=== PATIENT | male | born 1970 | race Caucasian/White ===

== ENCOUNTER 2022-01-29 15:55 | Outpatient (CLI) | payer OTHER, SELFPAY ==
[2022-01-29 16:16] LABS: Immature Reticulocyte Fraction 26.5 % (2.0-16.52); Reticulocyte Percent 1.91 % (0.50-1.50); Reticulocytes Absolute 0.08 M/mm3 (0.02-0.1)
[2022-01-29 16:45] LABS: Iron 46 ug/dL (65-175); Percent Iron Saturation 15 % (12-57)
[2022-01-30 06:22] LABS: Ferritin 39 ng/mL (26-388)
[2022-01-30 07:46] LABS: Basophils Absolute Auto 0.08 K/mm3 (0.00-0.10); Basophils Percent Auto 0.7 % (0.0-1.0); Eosinophils Absolute Auto 0.76 K/mm3 (0.02-0.50); Eosinophils Percent Auto 6.9 % (1.0-6.0); Hematocrit 42.1 % (40.0-54.0); Hemoglobin 13.4 g/dL (14.0-18.0); Immature Granulocyte Absolute 0.06 K/mm3 (0.00-0.00); Immature Granulocyte Percent A 0.5 % (0.0-0.0); Lymphocytes Absolute Auto 2.06 K/mm3 (1.10-4.50); Lymphocytes Percent Auto 18.8 % (18.0-42.0); Mean Corpuscular HGB Conc 31.8 g/dL (32.0-36.0); Mean Corpuscular Hemoglobin 32.3 pg (27.0-31.0); Mean Corpuscular Volume 101.4 fL (78.0-102.0); Mean Platelet Volume 9.9 fl (8.7-11.0); Monocytes Absolute Auto 1.15 K/mm3 (0.10-0.90); Monocytes Percent Auto 10.5 % (2.0-11.0); Neutrophils Absolute Auto 6.8 K/mm3 (1.7-7.2); Neutrophils Percent Auto 62.6 % (50.0-70.0); Platelet Count Result 437 K/mm3 (150-420); Red Blood Count 4.15 M/mm3 (4.70-6.10); Red Cell Distribution Width 14.1 % (11.6-14.4); White Blood Count 10.9 K/mm3 (4.8-10.8)
== END 2022-01-29 15:56 | disposition home or self-care (01) ==
LOC: CHSLAB 16:00
PROVIDERS: Visit Provider Internal Medicine Hematology & Oncology
DX: C18.9 Malignant neoplasm of colon, unspecified (principal); C20 Malignant neoplasm of rectum
CPT/HCPCS: 36415; 82728; 83540; 83550; 85025; 85046

== ENCOUNTER 2022-02-10 10:16 | Outpatient (CLI) | payer OTHER, SELFPAY ==
[2022-02-10 10:41] LABS: Basophils Absolute Auto 0.07 K/mm3 (0.00-0.10); Basophils Percent Auto 0.7 % (0.0-1.0); Eosinophils Absolute Auto 0.87 K/mm3 (0.02-0.50); Eosinophils Percent Auto 8.3 % (1.0-6.0); Hematocrit 39.3 % (40.0-54.0); Hemoglobin 12.8 g/dL (14.0-18.0); Immature Granulocyte Absolute 0.04 K/mm3 (0.00-0.00); Immature Granulocyte Percent A 0.4 % (0.0-0.0); Lymphocytes Absolute Auto 1.63 K/mm3 (1.10-4.50); Lymphocytes Percent Auto 15.6 % (18.0-42.0); Mean Corpuscular HGB Conc 32.6 g/dL (32.0-36.0); Mean Corpuscular Hemoglobin 31.8 pg (27.0-31.0); Mean Corpuscular Volume 97.5 fL (78.0-102.0); Mean Platelet Volume 9.2 fl (8.7-11.0); Monocytes Absolute Auto 1.06 K/mm3 (0.10-0.90); Monocytes Percent Auto 10.1 % (2.0-11.0); Neutrophils Absolute Auto 6.8 K/mm3 (1.7-7.2); Neutrophils Percent Auto 64.9 % (50.0-70.0); Platelet Count Result 337 K/mm3 (150-420); Red Blood Count 4.03 M/mm3 (4.70-6.10); White Blood Count 10.5 K/mm3 (4.8-10.8)
[2022-02-10 10:42] VITALS: BP 103/63; PULSE 64; RESP 14; TEMP 35.7; O2SAT 98
[2022-02-10 10:43] VITALS: BMI 29.0
[2022-02-10 11:00] LABS: Alanine Aminotransferase 30 U/L (16-63); Albumin Level 3.6 g/dL (3.4-5.0); Alkaline Phosphatase 115 U/L (46-116); Anion Gap 10 mmol/L (8-16); Aspartate Amino Transferase 18 U/L (15-37); Bilirubin,Total 0.3 mg/dL (0.00-1.00); Blood Urea Nitrogen 10 mg/dL (7-18); Carbon Dioxide 26 mmol/L (21-32); Chloride 118 mmol/L (98-108); Estimated CRCL calculation 104 ml/min; Estimated Glomerular Filt Rate > 60; Glucose 101 mg/dL (70-99); Osmolality Calculated 317 mOsm/kg (285-295); Potassium 4.3 mmol/L (3.5-5.1); Sodium 154 mmol/L (136-145); Total Protein 6.7 g/dL (6.4-8.2)
[2022-02-10] MEDS: diphenhydrAMINE HCl INJ 50 MG/ML VIAL 25 MG IV PUSH (11:00)
[2022-02-10] MEDS: FAMOTIDINE 20 MG/2 ML VIAL IV PUSH (11:05)
--- NOTE | 2022-02-10 13:26 | PC.NURSE ---
Patient here for Cycle 1 of Oxaliplatin. Labs drawn/reviewed/ok'd for chemo. Education given. All concerns voiced. IV Chemo regimen-Oxaliplatin administered. Tolerated well. Safe exit of hospital will return March 03, 2022 at 1030 for Cycle 2.
[2022-02-10] MEDS: HEPARIN SODIUM LOCK FLUSH 500 UNITS/5 ML SYRINGE IV PUSH (13:34)
[2022-02-10 13:35] VITALS: BP 111/65; PULSE 64; RESP 14; TEMP 36; O2SAT 97
== END 2022-02-10 10:17 | disposition home or self-care (01) ==
LOC: CHSTREATRM 10:20
PROVIDERS: Visit Provider Internal Medicine Hematology & Oncology
DX: Z51.11 Encounter for antineoplastic chemotherapy (principal); C20 Malignant neoplasm of rectum
CPT/HCPCS: 36415; 80053; 85025; 96367; 96375; 96413; 96415; J1100; J1200; J2405; J7060; J9263

== ENCOUNTER 2022-03-03 07:54 | Outpatient (CLI) | payer OTHER, SELFPAY ==
[2022-03-03 08:19] VITALS: BP 107/59; PULSE 68; RESP 14; TEMP 36.3; O2SAT 97
[2022-03-03 08:20] VITALS: BMI 28.8
[2022-03-03 08:25] LABS: Basophils Absolute Auto 0.05 K/mm3 (0.00-0.10); Basophils Percent Auto 0.8 % (0.0-1.0); Eosinophils Percent Auto 7.6 % (1.0-6.0); Hemoglobin 13.2 g/dL (14.0-18.0); Immature Granulocyte Absolute 0.03 K/mm3 (0.00-0.00); Immature Granulocyte Percent A 0.5 % (0.0-0.0); Lymphocytes Absolute Auto 1.26 K/mm3 (1.10-4.50); Lymphocytes Percent Auto 19.1 % (18.0-42.0); Mean Corpuscular HGB Conc 32.2 g/dL (32.0-36.0); Mean Corpuscular Hemoglobin 31.4 pg (27.0-31.0); Mean Corpuscular Volume 97.6 fL (78.0-102.0); Mean Platelet Volume 8.8 fl (8.7-11.0); Monocytes Absolute Auto 0.87 K/mm3 (0.10-0.90); Monocytes Percent Auto 13.2 % (2.0-11.0); Neutrophils Absolute Auto 3.9 K/mm3 (1.7-7.2); Neutrophils Percent Auto 58.8 % (50.0-70.0); Platelet Count Result 299 K/mm3 (150-420); Red Cell Distribution Width 15.8 % (11.6-14.4); White Blood Count 6.6 K/mm3 (4.8-10.8)
[2022-03-03 08:45] LABS: Alanine Aminotransferase 32 U/L (16-63); Albumin Level 3.5 g/dL (3.4-5.0); Alkaline Phosphatase 103 U/L (46-116); Anion Gap 8 mmol/L (8-16); Aspartate Amino Transferase 22 U/L (15-37); Bilirubin,Total 0.4 mg/dL (0.00-1.00); Blood Urea Nitrogen 11 mg/dL (7-18); Calcium 8.7 mg/dL (8.5-10.1); Carbon Dioxide 25 mmol/L (21-32); Chloride 105 mmol/L (98-108); Estimated CRCL calculation 86 ml/min; Estimated Glomerular Filt Rate > 60; Glucose 136 mg/dL (70-99); Osmolality Calculated 287 mOsm/kg (285-295); Potassium 3.6 mmol/L (3.5-5.1); Sodium 138 mmol/L (136-145); Total Protein 6.5 g/dL (6.4-8.2)
[2022-03-03] MEDS: diphenhydrAMINE HCl INJ 50 MG/ML VIAL 25 MG IV PUSH (08:59)
[2022-03-03] MEDS: FAMOTIDINE 20 MG/2 ML VIAL IV PUSH (09:00)
[2022-03-03 11:38] VITALS: BP 100/61; PULSE 60; RESP 14; TEMP 36.6; O2SAT 97
[2022-03-03] MEDS: HEPARIN SODIUM LOCK FLUSH 500 UNITS/5 ML SYRINGE IV PUSH (11:38)
--- NOTE | 2022-03-03 11:39 | PC.NURSE ---
Patient here for Cycle 2 of Oxaliplatin regimen. Labs drawn/reviewed/ok'd. Education on f chemo/cancer ongoing. All concerns answered. IV Chemo Oxaliplatin regimen administered via patent port a cath. SEE MAR. Tolerated well. Safe exit of hospital. Will return cycle 3 on March 24, 2022.
== END 2022-03-03 07:55 | disposition home or self-care (01) ==
PROVIDERS: Visit Provider Internal Medicine Hematology & Oncology
DX: Z51.11 Encounter for antineoplastic chemotherapy (principal); C20 Malignant neoplasm of rectum
CPT/HCPCS: 36415; 80053; 85025; 96367; 96375; 96413; 96415; J1100; J1200; J2405; J7060; J9263

== ENCOUNTER 2022-03-24 10:06 | Outpatient (CLI) | payer OTHER, SELFPAY ==
[2022-03-24 10:29] LABS: Hematocrit 38.6 % (40.0-54.0); Hemoglobin 12.7 g/dL (14.0-18.0); Mean Corpuscular HGB Conc 32.9 g/dL (32.0-36.0); Mean Corpuscular Hemoglobin 32.2 pg (27.0-31.0); Platelet Count Result 258 K/mm3 (150-420); Red Blood Count 3.94 M/mm3 (4.70-6.10); Red Cell Distribution Width 18.2 % (11.6-14.4); White Blood Count 6.2 K/mm3 (4.8-10.8)
--- NOTE | 2022-03-24 10:29 | PC.NURSE ---
Pt to Outpatient infusion center with spouse. A&Ox3. Has no questions or complaints. Oriented to room. Call goodwin in reach. Reminded to call with needs.
--- NOTE | 2022-03-24 10:30 | PC.NURSE ---
Blood drawn from Port and sent to lab.
[2022-03-24 10:37] VITALS: BMI 29.2
[2022-03-24 10:42] VITALS: BP 113/65; PULSE 64; RESP 14; TEMP 36.2; O2SAT 97
[2022-03-24 10:44] LABS: Band Neutrophils Percent 0 % (0-6); Eosinophils Absolute Manual 0.68 K/mm3 (0.02-0.5); Eosinophils Percent Manual 11 % (1-6); Lymphocytes Absolute Manual 1.79 K/mm3 (1.1-4.5); Lymphocytes Percent Manual 29 % (18-44); Monocytes Absolute Manual 0.93 K/mm3 (0.1-0.90); Monocytes Percent Manual 15 % (3-9); Neutrophils Absolute Manual 2.79 K/mm3 (1.3-6.7); Neutrophils Percent Manual 45 % (46-73); Platelet Estimate Adequate (Adequate); Total Cells Counted 100
[2022-03-24 10:50] LABS: Alanine Aminotransferase 62 U/L (16-63); Albumin Level 3.4 g/dL (3.4-5.0); Alkaline Phosphatase 107 U/L (46-116); Anion Gap 5 mmol/L (8-16); Aspartate Amino Transferase 40 U/L (15-37); Bilirubin,Total 0.6 mg/dL (0.00-1.00); Blood Urea Nitrogen 12 mg/dL (7-18); Calcium 8.9 mg/dL (8.5-10.1); Carbon Dioxide 25 mmol/L (21-32); Chloride 105 mmol/L (98-108); Estimated CRCL calculation 96 ml/min; Estimated Glomerular Filt Rate > 60; Glucose 89 mg/dL (70-99); Osmolality Calculated 278 mOsm/kg (285-295); Potassium 3.9 mmol/L (3.5-5.1); Sodium 135 mmol/L (136-145); Total Protein 6.3 g/dL (6.4-8.2)
[2022-03-24] MEDS: FAMOTIDINE 20 MG/2 ML VIAL IV PUSH (10:50)
[2022-03-24] MEDS: diphenhydrAMINE HCl INJ 50 MG/ML VIAL 25 MG IV PUSH (10:59)
[2022-03-24 14:33] VITALS: BP 104/65; PULSE 60; RESP 14; TEMP 36.6; O2SAT 97
[2022-03-24] MEDS: HEPARIN SODIUM LOCK FLUSH 500 UNITS/5 ML SYRINGE IV PUSH (14:33)
--- NOTE | 2022-03-24 14:34 | PC.NURSE ---
Patient here for Cycle 3 of 6 Oxaliplatin chemo regimen. Education given. Concerns answered. Labs drawn/reviewed/ok'd for chemo. No weight loss or nausea/vomiting reported. Reports some fatigue and of course Oxaliplatin cold neuropathy- but not horrible. Chemo regimen administered. See MAR. Tolerated well. Safe exit of hospital. Will return 04/14/22 1000.
== END 2022-03-24 10:07 | disposition home or self-care (01) ==
LOC: CHSTREATRM 10:10
PROVIDERS: Visit Provider Internal Medicine Hematology & Oncology
DX: Z51.11 Encounter for antineoplastic chemotherapy (principal); C20 Malignant neoplasm of rectum
CPT/HCPCS: 36415; 80053; 85025; 96367; 96375; 96413; 96415; J1100; J1200; J2405; J7060; J9263

== ENCOUNTER 2022-04-14 09:57 | Outpatient (CLI) | payer OTHER, SELFPAY ==
[2022-04-14 10:15] VITALS: BP 117/46; PULSE 69; RESP 16; TEMP 36.7; O2SAT 98
[2022-04-14 10:17] VITALS: BMI 29.6
[2022-04-14 10:17] LABS: Hemoglobin 11.9 g/dL (14.0-18.0); Mean Corpuscular Hemoglobin 33.1 pg (27.0-31.0); Mean Corpuscular Volume 97.2 fL (78.0-102.0); Mean Platelet Volume 9.2 fl (8.7-11.0); Platelet Count Result 208 K/mm3 (150-420); Red Cell Distribution Width 20.8 % (11.6-14.4)
[2022-04-14 10:33] LABS: Alanine Aminotransferase 45 U/L (16-63); Alkaline Phosphatase 98 U/L (46-116); Anion Gap 6 mmol/L (8-16); Aspartate Amino Transferase 37 U/L (15-37); Bilirubin,Total 0.5 mg/dL (0.00-1.00); Blood Urea Nitrogen 10 mg/dL (7-18); Calcium 8.2 mg/dL (8.5-10.1); Carbon Dioxide 24 mmol/L (21-32); Chloride 109 mmol/L (98-108); Estimated CRCL calculation 105 ml/min; Estimated Glomerular Filt Rate > 60; Glucose 121 mg/dL (70-99); Osmolality Calculated 288 mOsm/kg (285-295); Potassium 3.5 mmol/L (3.5-5.1); Sodium 139 mmol/L (136-145); Total Protein 5.8 g/dL (6.4-8.2)
[2022-04-14] MEDS: FAMOTIDINE 20 MG/2 ML VIAL IV PUSH (10:47)
[2022-04-14] MEDS: diphenhydrAMINE HCl INJ 50 MG/ML VIAL 25 MG IV PUSH (10:47)
[2022-04-14 10:50] LABS: Band Neutrophils Percent 0 % (0-6); Neutrophils Percent Manual 55 % (46-73); Total Cells Counted 100
[2022-04-14 10:51] LABS: Basophils Percent Manual 0 % (0-1); Eosinophils Absolute Manual 0.24 K/mm3 (0.02-0.5); Eosinophils Percent Manual 4 % (1-6); Lymphocytes Absolute Manual 1.56 K/mm3 (1.1-4.5); Lymphocytes Percent Manual 26 % (18-44); Monocytes Percent Manual 15 % (3-9); Platelet Estimate Adequate (Adequate)
--- NOTE | 2022-04-14 13:18 | PC.NURSE ---
Patient here for Cycle 4 of 6 Oxaliplatin Chemo regimen therapy IV. Education given. Labs drawn/reviewed/ok'd. IV Oxaliplatin chemo regimen administered. See MAR. Tolerated well. Safe exit of hospital. Will return May 05, 2022 at 1000 for cycle 5.
[2022-04-14] MEDS: HEPARIN SODIUM LOCK FLUSH 500 UNITS/5 ML SYRINGE IV PUSH (13:31)
[2022-04-14 13:40] VITALS: BP 112/53; PULSE 88; RESP 14; O2SAT 98
== END 2022-04-14 09:58 | disposition home or self-care (01) ==
LOC: CHSTREATRM 10:01
PROVIDERS: Visit Provider Internal Medicine Hematology & Oncology
DX: Z51.11 Encounter for antineoplastic chemotherapy (principal); C20 Malignant neoplasm of rectum
CPT/HCPCS: 36415; 80053; 85025; 96367; 96375; 96413; 96415; J1100; J1200; J2405; J7060; J9263

== ENCOUNTER 2022-05-05 09:46 | Outpatient (CLI) | payer OTHER, SELFPAY ==
[2022-05-05 10:04] LABS: Hematocrit 34.5 % (40.0-54.0); Hemoglobin 11.7 g/dL (14.0-18.0); Mean Corpuscular HGB Conc 33.9 g/dL (32.0-36.0); Mean Corpuscular Hemoglobin 33.8 pg (27.0-31.0); Mean Corpuscular Volume 99.7 fL (78.0-102.0); Platelet Count Result 184 K/mm3 (150-420); Red Blood Count 3.46 M/mm3 (4.70-6.10); Red Cell Distribution Width 23.6 % (11.6-14.4); White Blood Count 5.8 K/mm3 (4.8-10.8)
[2022-05-05 10:05] VITALS: BP 101/63; PULSE 69; RESP 14; TEMP 36.1; O2SAT 96
[2022-05-05 10:06] VITALS: BMI 29.2
[2022-05-05 10:11] LABS: Band Neutrophils Percent 0 % (0-6); Eosinophils Percent Manual 7 % (1-6); Lymphocytes Absolute Manual 1.45 K/mm3 (1.1-4.5); Lymphocytes Percent Manual 25 % (18-44); Monocytes Percent Manual 19 % (3-9); Neutrophils Absolute Manual 2.84 K/mm3 (1.3-6.7); Neutrophils Percent Manual 49 % (46-73); Platelet Estimate Adequate (Adequate); Total Cells Counted 100
[2022-05-05] MEDS: diphenhydrAMINE HCl INJ 50 MG/ML VIAL 25 MG IV PUSH (10:15)
[2022-05-05 10:20] LABS: Alanine Aminotransferase 33 U/L (16-63); Albumin Level 3.1 g/dL (3.4-5.0); Alkaline Phosphatase 107 U/L (46-116); Anion Gap 7 mmol/L (8-16); Aspartate Amino Transferase 32 U/L (15-37); Bilirubin,Total 0.7 mg/dL (0.00-1.00); Blood Urea Nitrogen 9 mg/dL (7-18); Calcium 8.5 mg/dL (8.5-10.1); Carbon Dioxide 24 mmol/L (21-32); Chloride 108 mmol/L (98-108); Estimated CRCL calculation 99 ml/min; Estimated Glomerular Filt Rate > 60; Glucose 139 mg/dL (70-99); Osmolality Calculated 288 mOsm/kg (285-295); Potassium 3.4 mmol/L (3.5-5.1); Sodium 139 mmol/L (136-145)
[2022-05-05] MEDS: FAMOTIDINE 20 MG/2 ML VIAL IV PUSH (10:20)
[2022-05-05 13:55] VITALS: BP 103/66; PULSE 78; RESP 14; TEMP 36.6; O2SAT 97
[2022-05-05] MEDS: HEPARIN SODIUM LOCK FLUSH 500 UNITS/5 ML SYRINGE IV PUSH (13:55)
--- NOTE | 2022-05-05 13:57 | PC.NURSE ---
Patient here for Cycle 5 of 6 Oxaliplatin chemo regimen. Labs drawn and results reviewed and ok'd for chemo. Education given. No concerns voiced. Reports had phone visit with Dr. Middleton yesterday and everything was good. IV Oxaliplatin regimen administered via patent port a cath. SEE MAR. Tolerated well. Safe exit of hospital. Will return 2021 at 1000 for #6 of 6.
== END 2022-05-05 09:47 | disposition home or self-care (01) ==
LOC: CHSTREATRM 09:49
PROVIDERS: Visit Provider Internal Medicine Hematology & Oncology
DX: Z51.11 Encounter for antineoplastic chemotherapy (principal); C20 Malignant neoplasm of rectum
CPT/HCPCS: 36415; 80053; 85025; 96367; 96375; 96413; 96415; J1100; J1200; J2405; J7060; J9263

== ENCOUNTER 2022-05-26 09:42 | Outpatient (CLI) | payer OTHER, SELFPAY ==
[2022-05-26 10:01] VITALS: BP 101/63; PULSE 64; RESP 14; TEMP 36.6; O2SAT 98
[2022-05-26 10:03] VITALS: BMI 28.5
[2022-05-26 10:04] LABS: Hematocrit 34.8 % (40.0-54.0); Hemoglobin 11.8 g/dL (14.0-18.0); Mean Corpuscular HGB Conc 33.9 g/dL (32.0-36.0); Mean Corpuscular Hemoglobin 35.1 pg (27.0-31.0); Mean Corpuscular Volume 103.6 fL (78.0-102.0); Mean Platelet Volume 9.6 fl (8.7-11.0); Platelet Count Result 185 K/mm3 (150-420); Red Blood Count 3.36 M/mm3 (4.70-6.10); White Blood Count 5.5 K/mm3 (4.8-10.8)
[2022-05-26 10:19] LABS: Alanine Aminotransferase 36 U/L (16-63); Albumin Level 3.2 g/dL (3.4-5.0); Alkaline Phosphatase 111 U/L (46-116); Anion Gap 10 mmol/L (8-16); Aspartate Amino Transferase 37 U/L (15-37); Band Neutrophils Percent 0 % (0-6); Bilirubin,Total 0.9 mg/dL (0.00-1.00); Blood Urea Nitrogen 11 mg/dL (7-18); Calcium 8.8 mg/dL (8.5-10.1); Carbon Dioxide 24 mmol/L (21-32); Chloride 107 mmol/L (98-108); Eosinophils Absolute Manual 0.33 K/mm3 (0.02-0.5); Eosinophils Percent Manual 6 % (1-6); Estimated CRCL calculation 99 ml/min; Estimated Glomerular Filt Rate > 60; Glucose 135 mg/dL (70-99); Lymphocytes Absolute Manual 1.48 K/mm3 (1.1-4.5); Lymphocytes Percent Manual 27 % (18-44); Monocytes Absolute Manual 0.82 K/mm3 (0.1-0.90); Monocytes Percent Manual 15 % (3-9); Neutrophils Absolute Manual 2.86 K/mm3 (1.3-6.7); Neutrophils Percent Manual 52 % (46-73); Osmolality Calculated 293 mOsm/kg (285-295); Platelet Estimate Adequate (Adequate); Potassium 3.6 mmol/L (3.5-5.1); Sodium 141 mmol/L (136-145); Total Cells Counted 100; Total Protein 6.1 g/dL (6.4-8.2)
[2022-05-26] MEDS: FAMOTIDINE 20 MG/2 ML VIAL IV PUSH (10:27)
[2022-05-26] MEDS: diphenhydrAMINE HCl INJ 50 MG/ML VIAL 25 MG IV PUSH (10:28)
[2022-05-26] MEDS: HEPARIN SODIUM LOCK FLUSH 500 UNITS/5 ML SYRINGE IV PUSH (13:24)
[2022-05-26 13:25] VITALS: BP 110/60; PULSE 64; RESP 18; TEMP 36.4; O2SAT 97
--- NOTE | 2022-05-26 13:26 | PC.NURSE ---
Patient here for #6 of 6 IV chemotherapy. Labs drawn-reviewed and ok'd. Education given. No concerns voiced. Reports just gets tired easily. IV chemo regimen administered see MAR. Tolerated well. Safe exit of hospital.
== END 2022-05-26 09:43 | disposition home or self-care (01) ==
LOC: CHSTREATRM 09:47
PROVIDERS: Visit Provider Internal Medicine Hematology & Oncology
DX: Z51.11 Encounter for antineoplastic chemotherapy (principal); C20 Malignant neoplasm of rectum
CPT/HCPCS: 36415; 80053; 85025; 96367; 96375; 96413; 96415; J1100; J1200; J2405; J7060; J9263

== ENCOUNTER 2022-07-20 09:23 | Outpatient (CLI) | payer OTHER, SELFPAY ==
[2022-07-20] MEDS: HEPARIN SODIUM LOCK FLUSH 500 UNITS/5 ML SYRINGE IV PUSH (09:47)
--- NOTE | 2022-07-20 09:49 | PC.NURSE ---
Patient here for port flush. Right subclavian port accessed. Flushed SEE Dec. port asystomatic of s/sx of infection. Tolerated well. Safe exit of hospital. Will return prn.
== END 2022-07-20 09:24 | disposition home or self-care (01) ==
PROVIDERS: Visit Provider Internal Medicine Hematology & Oncology
DX: Z45.2 Encounter for adjustment and management of vascular access device (principal)
CPT/HCPCS: 96523

== ENCOUNTER 2022-09-03 11:28 | Outpatient (CLI) | payer OTHER, SELFPAY ==
[2022-09-03] MEDS: HEPARIN SODIUM LOCK FLUSH 500 UNITS/5 ML SYRINGE IV PUSH (11:40)
--- NOTE | 2022-09-03 13:37 | PC.NURSE ---
Patient here for monthly port flush. Port accessed with ferraro port needle, good blood return, flushed per protocol, deaccessed. Site asystomatic of s/sx of infection. SEE MAR. Safe exit of hospital.
== END 2022-09-03 11:29 | disposition home or self-care (01) ==
LOC: CHSTREATRM 11:32
PROVIDERS: Visit Provider Internal Medicine Hematology & Oncology
DX: Z45.2 Encounter for adjustment and management of vascular access device (principal)
CPT/HCPCS: 96523

== ENCOUNTER 2022-10-04 11:33 | Outpatient (CLI) | payer OTHER, SELFPAY ==
[2022-10-04] MEDS: HEPARIN SODIUM LOCK FLUSH 500 UNITS/5 ML SYRINGE IV PUSH (11:45)
--- NOTE | 2022-10-04 12:42 | PC.NURSE ---
Patient here for q 4 week port a cath flush. No concerns voiced. Port a cath accessed/flushed/deacessed. SEE MAR. Site asystomatic of s/sx of infection. Tolerated well. Safe exit of hospital.
== END 2022-10-04 11:34 | disposition home or self-care (01) ==
LOC: CHSTREATRM 11:35
PROVIDERS: Visit Provider Internal Medicine Hematology & Oncology
DX: Z45.2 Encounter for adjustment and management of vascular access device (principal)
CPT/HCPCS: 96523

== ENCOUNTER 2022-11-05 10:06 | Outpatient (CLI) | payer OTHER, SELFPAY ==
[2022-11-05] MEDS: HEPARIN SODIUM LOCK FLUSH 500 UNITS/5 ML SYRINGE IV PUSH (10:20)
--- NOTE | 2022-11-05 10:27 | PC.NURSE ---
Patient here for monthly port flush. No concerns voiced. Port flush completed. SEE MAR and assessments. Tolerated well. Safe exit of hospital.
== END 2022-11-05 10:07 | disposition home or self-care (01) ==
PROVIDERS: PCP Internal Medicine Hematology & Oncology; Visit Provider Internal Medicine Hematology & Oncology
DX: Z45.2 Encounter for adjustment and management of vascular access device (principal)
CPT/HCPCS: 96523

== ENCOUNTER 2022-12-06 10:59 | Outpatient (CLI) | payer OTHER, SELFPAY ==
--- NOTE | 2022-12-06 11:12 | PC.NURSE ---
Patient for monthly port flush. Education given. No concerns voiced. Port flush completed. Tolerated well. SEE MAR and vasc flowsheet. Safe exit of hospital. Patient will call next month to schedule.
[2022-12-06] MEDS: HEPARIN SODIUM LOCK FLUSH 500 UNITS/5 ML SYRINGE (11:13)
== END 2022-12-06 11:00 | disposition home or self-care (01) ==
LOC: CHSTREATRM 11:01
PROVIDERS: PCP Internal Medicine Hematology & Oncology; Visit Provider Internal Medicine Hematology & Oncology
DX: Z45.2 Encounter for adjustment and management of vascular access device (principal)
CPT/HCPCS: 96523; J1642

== ENCOUNTER 2022-12-31 10:47 | Outpatient (CLI) | payer OTHER, SELFPAY ==
[2022-12-31 11:34] LABS: Ferritin 152 ng/mL (26-388); Iron 116 ug/dL (65-175); Percent Iron Saturation 46 % (12-57)
== END 2022-12-31 10:48 | disposition home or self-care (01) ==
LOC: CHSLAB 10:51
PROVIDERS: Visit Provider Internal Medicine Hematology & Oncology
DX: D64.9 Anemia, unspecified (principal)
CPT/HCPCS: 36415; 82728; 83540; 83550

== ENCOUNTER 2023-01-07 10:45 | Outpatient (CLI) | payer OTHER, SELFPAY ==
[2023-01-07] MEDS: HEPARIN SODIUM LOCK FLUSH 500 UNITS/5 ML SYRINGE IV PUSH (11:00)
--- NOTE | 2023-01-07 11:41 | PC.NURSE ---
Patient here for monthly port flush. Port flush performed and tolerated well. SEE worklist and MAR. Safe exit of hospital.
[2023-01-07 11:48] VITALS: BMI 28.9
== END 2023-01-07 10:46 | disposition home or self-care (01) ==
LOC: CHSTREATRM 10:48
PROVIDERS: Visit Provider Internal Medicine Hematology & Oncology
DX: Z45.2 Encounter for adjustment and management of vascular access device (principal)
CPT/HCPCS: 96523

== ENCOUNTER 2023-02-28 12:32 | Outpatient (CLI) | payer OTHER, SELFPAY ==
[2023-02-28 12:49] VITALS: BMI 29.2
[2023-02-28 12:51] VITALS: BP 118/70; PULSE 72; RESP 14; TEMP 36.4; O2SAT 98
[2023-02-28] MEDS: HEPARIN SODIUM LOCK FLUSH 500 UNITS/5 ML SYRINGE IV PUSH (12:52)
== END 2023-02-28 12:33 | disposition home or self-care (01) ==
LOC: CHSTREATRM 12:35
PROVIDERS: Visit Provider Internal Medicine Hematology & Oncology
DX: Z45.2 Encounter for adjustment and management of vascular access device (principal)
CPT/HCPCS: 96523

== ENCOUNTER 2023-05-06 10:09 | Outpatient (CLI) | payer OTHER, SELFPAY ==
[2023-05-06] MEDS: HEPARIN SODIUM LOCK FLUSH 500 UNITS/5 ML SYRINGE IV PUSH (10:12)
[2023-05-06 10:17] VITALS: BP 135/77; PULSE 80; RESP 16; TEMP 36.4; O2SAT 98
[2023-05-06 10:18] VITALS: BMI 29.7
--- NOTE | 2023-05-06 10:20 | PC.NURSE ---
Patient here for monthly port flush. No concerns voiced. Port flushed completed. SEE worklist/MAR. Tolerated well. Safe exit of hospital per self/amb. Will call when he want's next month's port flush.
== END 2023-05-06 10:10 | disposition home or self-care (01) ==
LOC: CHSTREATRM 10:11
PROVIDERS: Visit Provider Internal Medicine Hematology & Oncology
DX: Z45.2 Encounter for adjustment and management of vascular access device (principal)
CPT/HCPCS: 96523

== ENCOUNTER 2023-06-02 10:10 | Outpatient (CLI) | payer OTHER, SELFPAY ==
[2023-06-02] MEDS: HEPARIN SODIUM LOCK FLUSH 500 UNITS/5 ML SYRINGE IV PUSH (10:40)
[2023-06-02 10:46] VITALS: BMI 29.7
[2023-06-02 11:26] VITALS: BP 138/80; PULSE 78; RESP 14; O2SAT 99
--- NOTE | 2023-06-02 11:28 | PC.NURSE ---
1030 Patient here for monthly port flush. No concerns voiced. Site asystomatic of s/sx of injection. Port flush performed. SEE MAR/vascular access assessment. Tolerated well. Safe exit of hospital ambulatory with . Pt. will call next month to make appt. for next port flush.
== END 2023-06-02 10:11 | disposition home or self-care (01) ==
LOC: CHSTREATRM 10:15
PROVIDERS: Visit Provider Internal Medicine Hematology & Oncology
DX: Z45.2 Encounter for adjustment and management of vascular access device (principal)
CPT/HCPCS: 96523

== ENCOUNTER 2023-07-12 11:50 | Outpatient (CLI) | payer OTHER, SELFPAY ==
[2023-07-12] MEDS: HEPARIN SODIUM LOCK FLUSH 500 UNITS/5 ML SYRINGE IV PUSH (12:50)
--- NOTE | 2023-07-12 13:24 | PC.NURSE ---
Patient here for monthly port flush. No concerns voiced. Procedure completed. Tolerated well. Safe exit of hospital per amb/.
[2023-07-12 13:28] VITALS: BMI 31.8
== END 2023-07-12 11:51 | disposition home or self-care (01) ==
LOC: CHSTREATRM 11:53
PROVIDERS: Visit Provider Internal Medicine Hematology & Oncology
DX: Z45.2 Encounter for adjustment and management of vascular access device (principal)
CPT/HCPCS: 96523

== ENCOUNTER 2023-08-12 10:33 | Outpatient (CLI) | payer OTHER, SELFPAY ==
[2023-08-12 11:00] VITALS: BP 121/79; PULSE 80; RESP 16; TEMP 36.6; O2SAT 98; BMI 29.9
--- NOTE | 2023-08-12 11:16 | PC.NURSE ---
Patient here for monthly port flush. No concerns voiced. Understand procedure. Port flush completed. SEE MAR/vascular access. Tolerated well. Safe exit of hospital/amb with . Will call next month to make an appt to their convenience.
[2023-08-12] MEDS: HEPARIN SODIUM LOCK FLUSH 500 UNITS/5 ML SYRINGE IV PUSH (11:19)
== END 2023-08-12 10:34 | disposition home or self-care (01) ==
LOC: CHSTREATRM 10:44
PROVIDERS: Visit Provider Internal Medicine Hematology & Oncology
DX: Z45.2 Encounter for adjustment and management of vascular access device (principal)
CPT/HCPCS: 96523

== ENCOUNTER 2023-12-09 09:52 | Outpatient (CLI) | payer OTHER, SELFPAY ==
[2023-12-09 10:23] LABS: Appearance Urine Clear (Clear); Bilirubin Urine Negative (Negative); Blood Urine Negative (Negative); Color Urine Light Yellow (Yellow); Glucose Urine UA Negative (Negative); Ketones Urine Negative (Negative); Leukocyte Esterase Ur Negative (Negative); Nitrate Urine Negative (Negative); Protein Urine Negative (Negative); Specific Grav Ur <= 1.005 (1.010-1.020); Urobilinogen Urine 0.2 mg/dL (0.2-1.0)
[2023-12-09 10:24] LABS: Add Urine Microscopic? NO
[2023-12-09 10:31] LABS: Basophils Absolute Auto 0.06 K/mm3 (0.00-0.10); Basophils Percent Auto 0.7 % (0.0-1.0); Eosinophils Absolute Auto 0.76 K/mm3 (0.02-0.50); Eosinophils Percent Auto 8.4 % (1.0-6.0); Hematocrit 44.7 % (40.0-54.0); Hemoglobin 15.1 g/dL (14.0-18.0); Immature Granulocyte Absolute 0.03 K/mm3 (0.00-0.00); Immature Granulocyte Percent A 0.3 % (0.0-0.0); Lymphocytes Absolute Auto 1.65 K/mm3 (1.10-4.50); Lymphocytes Percent Auto 18.2 % (18.0-42.0); Mean Corpuscular HGB Conc 33.8 g/dL (32.0-36.0); Mean Corpuscular Hemoglobin 32.5 pg (27.0-31.0); Mean Corpuscular Volume 96.1 fL (78.0-102.0); Mean Platelet Volume 8.9 fl (8.7-11.0); Monocytes Absolute Auto 1.22 K/mm3 (0.10-0.90); Monocytes Percent Auto 13.5 % (2.0-11.0); Neutrophils Absolute Auto 5.3 K/mm3 (1.7-7.2); Neutrophils Percent Auto 58.9 % (50.0-70.0); Platelet Count Result 259 K/mm3 (150-420); Red Blood Count 4.65 M/mm3 (4.70-6.10); Red Cell Distribution Width 13.2 % (11.6-14.4); White Blood Count 9.1 K/mm3 (4.8-10.8)
[2023-12-09 10:35] VITALS: BP 102/68; PULSE 88; RESP 16; TEMP 36.6; O2SAT 96; BMI 33.3
[2023-12-09] MEDS: SODIUM CHLORIDE 0.9% IV 250 ML 10 ML IVPB (11:05)
[2023-12-09 11:15] LABS: Alanine Aminotransferase 30 U/L (16-63); Albumin Level 3.6 g/dL (3.4-5.0); Alkaline Phosphatase 88 U/L (46-116); Anion Gap 10 mmol/L (8-16); Aspartate Amino Transferase 20 U/L (15-37); Bilirubin,Total 0.5 mg/dL (0.00-1.00); Blood Urea Nitrogen 11 mg/dL (7-18); Calcium 8.7 mg/dL (8.5-10.1); Carbon Dioxide 24 mmol/L (21-32); Chloride 103 mmol/L (98-108); Estimated CRCL calculation 94 ml/min; Estimated Glomerular Filt Rate > 60; Glucose 109 mg/dL (70-99); Osmolality Calculated 284 mOsm/kg (285-295); Sodium 137 mmol/L (136-145); Total Protein 6.8 g/dL (6.4-8.2)
[2023-12-09] MEDS: diphenhydrAMINE HCl INJ 50 MG/ML VIAL 25 MG IV PUSH (11:15)
[2023-12-09] MEDS: FAMOTIDINE 20 MG/ISO 50 ML 20 MG/50 ML BAG 150 MG IVPB (11:20)
[2023-12-09] MEDS: ONDANSETRON INJ 16 MG, dexAMETHasone SOD 4 MG/ML INJ 12 MG in SODIUM CHLORIDE 0.9% IV 1... 300 MG IVPB (11:40)
--- NOTE | 2023-12-09 12:44 | PC.NURSE ---
1045 Patient here for cycle 1 of Chemo regimen. Labs drawn/UA collected/results reviewed and ok'd. Chemo regimen administration began see DEC. Education given and will be ongoing each time. at chair side. 1230 Patient c/o mild chest discomfort and mild headache. Vital signs stable. Encourage patient to sit up longer after eating [employer] food. Chemo stop for now 1245 Patient set up. After 10 minutes report feeling better. Went to Bathroom and let out lots of flatus. Denies any problems now. Chemo restarted as ordered.
[2023-12-09 12:49] VITALS: BP 109/62; PULSE 72; RESP 16; O2SAT 96
[2023-12-09] MEDS: HEPARIN SODIUM LOCK FLUSH 500 UNITS/5 ML SYRINGE IV PUSH (13:29)
[2023-12-09 13:40] VITALS: BP 111/69; PULSE 72; RESP 14; TEMP 36.6; O2SAT 96
--- NOTE | 2023-12-09 13:41 | PC.NURSE ---
1330 Chemo infusion completed. Tolerated well without any complaints after above incident. Will return 12/30/23 at 1030 for next chemo tx. Safe exit of hospital with per ambulatory.
[2023-12-14 06:37] LABS: Carcinoembryonic Antigen <2.0 ng/mL (<2.5)
== END 2023-12-09 13:43 | disposition home or self-care (01) ==
LOC: CHSTREATRM 09:55
PROVIDERS: Internal Medicine Hematology; Visit Provider Internal Medicine Hematology & Oncology
DX: Z51.11 Encounter for antineoplastic chemotherapy (principal); C20 Malignant neoplasm of rectum; C78.00 Secondary malignant neoplasm of unspecified lung
CPT/HCPCS: 36415; 80053; 81003; 82378; 85025; 96367; 96375; 96413; J1100; J1200; J2405; J7050; Q5118

== ENCOUNTER 2023-12-30 10:21 | Outpatient (CLI) | payer OTHER, SELFPAY ==
[2023-12-30 10:41] VITALS: BMI 34.2
[2023-12-30 10:44] LABS: Appearance Urine Clear (Clear); Basophils Absolute Auto 0.04 K/mm3 (0.00-0.10); Basophils Percent Auto 0.5 % (0.0-1.0); Bilirubin Urine Negative (Negative); Blood Urine Negative (Negative); Color Urine Light Yellow (Yellow); Eosinophils Absolute Auto 0.63 K/mm3 (0.02-0.50); Eosinophils Percent Auto 7.2 % (1.0-6.0); Glucose Urine UA Negative (Negative); Hematocrit 44.7 % (40.0-54.0); Hemoglobin 15.2 g/dL (14.0-18.0); Immature Granulocyte Absolute 0.03 K/mm3 (0.00-0.00); Immature Granulocyte Percent A 0.3 % (0.0-0.0); Ketones Urine Negative (Negative); Leukocyte Esterase Ur Negative LEU/UL (Negative); Lymphocytes Absolute Auto 1.86 K/mm3 (1.10-4.50); Lymphocytes Percent Auto 21.2 % (18.0-42.0); Mean Platelet Volume 8.9 fl (8.7-11.0); Monocytes Absolute Auto 0.76 K/mm3 (0.10-0.90); Monocytes Percent Auto 8.7 % (2.0-11.0); Neutrophils Absolute Auto 5.4 K/mm3 (1.7-7.2); Neutrophils Percent Auto 62.1 % (50.0-70.0); Nitrate Urine Negative (Negative); Platelet Count Result 257 K/mm3 (150-420); Protein Urine Negative (Negative); Red Blood Count 4.61 M/mm3 (4.70-6.10); Red Cell Distribution Width 14.6 % (11.6-14.4); Specific Grav Ur <= 1.005 (1.010-1.020); Urobilinogen Urine 0.2 mg/dL (0.2-1.0); White Blood Count 8.8 K/mm3 (4.8-10.8); pH Urine 5.5 (5.0-8.0)
[2023-12-30] MEDS: SODIUM CHLORIDE 0.9% IV 250 ML 10 ML IVPB (11:00)
[2023-12-30 11:02] VITALS: BP 117/70; PULSE 80; RESP 14; TEMP 36.6; O2SAT 97
[2023-12-30 11:02] LABS: Alanine Aminotransferase 35 U/L (16-63); Albumin Level 3.7 g/dL (3.4-5.0); Alkaline Phosphatase 87 U/L (46-116); Anion Gap 12 mmol/L (8-16); Aspartate Amino Transferase 21 U/L (15-37); Bilirubin,Total 0.5 mg/dL (0.00-1.00); Blood Urea Nitrogen 9 mg/dL (7-18); Calcium 8.6 mg/dL (8.5-10.1); Carbon Dioxide 26 mmol/L (21-32); Chloride 102 mmol/L (98-108); Estimated CRCL calculation 90 ml/min; Estimated Glomerular Filt Rate > 60; Glucose 162 mg/dL (70-99); Osmolality Calculated 292 mOsm/kg (285-295); Potassium 3.9 mmol/L (3.5-5.1); Sodium 140 mmol/L (136-145); Total Protein 6.8 g/dL (6.4-8.2)
[2023-12-30] MEDS: SODIUM CHLORIDE 0.9% IVPB (11:05)
[2023-12-30] MEDS: ONDANSETRON IVPB (11:05)
[2023-12-30 11:12] LABS: Add Urine Microscopic? NO
[2023-12-30] MEDS: HEPARIN SODIUM LOCK FLUSH 500 UNITS/5 ML SYRINGE IV PUSH (12:47)
[2023-12-30 12:49] VITALS: BP 121/69; PULSE 72; RESP 14; TEMP 36.4; O2SAT 97
--- NOTE | 2023-12-30 12:50 | PC.NURSE ---
Patient here for #2 chemotherapy regimen. Labs draw/reviewed/ok'd. Education given. All concerns voiced answered. IV Chemo regimen administered. SSE MAR. Tolerated well. Will return 01/20/24 for #3. Safe exit of hospital with /ambulatory.
[2024-01-05 06:12] LABS: Carcinoembryonic Antigen <2.0 ng/mL (<2.5)
== END 2023-12-30 12:52 | disposition home or self-care (01) ==
PROVIDERS: Visit Provider Internal Medicine Hematology & Oncology
DX: Z51.11 Encounter for antineoplastic chemotherapy (principal); C20 Malignant neoplasm of rectum
CPT/HCPCS: 36415; 80053; 81003; 82378; 85025; 96367; 96413; J2405; J7050; Q5118

== ENCOUNTER 2024-01-20 09:45 | Outpatient (CLI) | payer OTHER, SELFPAY ==
[2024-01-20] MEDS: SODIUM CHLORIDE 0.9% IV 250 ML 10 ML IVPB (10:15)
[2024-01-20 10:16] LABS: Basophils Absolute Auto 0.06 K/mm3 (0.00-0.10); Basophils Percent Auto 0.7 % (0.0-1.0); Eosinophils Absolute Auto 0.43 K/mm3 (0.02-0.50); Eosinophils Percent Auto 5.1 % (1.0-6.0); Hematocrit 43.4 % (40.0-54.0); Hemoglobin 14.8 g/dL (14.0-18.0); Immature Granulocyte Absolute 0.04 K/mm3 (0.00-0.00); Immature Granulocyte Percent A 0.5 % (0.0-0.0); Lymphocytes Absolute Auto 1.79 K/mm3 (1.10-4.50); Lymphocytes Percent Auto 21.3 % (18.0-42.0); Mean Corpuscular HGB Conc 34.1 g/dL (32-36); Mean Corpuscular Hemoglobin 34.4 pg (27.0-31.0); Mean Corpuscular Volume 100.9 fL (78.0-102.0); Mean Platelet Volume 8.8 fl (8.7-11.0); Monocytes Absolute Auto 0.82 K/mm3 (0.10-0.90); Monocytes Percent Auto 9.8 % (2.0-11.0); Neutrophils Absolute Auto 5.27 K/mm3 (1.70-7.20); Neutrophils Percent Auto 62.6 % (50.0-70.0); Platelet Count Result 249 K/mm3 (150-420); White Blood Count 8.4 K/mm3 (4.8-10.8)
[2024-01-20 10:17] VITALS: BP 138/79; PULSE 80; RESP 14; TEMP 36.3; O2SAT 96; BMI 34.1
[2024-01-20 10:17] LABS: Appearance Urine Clear (Clear); Bilirubin Urine Negative (Negative); Blood Urine Trace-intact (Negative); Color Urine Yellow (Yellow); Glucose Urine UA Negative (Negative); Ketones Urine Negative (Negative); Leukocyte Esterase Ur Negative (Negative); Nitrate Urine Negative (Negative); Protein Urine Negative (Negative)
[2024-01-20 10:30] LABS: Add Urine Microscopic? YES; Bacteria Urine Trace /hpf; Mucus Urine Few /lpf; RBC Urine 0-2 /hpf (0-2); Squamous Epithelial Cell Urine Rare /hpf (Few); WBC Urine None seen /hpf (0-3)
[2024-01-20 10:34] LABS: Alanine Aminotransferase 30 U/L (16-63); Albumin Level 3.7 g/dL (3.4-5.0); Alkaline Phosphatase 92 U/L (46-116); Anion Gap 8 mmol/L (4-12); Aspartate Amino Transferase 23 U/L (15-37); Bilirubin,Total 0.8 mg/dL (0.00-1.00); Blood Urea Nitrogen 16 mg/dL (7-18); Calcium 8.6 mg/dL (8.5-10.1); Carbon Dioxide 27 mmol/L (21-32); Chloride 103 mmol/L (98-108); Estimated CRCL calculation 90 ml/min; Estimated Glomerular Filt Rate > 60; Glucose 134 mg/dL (70-99); Osmolality Calculated 289 mOsm/kg (285-295); Potassium 3.8 mmol/L (3.5-5.1); Sodium 138 mmol/L (136-145); Total Protein 6.7 g/dL (6.4-8.2)
[2024-01-20] MEDS: SODIUM CHLORIDE 0.9% IVPB (10:50)
[2024-01-20] MEDS: ONDANSETRON IVPB (10:50)
[2024-01-20] MEDS: HEPARIN SODIUM LOCK FLUSH 500 UNITS/5 ML SYRINGE IV PUSH (11:10)
== END 2024-01-20 09:46 | disposition home or self-care (01) ==
LOC: CHSTREATRM 09:50
PROVIDERS: Visit Provider Internal Medicine Hematology
DX: Z51.11 Encounter for antineoplastic chemotherapy (principal); C20 Malignant neoplasm of rectum
CPT/HCPCS: 36415; 80053; 81001; 85025; 96367; 96413; J2405; J7050; Q5118

== ENCOUNTER 2024-02-10 10:02 | Outpatient (CLI) | payer OTHER, SELFPAY ==
[2024-02-10 10:21] LABS: Basophils Absolute Auto 0.05 K/mm3 (0.00-0.10); Basophils Percent Auto 0.6 % (0.0-1.0); Eosinophils Absolute Auto 0.46 K/mm3 (0.02-0.50); Eosinophils Percent Auto 5.8 % (1.0-6.0); Hematocrit 41.4 % (40.0-54.0); Hemoglobin 14.1 g/dL (14.0-18.0); Immature Granulocyte Absolute 0.03 K/mm3 (0.00-0.00); Immature Granulocyte Percent A 0.4 % (0.0-0.0); Lymphocytes Percent Auto 22.7 % (18.0-42.0); Mean Corpuscular HGB Conc 34.1 g/dL (32-36); Mean Corpuscular Hemoglobin 35.5 pg (27.0-31.0); Mean Corpuscular Volume 104.3 fL (78.0-102.0); Monocytes Absolute Auto 0.77 K/mm3 (0.10-0.90); Monocytes Percent Auto 9.7 % (2.0-11.0); Neutrophils Absolute Auto 4.83 K/mm3 (1.70-7.20); Neutrophils Percent Auto 60.8 % (50.0-70.0); Platelet Count Result 251 K/mm3 (150-420); Red Blood Count 3.97 M/mm3 (4.70-6.10); Red Cell Distribution Width 19.4 % (11.6-14.4); White Blood Count 7.9 K/mm3 (4.8-10.8)
[2024-02-10 10:24] VITALS: BP 112/69; PULSE 78; RESP 16; TEMP 36.6; O2SAT 97
[2024-02-10 10:26] VITALS: BMI 34.0
[2024-02-10] MEDS: SODIUM CHLORIDE 0.9% IV 250 ML 10 ML IVPB (10:30)
[2024-02-10 10:33] LABS: Alanine Aminotransferase 31 U/L (16-63); Albumin Level 3.4 g/dL (3.4-5.0); Alkaline Phosphatase 92 U/L (46-116); Anion Gap 7 mmol/L (4-12); Aspartate Amino Transferase 24 U/L (15-37); Bilirubin,Total 0.8 mg/dL (0.00-1.00); Blood Urea Nitrogen 10 mg/dL (7-18); Calcium 8.2 mg/dL (8.5-10.1); Carbon Dioxide 27 mmol/L (21-32); Chloride 105 mmol/L (98-108); Estimated CRCL calculation 86 ml/min; Estimated Glomerular Filt Rate > 60; Glucose 160 mg/dL (70-99); Osmolality Calculated 290 mOsm/kg (285-295); Potassium 3.8 mmol/L (3.5-5.1); Sodium 139 mmol/L (136-145); Total Protein 6.4 g/dL (6.4-8.2)
[2024-02-10] MEDS: ONDANSETRON IVPB (10:45)
[2024-02-10] MEDS: SODIUM CHLORIDE 0.9% IVPB (10:45)
[2024-02-10] MEDS: HEPARIN SODIUM LOCK FLUSH 500 UNITS/5 ML SYRINGE IV PUSH (11:41)
[2024-02-10 11:43] VITALS: BP 121/69; PULSE 80; RESP 16; TEMP 36.4; O2SAT 97
--- NOTE | 2024-02-10 11:44 | PC.NURSE ---
Patient here for #4 Chemotherapy. Education given. Labs drawn/reviewed/ok'd. Chemo administered. SEE MAR. Tolerated well. Will return 03/02/24 at 1000 a.m. for #5 chemo. Safe exit of hospital with /ambulatory.
== END 2024-02-10 10:03 | disposition home or self-care (01) ==
PROVIDERS: Visit Provider Internal Medicine Hematology
DX: Z51.11 Encounter for antineoplastic chemotherapy (principal); C20 Malignant neoplasm of rectum
CPT/HCPCS: 36591; 80053; 85025; 96367; 96413; J2405; J7050; Q5118

== ENCOUNTER 2024-02-24 08:02 | Outpatient (CLI) | payer OTHER, SELFPAY ==
--- NOTE | ~2024-02-24 | CT_ITS ---
Clinical Indication: Rectal adenocarcinoma, lung cancer CT Scan of the Chest, Abdomen, and Pelvis with Contrast: Technique: Contiguous sections were acquired throughout the chest, abdomen, and pelvis after intraven ous administration of 100 cc of Omnipaque 350. Dose reduction technique was used on this scan by uti josueing automated exposure control and iterative reconstruction technique. The dose-length product (DL P) was 1294.59 mGy-cm. Findings: There is no evidence of any significant mediastinal, hilar or axillary lymphadenopathy. The mediastin al soft tissues appear normal. There is no evidence of pleural or pericardial effusion. Probable minimal emphysema. There is a 6 mm right upper lobe pulmonary nodule (axial image 51). There is a 1.0 cm right lower lobe pulmonary nodule (axial image 99). There is a 2.2 cm right lower lobe p ulmonary nodule (axial image 88). There is a 5 mm left upper lobe pulmonary nodule (axial image 39). There is an additional 1.1 cm left upper lobe pulmonary nodule (axial image 71). There is a 1.5 cm le ft lower lobe pulmonary nodule (axial image 82). There is diffuse hepatic steatosis. The spleen, pancreas, gallbladder, adrenals and kidneys are withi n normal limits. No evidence of aortic aneurysm. No lymphadenopathy. No bowel obstruction or bowel wall thickening. There is no evidence to suggest acute appendicitis. Urinary bladder is unremarkable. No pelvic mass evident. No ascites. Impression: Multiple pulmonary nodules, as detailed above, compatible with metastatic/neoplastic disease. Diffuse hepatic steatosis. Reviewed, dictated and finalized at [facility]. Impression: Multiple pulmonary nodules, as detailed above, compatible with metastatic/neopl astic disease. Diffuse hepatic steatosis.
== END 2024-02-24 08:03 | disposition home or self-care (01) ==
LOC: CHSIMG 08:05
PROVIDERS: Visit Provider Internal Medicine Hematology
DX: C20 Malignant neoplasm of rectum (principal); K76.0 Fatty (change of) liver, not elsewhere classified; R91.8 Other nonspecific abnormal finding of lung field
CPT/HCPCS: 71260; 74177; Q9967

== ENCOUNTER 2024-03-02 09:57 | Outpatient (CLI) | payer OTHER, SELFPAY ==
[2024-03-02 10:25] VITALS: BP 127/71; PULSE 76; RESP 14; TEMP 36.4; O2SAT 98; BMI 34.1
[2024-03-02 10:25] LABS: Hematocrit 41.1 % (40.0-54.0); Mean Corpuscular HGB Conc 34.1 g/dL (32-36); Mean Corpuscular Hemoglobin 36.4 pg (27.0-31.0); Mean Corpuscular Volume 106.8 fL (78.0-102.0); Platelet Count Result 230 K/mm3 (150-420); Red Blood Count 3.85 M/mm3 (4.70-6.10); Red Cell Distribution Width 20.5 % (11.6-14.4); White Blood Count 7.6 K/mm3 (4.8-10.8)
[2024-03-02 10:26] LABS: Appearance Urine Clear (Clear); Bilirubin Urine Negative (Negative); Blood Urine Trace-intact (Negative); Color Urine Light Yellow (Yellow); Glucose Urine UA Negative (Negative); Ketones Urine Negative (Negative); Leukocyte Esterase Ur Negative (Negative); Nitrate Urine Negative (Negative); Protein Urine Negative (Negative); Specific Grav Ur 1.015 (1.010-1.020)
[2024-03-02] MEDS: SODIUM CHLORIDE 0.9% IV 250 ML 10 ML IVPB (10:30)
[2024-03-02] MEDS: ONDANSETRON IVPB (10:45)
[2024-03-02] MEDS: SODIUM CHLORIDE 0.9% IVPB (10:45)
[2024-03-02 10:46] LABS: Alanine Aminotransferase 30 U/L (16-63); Albumin Level 3.5 g/dL (3.4-5.0); Alkaline Phosphatase 89 U/L (46-116); Anion Gap 7 mmol/L (4-12); Aspartate Amino Transferase 28 U/L (15-37); Bilirubin,Total 1.1 mg/dL (0.00-1.00); Blood Urea Nitrogen 11 mg/dL (7-18); Calcium 8.7 mg/dL (8.5-10.1); Carbon Dioxide 29 mmol/L (21-32); Chloride 104 mmol/L (98-108); Estimated CRCL calculation 89 ml/min; Estimated Glomerular Filt Rate > 60; Glucose 132 mg/dL (70-99); Osmolality Calculated 291 mOsm/kg (285-295); Potassium 4.1 mmol/L (3.5-5.1); Sodium 140 mmol/L (136-145); Total Protein 6.4 g/dL (6.4-8.2)
[2024-03-02 10:51] LABS: Add Urine Microscopic? YES
[2024-03-02 10:52] LABS: Bacteria Urine None seen /hpf; RBC Urine 0-2 /hpf (0-2); Squamous Epithelial Cell Urine Rare /hpf (Few); WBC Urine None seen /hpf (0-3)
[2024-03-02] MEDS: HEPARIN SODIUM LOCK FLUSH 500 UNITS/5 ML SYRINGE IV PUSH (11:41)
[2024-03-02 11:50] VITALS: BP 123/77; PULSE 72; RESP 16; TEMP 36.5; O2SAT 98
--- NOTE | 2024-03-02 12:28 | PC.NURSE ---
Patient was here for Avastin infusion. Education given. No concerns voiced other than his hands are very dry. Encouraged the cream to put on them. Labs collected/reviewed/ok'd. Infusion administered. SEE MAR. Tolerated well. Will return 03/23/24 at 1000. Safe exit of hospital per self/ambualtory.
== END 2024-03-02 11:55 | disposition home or self-care (01) ==
PROVIDERS: Visit Provider Internal Medicine Hematology & Oncology
DX: Z51.11 Encounter for antineoplastic chemotherapy (principal); C20 Malignant neoplasm of rectum
CPT/HCPCS: 36415; 36591; 80053; 81001; 85027; 96367; 96413; J2405; J7050; Q5118

== ENCOUNTER 2024-03-23 09:41 | Outpatient (CLI) | payer OTHER, SELFPAY ==
[2024-03-23 10:03] LABS: Basophils Absolute Auto 0.06 K/mm3 (0.00-0.10); Basophils Percent Auto 0.7 % (0.0-1.0); Eosinophils Absolute Auto 0.41 K/mm3 (0.02-0.50); Eosinophils Percent Auto 4.7 % (1.0-6.0); Hematocrit 41.9 % (40.0-54.0); Hemoglobin 14.1 g/dL (14.0-18.0); Immature Granulocyte Absolute 0.04 K/mm3 (0.00-0.00); Immature Granulocyte Percent A 0.5 % (0.0-0.0); Lymphocytes Percent Auto 21.7 % (18.0-42.0); Mean Corpuscular HGB Conc 33.7 g/dL (32-36); Mean Corpuscular Volume 112.9 fL (78.0-102.0); Mean Platelet Volume 9.2 fl (8.7-11.0); Monocytes Absolute Auto 1.15 K/mm3 (0.10-0.90); Monocytes Percent Auto 13.2 % (2.0-11.0); Neutrophils Absolute Auto 5.18 K/mm3 (1.70-7.20); Neutrophils Percent Auto 59.2 % (50.0-70.0); Platelet Count Result 225 K/mm3 (150-420); Red Blood Count 3.71 M/mm3 (4.70-6.10); Red Cell Distribution Width 19.9 % (11.6-14.4); White Blood Count 8.7 K/mm3 (4.8-10.8)
[2024-03-23 10:07] VITALS: BP 135/84; PULSE 80; RESP 16; TEMP 36.6; O2SAT 98; BMI 34.0
[2024-03-23] MEDS: SODIUM CHLORIDE 0.9% IV 250 ML 10 ML IVPB (10:15)
[2024-03-23 10:20] LABS: Alanine Aminotransferase 24 U/L (16-63); Albumin Level 3.7 g/dL (3.4-5.0); Alkaline Phosphatase 92 U/L (46-116); Anion Gap 7 mmol/L (4-12); Aspartate Amino Transferase 24 U/L (15-37); Bilirubin,Total 0.9 mg/dL (0.00-1.00); Blood Urea Nitrogen 12 mg/dL (7-18); Calcium 8.8 mg/dL (8.5-10.1); Carbon Dioxide 28 mmol/L (21-32); Chloride 105 mmol/L (98-108); Estimated CRCL calculation 95 ml/min; Estimated Glomerular Filt Rate > 60; Glucose 92 mg/dL (70-99); Osmolality Calculated 289 mOsm/kg (285-295); Potassium 4.1 mmol/L (3.5-5.1); Sodium 140 mmol/L (136-145); Total Protein 6.8 g/dL (6.4-8.2)
[2024-03-23] MEDS: SODIUM CHLORIDE 0.9% IVPB (10:56)
[2024-03-23] MEDS: ONDANSETRON IVPB (10:56)
[2024-03-23] MEDS: HEPARIN SODIUM LOCK FLUSH 500 UNITS/5 ML SYRINGE IV PUSH (11:43)
[2024-03-23 11:57] VITALS: BP 129/79; PULSE 72; RESP 14; O2SAT 97
--- NOTE | 2024-03-23 11:59 | PC.NURSE ---
Patient here for #6 Bevascizumab-bvzr IV treatment. Labs drawn/reviewed/ok'd for treatment. Ongoing education continues with no concerns voiced today. IV tx administered see DEC. Tolerated well Will return 04/13/24 1000 for #7 tx. Safe exit of hospital per self/amb.
== END 2024-03-23 09:42 | disposition home or self-care (01) ==
PROVIDERS: Visit Provider Internal Medicine Hematology & Oncology
DX: Z51.11 Encounter for antineoplastic chemotherapy (principal); C20 Malignant neoplasm of rectum
CPT/HCPCS: 36591; 80053; 85025; 96367; 96413; J2405; J7050; Q5118

== ENCOUNTER 2024-04-13 09:55 | Outpatient (CLI) | payer OTHER, SELFPAY ==
[2024-04-13 10:10] VITALS: BP 136/79; PULSE 76; RESP 14; TEMP 36.3; O2SAT 97; BMI 33.2
[2024-04-13 10:24] LABS: Basophils Absolute Auto 0.03 K/mm3 (0.00-0.10); Basophils Percent Auto 0.4 % (0.0-1.0); Eosinophils Absolute Auto 0.37 K/mm3 (0.02-0.50); Hematocrit 41.6 % (40.0-54.0); Hemoglobin 14.7 g/dL (14.0-18.0); Immature Granulocyte Absolute 0.04 K/mm3 (0.00-0.00); Immature Granulocyte Percent A 0.5 % (0.0-0.0); Lymphocytes Absolute Auto 1.81 K/mm3 (1.10-4.50); Lymphocytes Percent Auto 24.4 % (18.0-42.0); Mean Corpuscular HGB Conc 35.3 g/dL (32-36); Mean Corpuscular Hemoglobin 39.8 pg (27.0-31.0); Mean Corpuscular Volume 112.7 fL (78.0-102.0); Monocytes Absolute Auto 0.71 K/mm3 (0.10-0.90); Monocytes Percent Auto 9.6 % (2.0-11.0); Neutrophils Absolute Auto 4.47 K/mm3 (1.70-7.20); Neutrophils Percent Auto 60.1 % (50.0-70.0); Platelet Count Result 230 K/mm3 (150-420); Red Blood Count 3.69 M/mm3 (4.70-6.10); Red Cell Distribution Width 17.4 % (11.6-14.4); White Blood Count 7.4 K/mm3 (4.8-10.8)
[2024-04-13 10:25] LABS: Appearance Urine Clear (Clear); Bilirubin Urine Negative (Negative); Blood Urine Negative (Negative); Color Urine Light Yellow (Yellow); Glucose Urine UA Negative (Negative); Ketones Urine Negative (Negative); Leukocyte Esterase Ur Trace (Negative); Nitrate Urine Negative (Negative); Protein Urine Negative (Negative); Specific Grav Ur <= 1.005 (1.010-1.020); Urobilinogen Urine 0.2 mg/dL (0.2-1.0)
[2024-04-13] MEDS: SODIUM CHLORIDE 0.9% IV 250 ML 10 ML IVPB (10:30)
[2024-04-13 10:42] LABS: Alanine Aminotransferase 27 U/L (16-63); Albumin Level 3.6 g/dL (3.4-5.0); Alkaline Phosphatase 92 U/L (46-116); Anion Gap 8 mmol/L (4-12); Aspartate Amino Transferase 24 U/L (15-37); Bilirubin,Total 0.8 mg/dL (0.00-1.00); Blood Urea Nitrogen 8 mg/dL (7-18); Calcium 8.5 mg/dL (8.5-10.1); Carbon Dioxide 25 mmol/L (21-32); Chloride 104 mmol/L (98-108); Estimated CRCL calculation 105 ml/min; Estimated Glomerular Filt Rate > 60; Glucose 137 mg/dL (70-99); Osmolality Calculated 284 mOsm/kg (285-295); Potassium 3.7 mmol/L (3.5-5.1); Sodium 137 mmol/L (136-145); Total Protein 6.6 g/dL (6.4-8.2)
[2024-04-13 10:43] LABS: Add Urine Microscopic? YES; RBC Urine None seen /hpf (0-2)
[2024-04-13 10:44] LABS: Amorphous Sediment Urine Few; Bacteria Urine None seen /hpf; Squamous Epithelial Cell Urine None seen /hpf (Few); WBC Urine Noted /hpf (0-3)
[2024-04-13] MEDS: ONDANSETRON IVPB (11:10)
[2024-04-13] MEDS: SODIUM CHLORIDE 0.9% IVPB (11:10)
[2024-04-13] MEDS: HEPARIN SODIUM LOCK FLUSH 500 UNITS/5 ML SYRINGE IV PUSH (12:03)
[2024-04-13 12:12] VITALS: BP 130/73; PULSE 72; RESP 14; O2SAT 97
--- NOTE | 2024-04-13 12:14 | PC.NURSE ---
Patient here for every 21 day treatment. Treatment given. Tolerated well. See patient care and MAR.
== END 2024-04-13 09:56 | disposition home or self-care (01) ==
PROVIDERS: Visit Provider Internal Medicine Hematology & Oncology
DX: Z51.11 Encounter for antineoplastic chemotherapy (principal); C20 Malignant neoplasm of rectum
CPT/HCPCS: 36591; 80053; 81001; 85025; 96367; 96413; J2405; J7050; J9035

== ENCOUNTER 2024-05-04 09:56 | Outpatient (CLI) | payer OTHER, SELFPAY ==
[2024-05-04] MEDS: SODIUM CHLORIDE 0.9% IV 250 ML 10 ML IVPB (10:00)
[2024-05-04 10:21] LABS: Hematocrit 42.1 % (40.0-54.0); Hemoglobin 14.7 g/dL (14.0-18.0); Mean Corpuscular HGB Conc 34.9 g/dL (32-36); Mean Corpuscular Hemoglobin 39.9 pg (27.0-31.0); Mean Corpuscular Volume 114.4 fL (78.0-102.0); Platelet Count Result 214 K/mm3 (150-420); Red Blood Count 3.68 M/mm3 (4.70-6.10); Red Cell Distribution Width 16.8 % (11.6-14.4); White Blood Count 7.3 K/mm3 (4.8-10.8)
[2024-05-04 10:26] VITALS: BP 117/68; PULSE 72; RESP 16; TEMP 36.6; O2SAT 97; BMI 33.0
[2024-05-04 10:37] LABS: Alanine Aminotransferase 27 U/L (16-63); Albumin Level 3.5 g/dL (3.4-5.0); Alkaline Phosphatase 89 U/L (46-116); Anion Gap 9 mmol/L (4-12); Aspartate Amino Transferase 23 U/L (15-37); Bilirubin,Total 0.8 mg/dL (0.00-1.00); Blood Urea Nitrogen 8 mg/dL (7-18); Calcium 8.5 mg/dL (8.5-10.1); Carbon Dioxide 26 mmol/L (21-32); Chloride 103 mmol/L (98-108); Estimated CRCL calculation 97 ml/min; Estimated Glomerular Filt Rate > 60; Glucose 167 mg/dL (70-99); Osmolality Calculated 288 mOsm/kg (285-295); Potassium 3.7 mmol/L (3.5-5.1); Sodium 138 mmol/L (136-145); Total Protein 6.5 g/dL (6.4-8.2)
[2024-05-04] MEDS: SODIUM CHLORIDE 0.9% IVPB (10:43)
[2024-05-04] MEDS: ONDANSETRON IVPB (10:43)
[2024-05-04] MEDS: HEPARIN SODIUM LOCK FLUSH 500 UNITS/5 ML SYRINGE IV PUSH (11:36)
[2024-05-04 11:38] VITALS: BP 121/73; PULSE 78; O2SAT 97
== END 2024-05-04 09:57 | disposition home or self-care (01) ==
PROVIDERS: PCP Internal Medicine Hematology; Visit Provider Internal Medicine Hematology
DX: Z51.11 Encounter for antineoplastic chemotherapy (principal); C20 Malignant neoplasm of rectum
CPT/HCPCS: 36415; 36591; 80053; 85027; 96367; 96375; 96413; J2405; Q5118

== ENCOUNTER 2024-05-24 08:00 | Outpatient (CLI) | payer OTHER, SELFPAY ==
--- NOTE | ~2024-05-24 | CT_ITS ---
Clinical Indication: Lung cancer, rectal cancer CT Scan of the Chest, Abdomen, and Pelvis with Contrast: Technique: Contiguous sections were acquired throughout the chest, abdomen, and pelvis after intraven ous administration of 100 cc of Omnipaque 350. Dose reduction technique was used on this scan by cherry salasing automated exposure control and iterative reconstruction technique. The dose-length product (DL P) was 1229.77 mGy-cm. COMPARISON: 02/24/2024 Findings: There is no evidence of any significant mediastinal, hilar or axillary lymphadenopathy. The mediastin al soft tissues appear normal. There is no evidence of pleural or pericardial effusion. There is minimal emphysema. 4 mm right upper lobe pulmonary nodules probably minimally decreased (axi al image 45). 8 mm right lower lobe pulmonary nodule may be minimally decreased (axial image 91). Sta ble calcified right middle lobe granuloma. Stable 2 cm noncalcified right lower lobe pulmonary nodule . Stable left basilar scarring. Stable 1.2 cm left lower lobe pulmonary nodule (axial image 77). Stab le 1.2 cm left upper lobe pulmonary nodule (axial image 66). There is diffuse hepatic steatosis. The spleen, pancreas, gallbladder, adrenals and kidneys are withi n normal limits. There are atherosclerotic calcifications of the aorta. No lymphadenopathy. No bowel obstruction or bowel wall thickening. There is no evidence to suggest acute appendicitis. Urinary bladder is unremarkable. No pelvic mass seen. No ascites. Impression: Pulmonary nodules, as detailed above. Larger nodules are stable from prior exam, several of the small er nodules are minimally decreased. Findings are consistent with metastatic disease. Diffuse hepatic steatosis. Reviewed, dictated and finalized at location . Impression: Pulmonary nodules, as detailed above. Larger nodules are stable from prior exam , several of the smaller nodules are minimally decreased. Findings are consiste nt with metastatic disease. Diffuse hepatic steatosis.
== END 2024-05-24 08:01 | disposition home or self-care (01) ==
LOC: CHSIMG 08:01
PROVIDERS: Visit Provider Internal Medicine Hematology
DX: C20 Malignant neoplasm of rectum (principal); R91.8 Other nonspecific abnormal finding of lung field; K76.0 Fatty (change of) liver, not elsewhere classified
CPT/HCPCS: 71260; 74177; Q9967

== ENCOUNTER 2024-05-25 09:50 | Outpatient (CLI) | payer OTHER, SELFPAY ==
[2024-05-25 10:05] VITALS: BP 109/69; PULSE 68; RESP 16; TEMP 36.6; O2SAT 98; BMI 32.5
[2024-05-25 10:15] LABS: Add Urine Microscopic? NO; Appearance Urine Clear (Clear); Bilirubin Urine Negative (Negative); Blood Urine Negative (Negative); Color Urine Light Yellow (Yellow); Glucose Urine UA Negative (Negative); Ketones Urine Negative (Negative); Leukocyte Esterase Ur Negative (Negative); Nitrate Urine Negative (Negative); Protein Urine Negative (Negative); Urobilinogen Urine 0.2 mg/dL (0.2-1.0)
[2024-05-25 10:16] LABS: Basophils Absolute Auto 0.05 K/mm3 (0.00-0.10); Basophils Percent Auto 0.6 % (0.0-1.0); Eosinophils Absolute Auto 0.41 K/mm3 (0.02-0.50); Hematocrit 43.4 % (40.0-54.0); Hemoglobin 15.3 g/dL (14.0-18.0); Immature Granulocyte Absolute 0.03 K/mm3 (0.00-0.00); Immature Granulocyte Percent A 0.4 % (0.0-0.0); Lymphocytes Absolute Auto 1.82 K/mm3 (1.10-4.50); Lymphocytes Percent Auto 22.4 % (18.0-42.0); Mean Corpuscular HGB Conc 35.3 g/dL (32-36); Mean Corpuscular Hemoglobin 40.4 pg (27.0-31.0); Mean Corpuscular Volume 114.5 fL (78.0-102.0); Mean Platelet Volume 9.2 fl (8.7-11.0); Monocytes Absolute Auto 0.75 K/mm3 (0.10-0.90); Monocytes Percent Auto 9.2 % (2.0-11.0); Neutrophils Absolute Auto 5.08 K/mm3 (1.70-7.20); Neutrophils Percent Auto 62.4 % (50.0-70.0); Platelet Count Result 214 K/mm3 (150-420); Red Blood Count 3.79 M/mm3 (4.70-6.10); Red Cell Distribution Width 16.4 % (11.6-14.4); White Blood Count 8.1 K/mm3 (4.8-10.8)
[2024-05-25 10:30] LABS: Alanine Aminotransferase 22 U/L (16-63); Albumin Level 3.5 g/dL (3.4-5.0); Alkaline Phosphatase 83 U/L (46-116); Anion Gap 9 mmol/L (4-12); Aspartate Amino Transferase 13 U/L (15-37); Bilirubin,Total 0.6 mg/dL (0.00-1.00); Blood Urea Nitrogen 7 mg/dL (7-18); Calcium 8.2 mg/dL (8.5-10.1); Carbon Dioxide 26 mmol/L (21-32); Chloride 105 mmol/L (98-108); Estimated CRCL calculation 94 ml/min; Estimated Glomerular Filt Rate > 60; Glucose 136 mg/dL (70-99); Osmolality Calculated 290 mOsm/kg (285-295); Potassium 3.8 mmol/L (3.5-5.1); Sodium 140 mmol/L (136-145); Total Protein 6.4 g/dL (6.4-8.2)
[2024-05-25] MEDS: ONDANSETRON IVPB (10:40)
[2024-05-25] MEDS: SODIUM CHLORIDE 0.9% IV 250 ML 10 ML IVPB (10:40)
[2024-05-25] MEDS: SODIUM CHLORIDE 0.9% IVPB (10:40)
[2024-05-25] MEDS: HEPARIN SODIUM LOCK FLUSH 500 UNITS/5 ML SYRINGE IV PUSH (11:38)
--- NOTE | 2024-05-25 11:47 | PC.NURSE ---
Patient tolerated treatment well. Refer to MAR/patient care notes.
[2024-05-25 11:48] VITALS: BP 113/69; PULSE 72; RESP 14; O2SAT 97
== END 2024-05-25 09:51 | disposition home or self-care (01) ==
LOC: CHSOUTPT 09:54 → CHSTREATRM 10:00
PROVIDERS: PCP Internal Medicine Hematology; Visit Provider Internal Medicine Hematology
DX: Z51.11 Encounter for antineoplastic chemotherapy (principal); C20 Malignant neoplasm of rectum
CPT/HCPCS: 36591; 80053; 81003; 85025; 96367; 96413; J2405; J7050; Q5118

== ENCOUNTER 2024-06-15 09:44 | Outpatient (CLI) | payer OTHER, SELFPAY ==
[2024-06-15 09:50] VITALS: BP 135/78; PULSE 78; RESP 16; TEMP 36.5; O2SAT 96; BMI 32.7
[2024-06-15 10:03] LABS: Basophils Absolute Auto 0.04 K/mm3 (0.00-0.10); Basophils Percent Auto 0.4 % (0.0-1.0); Eosinophils Absolute Auto 0.39 K/mm3 (0.02-0.50); Eosinophils Percent Auto 4.3 % (1.0-6.0); Hematocrit 44.8 % (40.0-54.0); Hemoglobin 15.7 g/dL (14.0-18.0); Immature Granulocyte Absolute 0.04 K/mm3 (0.00-0.00); Immature Granulocyte Percent A 0.4 % (0.0-0.0); Lymphocytes Absolute Auto 1.75 K/mm3 (1.10-4.50); Lymphocytes Percent Auto 19.1 % (18.0-42.0); Mean Corpuscular Hemoglobin 40.2 pg (27.0-31.0); Mean Corpuscular Volume 114.6 fL (78.0-102.0); Mean Platelet Volume 8.8 fl (8.7-11.0); Monocytes Absolute Auto 0.97 K/mm3 (0.10-0.90); Monocytes Percent Auto 10.6 % (2.0-11.0); Neutrophils Absolute Auto 5.95 K/mm3 (1.70-7.20); Neutrophils Percent Auto 65.2 % (50.0-70.0); Platelet Count Result 239 K/mm3 (150-420); Red Blood Count 3.91 M/mm3 (4.70-6.10); Red Cell Distribution Width 16.7 % (11.6-14.4); White Blood Count 9.1 K/mm3 (4.8-10.8)
[2024-06-15] MEDS: SODIUM CHLORIDE 0.9% IV 250 ML 10 ML IVPB (10:05)
[2024-06-15 10:15] LABS: Alanine Aminotransferase 23 U/L (16-63); Albumin Level 3.5 g/dL (3.4-5.0); Alkaline Phosphatase 107 U/L (46-116); Anion Gap 5 mmol/L (4-12); Aspartate Amino Transferase 13 U/L (15-37); Bilirubin,Total 0.8 mg/dL (0.00-1.00); Blood Urea Nitrogen 9 mg/dL (7-18); Carbon Dioxide 31 mmol/L (21-32); Chloride 102 mmol/L (98-108); Estimated Glomerular Filt Rate > 60; Glucose 123 mg/dL (70-99); Osmolality Calculated 285 mOsm/kg (285-295); Potassium 3.9 mmol/L (3.5-5.1); Sodium 138 mmol/L (136-145); Total Protein 6.5 g/dL (6.4-8.2)
[2024-06-15] MEDS: ONDANSETRON IVPB (10:55)
[2024-06-15] MEDS: SODIUM CHLORIDE 0.9% IVPB (10:55)
[2024-06-15] MEDS: HEPARIN SODIUM LOCK FLUSH 500 UNITS/5 ML SYRINGE IV PUSH (11:48)
[2024-06-15 11:54] VITALS: BP 132/74; PULSE 78; RESP 14; O2SAT 97
--- NOTE | 2024-06-15 11:58 | PC.NURSE ---
Patient tolerated Bevacizumab infusion well see MAR/patient care notes.
== END 2024-06-15 09:45 | disposition home or self-care (01) ==
PROVIDERS: PCP Internal Medicine Hematology; Visit Provider Internal Medicine Hematology
DX: Z51.11 Encounter for antineoplastic chemotherapy (principal); C20 Malignant neoplasm of rectum
CPT/HCPCS: 36415; 36591; 80053; 85025; 96367; 96413; J2405; J7050; Q5118

== ENCOUNTER 2024-07-06 09:55 | Outpatient (CLI) | payer OTHER, SELFPAY ==
[2024-07-06 10:05] VITALS: BP 127/78; PULSE 78; RESP 14; TEMP 36.4; O2SAT 96; BMI 32.1
[2024-07-06 10:20] LABS: Hematocrit 44.4 % (40.0-54.0); Hemoglobin 15.3 g/dL (14.0-18.0); Mean Corpuscular HGB Conc 34.5 g/dL (32-36); Mean Corpuscular Hemoglobin 39.2 pg (27.0-31.0); Mean Corpuscular Volume 113.8 fL (78.0-102.0); Mean Platelet Volume 8.7 fl (8.7-11.0); Platelet Count Result 241 K/mm3 (150-420); Red Cell Distribution Width 16.8 % (11.6-14.4); White Blood Count 9.4 K/mm3 (4.8-10.8)
[2024-07-06 10:26] LABS: Add Urine Microscopic? NO; Appearance Urine Clear (Clear); Bilirubin Urine Negative (Negative); Blood Urine Negative (Negative); Color Urine Yellow (Yellow); Glucose Urine UA Negative (Negative); Ketones Urine Negative (Negative); Leukocyte Esterase Ur Negative (Negative); Nitrate Urine Negative (Negative); Protein Urine Negative (Negative); Specific Grav Ur 1.015 (1.010-1.020); Urobilinogen Urine Negative mg/dL (0.2-1.0)
[2024-07-06] MEDS: SODIUM CHLORIDE 0.9% IV 250 ML 10 ML IVPB (11:00)
[2024-07-06] MEDS: ONDANSETRON IVPB (11:10)
[2024-07-06] MEDS: SODIUM CHLORIDE 0.9% IVPB (11:10)
[2024-07-06 12:05] LABS: Alanine Aminotransferase 29 U/L (6-50); Albumin Level 4.4 g/dL (3.5-5.1); Alkaline Phosphatase 97 U/L (38-126); Anion Gap 10 mmol/L (4-12); Aspartate Amino Transferase 36 U/L (17-59); Bilirubin,Total 0.9 mg/dL (0.2-1.3); Blood Urea Nitrogen 12 mg/dL (9-20); Calcium 9.3 mg/dL (8.4-10.2); Carbon Dioxide 23 mmol/L (22-30); Chloride 102 mmol/L (98-107); Estimated CRCL calculation 97 ml/min; Estimated Glomerular Filt Rate > 60; Glucose 91 mg/dL (65-110); Osmolality Calculated 279 mOsm/kg (285-295); Potassium 4.3 mmol/L (3.4-5.0); Sodium 135 mmol/L (137-145)
[2024-07-06] MEDS: HEPARIN SODIUM LOCK FLUSH 500 UNITS/5 ML SYRINGE IV PUSH (12:09)
[2024-07-06 12:15] VITALS: BP 129/74; PULSE 78; RESP 16; TEMP 36.4; O2SAT 97
--- NOTE | 2024-07-06 13:17 | PC.NURSE ---
0817 Patient was here for IV Zirabev infusion. Education given. All concerns voiced answered. Infusion administered. SEE MAR/patient care. Tolerated well.
== END 2024-07-06 09:56 | disposition home or self-care (01) ==
PROVIDERS: Visit Provider Internal Medicine Hematology
DX: Z51.11 Encounter for antineoplastic chemotherapy (principal); C20 Malignant neoplasm of rectum
CPT/HCPCS: 36415; 36591; 80053; 81003; 85027; 96367; 96413; J2405; Q5118

== ENCOUNTER 2024-07-27 09:30 | Outpatient (CLI) | payer OTHER, SELFPAY ==
[2024-07-27 09:58] LABS: Basophils Absolute Auto 0.07 K/mm3 (0.00-0.10); Basophils Percent Auto 0.9 % (0.0-1.0); Eosinophils Absolute Auto 0.52 K/mm3 (0.02-0.50); Eosinophils Percent Auto 6.9 % (1.0-6.0); Hematocrit 44.6 % (40.0-54.0); Hemoglobin 15.5 g/dL (14.0-18.0); Immature Granulocyte Percent A 1.3 % (0.0-0.0); Immature Platelet Fraction Pct 1.1 % (1.0-7.0); Lymphocytes Absolute Auto 1.45 K/mm3 (1.10-4.50); Lymphocytes Percent Auto 19.3 % (18.0-42.0); Mean Corpuscular HGB Conc 34.8 g/dL (32-36); Mean Corpuscular Hemoglobin 38.3 pg (27.0-31.0); Mean Corpuscular Volume 110.1 fL (78.0-102.0); Mean Platelet Volume 9.2 fl (8.7-11.0); Monocytes Absolute Auto 0.73 K/mm3 (0.10-0.90); Monocytes Percent Auto 9.7 % (2.0-11.0); Neutrophils Absolute Auto 4.66 K/mm3 (1.70-7.20); Neutrophils Percent Auto 61.9 % (50.0-70.0); Platelet Count Result 245 K/mm3 (150-420); Red Blood Count 4.05 M/mm3 (4.70-6.10); Red Cell Distribution Width 14.9 % (11.6-14.4); White Blood Count 7.5 K/mm3 (4.8-10.8)
[2024-07-27 10:10] VITALS: BP 141/73; PULSE 78; RESP 16; TEMP 36.5; O2SAT 96
[2024-07-27 10:13] LABS: Alanine Aminotransferase 26 U/L (16-63); Albumin Level 3.4 g/dL (3.4-5.0); Alkaline Phosphatase 104 U/L (46-116); Anion Gap 4 mmol/L (4-12); Aspartate Amino Transferase 22 U/L (15-37); Bilirubin,Total 0.5 mg/dL (0.00-1.00); Blood Urea Nitrogen 8 mg/dL (7-18); Carbon Dioxide 29 mmol/L (21-32); Chloride 103 mmol/L (98-108); Estimated Glomerular Filt Rate > 60; Glucose 119 mg/dL (70-99); Osmolality Calculated 281 mOsm/kg (285-295); Potassium 3.7 mmol/L (3.5-5.1); Sodium 136 mmol/L (136-145); Total Protein 6.8 g/dL (6.4-8.2)
[2024-07-27] MEDS: SODIUM CHLORIDE 0.9% IV 250 ML 10 ML IVPB (10:25)
[2024-07-27] MEDS: ONDANSETRON IV PUSH (10:40)
[2024-07-27] MEDS: SODIUM CHLORIDE 0.9% IV PUSH (10:40)
[2024-07-27] MEDS: SODIUM CHLORIDE 0.9% IVPB (11:00)
[2024-07-27] MEDS: BEVACIZUMAB AWWB IVPB (11:00)
[2024-07-27] MEDS: HEPARIN SODIUM LOCK FLUSH 500 UNITS/5 ML SYRINGE IV PUSH (12:30)
[2024-07-27 12:45] VITALS: BP 131/76; PULSE 68; RESP 14; O2SAT 97
--- NOTE | 2024-07-27 12:47 | PC.NURSE ---
Patient tolerated treatment well. SEE patient care notes.
== END 2024-07-27 12:49 | disposition home or self-care (01) ==
PROVIDERS: Visit Provider Internal Medicine Hematology
DX: Z51.11 Encounter for antineoplastic chemotherapy (principal); C20 Malignant neoplasm of rectum
CPT/HCPCS: 36415; 80053; 85025; 85055; 96367; 96413; J2405; J7050; Q5107

== ENCOUNTER 2024-08-17 09:03 | Outpatient (CLI) | payer OTHER, SELFPAY ==
[2024-08-17 09:29] VITALS: BP 147/81; PULSE 78; RESP 16; TEMP 36.1; O2SAT 96; BMI 31.8
[2024-08-17 09:39] LABS: Basophils Absolute Auto 0.05 K/mm3 (0.00-0.10); Basophils Percent Auto 0.6 % (0.0-1.0); Eosinophils Absolute Auto 0.65 K/mm3 (0.02-0.50); Eosinophils Percent Auto 8.2 % (1.0-6.0); Hematocrit 46.3 % (40.0-54.0); Hemoglobin 15.7 g/dL (14.0-18.0); Immature Granulocyte Absolute 0.02 K/mm3 (0.00-0.00); Immature Granulocyte Percent A 0.3 % (0.0-0.0); Lymphocytes Absolute Auto 1.65 K/mm3 (1.10-4.50); Lymphocytes Percent Auto 20.7 % (18.0-42.0); Mean Corpuscular HGB Conc 33.9 g/dL (32-36); Mean Corpuscular Hemoglobin 36.6 pg (27.0-31.0); Mean Corpuscular Volume 107.9 fL (78.0-102.0); Mean Platelet Volume 9.3 fl (8.7-11.0); Monocytes Absolute Auto 0.92 K/mm3 (0.10-0.90); Monocytes Percent Auto 11.6 % (2.0-11.0); Neutrophils Absolute Auto 4.67 K/mm3 (1.70-7.20); Neutrophils Percent Auto 58.6 % (50.0-70.0); Platelet Count Result 263 K/mm3 (150-420); Red Blood Count 4.29 M/mm3 (4.70-6.10); Red Cell Distribution Width 14.6 % (11.6-14.4)
[2024-08-17 09:46] LABS: Alanine Aminotransferase 26 U/L (16-63); Albumin Level 3.4 g/dL (3.4-5.0); Alkaline Phosphatase 95 U/L (46-116); Anion Gap 9 mmol/L (4-12); Aspartate Amino Transferase 23 U/L (15-37); Bilirubin,Total 0.5 mg/dL (0.00-1.00); Blood Urea Nitrogen 7 mg/dL (7-18); Calcium 8.8 mg/dL (8.5-10.1); Carbon Dioxide 27 mmol/L (21-32); Chloride 104 mmol/L (98-108); Estimated CRCL calculation 103 ml/min; Estimated Glomerular Filt Rate > 60; Glucose 94 mg/dL (70-99); Osmolality Calculated 288 mOsm/kg (285-295); Potassium 4.2 mmol/L (3.5-5.1); Sodium 140 mmol/L (136-145); Total Protein 6.8 g/dL (6.4-8.2)
[2024-08-17 09:47] LABS: Add Urine Microscopic? NO; Appearance Urine Clear (Clear); Bilirubin Urine Negative (Negative); Blood Urine Negative (Negative); Color Urine Light Yellow (Yellow); Glucose Urine UA Negative (Negative); Ketones Urine Negative (Negative); Leukocyte Esterase Ur Negative (Negative); Nitrate Urine Negative (Negative); Protein Urine Negative (Negative); Specific Grav Ur 1.015 (1.010-1.020); pH Urine 5.5 (5.0-8.0)
[2024-08-17] MEDS: SODIUM CHLORIDE 0.9% IV 250 ML 10 ML IVPB (10:36)
[2024-08-17] MEDS: SODIUM CHLORIDE 0.9% IV PUSH (10:40)
[2024-08-17] MEDS: ONDANSETRON IV PUSH (10:40)
[2024-08-17] MEDS: BEVACIZUMAB AWWB IVPB (11:00)
[2024-08-17] MEDS: SODIUM CHLORIDE 0.9% IVPB (11:00)
[2024-08-17] MEDS: HEPARIN SODIUM LOCK FLUSH 500 UNITS/5 ML SYRINGE IV PUSH (12:02)
[2024-08-17 12:22] VITALS: BP 132/77; PULSE 78; RESP 16; TEMP 36.1; O2SAT 96
--- NOTE | 2024-08-17 12:25 | PC.NURSE ---
Patient tolerated treatment well. SEE MAR/patient care notes.
== END 2024-08-17 12:26 | disposition home or self-care (01) ==
LOC: CHSLAB 09:06 → CHSTREATRM 09:09
PROVIDERS: Visit Provider Internal Medicine Hematology
DX: Z51.11 Encounter for antineoplastic chemotherapy (principal); C20 Malignant neoplasm of rectum
CPT/HCPCS: 36415; 36591; 80053; 81003; 85025; 96367; 96413; J2405; J7050; Q5107

== ENCOUNTER 2024-09-07 09:04 | Outpatient (CLI) | payer OTHER, SELFPAY ==
[2024-09-07 09:20] VITALS: BP 127/83; PULSE 78; RESP 16; TEMP 36.6; O2SAT 96; BMI 31.6
[2024-09-07 09:29] LABS: Basophils Absolute Auto 0.04 K/mm3 (0.00-0.10); Basophils Percent Auto 0.4 % (0.0-1.0); Eosinophils Absolute Auto 0.53 K/mm3 (0.02-0.50); Eosinophils Percent Auto 5.6 % (1.0-6.0); Hemoglobin 15.9 g/dL (14.0-18.0); Immature Granulocyte Absolute 0.04 K/mm3 (0.00-0.00); Immature Granulocyte Percent A 0.4 % (0.0-0.0); Lymphocytes Absolute Auto 1.95 K/mm3 (1.10-4.50); Lymphocytes Percent Auto 20.7 % (18.0-42.0); Mean Corpuscular HGB Conc 34.6 g/dL (32-36); Mean Corpuscular Hemoglobin 36.6 pg (27.0-31.0); Mean Corpuscular Volume 105.7 fL (78.0-102.0); Mean Platelet Volume 8.8 fl (8.7-11.0); Monocytes Percent Auto 11.7 % (2.0-11.0); Neutrophils Absolute Auto 5.77 K/mm3 (1.70-7.20); Neutrophils Percent Auto 61.2 % (50.0-70.0); Platelet Count Result 193 K/mm3 (150-420); Red Blood Count 4.35 M/mm3 (4.70-6.10); Red Cell Distribution Width 15.8 % (11.6-14.4); White Blood Count 9.4 K/mm3 (4.8-10.8)
[2024-09-07 09:44] LABS: Alanine Aminotransferase 31 U/L (16-63); Albumin Level 3.4 g/dL (3.4-5.0); Alkaline Phosphatase 101 U/L (46-116); Anion Gap 7 mmol/L (4-12); Aspartate Amino Transferase 27 U/L (15-37); Bilirubin,Total 0.7 mg/dL (0.00-1.00); Blood Urea Nitrogen 8 mg/dL (7-18); Calcium 8.9 mg/dL (8.5-10.1); Carbon Dioxide 29 mmol/L (21-32); Chloride 101 mmol/L (98-108); Estimated Glomerular Filt Rate > 60; Glucose 94 mg/dL (70-99); Osmolality Calculated 282 mOsm/kg (285-295); Sodium 137 mmol/L (136-145); Total Protein 6.8 g/dL (6.4-8.2)
[2024-09-07] MEDS: SODIUM CHLORIDE 0.9% IV 250 ML 10 ML IVPB (10:00)
[2024-09-07] MEDS: SODIUM CHLORIDE 0.9% IVPB ×2 (10:10→10:30)
[2024-09-07] MEDS: ONDANSETRON IVPB (10:10)
[2024-09-07] MEDS: BEVACIZUMAB AWWB IVPB (10:30)
[2024-09-07 11:01] VITALS: BP 136/79; PULSE 76; RESP 14; O2SAT 96
[2024-09-07] MEDS: HEPARIN SODIUM LOCK FLUSH 500 UNITS/5 ML SYRINGE IV PUSH (11:01)
--- NOTE | 2024-09-07 11:02 | PC.NURSE ---
Patient tolerated treatment infusion well. SEE MAR/patient care notes.
== END 2024-09-07 09:05 | disposition home or self-care (01) ==
PROVIDERS: Visit Provider Internal Medicine Hematology
DX: Z51.11 Encounter for antineoplastic chemotherapy (principal); C20 Malignant neoplasm of rectum
CPT/HCPCS: 36415; 80053; 85025; 96367; 96413; J2405; Q5107

== ENCOUNTER 2024-09-14 08:54 | Outpatient (CLI) | payer OTHER, SELFPAY ==
--- NOTE | ~2024-09-14 | CT_ITS ---
EXAMINATION: CT chest abdomen pelvis w con DATE: 09/14/2024 09:28 INDICATION: Rectal cancer. Lung cancer. TECHNIQUE: Computed tomography (CT) of the chest, abdomen, and pelvis was performed with 100 mL Omnip aque 350 intravenous contrast. Automated exposure control and iterative reconstruction technique were employed. The dose-length product was 888.19 mGy-cm. COMPARISON: CT 05/24/2024, 02/24/2024 FINDINGS: CHEST CT: There is mild scarring at the lung apices. There is mild emphysema. A calcified right lung nodule and calcified right hilar lymph nodes are consistent with old granulomatous disease. There are tree-in-b ud opacities in right middle lobe, consistent with pneumonia. There is a 1.7 cm nodule in right lower lobe, stable from 05/24/24. There is an 8 mm nodule in right lower lobe without change. There are cent rilobular nodules, tree-in-bud opacities, groundglass opacities in left lower lobe, consistent with p neumonia. There is a 1.5 cm nodule in left lower lobe, increased from 1.2 cm on 05/24/24. There is a 9 mm nodule in left upper lobe, stable from 05/24/24. There are a few smaller scattered lung nodules. No pleural effusion. There is a right internal jugular port with tip at superior cavoatrial junction. Th e heart size is normal. There are coronary artery calcifications. No pericardial effusion. There are old healed left rib fractures. There is mild thoracic spondylosis and severe cervical spondylosis. ABDOMEN/PELVIS CT: The liver, gallbladder, spleen, pancreas, adrenal glands, and kidneys are normal. There is diverticul osis of the colon without evidence of diverticulitis. There are no dilated loops of bowel. The append ix is not visualized. There are no pathologically enlarged lymph nodes. There is no free intraperiton eal fluid. There is mild lumbar spondylosis. IMPRESSION: 1. Pulmonary nodules with mild increase in size of one of the nodules, consistent with metastatic dis ease. 2. Pneumonia in right middle lobe and left lower lobe. Reviewed, dictated and finalized at location A. UCT MARKETING ANALYST IMPRESSION: 1. Pulmonary nodules with mild increase in size of one of the nodules, consiste nt with metastatic disease. 2. Pneumonia in right middle lobe and left lower lobe.
== END 2024-09-14 08:55 | disposition home or self-care (01) ==
LOC: CHSIMG 08:57
PROVIDERS: Visit Provider Internal Medicine Hematology
DX: C78.00 Secondary malignant neoplasm of unspecified lung (principal); C20 Malignant neoplasm of rectum; R91.8 Other nonspecific abnormal finding of lung field; J18.9 Pneumonia, unspecified organism
CPT/HCPCS: 71260; 74177; Q9967

== ENCOUNTER 2024-09-28 09:13 | Outpatient (CLI) | payer OTHER, SELFPAY ==
[2024-09-28 09:41] LABS: Basophils Absolute Auto 0.06 K/mm3 (0.00-0.10); Basophils Percent Auto 0.6 % (0.0-1.0); Eosinophils Absolute Auto 0.46 K/mm3 (0.02-0.50); Eosinophils Percent Auto 4.9 % (1.0-6.0); Hematocrit 44.1 % (40.0-54.0); Hemoglobin 15.6 g/dL (14.0-18.0); Immature Granulocyte Absolute 0.03 K/mm3 (0.00-0.00); Immature Granulocyte Percent A 0.3 % (0.0-0.0); Mean Corpuscular HGB Conc 35.4 g/dL (32-36); Mean Corpuscular Hemoglobin 37.1 pg (27.0-31.0); Mean Platelet Volume 8.8 fl (8.7-11.0); Monocytes Absolute Auto 0.98 K/mm3 (0.10-0.90); Monocytes Percent Auto 10.3 % (2.0-11.0); Neutrophils Absolute Auto 6.15 K/mm3 (1.70-7.20); Neutrophils Percent Auto 64.9 % (50.0-70.0); Platelet Count Result 281 K/mm3 (150-420); Red Cell Distribution Width 16.1 % (11.6-14.4); White Blood Count 9.5 K/mm3 (4.8-10.8)
[2024-09-28 09:42] VITALS: BMI 32.2
[2024-09-28 09:42] LABS: Add Urine Microscopic? NO; Appearance Urine Clear (Clear); Bilirubin Urine Negative (Negative); Blood Urine Negative (Negative); Color Urine Yellow (Yellow); Glucose Urine UA Negative (Negative); Ketones Urine Negative (Negative); Leukocyte Esterase Ur Negative (Negative); Nitrate Urine Negative (Negative); Protein Urine Negative (Negative); Urobilinogen Urine 0.2 mg/dL (0.2-1.0); pH Urine 5.5 (5.0-8.0)
[2024-09-28 09:54] VITALS: BP 117/70; PULSE 78; RESP 16; TEMP 36.6; O2SAT 97
[2024-09-28 09:55] LABS: Alanine Aminotransferase 27 U/L (16-63); Albumin Level 3.5 g/dL (3.4-5.0); Alkaline Phosphatase 99 U/L (46-116); Anion Gap 9 mmol/L (4-12); Aspartate Amino Transferase 12 U/L (15-37); Bilirubin,Total 0.5 mg/dL (0.00-1.00); Blood Urea Nitrogen 9 mg/dL (7-18); Calcium 8.9 mg/dL (8.5-10.1); Carbon Dioxide 27 mmol/L (21-32); Chloride 100 mmol/L (98-108); Estimated CRCL calculation 89 ml/min; Estimated Glomerular Filt Rate > 60; Glucose 119 mg/dL (70-99); Osmolality Calculated 281 mOsm/kg (285-295); Potassium 3.9 mmol/L (3.5-5.1); Sodium 136 mmol/L (136-145); Total Protein 6.9 g/dL (6.4-8.2)
[2024-09-28] MEDS: SODIUM CHLORIDE 0.9% IV 250 ML 10 ML IVPB (09:55)
[2024-09-28] MEDS: SODIUM CHLORIDE 0.9% IVPB ×2 (10:05→10:28)
[2024-09-28] MEDS: ONDANSETRON IVPB (10:05)
[2024-09-28] MEDS: BEVACIZUMAB AWWB IVPB (10:28)
[2024-09-28] MEDS: HEPARIN SODIUM LOCK FLUSH 500 UNITS/5 ML SYRINGE IV PUSH (10:59)
[2024-09-28 11:06] VITALS: BP 118/72; PULSE 78; RESP 16; O2SAT 97
--- NOTE | 2024-09-28 11:17 | PC.NURSE ---
Patient tolerated treatment well today. SEE MAR/patient care notes.
== END 2024-09-28 09:14 | disposition home or self-care (01) ==
PROVIDERS: Visit Provider Internal Medicine Hematology
DX: Z51.11 Encounter for antineoplastic chemotherapy (principal); C20 Malignant neoplasm of rectum
CPT/HCPCS: 36415; 36591; 80053; 81003; 85025; 96367; 96413; J2405; J7050; Q5107

== ENCOUNTER 2024-10-13 09:03 | Outpatient (CLI) | payer OTHER, SELFPAY ==
--- NOTE | ~2024-10-13 | MR_ITS ---
EXAMINATION: MR brain/brain stem wo/w con DATE: 10/13/2024 09:58 INDICATION: Lung cancer. TECHNIQUE: Magnetic resonance imaging (MRI) of the brain and brainstem was performed without and with 20 mL MultiHance intravenous contrast. COMPARISON: None. FINDINGS: There is no intracranial hemorrhage, acute infarction, or abnormal intracranial mass lesion . The ventricles are normal in size. The orbits are normal. There is mild mucosal thickening in the p aranasal sinuses. There is a left mastoid effusion. IMPRESSION: 1. Normal brain. Reviewed, dictated and finalized at location A. ISH MAKER HELPER IMPRESSION: 1. Normal brain.
== END 2024-10-13 09:04 | disposition home or self-care (01) ==
PROVIDERS: Visit Provider Internal Medicine Hematology
DX: C78.00 Secondary malignant neoplasm of unspecified lung (principal)
CPT/HCPCS: 70553; A9577

== ENCOUNTER 2024-10-19 09:10 | Outpatient (CLI) | payer OTHER, SELFPAY ==
[2024-10-19 09:20] VITALS: BP 119/73; PULSE 76; RESP 16; TEMP 36.4; O2SAT 97
[2024-10-19 09:31] LABS: Basophils Absolute Auto 0.05 K/mm3 (0.00-0.10); Basophils Percent Auto 0.5 % (0.0-1.0); Eosinophils Absolute Auto 0.48 K/mm3 (0.02-0.50); Eosinophils Percent Auto 5.2 % (1.0-6.0); Hematocrit 44.3 % (40.0-54.0); Hemoglobin 15.4 g/dL (14.0-18.0); Immature Granulocyte Absolute 0.04 K/mm3 (0.00-0.00); Immature Granulocyte Percent A 0.4 % (0.0-0.0); Lymphocytes Absolute Auto 1.91 K/mm3 (1.10-4.50); Lymphocytes Percent Auto 20.6 % (18.0-42.0); Mean Corpuscular HGB Conc 34.8 g/dL (32-36); Mean Corpuscular Hemoglobin 36.3 pg (27.0-31.0); Mean Corpuscular Volume 104.5 fL (78.0-102.0); Mean Platelet Volume 8.7 fl (8.7-11.0); Monocytes Absolute Auto 1.17 K/mm3 (0.10-0.90); Monocytes Percent Auto 12.6 % (2.0-11.0); Neutrophils Absolute Auto 5.62 K/mm3 (1.70-7.20); Neutrophils Percent Auto 60.7 % (50.0-70.0); Platelet Count Result 232 K/mm3 (150-420); Red Blood Count 4.24 M/mm3 (4.70-6.10); White Blood Count 9.3 K/mm3 (4.8-10.8)
[2024-10-19 09:45] LABS: Alanine Aminotransferase 26 U/L (16-63); Albumin Level 3.5 g/dL (3.4-5.0); Alkaline Phosphatase 101 U/L (46-116); Anion Gap 10 mmol/L (4-12); Aspartate Amino Transferase 17 U/L (15-37); Bilirubin,Total 0.7 mg/dL (0.00-1.00); Blood Urea Nitrogen 12 mg/dL (7-18); Calcium 8.6 mg/dL (8.5-10.1); Carbon Dioxide 27 mmol/L (21-32); Chloride 102 mmol/L (98-108); Estimated Glomerular Filt Rate > 60; Glucose 102 mg/dL (70-99); Osmolality Calculated 287 mOsm/kg (285-295); Sodium 139 mmol/L (136-145); Total Protein 6.6 g/dL (6.4-8.2)
[2024-10-19] MEDS: SODIUM CHLORIDE 0.9% IV 250 ML 10 ML IVPB (09:50)
[2024-10-19] MEDS: SODIUM CHLORIDE 0.9% IV PUSH (10:06)
[2024-10-19] MEDS: ONDANSETRON IV PUSH (10:06)
[2024-10-19] MEDS: BEVACIZUMAB AWWB IVPB (10:33)
[2024-10-19] MEDS: SODIUM CHLORIDE 0.9% IVPB (10:33)
[2024-10-19] MEDS: HEPARIN SODIUM LOCK FLUSH 500 UNITS/5 ML SYRINGE IV PUSH (11:06)
[2024-10-19 11:31] VITALS: BP 120/74; PULSE 76; RESP 14; O2SAT 97
--- NOTE | 2024-10-19 11:32 | PC.NURSE ---
Tolerated treatment infusion well. SEE MAR/patient care notes.
== END 2024-10-19 09:11 | disposition home or self-care (01) ==
PROVIDERS: Visit Provider Internal Medicine Hematology
DX: Z51.11 Encounter for antineoplastic chemotherapy (principal); C20 Malignant neoplasm of rectum
CPT/HCPCS: 36415; 80053; 85025; 96367; 96413; J2405; J7050; Q5107

== ENCOUNTER 2024-11-09 09:05 | Outpatient (CLI) | payer OTHER, SELFPAY ==
[2024-11-09 09:28] LABS: Hematocrit 44.3 % (40.0-54.0); Hemoglobin 15.1 g/dL (14.0-18.0); Mean Corpuscular HGB Conc 34.1 g/dL (32-36); Mean Corpuscular Hemoglobin 35.8 pg (27.0-31.0); Mean Platelet Volume 8.6 fl (8.7-11.0); Platelet Count Result 228 K/mm3 (150-420); Red Blood Count 4.22 M/mm3 (4.70-6.10); Red Cell Distribution Width 17.4 % (11.6-14.4); White Blood Count 8.4 K/mm3 (4.8-10.8)
[2024-11-09 09:31] LABS: Add Urine Microscopic? NO; Appearance Urine Clear (Clear); Bilirubin Urine Negative (Negative); Blood Urine Negative (Negative); Color Urine Light Yellow (Yellow); Glucose Urine UA Negative (Negative); Ketones Urine Negative (Negative); Leukocyte Esterase Ur Negative (Negative); Nitrate Urine Negative (Negative); Protein Urine Negative (Negative)
[2024-11-09 09:47] LABS: Alanine Aminotransferase 21 U/L (16-63); Albumin Level 3.6 g/dL (3.4-5.0); Alkaline Phosphatase 95 U/L (46-116); Anion Gap 9 mmol/L (4-12); Aspartate Amino Transferase 19 U/L (15-37); Bilirubin,Total 0.8 mg/dL (0.00-1.00); Blood Urea Nitrogen 10 mg/dL (7-18); Calcium 8.5 mg/dL (8.5-10.1); Carbon Dioxide 26 mmol/L (21-32); Chloride 101 mmol/L (98-108); Estimated Glomerular Filt Rate > 60; Glucose 126 mg/dL (70-99); Osmolality Calculated 283 mOsm/kg (285-295); Potassium 3.9 mmol/L (3.5-5.1); Sodium 136 mmol/L (136-145); Total Protein 6.6 g/dL (6.4-8.2)
[2024-11-09 09:53] VITALS: BMI 31.7
[2024-11-09] MEDS: SODIUM CHLORIDE 0.9% IV 250 ML 10 ML IVPB (10:00)
[2024-11-09 10:05] VITALS: BP 128/79; PULSE 78; RESP 16; TEMP 36.4; O2SAT 97
[2024-11-09] MEDS: SODIUM CHLORIDE 0.9% IVPB ×2 (10:15→10:36)
[2024-11-09] MEDS: ONDANSETRON IVPB (10:15)
[2024-11-09] MEDS: BEVACIZUMAB AWWB IVPB (10:36)
[2024-11-09] MEDS: HEPARIN SODIUM LOCK FLUSH 500 UNITS/5 ML SYRINGE IV PUSH (11:14)
[2024-11-09 11:18] VITALS: BP 129/80; PULSE 76; RESP 14; O2SAT 96
--- NOTE | 2024-11-09 11:25 | PC.NURSE ---
Tolerated treatment well. SEE MAR/patient care notes.
== END 2024-11-09 09:06 | disposition home or self-care (01) ==
PROVIDERS: Visit Provider Internal Medicine Hematology
DX: Z51.11 Encounter for antineoplastic chemotherapy (principal); C20 Malignant neoplasm of rectum
CPT/HCPCS: 36415; 36591; 80053; 81003; 85027; 96367; 96413; J2405; J7050; Q5107

== ENCOUNTER 2024-11-15 08:14 | Outpatient (CLI) | payer OTHER, SELFPAY ==
--- NOTE | ~2024-11-15 | CT_ITS ---
Clinical Indication: Rectal carcinoma CT Scan of the Chest, Abdomen, and Pelvis with Contrast: Technique: Contiguous sections were acquired throughout the chest, abdomen, and pelvis after intraven ous administration of 100 cc of Omnipaque 350. Dose reduction technique was used on this scan by uti lizing automated exposure control and iterative reconstruction technique. The dose-length product (DL P) was 1268.31 mGy-cm. Comparison: 09/14/2024 Findings: There is no evidence of any significant mediastinal, hilar or axillary lymphadenopathy. The mediastin al soft tissues appear normal. There is no evidence of pleural or pericardial effusion. 1.9 cm medial right lower lobe pulmonary nodules essentially stable from prior exam (axial image 89). Lobulated left lower lobe pulmonary nodule measuring up to 2.2 cm also essentially unchanged (axial image 94). Stable 1 cm nodule left upper lobe (axial image 74). There is mild emphysema in the upper lobes. The liver, spleen, pancreas, gallbladder, adrenals and kidneys are within normal limits. No evidence of aortic aneurysm. No lymphadenopathy. No bowel obstruction or bowel wall thickening. There is no evidence to suggest acute appendicitis. Urinary bladder is unremarkable. No pelvic mass seen. No ascites. Impression: Pulmonary nodules are unchanged, as detailed above, compatible with stable metastatic disease. No other significant findings. Reviewed, dictated and finalized at [facility]. [employer] Impression: Pulmonary nodules are unchanged, as detailed above, compatible with stable meta static disease. No other significant findings.
--- OUTSIDE RECORDS SUMMARY | 2024-11-16 03:53 | XMS_ITS | Data Portability ---
Author Organization [facility], [address] [facility] ([place]) Address [address] [place] [address] Care Team Providers Care Tube Bender Hand Name Role Phone SARTHAK KINSEY Primary Care Provider KWADWO DIAZ Attendant Sales Assessment Encounter Date Assessment Date Assessment LastModified by Organization Details LastModified Time 02/29/2024 02/29/2024 Devante is a 53-year-old male. I have been following him for rectal cancer that had a completely response. He had radiation completed under the RAPIDO trial down at [facility]. He finished his chemoradiation in November 2021. He had a complete clinical response. Prior to starting there was question of possible lung metastases but since that time I performed a colonoscopy on him and a flexible sigmoidoscopy with no evidence of recurrent rectal cancer. He is having no rectal symptoms in terms of constipation, bleeding or pain. He has developed widely metastatic disease in the lungs and is being treated by Dr. Kim Iraheta at [facility] with avastin and capecitabine. He just had a CT scan last week at [facility] and is waiting for a call from his oncologist regarding the results as he is about to start his fifth cycle of chemotherapy. I discussed the situation with Devante. He is now being treated for stage IV disease. He is not having any rectal symptoms. Even if he was starting to have recurrence of the rectum, chemotherapy would probably be the treatment of choice. We discussed whether or not he should have anymore surveillance flexible sigmoidoscopies. I do not believe that he needs these at this time but if he starts to have some symptoms like bleeding, constipation, obstruction, etc., he should call me right away and we can consider flexible sigmoidoscopy and consider treatment/palliati ve options. He is in agreement with the plan. I will see Devante as needed at this time. [email or web address] Not available 02/29/2024 19:43:22 05/03/2024 05/03/2024 SUBJECTIVE: Mr. Devante Jarrell, 53-year-old male, with history of CAD status post PCI of circumflex and proximal and mid RCA in November 2021 in the setting of [id number]-[id number] myocardial infarction, comes in for followup visit. 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 He is currently being treated with chemotherapy. Since the last visit, he has done well. He denies dyspnea with daily activities. He denies any chest pain, chest pressure, chest heaviness. He denies orthopnea, PND, ankle edema, palpitations or lightheadedness. He denies any recent hospitalization due to cardiovascular reason. Most recent blood work shows normal renal function and electrolytes. Last CBC showed normal hemoglobin and hematocrit. His last lipid panel was near favorable, however, his LDL was not on goal. Last 12 lead EKG, 11/03/2023, showed sinus rhythm with incomplete right bundle branch block and left anterior fascicular block. No Q waves were noted. nv PREVIOUS CARDIAC WORKUP: 1. CAD. Non-STEMI in November 2021. He received 2.75/15 Resolute [place] drug-eluting stent in proximal circumflex. RCA was treated with 4.0/15 and 3.5/28 Res[place] stents. 2. Transthoracic echo 11/22/2021 showed normal LV and RV function. 3. Lipid panel from October 2016 showed total cholesterol 194, triglycerides 170, HDL 32, LDL 128. IMPRESSION: 53-year-old male with CAD and colorectal cancer, on chemotherapy, comes in for followup visit. nv PLAN: 1. CAD status post PCI to RCA and circumflex in November 2021 in the setting of [id number] myocardial infarction. He is doing well. Denies any recurrent chest pain. He is tolerating clopidogrel, metoprolol and atorvastatin. He continues to smoke, but he is trying to quit smoking. We will recommend continuation of medical management and aggressive risk factor modification at this point. 2. Hypertension. Blood pressure is well controlled. No changes needed. 3. Dyslipidemia. Continue current dose of statin. Target LDL for him is less than 55. Patient was counseled regarding lifestyle modification healthy diet, daily exercise and weight loss. Patient understood the care plan and voiced no concerns. Followup visit in a year. nv [email or web address] Not available 05/04/2024 20:35:34 Plan of Treatment Reminders Order Date Submit Date Provider Last Modified By Organization Details Last Modified Time Details Appointments Establish ed Patient 15.EST 2024 11:30A M Dr. Kwadwo Diaz Not available Not available Not available Lab None recorded. Referral None recorded. Procedures None recorded. Surgeries None recorded. Imaging None recorded. Medication Orders None recorded. Patient TargetsNo targets recorded. Patient InstructionsNo instructions recorded. Reason for Referral None Reported. Results Created Date Observation Date Name Description Value Unit Range Abnormal Flag Note LastModifiedBy Organization Detail LastModifiedTime 08/21/20 24 11/03/2023 imagi ng/di agnos tic resul t No observ ation record ed. [email or web address] Not Available 02:44:48 08/21/20 24 02/24/2024 imagi ng/di agnos tic resul t No observ ation record ed. [email or web address] Not Available 02:45:18 08/21/20 24 10/19/2023 imagi ng/di agnos tic resul t No observ ation record ed. [email or web address] Not Available 02:45:33 Result Notes None recorded. Problems Name Problem SNOMED Code Status Onset Date Resolution Date Notes Provider Name and Address Organization Details Recorded Time Hypertens haider disorder 27642052 [facility] 2023 [facility] 09:[facility]:13 Adenocarc inoma of rectum 522645685 Active 2023 [facility] 09:30:26 Nodule of lung 743330894 Active 2023 [facility] 09:30:53 Coronary arteriosc lerosis 93388536 Active 2023 [facility] 09:33:22 Nausea 986250329 Active 2023 Chemother apy induced. Carri Garcia [facility] 4 09:33:49 History of diverticu litis 640741682135 100 Active 2023 Carri Garcia [facility] 4 09:34:02 Pulmonary emphysema 14184191 Active 2023 Giovany Obrien [facility] 4 11:57:05 Essential hypertens ion 63487230 Active 2023 Carlos Scott [facility] 4 16:05:50 Dyslipide chaya 220699321 Active 2023 Carlos Scott [facility] 4 16:05:55 Problem Notes None recorded. Procedures Surgical History Date Name Laterality Status Provider Name and Address Organization Details Recorded Time 08/31/20 colonoscopy completed Carri Garcia [facility] 02/27/2024 09:32:45 01/14/20 23 colonoscopy completed Carribrendan Garcia [facility] 02/27/2024 09:36:53 11/24/19 22 colonoscopy completed [facility] 02/27/2024 09:37:08 Appendectomy completed Not Available Health Note 05/02/2024 23:49:55 Prq card stent w/angio 1 vsl completed Not Available Health Note 05/02/2024 23:49:55 Colonoscopy with biopsy completed Not Available Health Note 05/02/2024 23:49:55 Imaging Results Imaging Date Name Status [facility]Modified by [facility] Details LastModified Time 11/03/2023 imaging/diag nostic result completed Information not available 08/21/2024 02:44:48 02/24/2024 imaging/diag nostic result completed Information not available 08/21/2024 02:45:18 10/19/2023 imaging/diag nostic result completed Information not available 08/21/2024 02:45:33 Procedure Notes None recorded. Medical Equipment None Reported. Allergies No known drug allergies Medications Name Sig Start Date Stop Date Status Note LastModified by Organization Details LastModified Time atorvastatin 80 mg tablet TAKE 1 TABLET BY MOUTH AT BEDTIME active Not Available Not Available No t Available clopidogrel 75 mg tablet TAKE 1 TABLET BY MOUTH DAILY active Not Available Not Available No t Available capecitabine 500 mg tablet active Not Available Not Availabl e Not Available amitriptyline 25 mg tablet TAKE 1 TABLET BY MOUTH AT BEDTIME active Not Available Not Available No t Available hydrocortison e 1 % topical cream APPLY SPARINGLY TO HANDS AND FEET TWICE DAILY active Not Available Not Available No t Available nitroglycerin 0.[address] 1 TABLET UNDER THE TONGUE EVERY 5 MNINUTES UP TO 3 DOSES NEEDED FOR CHEST PAIN. AFTER 2ND DOSE CALL 911 active Not Available Not Available No t Available clindamycin 1 % lotion APPLY SPARINGLY AND MASSAGE INTO HANDS AND FEET TWICE A DAY active Not Available Not Available No t Available iron 325 mg (65 mg iron) tablet Take 1 tablet every day by oral route. active Not Available Not Available No t Available metoprolol tartrate 25 mg tablet TAKE 1/2 TABLET BY MOUTH TWICE DAILY active Not Available Not Available No t Available Vitals Date Recorded Body height Provider Name an d Address Organization Details Last Updated DateTime 02/29/2024 177.8 cm Carri Clark [facility] 02/29/2024 13:35:47 Date Recorded Body mass index (BMI) Body weight Provider Name and Address Organization Details Last Updated DateTime 02/29/2024 34.1 kg/m2 234890.98 g Carri Clark [facility] 02/29/2024 13:36:07 Date Recorded Heart rate Provider Name an d Address Organization Details Last Updated DateTime 02/29/2024 83 /min Carri Clark [facility] 02/29/2024 13:36:19 Date Recorded Body height Provider Name an d Address Organization Details Last Updated DateTime 05/03/2024 177.8 cm Sulma [facility] 05/03/2024 11:11:32 Date Recorded Heart rate Provider Name an d Address Organization Details Last Updated DateTime 05/03/2024 82 /min [facility] 05/03/2024 11:15:19 Date Recorded Oxygen saturation Oxygen saturation in Arterial blood by Pulse oximetry Provider Name and Address Organization Details Last Updated DateTime 05/03/2024 93 % 93 % Sulma [facility] 05/03/2024 11:15:22 Date Recorded Body mass index (BMI) Body weight Provider Name and Address Organization Details Last Updated DateTime 05/03/2024 33.1 kg/m2 414835.84 g Sulma [facility] 05/03/2024 11:15:25 Date Recorded Heart rate Heart rate Respiratory rate Body mass index (BMI) Body mass index (BMI) Body height Body weight Body weight Body temperature Body temperature Oxygen saturation Oxygen saturation in Arterial blood by Pulse oximetry Provider Name and Address Organization Details Last Updated DateTime 73 /min 82 /min 18 /min 33.43 kg/m2 33.46 kg/m2 177.8 cm 564952. 53609 g 864127. 668926 g 97.9 [degF] 98.5 [degF] 95 % 95 % Not Available [facility] 4 20:25:18 Date Recorded Systolic blood pressure Diastolic blood pressure Provider Name and Address Organization Details Last Updated DateTime 02/29/2024 146 mm[Hg] 88 mm[Hg] Carribrendan Clark [facility] 02/29/2024 13:36:13 Date Recorded Systolic blood pressure Diastolic blood pressure Provider Name and Address Organization Details Last Updated DateTime 05/03/2024 116 mm[Hg] 80 mm[Hg] Sulma [facility] 05/03/2024 11:15:16 Date Recorded Systolic blood pressure Diastolic blood pressure Systolic blood pressure Diastolic blood pressure Provider Name and Address Organization Details Last Updated DateTime 08/01/2024 138 mm[Hg] 76 mm[Hg] 135 mm[Hg] 82 mm[Hg] Not Available [facility] 4 06:34:10 Social History Question Answer Notes LastModified by Organizat ion Details LastModified Time Do You Have An Advance Directive? No [email or web address] Information not available 05/02/2024 What Is Your Level Of Alcohol Consumption? Occasional [email or web address] Information not available 05/02/2024 How Many Times Per Week Do You Consume Alcohol? Less Than 1 Time Per Week [email or web address] Information not available 05/02/2024 What Is Your Level Of Caffeine Consumption? Occasional [email or web address] Information not available 05/02/2024 Are You Currently Employed? 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 5-7 Times Per Week [email or web address] Information not available 05/02/2024 How Many Packs Per Day (PPD)? 1 Pack Per Day [email or web address] Information not available 05/02/2024 How Long Have You Smoked? 30 Years [email or web address] Information not available 05/02/2024 Do You Have A Medical Power Of Visitor Use Assistant? No [email or web address] Information not available 05/02/2024 What Was The Date Of Your Most Recent Tobacco Screening? 05/03/2024 [email or web address] Information not available 05/02/2024 What Is Your Relationship Status? [email or web address] Information not available 05/02/2024 Do You Use Any Illicit Or Recreational Drugs? No [email or web address] Information not available 05/02/2024 Sex: Unknown Functional Status Question Answer Note LastModified by Organizat ion Details LastModified Time What is your exercise level? Occasional [email or web address] Information not available 05/02/2024 Mental Status None recorded. Family History Relationship Description Onset Age of this Age Resolved Age Notes LastModified by Organization Details LastModified Time Mother Arthritis [email or web address] Not available 05/02/2024 23:49:54 Mother Diabetes mellitus [email or web address] Not available 2023 23:49:54 Mother Hypertensive disorder [email or web address] Not available 2023 23:49:54 Mother Hypercholest erolemia [email or web address] Not available 2023 23:49:54 Father Arthritis [email or web address] Not available 05/02/2024 23:49:54 Father Heart disease [email or web address] Not available 2023 23:49:54 Father Hypertensive disorder [email or web address] Not available 2023 23:49:54 Father Hypercholest erolemia [email or web address] Not available 2023 23:49:54 Sister Arthritis [email or web address] Not available 05/02/2024 23:49:54 Sister Family history of malignant neoplasm [email or web address] Not available 2023 23:49:54 Sister Diabetes mellitus [email or web address] Not available 2023 23:49:54 Sister Heart disease [email or web address] Not available 2023 23:49:54 Sister Hypertensive disorder [email or web address] Not available 2023 23:49:54 Sister Hypercholest erolemia [email or web address] Not available 2023 23:49:54 Sister Seizure disorder [email or web address] Not available 2023 23:49:54 Brother Arthritis [email or web address] Not availabl e 05/02/2024 23:49:54 Brother Diabetes mellitus [email or web address] Not available 2023 23:49:54 Brother Heart disease [email or web address] Not available 2023 23:49:54 Brother Hypertensive disorder [email or web address] Not available 2023 23:49:54 Brother Hypercholest erolemia [email or web address] Not available 2023 23:49:54 Medical History Condition Response Anxiety Disorder N Diabetes N Bleeding Disorder N Attention-deficit Hyperactivity Disorder N High Blood Pressure N Arthritis Y Hyperlipidemia N Cancer Y Thyroid Problems N Stroke N COPD N Asthma N Depression N Anemia N Seizures N Heart Disease Y Fibromyalgia N Osteoporosis N Kidney Disease N Past Encounters Encounter ID Performer Location Encounter Start Date Encounter Closed Date Diagnosis/Indication Diagnosis SNOMED-CT Code Diagnosis ICD10 Code Diagnosis Note [id number] Joao Wild MD [facility] ([place]) [address] [place] [address] 02/29/2024 13:32:35 03/07/2024 08:29:33 Adenocarcinoma of rectum 215808826 C20 [id number] Kwadwo Diaz MD [facility] ([place]) [address] [place] [address] 05/03/2024 10:58:51 05/03/2024 11:39:02 Coronary arteriosclerosis 54776274 I25.10 Essential hypertension 82513378 I10 Dyslipidemia 245290001 E 78.5 Health Concerns Section Related Observation LastModified by Organization Detai ls LastModified Time None Recorded Concern Status LastModified by Organization Details LastModified Time None Recorded Advance Directives Directive N: Payers Encounter Date Sequence Insurance Name Policy Number Policy Pickett Covered Member ID Pickett Member ID Guarantor Name 02/29/[address] [facility] [id number] Devante Jarrell [id number] Devante Jarrell 05/03/[address] [facility] [id number] Devante Jarrell [id number] Devante Jarrell
== END 2024-11-15 08:15 | disposition home or self-care (01) ==
LOC: CHSIMG 08:16
PROVIDERS: Visit Provider Internal Medicine Hematology
DX: C20 Malignant neoplasm of rectum (principal); R91.8 Other nonspecific abnormal finding of lung field
CPT/HCPCS: 71260; 74177; Q9967

== ENCOUNTER 2024-11-30 09:08 | Outpatient (CLI) | payer OTHER, SELFPAY ==
[2024-11-30 09:15] VITALS: BMI 32.0
[2024-11-30 09:35] LABS: Hematocrit 44.8 % (40.0-54.0); Hemoglobin 14.9 g/dL (14.0-18.0); Mean Corpuscular HGB Conc 33.3 g/dL (32-36); Mean Corpuscular Hemoglobin 35.6 pg (27.0-31.0); Mean Corpuscular Volume 107.2 fL (78.0-102.0); Platelet Count Result 231 K/mm3 (150-420); Red Blood Count 4.18 M/mm3 (4.70-6.10); Red Cell Distribution Width 17.8 % (11.6-14.4); White Blood Count 10.3 K/mm3 (4.8-10.8)
[2024-11-30] MEDS: SODIUM CHLORIDE 0.9% IV 250 ML 10 ML IVPB (09:35)
--- OUTSIDE RECORDS SUMMARY | 2024-11-30 09:35 | XMS_ITS | Encounter Summary ---
Author Organization [facility] Address [address] [place] [address] Care Team Providers Care Stand Up Forklift Operator Name Role Phone Larry Serna MD Primary Care Provider Unavailab le Encounter Details Date Type Department Care Team (Late st Contact Info) Description 03/31/2019 Abstract SFL CONVERSION [address] [place] [address] , Generic Conversion, Social History Tobacco Use Types Packs/Day Years Used Date Smoking Tobacco: Never Assessed Sex and Gender Information Value Date Recorded Sex Assigned at Not on file Legal Sex Male 9:32 PM MEDICAL ATTENDANT Gender Identity Not on file Sexual Orientation Not on file documented as of this encounter Plan of Treatment Not on file documented as of this encounter Visit Diagnoses Not on filedocumented in this encounter Additional Health Concerns Infection Onset Date Last Indicated Resolved Time COVID-19 Rule Out 10/01/2021 10/01/2021 10/01/2021 2:43 PM MEDICAL ATTENDANT COVID-19 Rule Out 11/21/2021 11/21/2021 11/21/2021 9:38 PM MEDICAL ATTENDANT documented as of this encounter Care Teams Stand Up Forklift Operator Relationship Specialty Start Date End Date Larry Serna MD PCP - General FAMILY PRACTICE 09/30/21 documented as of this encounter
--- OUTSIDE RECORDS SUMMARY | 2024-11-30 09:35 | XMS_ITS ---
Author Organization [facility] Address [address] [place] [address] Care Team Providers Care Chief Cruiser Name Role Phone Myron Serna MD Primary Care Provider [phone] Jan Middleton MD Unavailable James Velazquez MD Unavailable [phone] Noemi Crandall MD Unavailable Active Problems Problem Noted Date Diagnosed Date Rectal cancer (CMS/HCC) 05/20/2022 NSTEMI (non-ST elevated myocardial infarction) ( CMS/HCC) 11/22/2021 Diverticulitis 10/01/2021 Pulmonary nodule Current Oncology Plans Ostomy Nurse Consultation* Plan Start Date:08/03/2022 Plan Provider:Transcribed Order, Provider Linked Problems Rectal cancer (CMS/HCC) (FORM[facility]LY [facility] ) Treatment Medications No medications scheduled. Past Plans No past plan information found. Radiation Treatments * No radiation treatments are documented for this patient in [facility]. Treatments may have been administered in another system.
--- OUTSIDE RECORDS SUMMARY | 2024-11-30 09:35 | XMS_ITS | Referral Summary ---
Author Organization [facility] Address [address] [place] [address] Care Team Providers Care Clockmaker Apprentice Name Role Phone Myron Serna MD Primary Care Provider [phone] Jan Middleton MD Unavailable James Velazquez MD Unavailable [phone] Noemi Crandall MD Unavailable Allergies No known active allergies Medications atorvastatin (LIPITOR) 80 mg tablet Take 1 tablet (80 mg total) by mouth nightly at bedtime. 03/18/2022 Active clopidogreL (PLAVIX) 75 mg tablet Take 1 tablet (75 mg total) by mouth daily 04/14/2022 Active metoprolol tartrate (LOPRESSOR) 25 mg immediate release tablet Take 0.5 tablets (12.5 mg total) by mouth 2 (two) times a day 11/26/2021 Active cyanocobalamin (Vitamin B-12) 500 mcg tabletIndicatio ns:Prevention of Vitamin B12 Deficiency Take 1 tablet (500 mcg total) by mouth daily Active ferrous sulfate (IRON ORAL) Take 65 mg by mouth Active amitriptyline (ELAVIL) 25 mg tablet Take 1 tablet (25 mg total) by mouth nightly at bedtime. 02/07/2023 Active Active Problems Problem Noted Date Diagnosed Date Rectal cancer (CMS/HCC) 05/20/2022 NSTEMI (non-ST elevated myocardial infarction) ( CMS/HCC) 11/22/2021 Diverticulitis 10/01/2021 Pulmonary nodule Immunizations Name Administration Dates Next Due Tdap 11/10/2017 Social History Tobacco Use Types Packs/Day Years Used Date Smoking Tobacco: Every Day Cigarettes 1 30 Smokeless Tobacco: Never Tobacco Cessation:Ready to Q uit: Not Asked; Counseling Given: Not Answered AUDIT-C Answer Date Recorded Q1: How often do you have a drink containing alc ohol? Never 09/20/2022 Average Number of Drinks Not on file 022 Frequency of Binge Drinking Not on file 08/25 Personal Safety Answer Date Recorded Getting School Help Needed Not on file 05/13 Sex and Gender Information Value Date Recorded Sex Assigned at Not on file Legal Sex Male 11:37 AM ODD SHOE EXAMINER Gender Identity Not on file Sexual Orientation Not on file Last Filed Vital Signs Vital Sign Reading Time Taken Comments Blood Pressure 108/60 04/18/2023 12:00 PM CDT Pulse 78 04/18/2023 12:00 PM CDT Temperature 36.4 C (97.5 F) 04/18/2023 12:00 PM CDT Respiratory Rate 24 04/18/2023 12:00 PM CDT Oxygen Saturation 91% 04/18/2023 12:00 PM CDT Inhaled Oxygen Concentration - - Weight 106.1 kg (234 lb) 04/18/2023 12:27 PM CDT Height 180.3 cm (5' 11 ) 04/18/2023 12:27 PM CDT Body Mass Index 32.64 04/18/2023 12:27 PM CDT Plan of Treatment Not on file Procedures Procedure Name Priority Date/Time Associated Diagnosis Comments COLONOSCOPY 01/03/2023 1:53 PM CDT from Last 3 Months or Most Recently Relevant to Health Maintenance Results * COLONOSCOPY (01/03/2023 1:53 PM CDT) Anatomical Region Laterality Modality Other Narrative Procedure Note James Velazquez MD - 01/03/2023 1:53 PM CDT [facility] Patient Name: Devante Jarrell Procedure Date: 01/03/2023 1:53 PM Date of : 1970 Admit Type: Outpatient Age: 52 Gender: Male Attending MD: James Velazquez M.D. Room: [facility] ENDOSCOPY ROOM 02 Note Status: Finalized Procedure: Colonoscopy Indications: Evaluation after total neoadjuvant treatment ofrectal cancer Referring MD: Providers: James Velazquez M.D. Medicines: Propofol per Anesthesia Complications: No immediate complications. Estimated Blood Loss: Estimated blood loss: none. Procedure: Pre-Anesthesia Assessment: - After reviewing the risks and benefits, thepatient was deemed in satisfactory condition to undergo the procedure. - Immediately prior to administration ofmedications, the patient was re-assessed for adequacy to receive sedatives. The benefits, risks and alternatives of theprocedure and sedation were discussed and informed consentwas obtained. All questions were answered. Please referto the signed informed consent document in the medical record. The scope was passed under direct vision.The [id number] was introduced through the anusand advanced to the the transverse colon forevaluation. This was the intended extent. The colonoscopy was performed without difficulty. The patient tolerated the procedure well. The quality of the bowel preparation was good. The bowel preparation usedwas SUPREP. Findings: The perianal and digital rectal examinations were normal. A mild stenosis measuring less than one cm (in length) x 2 cm (inner diameter) was found in the rectum and was traversed. The stricturewas at the site of the prior cancer and there was a pale scar without ulceration or nodules. Impression: - Stricture in the rectum. - No specimens collected. - Good response to total neoadjuvant therapy Recommendation: - Perform magnetic resonance imaging (MRI) with gadolinium today. - Repeat flexible sigmoidoscopy and MRI in 3months Electronically signed by Jai Velazquez James Velazquez M.D. 01/03/2023 2:27:15 PM Number of Addenda: 0 Note Initiated On: 01/03/2023 1:53 PM Recognized by the [employer] for promoting quality in endoscopy James Velazquez MD ENDOSCOPY PROCEDURES Final Res ult from Last 3 Months or Most Recently Relevant to Health Maintenance Insurance [facility] Advance Directives For more information, please contact: [phone] * Full Code (Latest Code Status on File) Date Activated Date Inactivated Comments 04/18/2023 10:53 AM 04/18/2023 4:35 PM * Full Code Date Activated Date Inactivated Comments 01/03/2023 1:14 PM 01/03/2023 7:06 PM * Full Code Date Activated Date Inactivated Comments 09/20/2022 2:30 PM 09/20/2022 8:28 PM Care Teams Clockmaker Apprentice Relationship Specialty Start Date End Date Myron Serna MD [address] [place] [address] PCP - General Family Medicine 07/07/22 Jan Middleton MD [address] [place] [address] Referring Physician Hematology 08/23/22 James Velazquez MD [address] [facility] [phone] [place] [address] Surgeon Colon and Rectal Surgery 09/03/22 Noemi Crandall MD [address] [place] [address] Referring Physician General Surgery 09/03/22
--- OUTSIDE RECORDS SUMMARY | 2024-11-30 09:35 | XMS_ITS | Clinical Summary ---
Author Organization [facility] Address [address] [place] [id number] Care Team Providers Care Specialist Employee Labor Relations Name Role Phone Myron Serna MD Primary Care Provider [phone] Jan Middleton MD Unavailable James Velazquez MD Unavailable [phone] Noemi Crandall MD Unavailable Allergies No known [...] Name Administration Dates Next Due Tdap 11/10/2017 Surgical History Surgery Date Site/Laterality Comments APPENDECTOMY 10/24/1985 - 10/23/1986 COLONOSCOPY 07/14/2022 CARDIAC STENT PLACEMENT 11/24/2021 - 12/21/2021 Medical History Medical History Date Comments Cancer (CMS/HCC) (HCC) Coronary artery disease invo lving [place] coronary artery of [place] heart Colon cancer (CMS/HCC) (HCC) Myocardial infarction (HCC) Hypertension Hyperlipidemia Heart attack (HCC) Family History Medical History Relation Name Comments Heart attack Brother 4 Heart attack Father Diabetes Mother Diabetes Sister 4 Heart attack Sister 4 Cancer Sister 5 Relation Name Status Comments Brother 1 Alive Brother 2 Brother 3 Brother 4 Father Mother Sister 1 Alive Sister 2 Alive Sister 3 Alive Sister 4 Sister 5 Social History Tobacco Use Types Packs/Day Years [...] on file 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 Gender Identity Not on file Sexual Orientation Not on file Obstetrics History Last Filed Vital Signs Vital Sign Reading [...] 04/18/2023 12:27 PM CDT Plan of Treatment Health Maintenance Due Date Last Done Comments Depression Screening 1970 Hepatitis C Screening 1970 Prostate Cancer Screening-PSA 1968 Pneumococcal vaccine <65 (1 of 2 - PCV) 1974 Hepatitis B Screening 1986 Regular Well Visit/Exam 18-64 1986 Zoster Vaccine (1 of 2) 2018 Covid-19 Vaccine (4 - season) 2024 07/12/2022, 01/22/2022, 01/01/2022 Influenza Vaccine (#1) 2024 DTaP/Tdap/Td Vaccine (2 - Td or Tdap) 11/10/2027 Colon Cancer Screening-Colonoscopy 01/03/20332022 Procedures Procedure Name Priority Date/Time Associated Diagnosis Comments COLONOSCOPY 01/03/2023 1:53 PM CDT from Last 3 Months or Most Recently Relevant to Health Maintenance Results * COLONOSCOPY (01/03/2023 1:53 PM CDT) Anatomical Region Laterality Modality Other Narrative Procedure Note James Velazquez MD - 01/03/2023 1:53 PM CDT [facility] Patient Name: Devante Jarrell Procedure Date: 01/03/2023 1:53 PM Date of : 1970 Admit Type: Outpatient Age: 52 Gender: Male Attending MD: James Velazquez M.D. Room: [facility] ENDOSCOPY ROOM 02 Note Status: Finalized [...] The scope was passed under direct vision.The [id number] was introduced through the anusand advanced to [...] On: 01/03/2023 1:53 PM Recognized by the [employer] for promoting quality in endoscopy James Velazquez MD ENDOSCOPY PROCEDURES Final Res ult from Last 3 Months or Most Recently Relevant to Health Maintenance Insurance Advance Directives For more information, please contact: [phone] * Full Code (Latest Code Status on File) Date Activated Date Inactivated Comments 04/18/2023 10:53 AM 04/18/2023 4:35 PM * Full Code Date Activated Date Inactivated Comments 01/03/2023 1:14 PM 01/03/2023 7:06 PM * Full Code Date Activated Date Inactivated Comments 09/20/2022 2:30 PM 09/20/2022 8:28 PM Care Teams Specialist Employee Labor Relations Relationship Specialty Start Date End Date Myron Serna MD [address] [place] [address] PCP - General Family Medicine 07/07/22 Jan Middleton MD [address] [place] [address] Referring Physician Hematology 08/23/22 James Velazquez MD [address] [facility] [phone] [place] [address] Surgeon Colon and Rectal Surgery 09/03/22 Noemi Crandall MD [address] [address] Referring Physician General Surgery 09/03/22
--- OUTSIDE RECORDS SUMMARY | 2024-11-30 09:35 | XMS_ITS | Encounter Summary ---
Author Organization [facility] Address Count includes the [facility] [place] [address] Care Team Providers Care Water Treatment Plant Operator Name Role Phone Larry Serna MD Primary Care Provider Unavailab le Reason for Visit * Reason Onset Date Comments Preprocedure Call 10/10/2023 Spoke with stephen grey -she states patient is getting H&P tomorrow, 10/11, at Dr. Vazquez office, with Madelyn Smith NP. [phone]. Encounter Details Date Type Department Care Team (Late st Contact Info) Description 10/10/2023 Telephone [facility] Interventional Radiology [address] [place] [address] Cleo Lam, LAURA Preprocedure Call (Spoke with patients -she states patient is getting H&P tomorrow, 10/11, at Dr. Vazquez office, with Madelyn Smith NP. [phone].) Social History Tobacco Use Types Packs/Day Years Used Date Smoking Tobacco: Every Day Cigarettes Smokeless Tobacco: Never Comments:smoking since 5 yea rs old Alcohol Use Standard Drinks/Week Comments Yes 0 (1 standard drink = 0.6 oz pur e alcohol) rare-- 1x/month Humiliation, Afraid, Rape, and Kick questionnair e Answer Date Recorded Within the last year, have y ou been afraid of your partner or ex-partner? Patient declined 11/22/2021 Within the last year, have y ou been humiliated or emotionally abused in other ways by your partner or ex-partner? Patient declined 11/22/2021 Within the last year, have y ou been kicked, hit, slapped, or otherwise physically hurt by your partner or ex-partner? Patient declined 11/22/2021 Within the last year, have y ou been raped or forced to have any kind of sexual activity by your partner or ex-partner? Patient declined 11/22/2021 Social Connection and Isolat ion Panel [NHANES] Answer Date Recorded In a typical week, how many times do you talk on the phone with family, friends, or neighbors? More than three times a week 11/22/2021 How often do you get togethe r with friends or relatives? More than three times a week 11/22/2021 How often do you attend chur ch or orthodoxy services? Never 11/22/2021 Do you belong to any clubs o r organizations such as lutheran groups, unions, fraternal or athletic groups, or school groups? No 11/22/2021 How often do you attend meet ings of the clubs or organizations you belong to? Never 11/22/2021 Are you , , di vorced, , never , or living with a partner? 11/22/2021 AUDIT-C Answer Date Recorded Q1: How often do you have a drink containing alc ohol? Never 11/22/2021 Average Number of Drinks Not on file 022 Q3: How often do you have si x or more drinks on one occasion? Never 11/22/2021 Overall Financial Resource Strain (CARDIA) Answe r Date Recorded How hard is it for you to pa y for the very basics like food, housing, medical care, and heating? Not hard at all 11/22/2021 [facility] - Occupational Stress Questionnaire Answer Date Recorded Do you feel stress - tense, restless, nervous, or anxious, or unable to sleep at night because your mind is troubled all the time - these days? Only a little 11/22/2021 Exercise Vital Sign Answer Date Recorde d On average, how many days pe r week do you engage in moderate to strenuous exercise (like a brisk walk)? 0 days 11/22/2021 On average, how many minutes do you engage in exercise at this level? 0 min 11/22/2021 Hunger Vital Sign Answer Date Recorded Within the past 12 months, y ou worried that your food would run out before you got the money to buy more. Never true 11/22/19 22 Within the past 12 months, t he food you bought just didn't last and you didn't have money to get more. Never true 11/22/2021 PRAPARE - Transportation Answer Date Re corded In the past 12 months, has l ack of transportation kept you from medical appointments or from getting medications? No 10/26 In the past 12 months, has l ack of transportation kept you from meetings, work, or from getting things needed for daily living? No 11/22/2021 Housing Stability Vital Sign Answer Baron e Recorded In the last 12 months, was t here a time when you were not able to pay the mortgage or rent on time? No 11/22/2021 Number of Places Lived in the Last Year Not on f ile 11/22/2021 In the last 12 months, was t here a time when you did not have a steady place to sleep or slept in a long term (including now)? 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 Answer Date of Assessment Author Status No 11/22/2021 8:55 AM AUTOMATION MACHINE BUILDER Activ e * Do you have serious difficulty walking or climbing stairs? Answer Date of Assessment Author Status No 11/22/2021 8:55 AM Lillian Giang RN Active * Do you have difficulty dressing or bathing? Answer Date of Assessment Author Status No 11/22/2021 8:55 AM Lillian Giang RN Active * Because of a physical, mental, or emotional condition, do you have difficulty doing errands alone such as visiting a doctor's office or shopping? Answer Date of Assessment Author Status No 11/22/2021 8:55 AM AUTOMATION MACHINE BUILDER Gianni, Lillian E, RN Active documented as of this encounter Mental Status * Because of a physical, mental, or emotional condition, do you have serious difficulty concentrating, remembering, or making decisions? Answer Entry Date Author Status No 11/22/2021 8:55 AM AUTOMATION MACHINE BUILDER Lillian Archer RN Active documented in this encounter Plan of Treatment Not on file documented as of this encounter Goals Goal Patient Goal Type Associated Problems Recent Progress Patient-Stated? Author Health - patient able to perform ADLs independently General Carlos Lundy RN documented as of this encounter Visit Diagnoses Not on filedocumented in this encounter Care Teams Water Treatment Plant Operator Relationship Specialty Start Date End Date Larry Serna MD PCP - General FAMILY PRACTICE 09/30/21 documented as of this encounter
--- OUTSIDE RECORDS SUMMARY | 2024-11-30 09:36 | XMS_ITS | Clinical Summary ---
Author Organization [facility] Address [address] [place] [address] Care Team Providers Care Paper Cutting Machine Operator Name Role Phone Larry Serna MD Primary Care Provider Unavailab le Allergies No known active allergies Medications metoprolol tartrate 25 MG tablet Take 0.5 tablets (12.5 mg total) by mouth 2 (two) times daily. 60 tablet 11/26/2021 Active amitriptyline (ELAVIL) 25 MG tablet Take 1 tablet (25 mg total) by mouth daily. 02/07/2023 Active vitamin B-12 (CYANOCOBALAMIN ) 500 MCG tablet Take 1 tablet (500 mcg total) by mouth daily. Active ferrous sulfate EC 324 MG tablet Take 65 mg by mouth daily with breakfast. Active clopidogrel (PLAVIX) 75 MG tablet Take 1 tablet (75 mg total) by mouth daily. Active atorvastatin (LIPITOR) 80 MG tablet Take 1 tablet (80 mg total) by mouth nightly at bedtime. Active Active Problems Problem Noted Date Diagnosed Date NSTEMI (non-ST elevated myoc ardial infarction) ([facility]/HCC [facility]) 11/22/2021 Diverticulitis 10/01/2021 Encounters Date Type Department Care Team Description 10/22/2024 Orders Only [facility] [address] [place] [address] Kim Light MD 09/27/2024 Orders Only [facility] [address] [place] [address] Kim Light MD from Last 3 Months Family History Medical History Relation Comments Diabetes Brother Diabetes Father PA Father Diabetes Mother pancreatic cancer Sister Relation Status Comments Brother Father Mother Sister Social History Tobacco Use Types Packs/Day Years Used Date Smoking Tobacco: Every Day Cigarettes Smokeless Tobacco: Never Tobacco Cessation:Ready to Q uit: Not Asked; Counseling Given: Not Answered Comments:smoking since 5 years old Alcohol Use Standard Drinks/Week Comments Yes [...] 11/22/2021 How often do you attend chur or hinduism services? Never 11/22/2021 Do you belong to any clubs o r organizations such as islam groups, unions, fraternal or athletic groups, or [...] and heating? Not hard at all 11/22/2021 [facility] [place] [facility] Occupat ional Health - Occupational Stress [...] place to sleep or slept in a detention (including now)? 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 Gender Identity Not on file Sexual Orientation Not on file Occupation Industry Job Start Date Job End Date [employer] Not on file Not on file Not on file Last Filed Vital Signs Vital Sign Reading Time Taken Comments Blood Pressure 108/54 10/19/2023 1:00 PM FACSIMILE MACHINE OPERATOR Pulse 66 10/19/2023 1:00 PM FACSIMILE MACHINE OPERATOR Temperature 36.3 C (97.3 F) 08/31/2023 9:46 AM FACSIMILE MACHINE OPERATOR Respiratory Rate 16 10/19/2023 1:00 PM FACSIMILE MACHINE OPERATOR Oxygen Saturation 95% 10/19/2023 1:00 PM FACSIMILE MACHINE OPERATOR Inhaled Oxygen Concentration - - Weight 106.6 kg (235 lb) 10/19/2023 8:20 AM FACSIMILE MACHINE OPERATOR Height 177.8 cm (5' 10 ) 10/19/2023 8:20 AM FACSIMILE MACHINE OPERATOR Body Mass Index 33.72 10/19/2023 8:20 AM FACSIMILE MACHINE OPERATOR Plan of Treatment Health Maintenance Due Date Last Done Comments Annual Physical 1971 Pneumococcal Vaccine: Pediatrics (0 to 5 Years) and At-Risk Patients (6 to 64 Years) (1 of 2 - PCV) 1974 Hepatitis C 1986 Hepatitis B Vaccines (1 of 3 - 19+ 3-dose series) 1987 Zoster Vaccines (1 of 2) 2018 ASCVD LDL 11/23/2022 11/23/2021 COVID-19 Vaccine (1 - season) 2024 Influenza Adult (#1) 2024 DTaP, Tdap and Td Vaccines (2 - Td or Tdap) 11/10/2027 11/10/2017 Colorectal Cancer Screening FIT/FOBT (1 Year) Discontinued 11/22/2021 Colorectal Cancer Screening Colonoscopy (10 Years) Discontinued 08/31/2023, 08/31/2023, 11/24/2021, Additional history exists Meningococcal B Vaccine Aged Out No l onger eligible based on patient's age to complete this topic Meningococcal Vaccine Aged Out No cynthia yehuda eligible based on patient's age to complete this topic RSV Immunizations Under 20 Months Aged Out No longer eligible based on patient's age to complete this topic Goals Goal Patient Goal Type Associated Problems Recent Progress Patient-Stated? Author Health - patient able to perform ADLs independently General Carlos Yan, RN Medical Devices Implanted Type Area [employer] Lead Device Identifier Shelf Expiration Date Model / Serial / Lot Clip Resolution 2.8mm 360 235cm 11mm Open - [id number] Implanted:Qty: 1 on 11/24/2021 by Kaleb Napier DO at [facility] [employer] Clip Implant [employer] [id number] 07/20/2024 [id number] / / [id number] Description:1 CLIP PLACED AT DESCENDING COLON WHERE POLYP WAS REMOVED VIA HOT SNARE Procedures Procedure Name Priority Date/Time Associated Diagnosis Comments COLONOSCOPY 08/31/2023 6:46 AM FACSIMILE MACHINE OPERATOR LIPID PANEL Routine 11/23/2021 4:56 AM FACSIMILE MACHINE OPERATOR OCCULT BLOOD, FECES Routine 11/22/2021 2 :20 PM FACSIMILE MACHINE OPERATOR from Last 3 Months or Most Recently Relevant to Health Maintenance Results * Colonoscopy (08/31/2023 6:46 AM FACSIMILE MACHINE OPERATOR) us Joao Wild MD GI PROCEDURE ORDERABLES Final Result * (ABNORMAL) LIPID PANEL (11/23/2021 4:56 AM FACSIMILE MACHINE OPERATOR) CHOLESTEROL 190 <200 MG/DL 11/23/2021 5:56 AM FACSIMILE MACHINE OPERATOR [facility] TRIGLYCERIDES 214(H) <150 MG/DL 11/23/2021 5:56 AM FACSIMILE MACHINE OPERATOR [facility] HDL 35(L) >40.0 MG/DL 11/23/2021 5:56 AM FACSIMILE MACHINE OPERATOR [facility] LDL (CALCULATED) 112(H) <100 MG/DL 11/23/2021 5:56 AM FACSIMILE MACHINE OPERATOR [facility] NON HDL CHOLESTEROL 155(H) <130 MG/DL 11/23/2021 5:56 AM FACSIMILE MACHINE OPERATOR [facility] CHOL/HDL RATIO 5.4(H) 0.0 - 4.5 11/23/2021 5:56 AM FACSIMILE MACHINE OPERATOR [facility] VLDL CALCULATION 43 5 - 55 MG/DL 11/23/2021 5:56 AM FACSIMILE MACHINE OPERATOR [facility] LIPID INTERPRETATION 11/23/2021 5:56 AM FACSIMILE MACHINE OPERATOR [facility] Comment: NIH CONCENSUS REPORT RECOMMENDATIONS: ADULT CHILD LOW RISK: CHOLESTEROL <200 <170 TRIGLYCERIDE <150 --- HDL >=60 --- LDL <100 <110 BORDERLINE: CHOLESTEROL 200-239 170-199 TRIGLYCERIDE 150-199 --- HDL 40-59 --- LDL 100-159 110-129 HIGH RISK: CHOLESTEROL >=240 >=200 TRIGLYCERIDE >=200 --- HDL <40 --- LDL >=160 >=130 11/23/2021 4:56 AM FACSIMILE MACHINE OPERATOR Mini Alston PA-C LABORATORY Final Result [facility] [address] [place] [address], [place] [phone] * OCCULT BLOOD, FECES (11/22/2021 2:20 PM FACSIMILE MACHINE OPERATOR) OCCULT BLOOD FECAL POSITIVE 11/22/2021 2:43 PM FACSIMILE MACHINE OPERATOR [facility] STOOL SPECIMEN / Unknown 11/22/2021 2:20 PM FACSIMILE MACHINE OPERATOR Mini Alston PA-C BODY FLUIDS AND STOOLS ORDERA BLES Final Result [facility] [address] [place] [id number], [place] [phone] from Last 3 Months or Most Recently Relevant to Health Maintenance Insurance [employer] Advance Directives * Full Code (Latest Code Status on File) Date Activated Date Inactivated Comments 11/22/2021 9:05 AM 11/26/2021 6:24 PM * Full Code Date Activated Date Inactivated Comments 10/01/2021 12:35 AM 10/03/2021 7:26 PM Care Teams Paper Cutting Machine Operator Relationship Specialty Start Date End Date Larry Serna MD PCP - General FAMILY PRACTICE 09/30/21
--- OUTSIDE RECORDS SUMMARY | 2024-11-30 09:36 | XMS_ITS | Data Portability ---
Author Organization [facility], [address] [facility]rology ([place]) Address [address] [place] [address] Care Team Providers Care Janitorial Supervisor Name Role Phone SARTHAK KINSEY Primary Care Provider [phone] KWADWO DIAZ Polishing Pad Mounter Assessment Encounter Date Assessment Date Assessment LastModified by Organization Details LastModified Time 02/29/2024 02/29/2024 Devante is a 53-year-old male. I have been following him for rectal cancer that had a completely response. He had radiation completed under the RAPIDO trial down at [facility]. He finished his chemoradiation in November [...] being treated by Dr. Kim Iraheta at [facility] with avastin and capecitabine. He just had a CT scan last week at [place] and is waiting for a call from [...] in November 2021 in the setting of [id number] myocardial infarction, comes in for followup visit. [...] in November 2021. He received 2.75/15 Resolute Cornish drug-eluting stent in proximal circumflex. RCA was treated with 4.0/15 and 3.5/28 Resolute Cornish stents. 2. Transthoracic echo 11/22/2021 showed normal LV and RV function. 3. Lipid panel from October 2016 showed total cholesterol 194, triglycerides 170, HDL 32, LDL 128. IMPRESSION: 53-year-old male with CAD and colorectal cancer, on chemotherapy, comes in for followup visit. nv PLAN: 1. CAD status post PCI to RCA and circumflex in November 2021 in the setting of vqd-VK-[id number] myocardial infarction. He is doing well. 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 Carri Garcia [facility] 4 09:33:49 History of diverticu litis 444090038668 100 Active 2023 Carri Garcia [facility] 4 09:34:02 Pulmonary emphysema 40228993 Active 2023 Giovany Obrien [facility] 4 11:57:05 Essential hypertens ion 43379471 Active 2023 Carlos Scott [facility] 4 16:05:50 Dyslipide chaya 101900333 Active 2023 Carlos Scott [facility] 4 16:05:55 Problem Notes None recorded. Procedures Surgical History Date Name Laterality Status Provider Name and Address Organization Details Recorded Time 08/31/20 colonoscopy completed Carri Garcia [facility] 02/27/2024 09:32:45 01/14/20 23 colonoscopy completed Carribrendan Garcia [facility] 02/27/2024 09:36:53 11/24/19 22 colonoscopy completed [facility] 02/27/2024 09:37:08 Appendectomy completed Not Available Health Note 05/02/2024 23:49:55 Prq card stent w/angio 1 vsl completed Not Available Health Note 05/02/2024 23:49:55 Colonoscopy with biopsy completed Not Available Health Note 05/02/2024 23:49:55 Imaging Results Imaging Date Name Status LastModified by [facility] Details LastModified Time 11/03/2023 imaging/diag nostic result [...] TAKE 1 TABLET BY MOUTH AT BEDTIME 2024 active Not Available Not Available Not Avai lable clopidogrel 75 mg tablet TAKE 1 TABLET BY MOUTH DAILY 2024 active Not Available Not Available Not Avai lable capecitabine 500 mg tablet active Not Available [...] TAKE 1/2 TABLET BY MOUTH TWICE DAILY 2024 active Not Available Not Available Not Avai lable Vitals Date Recorded Body height Body mass index (BMI) Body weight Heart rate Systolic blood pressure Diastolic blood pressure Provider Name and Address Organization Details Last Updated DateTime 4 177.8 cm 34.1 kg/m2 774952. 98 g 83 /min 146 mm[Hg] 88 mm[Hg] Crari Garcia [facility] 4 13:36:13 Date Recorded Body height Heart rate Oxygen saturation Oxygen saturation in Arterial blood by Pulse oximetry Body mass index (BMI) Body weight Systolic blood pressure Diastolic blood pressure Provider Name and Address Organization Details Last Updated DateTime 4 177.8 cm 82 /min 93 % 93 % 33.1 kg/m2 519151. 84 g 116 mm[Hg] 80 mm[Hg] Sulma Portillo [facility] 4 11:15:16 Date Recorded Heart rate Heart rate Respiratory rate Body mass index (BMI) Body mass index (BMI) Body height Body weight Body weight Body temperature Body temperature Oxygen saturation Oxygen saturation in Arterial blood by Pulse oximetry Provider Name and Address Organization Details Last Updated DateTime 4 73 /min 82 /min 18 /min 33.43 kg/m2 33.46 kg/m2 177.8 cm 962598. 92165 g 344704. 540346 g 97.9 [degF] 98.5 [degF] 95 % 95 % Not Available [facility] 4 20:25:18 Date Recorded Systolic blood pressure Diastolic blood pressure Systolic blood pressure Diastolic blood pressure Provider Name and Address Organization Details Last Updated DateTime 08/01/2024 138 mm[Hg] 76 mm[Hg] 135 mm[Hg] 82 mm[Hg] Not Available [facility] 4 06:34:10 Social History Question Answer Notes LastModified by [employer] Details LastModified Time Do You Have An [...] Do You Have A Medical Power Of Control System Computer Scientist? No [email or web address] Information not available 05/02/2024 What Was The Date Of Your Most Recent Tobacco Screening? 05/03/2024 [email or web address] Information not available 05/02/2024 What Is Your Relationship Status? [email or web address] Information not available 05/02/2024 Do You Use Any Illicit Or Recreational Drugs? No [email or web address] Information not available 05/02/2024 Sex: Unknown Functional Status Question Answer Note LastModified by [employer] Details LastModified Time What is your exercise [...] available 2023 23:49:54 Medical History Condition Response Diabetes N Anxiety Disorder N Bleeding Disorder N Attention-deficit Hyperactivity Disorder N High Blood Pressure N Arthritis Y Hyperlipidemia N Cancer Y Stroke N Thyroid Problems N Asthma N Depression N COPD N Anemia N Seizures N Heart Disease Y Fibromyalgia N Osteoporosis N Kidney Disease N Past Encounters Encounter ID Performer Location Encounter Start Date Encounter Closed Date Diagnosis/Indication Diagnosis SNOMED-CT Code Diagnosis ICD10 Code Diagnosis Note [id number] Joao Wild MD [facility] ([place]) [address] [place] [address] 02/29/2024 13:32:35 03/07/2024 08:29:33 Adenocarcinoma of rectum 008730976 C20 [id number] Kwadwo Diaz MD [facility] ([place]) [address] [place] [address] 05/03/2024 10:58:51 05/03/2024 11:39:02 Coronary arteriosclerosis 02473167 I25.10 Essential hypertension 68819236 I10 Dyslipidemia 728233057 E 78.5 Health Concerns Section Related Observation LastModified by Organization Detai ls LastModified Time None Recorded Concern Status LastModified by Organization Details LastModified Time None Recorded Advance Directives Directive N: Payers Encounter Date Sequence Insurance Name Policy Number Policy Pickett Covered Member ID Pickett Member ID Guarantor Name 02/29/2024 1 [employer] ([facility]) [id number] Devante Jarrell [id number] Devante Jarrell 05/03/2024 1 [employer] ([facility]) [id number] Devante Jarrell [id number] Devante Jarrell
[2024-11-30 09:39] VITALS: BP 132/86; PULSE 88; RESP 16; TEMP 36.6; O2SAT 96
[2024-11-30 09:48] LABS: Alanine Aminotransferase 22 U/L (16-63); Albumin Level 3.6 g/dL (3.4-5.0); Alkaline Phosphatase 101 U/L (46-116); Anion Gap 8 mmol/L (4-12); Aspartate Amino Transferase 13 U/L (15-37); Bilirubin,Total 0.7 mg/dL (0.00-1.00); Blood Urea Nitrogen 9 mg/dL (7-18); Carbon Dioxide 28 mmol/L (21-32); Chloride 103 mmol/L (98-108); Estimated CRCL calculation 88 ml/min; Estimated Glomerular Filt Rate > 60; Glucose 98 mg/dL (70-99); Osmolality Calculated 286 mOsm/kg (285-295); Potassium 4.3 mmol/L (3.5-5.1); Sodium 139 mmol/L (136-145)
[2024-11-30] MEDS: SODIUM CHLORIDE 0.9% IVPB ×2 (10:00→10:22)
[2024-11-30] MEDS: ONDANSETRON IVPB (10:00)
[2024-11-30] MEDS: BEVACIZUMAB AWWB IVPB (10:22)
[2024-11-30] MEDS: HEPARIN SODIUM LOCK FLUSH 500 UNITS/5 ML SYRINGE IV PUSH (10:55)
[2024-11-30 11:08] VITALS: BP 125/78; PULSE 72; RESP 16; O2SAT 96
--- NOTE | 2024-11-30 11:14 | PC.NURSE ---
Tolerated treatment well. SEE MAR/patient care notes
== END 2024-11-30 09:09 | disposition home or self-care (01) ==
PROVIDERS: Internal Medicine Hematology; Visit Provider Internal Medicine Hematology & Oncology
DX: Z51.11 Encounter for antineoplastic chemotherapy (principal); C20 Malignant neoplasm of rectum
CPT/HCPCS: 36415; 80053; 85027; 96367; 96413; J2405; J7050; Q5107

== ENCOUNTER 2024-12-21 08:41 | Outpatient (CLI) | payer OTHER, SELFPAY ==
[2024-12-21 08:50] VITALS: BP 130/72; PULSE 80; RESP 16; TEMP 36.6; O2SAT 97; BMI 32.1
[2024-12-21 09:02] LABS: Add Urine Microscopic? NO; Appearance Urine Clear (Clear); Basophils Absolute Auto 0.05 K/mm3 (0.00-0.10); Basophils Percent Auto 0.5 % (0.0-1.0); Bilirubin Urine Negative (Negative); Blood Urine Negative (Negative); Color Urine Light Yellow (Yellow); Eosinophils Absolute Auto 0.53 K/mm3 (0.02-0.50); Eosinophils Percent Auto 5.3 % (1.0-6.0); Glucose Urine UA Negative (Negative); Hematocrit 44.3 % (40.0-54.0); Hemoglobin 14.8 g/dL (14.0-18.0); Immature Granulocyte Absolute 0.05 K/mm3 (0.00-0.00); Immature Granulocyte Percent A 0.5 % (0.0-0.0); Ketones Urine Negative (Negative); Leukocyte Esterase Ur Negative (Negative); Lymphocytes Absolute Auto 1.65 K/mm3 (1.10-4.50); Lymphocytes Percent Auto 16.5 % (18.0-42.0); Mean Corpuscular HGB Conc 33.4 g/dL (32-36); Mean Corpuscular Hemoglobin 37.1 pg (27.0-31.0); Mean Platelet Volume 8.7 fl (8.7-11.0); Monocytes Absolute Auto 1.41 K/mm3 (0.10-0.90); Monocytes Percent Auto 14.1 % (2.0-11.0); Neutrophils Absolute Auto 6.34 K/mm3 (1.70-7.20); Neutrophils Percent Auto 63.1 % (50.0-70.0); Nitrate Urine Negative (Negative); Platelet Count Result 223 K/mm3 (150-420); Protein Urine Negative (Negative); Red Blood Count 3.99 M/mm3 (4.70-6.10); Red Cell Distribution Width 17.4 % (11.6-14.4); Specific Grav Ur 1.025 (1.010-1.020); Urobilinogen Urine 0.2 mg/dL (0.2-1.0); pH Urine 5.5 (5.0-8.0)
[2024-12-21 09:16] LABS: Alanine Aminotransferase 25 U/L (16-63); Albumin Level 3.5 g/dL (3.4-5.0); Alkaline Phosphatase 100 U/L (46-116); Anion Gap 9 mmol/L (4-12); Aspartate Amino Transferase 17 U/L (15-37); Bilirubin,Total 0.7 mg/dL (0.00-1.00); Blood Urea Nitrogen 9 mg/dL (7-18); Calcium 9.3 mg/dL (8.5-10.1); Carbon Dioxide 29 mmol/L (21-32); Chloride 105 mmol/L (98-108); Estimated CRCL calculation 83 ml/min; Estimated Glomerular Filt Rate > 60; Glucose 96 mg/dL (70-99); Osmolality Calculated 294 mOsm/kg (285-295); Potassium 4.1 mmol/L (3.5-5.1); Sodium 143 mmol/L (136-145); Total Protein 6.7 g/dL (6.4-8.2)
[2024-12-21] MEDS: ONDANSETRON IVPB (09:20)
[2024-12-21] MEDS: SODIUM CHLORIDE 0.9% IVPB ×2 (09:20→09:49)
[2024-12-21] MEDS: BEVACIZUMAB AWWB IVPB (09:49)
[2024-12-21] MEDS: HEPARIN SODIUM LOCK FLUSH 500 UNITS/5 ML SYRINGE IV PUSH (10:24)
[2024-12-21 10:36] VITALS: BP 129/74; PULSE 80; RESP 16; O2SAT 98
--- NOTE | 2024-12-21 10:37 | PC.NURSE ---
Patient tolerated tx well. SEE MAR/patient care notes.
== END 2024-12-21 08:42 | disposition home or self-care (01) ==
PROVIDERS: Visit Provider Internal Medicine Hematology
DX: Z51.11 Encounter for antineoplastic chemotherapy (principal); C20 Malignant neoplasm of rectum
CPT/HCPCS: 36415; 36591; 80053; 81003; 85025; 96367; 96413; J2405; Q5107

== ENCOUNTER 2025-01-11 09:20 | Outpatient (CLI) | payer OTHER, SELFPAY ==
[2025-01-11 09:33] VITALS: BMI 32.2
[2025-01-11 09:42] LABS: Basophils Absolute Auto 0.06 K/mm3 (0.00-0.10); Basophils Percent Auto 0.6 % (0.0-1.0); Eosinophils Percent Auto 5.1 % (1.0-6.0); Hematocrit 44.3 % (40.0-54.0); Immature Granulocyte Absolute 0.04 K/mm3 (0.00-0.00); Immature Granulocyte Percent A 0.4 % (0.0-0.0); Lymphocytes Absolute Auto 1.92 K/mm3 (1.10-4.50); Lymphocytes Percent Auto 19.8 % (18.0-42.0); Mean Corpuscular HGB Conc 33.9 g/dL (32-36); Mean Corpuscular Hemoglobin 38.3 pg (27.0-31.0); Mean Platelet Volume 8.9 fl (8.7-11.0); Monocytes Absolute Auto 0.94 K/mm3 (0.10-0.90); Monocytes Percent Auto 9.7 % (2.0-11.0); Neutrophils Absolute Auto 6.25 K/mm3 (1.70-7.20); Neutrophils Percent Auto 64.4 % (50.0-70.0); Platelet Count Result 244 K/mm3 (150-420); Red Blood Count 3.92 M/mm3 (4.70-6.10); Red Cell Distribution Width 16.8 % (11.6-14.4); White Blood Count 9.7 K/mm3 (4.8-10.8)
[2025-01-11 09:54] VITALS: BP 115/67; PULSE 74; RESP 16; TEMP 36.6; O2SAT 98
[2025-01-11 10:03] LABS: Alanine Aminotransferase 27 U/L (16-63); Albumin Level 3.6 g/dL (3.4-5.0); Alkaline Phosphatase 103 U/L (46-116); Anion Gap 7 mmol/L (4-12); Aspartate Amino Transferase 19 U/L (15-37); Bilirubin,Total 0.7 mg/dL (0.00-1.00); Blood Urea Nitrogen 9 mg/dL (7-18); Calcium 8.7 mg/dL (8.5-10.1); Carbon Dioxide 29 mmol/L (21-32); Chloride 105 mmol/L (98-108); Estimated CRCL calculation 91 ml/min; Estimated Glomerular Filt Rate > 60; Glucose 134 mg/dL (70-99); Osmolality Calculated 292 mOsm/kg (285-295); Potassium 3.9 mmol/L (3.5-5.1); Sodium 141 mmol/L (136-145); Total Protein 6.8 g/dL (6.4-8.2)
[2025-01-11] MEDS: SODIUM CHLORIDE 0.9% IV 250 ML 10 ML IVPB (10:10)
[2025-01-11] MEDS: SODIUM CHLORIDE 0.9% IV PUSH (10:15)
[2025-01-11] MEDS: ONDANSETRON IV PUSH (10:15)
--- OUTSIDE RECORDS SUMMARY | 2025-01-11 10:21 | XMS_ITS | Clinical Summary ---
Author Organization [facility] Address [address] [place] [address] Care Team Providers Care Evp Head Of [employer] Experience Strategy Name Role Phone Myron Serna MD Primary Care Provider [phone] Jan Middleton MD Unavailable James Velazquez MD Unavailable [phone] Noemi Crandall MD Unavailable Allergies No known [...] Problem Noted Date Diagnosed Date Rectal cancer 05/20/2022 NSTEMI (non-ST elevated myocardial infarction) 0 11/22/2021 Diverticulitis 10/01/2021 Pulmonary nodule Immunizations Immunization Administration Dates Next Due Tdap 11/10/2017 Surgical History Surgery Date Site/Laterality Comments APPENDECTOMY 10/24/1985 - 10/23/1986 COLONOSCOPY 07/14/2022 CARDIAC STENT PLACEMENT 11/24/2021 - 12/21/2021 Medical History Medical History Date Comments Cancer (HCC) Coronary artery disease invo lving [place] coronary artery of [place] heart Colon cancer (HCC) Myocardial infarction (HCC) Hypertension Hyperlipidemia Heart [...] on file Legal Sex Male 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 Room: [facility] ENDOSCOPY ROOM 02 Note Status: Finalized Procedure: [...] The scope was passed under direct vision.The [id number] was introduced through the anusand advanced to [...] On: 01/03/2023 1:53 PM Recognized by the [employer] for promoting quality in endoscopy us James Velazquez MD ENDOSCOPY PROCEDURES Final Res ult from Last 3 Months or Most Recently Relevant to Health Maintenance Insurance Advance Directives For more information, please contact: [phone] * Full Code (Latest Code Status on File) Date Activated Date Inactivated Comments 04/18/2023 10:53 AM 04/18/2023 4:35 PM * Full Code Date Activated Date Inactivated Comments 01/03/2023 1:14 PM 01/03/2023 7:06 PM * Full Code Date Activated Date Inactivated Comments 09/20/2022 2:30 PM 09/20/2022 8:28 PM Care Teams Evp Head [employer] Experience Strategy Relationship Specialty Start Date End Date Myron Serna MD [address] [place] [address] PCP - General Family Medicine 07/07/22 Jan Middleton MD [address] [place] [address] Referring Physician [facility] 08/23/22 James Velazquez MD [id number] [place] [address] Surgeon Colon and Rectal Surgery 09/03/22 Noemi Crandall MD [address] [place] [address] Referring Physician General Surgery 09/03/22
--- OUTSIDE RECORDS SUMMARY | 2025-01-11 10:21 | XMS_ITS | Encounter Summary ---
Author Organization [facility] Address [address] [place] [address] Care Team Providers Care Film Masker Name Role Phone Larry Serna MD Primary Care Provider Unavailab le Encounter Details Date Type Department Care Team (Late st Contact Info) Description 03/31/2019 Abstract SFL CONVERSION [address] [place] [id number] , Generic Conversion, Social History Tobacco Use Types Packs/Day Years Used Date Smoking Tobacco: Never Assessed Sex and Gender Information Value Date Recorded Sex Assigned at Not on file Legal Sex Male 9:32 PM DIRT CONTRACTOR Gender Identity Not on file Sexual Orientation Not on file documented as of this encounter Plan of Treatment Not on file documented as of this encounter Visit Diagnoses Not on filedocumented in this encounter Additional Health Concerns Infection Onset Date Last Indicated Resolved Time COVID-19 Rule Out 10/01/2021 10/01/2021 10/01/2021 2:43 PM DIRT CONTRACTOR COVID-19 Rule Out 11/21/2021 11/21/2021 11/21/2021 9:38 PM DIRT CONTRACTOR documented as of this encounter Care Teams Film Masker Relationship Specialty Start Date End Date Larry Serna MD PCP - General FAMILY PRACTICE 09/30/21 documented as of this encounter
--- OUTSIDE RECORDS SUMMARY | 2025-01-11 10:22 | XMS_ITS | Encounter Summary ---
Author Organization [facility] Address [address] [place] [address] Care Team Providers Care Administrative Appeals Tribunal Member Name Role Phone Larry Serna MD Primary Care Provider Unavailab le Reason for Visit * Reason Onset Date Comments Preprocedure Call 10/10/2023 Spoke with stephen grey -she states patient is getting H&P tomorrow, 10/11, at Dr. Vazquez office, with Madelyn Smith NP. [phone]. Encounter Details Date Type Department Care Team (Late st Contact Info) Description 10/10/2023 Telephone [facility] Interventional Radiology [address] [place] [address] Cleo Lam RN Preprocedure Call (Spoke with patients -she states patient is getting H&P tomorrow, 10/11, at Dr. Vazquez office, with Madelyn Smith NP. [phone].) Social History Tobacco Use Types Packs/Day Years [...] often do you attend chur ch or latter-day services? Never 11/22/2021 Do you belong to any clubs o r organizations such as zoroastrian groups, unions, fraternal or athletic groups, or [...] and heating? Not hard at all 11/22/2021 [facility] - Occupational Stress [...] place to sleep or slept in a senior care (including now)? 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 Answer Date of Assessment Author Status No 11/22/2021 8:55 AM SENIOR OFFICE SUPPORT ASSISTANT SOSA Activ e * Do you have serious [...] 11/22/2021 8:55 AM Lillian Giang RN Active documented as of this encounter Mental Status * Because of a physical, mental, or emotional condition, do you have serious difficulty concentrating, remembering, or making decisions? Answer Entry Date Author Status No 11/22/2021 8:55 AM Lillian Giang RN Active documented in this encounter Plan of Treatment Not on file documented as of this encounter Goals Goal Patient Goal Type Associated Problems Recent Progress Patient-Stated? Author Health - patient able to perform ADLs independently General No Carlos Lundy RN documented as of this encounter Visit Diagnoses Not on filedocumented in this encounter Care Teams Administrative Appeals Tribunal Member Relationship Specialty Start Date End Date Larry Serna MD PCP - General FAMILY PRACTICE 09/30/21 documented as of this encounter
--- OUTSIDE RECORDS SUMMARY | 2025-01-11 10:22 | XMS_ITS ---
Author Organization [facility] Address [address] [place] [address] Care Team Providers Care Counseling Department Chair Name Role Phone Myron Serna MD Primary Care Provider [phone] Jan Middleton MD Unavailable James Velazquez MD Unavailable [phone] Noemi Crandall MD Unavailable Active Problems Problem Noted Date Diagnosed Date Rectal cancer 05/20/2022 NSTEMI (non-ST elevated myocardial infarction) 0 11/22/2021 Diverticulitis 10/01/2021 Pulmonary nodule Current Treatment and Therapy Plans Ostomy Nurse Consultation* Plan Start Date:08/03/2022 Plan Provider:Transcribed Order, Provider Linked Problems Rectal cancer (HCC) Treatment Medications No medications scheduled. Past Treatment and Therapy Plans No past plan information found.
--- OUTSIDE RECORDS SUMMARY | 2025-01-11 10:22 | XMS_ITS | Clinical Summary ---
Author Organization [facility] Address [facility] [place] [address] Care Team Providers Care Manager Review Name Role Phone Larry Serna MD Primary [...] Date NSTEMI (non-ST elevated myoc ardial infarction) (CMS/HCC HHS/HCC) 11/22/2021 Diverticulitis 10/01/2021 Encounters Date Type Department Care Team Description 10/22/2024 Orders Only [facility] [address] [place] [address] Kim Light MD from Last 3 Months Family History Medical History Relation Comments Diabetes Brother Diabetes Father [place] Father Diabetes Mother pancreatic cancer Sister Relation [...] often do you attend chur ch or scientology services? Never 11/22/2021 Do you belong to any clubs o r organizations such as amish groups, unions, fraternal or athletic groups, or [...] heating? Not hard at all 11/22/2021 [facility] ional Health - Occupational [...] place to sleep or slept in a longterm (including now)? 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 Gender Identity Not on file Sexual Orientation Not on file Occupation Industry Job Start Date Job End Date [employer] Not on file Not on file Not on file Last Filed Vital Signs Vital Sign Reading Time Taken Comments Blood Pressure 108/54 10/19/2023 1:00 PM COMMODITIES REQUIREMENTS ANALYST Pulse 66 10/19/2023 1:00 PM COMMODITIES REQUIREMENTS ANALYST Temperature 36.3 C (97.3 F) 08/31/2023 9:46 AM COMMODITIES REQUIREMENTS ANALYST Respiratory Rate 16 10/19/2023 1:00 PM COMMODITIES REQUIREMENTS ANALYST Oxygen Saturation 95% 10/19/2023 1:00 PM COMMODITIES REQUIREMENTS ANALYST Inhaled Oxygen Concentration - - Weight 106.6 kg (235 lb) 10/19/2023 8:20 AM COMMODITIES REQUIREMENTS ANALYST Height 177.8 cm (5' 10 ) 10/19/2023 8:20 AM COMMODITIES REQUIREMENTS ANALYST Body Mass Index 33.72 10/19/2023 8:20 AM COMMODITIES REQUIREMENTS ANALYST Plan of Treatment Health Maintenance Due Date Last Done Comments ASCVD Statin 1968 Annual Physical 1971 Pneumococcal Vaccine: Pediatrics (0 [...] to perform ADLs independently General No Carlos Lundy, RN Medical Devices Implanted Type Area Health Program Analyst Device Identifier Shelf Expiration Date Model / Serial / Lot Clip Resolution 2.8mm 360 235cm 11mm Open - [id number] Implanted:Qty: 1 on 11/24/2021 by Kaleb Napier DO at [facility] Clip Implant Causes JOE [id number] 07/20/2024 [id number] / / [id number] Description:1 CLIP PLACED AT DESCENDING COLON WHERE POLYP WAS REMOVED VIA HOT SNARE Procedures Procedure Name Priority Date/Time Associated Diagnosis Comments COLONOSCOPY 08/31/2023 6:46 AM COMMODITIES REQUIREMENTS ANALYST LIPID PANEL Routine 11/23/2021 4:56 AM COMMODITIES REQUIREMENTS ANALYST OCCULT BLOOD, FECES Routine 11/22/2021 2 :20 PM COMMODITIES REQUIREMENTS ANALYST from Last 3 Months or Most Recently Relevant to Health Maintenance Results * Colonoscopy (08/31/2023 6:46 AM COMMODITIES REQUIREMENTS ANALYST) us Joao Wild MD GI PROCEDURE ORDERABLES Final Result * (ABNORMAL) LIPID PANEL (11/23/2021 4:56 AM COMMODITIES REQUIREMENTS ANALYST) CHOLESTEROL 190 <200 MG/DL 11/23/2021 5:56 AM [facility] TRIGLYCERIDES 214(H) <150 MG/DL 11/23/2021 5:56 AM COMMODITIES REQUIREMENTS ANALYST [facility] HDL 35(L) >40.0 MG/DL 11/23/2021 5:56 AM [facility] LDL (CALCULATED) 112(H) <100 MG/DL 11/23/2021 5:56 AM [facility] NON HDL CHOLESTEROL 155(H) <130 MG/DL 11/23/2021 5:56 AM [facility] CHOL/HDL RATIO 5.4(H) 0.0 - 4.5 11/23/2021 5:56 AM COMMODITIES REQUIREMENTS ANALYST [facility] VLDL CALCULATION 43 5 - 55 MG/DL 11/23/2021 5:56 AM [facility] LIPID INTERPRETATION 11/23/2021 5:56 AM [facility] Comment: [facility] CONCENSUS REPORT RECOMMENDATIONS: ADULT CHILD LOW RISK: CHOLESTEROL <200 <170 TRIGLYCERIDE <150 --- HDL >=60 --- LDL <100 <110 BORDERLINE: CHOLESTEROL 200-239 170-199 TRIGLYCERIDE 150-199 --- HDL 40-59 --- LDL 100-159 110-129 HIGH RISK: CHOLESTEROL >=240 >=200 TRIGLYCERIDE >=200 --- HDL <40 --- LDL >=160 >=130 11/23/2021 4:56 AM COMMODITIES REQUIREMENTS ANALYST Mini Alston PA-C LABORATORY Final Result [facility] [address] [place] [address], [place] [phone] * OCCULT BLOOD, FECES (11/22/2021 2:20 PM COMMODITIES REQUIREMENTS ANALYST) OCCULT BLOOD FECAL POSITIVE 11/22/2021 2:43 PM COMMODITIES REQUIREMENTS ANALYST [facility] STOOL SPECIMEN / Unknown 11/22/2021 2:20 PM COMMODITIES REQUIREMENTS ANALYST Mini Alston PA-C BODY FLUIDS AND STOOLS ORDERA BLES Final Result Performing Organization Address [facility] de Phone Number [address] [address], [place] [phone] from Last 3 Months or Most Recently Relevant to Health Maintenance Insurance [employer] Advance Directives * Full Code (Latest Code Status on File) Date Activated Date Inactivated Comments 11/22/2021 9:05 AM 11/26/2021 6:24 PM * Full Code Date Activated Date Inactivated Comments 10/01/2021 12:35 AM 10/03/2021 7:26 PM Care Teams Manager Review Relationship Specialty Start Date End Date Larry Serna MD PCP - General FAMILY PRACTICE 09/30/21
--- OUTSIDE RECORDS SUMMARY | 2025-01-11 10:22 | XMS_ITS | Data Portability ---
Author Organization [facility], [address] [place] ([place]) Address [address] [place] [address] Care Team Providers Care Drainage Engineer Name Role Phone MYRON KINSEY Primary Care Provider LUIS DIAZ Software Performance Engineer Assessment Encounter Date Assessment Date Assessment LastModified by Organization Details LastModified Time 02/29/2024 02/29/2024 Devante is a 53-year-old male. I have been following him for rectal cancer that had a completely response. He had radiation completed under the RAPIDO trial down at [facility]. He finished his chemoradiation in November [...] being treated by Dr. Kim Iraheta at [facility] with avastin and capecitabine. He just had a CT scan last week at [facility] and is waiting for a call from [...] in November 2021 in the setting of [id number] myocardial infarction, comes in for followup visit. [...] in November 2021. He received 2.75/15 Resolute Almyra drug-eluting stent in proximal circumflex. RCA was treated with 4.0/15 and 3.5/28 Resolute Cristo stents. 2. Transthoracic echo 11/22/2021 showed normal LV and RV function. 3. Lipid panel from October 2016 showed total cholesterol 194, triglycerides 170, HDL 32, LDL 128. IMPRESSION: 53-year-old male with CAD and colorectal cancer, on chemotherapy, comes in for followup visit. nv PLAN: 1. CAD status post PCI to RCA and circumflex in November 2021 in the setting of [id number]-[id number] myocardial infarction. He is doing well. Denies [...] Modified Time Details Appointments Establish ed Patient 20.EST 2024 11:00A M Dr. Myron Kinsey Not available Not available Not available Establish ed Patient 15.EST 2024 11:30A M Dr. 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 Carri Garcia [facility] 4 09:33:49 History of diverticu litis 058904796630 100 Active 2023 [facility] 09:34:02 Pulmonary emphysema 14748110 Active 2023 Giovany Isbill null, [facility] 4 11:57:05 Essential hypertens ion 38691753 Active 2023 Carlos Sonia [facility] 4 16:05:50 Dyslipide chaya 250541509 Active 2023 Carlos Scott [facility] 4 16:05:55 Problem Notes None recorded. Procedures Surgical History Date Name Laterality Status Provider Name and Address Organization Details Recorded Time 08/31/20 23 colonoscopy completed Carri Garcia [facility] 02/27/2024 09:32:45 01/14/20 23 colonoscopy completed Carribrendan Garcia [facility] 02/27/2024 09:36:53 11/24/19 22 colonoscopy completed Carribrendan Garcia [facility] 02/27/2024 09:37:08 Appendectomy completed Not Available Health Note 05/02/2024 23:49:55 Prq card stent w/angio 1 vsl completed Not Available Health Note 05/02/2024 23:49:55 Colonoscopy with biopsy completed Not Available Health Note 05/02/2024 23:49:55 Imaging Results Imaging Date Name Status LastModified by Organ [facility] Details LastModified Time 11/03/2023 imaging/diag nostic result [...] 2024 active Not Available Not Available Not Annie jimenes Vitals Date Recorded Body height Body mass index (BMI) Body weight Heart rate Systolic blood pressure Diastolic blood pressure Provider Name and Address Organization Details Last Updated DateTime 4 177.8 cm 34.1 kg/m2 424739. 98 g 83 /min 146 mm[Hg] 88 mm[Hg] Carri Clark [facility] 4 13:36:13 Date Recorded Body height Heart rate Oxygen saturation Oxygen saturation in Arterial blood by Pulse oximetry Body mass index (BMI) Body weight Systolic blood pressure Diastolic blood pressure Provider Name and Address Organization Details Last Updated DateTime 4 177.8 cm 82 /min 93 % 93 % 33.1 kg/m2 561051. 84 g 116 mm[Hg] 80 mm[Hg] Sulma Portillo [facility] 4 11:15:16 Date Recorded Heart rate Body mass index (BMI) Body height Body weight Body temperature Systolic blood pressure Diastolic blood pressure Provider Name and Address Organization Details Last Updated DateTime 4 73 /min 33.43 kg/m2 177.8 cm 419598. 96027 g 97.9 [degF] 138 mm[Hg] 76 mm[Hg] Not Available [facility] 4 06:34:10 Date Recorded Heart rate Respiratory rate Body mass index (BMI) Body weight Body temperature Oxygen saturation Oxygen saturation in Arterial blood by Pulse oximetry Systolic blood pressure Diastolic blood pressure Provider Name and Address Organization Details Last Updated DateTime 4 82 /min 18 /min 33.46 kg/m2 996094. 353670 g 98.5 [degF] 95 % 95 % 135 mm[Hg] 82 mm[Hg] Not Available [facility] 4 06:34:10 Social History Question [...] Do You Have A Medical Power Of Art Glass Setter? No [email or web address] Information not available 05/02/2024 What [...] SNOMED-CT Code Diagnosis ICD10 Code Diagnosis Note [id number] Joao Wild MD [facility] [facility] ([place]) [address] [place] [address] 02/29/2024 13:32:35 03/07/2024 08:29:33 Adenocarcinoma of rectum 630276959 C20 [id number] Luis Diaz MD [facility] ([place]) [address] [place] [address] 05/03/2024 10:58:51 05/03/2024 11:39:02 Coronary arteriosclerosis 77417595 I25.10 Essential hypertension 72825761 I10 Dyslipidemia 274141586 E 78.5 Health Concerns Section Related Observation LastModified by Organization Detai ls LastModified Time None Recorded Concern Status LastModified by Organization Details LastModified Time None Recorded Advance Directives Directive N: Payers Encounter Date Sequence Insurance Name Policy Number Policy Pickett Covered Member ID Pickett Member ID Guarantor Name 02/29/2024 1 [employer] [facility] [id number] Devante Jarrell [id number] Devante Jarrell 05/03/2024 1 [employer] ([facility] [id number] Devante Jarrell [id number] Devante Jarrell
--- OUTSIDE RECORDS SUMMARY | 2025-01-11 10:22 | XMS_ITS | Referral Summary ---
Author Organization [facility] Address [address] [place] [address] Care Team Providers Care Research Nutritionist Name Role Phone Myron Serna MD Primary Care Provider [phone] Jan Middleton MD Unavailable James Velazquez MD Unavailable [phone] Noemi Crandall MD Unavailable Allergies No known [...] Immunization Administration Dates Next Due Tdap 11/10/2017 Social [...] on file Legal Sex Male 11:37 AM SPINE NURSE Gender Identity Not on file Sexual Orientation [...] Velazquez MD - 01/03/2023 1:53 PM CDT [facility] Patient Name: Devante Jarrell Procedure Date: 01/03/2023 1:53 PM Date of : 1970 Admit Type: Outpatient Age: 52 Gender: Male Attending MD: James Velazquez M.D. Room: [facility] ENDOSCOPY ROOM 02 Note Status: Finalized Procedure: [...] The scope was passed under direct vision.The [id number] was introduced through the anusand advanced to [...] On: 01/03/2023 1:53 PM Recognized by the [place] [employer] for promoting quality in endoscopy James Velazquez MD ENDOSCOPY PROCEDURES Final Res ult from Last 3 Months or Most Recently Relevant to Health Maintenance Insurance [facility] Advance Directives For more information, please contact: [phone] * Full Code (Latest Code Status on File) Date Activated Date Inactivated Comments 04/18/2023 10:53 AM 04/18/2023 4:35 PM * Full Code Date Activated Date Inactivated Comments 01/03/2023 1:14 PM 01/03/2023 7:06 PM * Full Code Date Activated Date Inactivated Comments 09/20/2022 2:30 PM 09/20/2022 8:28 PM Care Teams Research Nutritionist Relationship Specialty Start Date End Date Myron Serna MD [address] [place] [address] PCP - General Family Medicine 07/07/22 Jan Middleton MD [address] [place] [address] Referring Physician Hematology 08/23/22 James Velazquez MD [address] [facility] [phone] [place] [address] Surgeon Colon and Rectal Surgery 11/11/22 Noemi Crandall MD [address] [place] [address] Referring Physician General Surgery 09/03/22
[2025-01-11] MEDS: BEVACIZUMAB AWWB IVPB (10:40)
[2025-01-11] MEDS: SODIUM CHLORIDE 0.9% IVPB (10:40)
[2025-01-11] MEDS: HEPARIN SODIUM LOCK FLUSH 500 UNITS/5 ML SYRINGE IV PUSH (11:19)
--- NOTE | 2025-01-11 11:22 | PC.NURSE ---
Patient tolerated cycle 20 bevacizumab well. SEE MAR/patient care notes.
[2025-01-11 11:28] VITALS: BP 115/69; PULSE 78; RESP 16; O2SAT 97
== END 2025-01-11 09:21 | disposition home or self-care (01) ==
PROVIDERS: Visit Provider Internal Medicine Hematology
DX: Z51.11 Encounter for antineoplastic chemotherapy (principal); C20 Malignant neoplasm of rectum
CPT/HCPCS: 36415; 36591; 80053; 85025; 96367; 96413; J2405; J7050; Q5107

== ENCOUNTER 2025-02-01 09:38 | Outpatient (CLI) | payer OTHER, SELFPAY ==
[2025-02-01 10:00] VITALS: BP 149/80; PULSE 80; RESP 16; TEMP 36.4; O2SAT 96; BMI 31.8
[2025-02-01 10:03] LABS: Hematocrit 44.2 % (40.0-54.0); Hemoglobin 14.8 g/dL (14.0-18.0); Mean Corpuscular HGB Conc 33.5 g/dL (32-36); Mean Corpuscular Hemoglobin 37.6 pg (27.0-31.0); Mean Corpuscular Volume 112.2 fL (78.0-102.0); Mean Platelet Volume 8.8 fl (8.7-11.0); Platelet Count Result 247 K/mm3 (150-420); Red Blood Count 3.94 M/mm3 (4.70-6.10); Red Cell Distribution Width 15.9 % (11.6-14.4); White Blood Count 10.7 K/mm3 (4.8-10.8)
[2025-02-01 10:04] LABS: Add Urine Microscopic? NO; Appearance Urine Clear (Clear); Bilirubin Urine Negative (Negative); Blood Urine Negative (Negative); Color Urine Yellow (Yellow); Glucose Urine UA Negative (Negative); Ketones Urine Negative (Negative); Leukocyte Esterase Ur Negative (Negative); Nitrate Urine Negative (Negative); Protein Urine Negative (Negative); Specific Grav Ur 1.025 (1.010-1.020); Urobilinogen Urine 0.2 mg/dL (0.2-1.0)
--- OUTSIDE RECORDS SUMMARY | 2025-02-01 10:05 | XMS_ITS | Encounter Summary ---
Author Organization [facility] Address [address] [place] [address] Care Team Providers Care Echocardiography Technologist Name Role Phone Larry Serna MD Primary Care Provider Unavailab le Encounter Details Date Type Department Care Team (Late st Contact Info) Description 03/31/2019 Abstract SFL CONVERSION [address] [place] [address] , Generic Conversion, Social History Tobacco Use Types Packs/Day Years Used Date Smoking Tobacco: Never Assessed Sex and Gender Information Value Date Recorded Sex Assigned at Not on file Legal Sex Male 9:32 PM MONEY LAUNDERING INVESTIGATOR Gender Identity Not on file Sexual Orientation Not on file documented as of this encounter Plan of Treatment Not on file documented as of this encounter Visit Diagnoses Not on filedocumented in this encounter Additional Health Concerns Infection Onset Date Last Indicated Resolved Time COVID-19 Rule Out 10/01/2021 10/01/2021 10/01/2021 2:43 PM MONEY LAUNDERING INVESTIGATOR COVID-19 Rule Out 11/21/2021 11/21/2021 11/21/2021 9:38 PM MONEY LAUNDERING INVESTIGATOR documented as of this encounter Care Teams Echocardiography Technologist Relationship Specialty Start Date End Date Larry Serna MD PCP - General FAMILY PRACTICE 09/30/21 documented as of this encounter
--- OUTSIDE RECORDS SUMMARY | 2025-02-01 10:05 | XMS_ITS | Referral Summary ---
Author Organization [facility] Address [address] [place] [address] Care Team Providers Care Computer Game Designer Name Role Phone Myron Serna MD Primary Care Provider [phone] Jna Middleton MD Unavailable James Velazquez MD Unavailable Noemi Crandall MD Unavailable Allergies No known [...] on file Legal Sex Male 11:37 AM EQUIPMENT SERVICE ASSOCIATE Gender Identity Not on file Sexual Orientation [...] Velazquez MD - 01/03/2023 1:53 PM CDT [facility] Patient Name: Devante Jarrell Procedure Date: 01/03/2023 1:53 PM Date of : 1970 Admit Type: Outpatient Age: 52 Gender: Male Attending MD: James Velazquez M.D. Room: [facility] ENDOSCOPY ROOM 02 Note Status: Finalized [...] The scope was passed under direct vision.The [id number] was introduced through the anusand advanced to [...] On: 01/03/2023 1:53 PM Recognized by the [place] [employer] for promoting quality in endoscopy James Velazquez MD ENDOSCOPY PROCEDURES Final Res ult from Last 3 Months or Most Recently Relevant to Health Maintenance Insurance [facility] Advance Directives For more information, please contact: [phone] * Full Code (Latest Code Status on File) Date Activated Date Inactivated Comments 04/18/2023 10:53 AM 04/18/2023 4:35 PM * Full Code Date Activated Date Inactivated Comments 01/03/2023 1:14 PM 01/03/2023 7:06 PM * Full Code Date Activated Date Inactivated Comments 09/20/2022 2:30 PM 09/20/2022 8:28 PM Care Teams Computer Game Designer Relationship Specialty Start Date End Date Myron Serna MD [address] [place] [address] PCP - General Family Medicine 07/07/22 Jan Middleton MD [address] [place] [address] Referring Physician Hematology 08/23/22 James Velazquez MD [address] [facility] [phone] [place] [address] Surgeon Colon and Rectal Surgery 11/11/22 Noemi Crandall MD [address] [place] [address] Referring Physician General Surgery 09/03/22
--- OUTSIDE RECORDS SUMMARY | 2025-02-01 10:05 | XMS_ITS ---
Author Organization [facility] Address [address] [place] [address] Care Team Providers Care Condenser Winder Name Role Phone Myron Serna MD Primary Care Provider [phone] Jan Middleton MD Unavailable James Velazquez MD Unavailable [phone] Noemi Crandall MD Unavailable Active Problems Problem [...]
--- OUTSIDE RECORDS SUMMARY | 2025-02-01 10:05 | XMS_ITS | Encounter Summary ---
Author Organization [facility] Address [facility] [place] [address] Care Team Providers Care Sliver Lap Tender Name Role Phone Larry Serna MD Primary Care Provider Unavailab le Reason for Visit * Reason Onset Date Comments Preprocedure Call 10/10/2023 Spoke with stephen grey -she states patient is getting H&P tomorrow, 10/11, at Dr. Vazquez office, with Madelyn Smith NP. [phone]. Encounter Details Date Type Department Care Team (Late st Contact Info) Description 10/10/2023 Telephone [facility] Interventional Radiology [address] [place] [address] Cleo Lam, LAURA Preprocedure Call (Spoke with patients -she states patient is getting H&P tomorrow, 10/11, at Dr. Vazquez office, with Madelyn Smith NP. [phone].) Social History Tobacco Use Types Packs/Day Years [...] often do you attend chur ch or samaritan services? Never 11/22/2021 Do you belong to any clubs o r organizations such as jain groups, unions, fraternal or athletic groups, or [...] heating? Not hard at all 11/22/2021 [facility] - [...] place to sleep or slept in a group home (including now)? 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 Answer Date of Assessment Author Status No 11/22/2021 8:55 AM DRESSED POULTRY GRADER Activ e * Do you have serious [...] Assessment Author Status No 11/22/2021 8:55 AM DRESSED POULTRY GRADER Hunt, Lillian E, RN Active documented as of this encounter Mental Status * Because of a physical, mental, or emotional condition, do you have serious difficulty concentrating, remembering, or making decisions? Answer Entry Date Author Status No 11/22/2021 8:55 AM DRESSED POULTRY GRADER Lillian Archer RN Active documented in this encounter Plan of Treatment Not on file documented as of this encounter Goals Goal Patient Goal Type Associated Problems Recent Progress Patient-Stated? Author Health - patient able to perform ADLs independently General Carlos Lundy RN documented as of this encounter Visit Diagnoses Not on filedocumented in this encounter Care Teams Sliver Lap Tender Relationship Specialty Start Date End Date Larry Serna MD PCP - General FAMILY PRACTICE 09/30/21 documented as of this encounter
--- OUTSIDE RECORDS SUMMARY | 2025-02-01 10:05 | XMS_ITS | Clinical Summary ---
Author Organization 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 Room: [facility] ENDOSCOPY ROOM 02 Note Status: Finalized [...] The scope was passed under direct vision.The [id number] was introduced through the anusand advanced to [...] On: 01/03/2023 1:53 PM Recognized by the [employer] for promoting quality in endoscopy us James Velazquez MD ENDOSCOPY PROCEDURES Final Res ult from Last 3 Months or Most Recently Relevant to Health Maintenance Insurance Advance Directives For more information, please contact: [phone] * Full Code (Latest Code Status on File) Date Activated Date Inactivated Comments 04/18/2023 10:53 AM 04/18/2023 4:35 PM * Full Code Date Activated Date Inactivated Comments 01/03/2023 1:14 PM 01/03/2023 7:06 PM * Full Code Date Activated Date Inactivated Comments 09/20/2022 2:30 PM 09/20/2022 8:28 PM Care Teams Mobile Health Vehicle Operator Relationship Specialty Start Date End Date Myron Serna MD [address] [place] [address] PCP - General Family Medicine 07/07/22 Jan Middleton MD [address] [place] [address] Referring Physician [facility] 08/23/22 James Velazquez MD [address] [facility] [phone] [place] [address] Surgeon Colon and Rectal Surgery 09/03/22 Noemi Crandall MD [address] [place] [address] Referring Physician General Surgery 09/03/22
--- OUTSIDE RECORDS SUMMARY | 2025-02-01 10:06 | XMS_ITS | Data Portability ---
Author Organization [facility], [address] [facility] ([place]) Address [address] [place] [address] Care Team Providers Care Metal Cutter Name Role Phone MYRON KINSEY Primary Care Provider KWADWO DIAZ Rn Hospice Assessment Encounter Date Assessment Date Assessment LastModified by Organization Details LastModified Time 02/29/2024 02/29/2024 Devante is a 53-year-old male. I have been following him for rectal cancer that had a completely response. He had radiation completed under the RAPIDO trial down at [facility]. He finished his chemoradiation in November [...] treated by Dr. Kim Iraheta at [facility] with avastin and capecitabine. He just had a CT scan last week at [facility] and is waiting for a call from [...] in November 2021 in the setting of nkw-AO-bkjyloair myocardial infarction, comes in for followup visit. [...] in November 2021. He received 2.75/15 Resolute Centenary drug-eluting stent in proximal circumflex. RCA was [...] in November 2021 in the setting of svk-RF-giwvvfyvo myocardial infarction. He is doing well. Denies [...] None recorded. Patient TargetsNo targets recorded. Patient Instructions Encounter Date Encounter Id Patient Instructions Last Modified By Organization Details Last Modified Time 01/18/2025 [id number] His description of chemotherapy schedule, metastatic disease, and side effects of chemotherapy do sound impactful to the degree that, I agree, it would be quite unlikely for him to have / maintain gainful employment. The duration of this is difficult to predict, but likely indefinite until / unless some medical advancements could lead to more definitive cure (or near-cure) of his metastatic disease. So, at this time, I support his petition for disability status. we will put this in a letter for him. I spent over 20 minutes of total time with this patient in face to face visit, counseling / coordination of care, and documenting our discussion / visit. [email or web address] Not available 01/19/2025 16:32:46 Reason for Referral None Reported. Results Created Date Observation Date Name Description Value Unit Range Abnormal Flag Note LastModifiedBy Organization Detail LastModifiedTime 08/21/2011/03/2023 imagi ng/di agnos tic resul t No observ ation record ed. [email or web address] Not Available 02:44:48 08/21/2002/24/2024 imagi ng/di agnos tic resul t No observ ation record ed. [email or web address] Not Available 02:45:18 08/21/2010/19/2023 imagi ng/di agnos tic resul t No observ ation record ed. [email or web address] Not Available 02:45:33 Result Notes None recorded. Problems Name Problem SNOMED Code Status Onset Date Resolution Date Notes Provider Name and Address Organization Details Recorded Time Lesion of larynx 458098290 Active noted on chest CT at [facility] (on pulm nodule w/u). Progress haider voice hoarsene ss. ENT rec'd observat ion unless pt developi ng respirat ory symptoms . Myron Kinsey MD [address] [facility], [place], [address], [facility] 5 06:26:41 Metastat ic malignan t neoplasm to lung 99271570 Active dx on biopsy of metaboli cly-acti ve lung nodule on PET-CT . Myron Kinsey MD [address] [facility], [place], [address], [facility] 5 06:27:23 Hepatiti s C screenin g Completed HepC antibody screen Negative 04/13/23. Myron Kinsey MD [address] [place] [address], [address], [facility] 5 06:28:06 Peripher al neuropat hic pain 082859097 Active tx amitript yline (per Oncology ). Myron Kinsey MD [address] [place] [address], [address], [facility] 5 06:33:04 Screenin g for malignan t neoplasm of prostate Active discusse d . Plan annual PSA testin.5 on . Myron Kinsey MD [address] [place] [address], [address], [facility] 5 06:29:38 Physical examinat ion 4663772 Active 2024 Myron Kinsey MD [address] [place] [address], [address], [facility] 5 16:29:18 Administ rative reason for encounte r 105228840 Active disabili ty discussi on / letter done . 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 [facility] Colorect al Surgery Dr. Velazquez onboard , then transiti oned to (in-netw ork for insuranc e) [facility] Dr. Wild Fall 2022. s/p surveill ance colonosc opy 08/31/23. Note also Metastat ic Cancer to Lung (dx on biopsy ). [facility] (Dr. Middleton) onboard then as well. Myron Kinsey MD [address] [place] [address], [address], [facility] 5 06:30:19 Nodule of lung 350562809 Active 2023 Carri Lew, [facility] 4 09:30:53 Coronary arterios clerosis 34564091 Active NSTEMI , stents placed. Myron Kinsey MD [address] [place] [address], [address], [facility] 5 06:23:32 Nausea 485643302 Active 2023 Chemothe rapy induced. Carri Lew, [facility] 4 09:33:49 History of divertic ulitis 35768354193 9100 Active 09/2021 (w/ abnormal CT findings ultimate ly leading to dx Rectal Cancer early ). Myron Kinsey MD [address] [place] [address], [address], [facility] 5 06:24:37 Pulmonar y emphysem a 26183828 Active appearan ce on CT chest , but no air trapping on PFT s . f/b Pulmonol ogy. Myron Kinsey MD [address] [place] [address], [address], [facility] 5 06:27:40 Essentia l hyperten analilia 81414770 Active Goal < 140/90. Controll ed w/ Metoprol ol (for concurre nt CAD). Hx also on Lisinopr il until held 04/01/22 hypotens ion (after weight loss during tx rectal cancer). Myron Kinsey MD [address] , [place], [address], [facility] 5 06:26:06 Dyslipid emia 016590076 Active Baeline 2017: Total 194, trig's 170, HDL 32, LDL 128. Statin tx since 2017 for CAD. Myron Kinsey MD [address] [facility], [place], [address], [facility] 5 06:31:46 Problem Notes None recorded. Procedures Surgical History Date Name Laterality Status Provider Name and Address Organization Details Recorded Time 08/31/20 colonoscopy completed [facility] 02/27/2024 09:32:45 01/14/20 23 colonoscopy completed [facility] 02/27/2024 09:36:53 11/24/19 22 colonoscopy completed [facility] 02/27/2024 09:37:08 Appendectomy completed Not Available Health Note 05/02/2024 23:49:55 Prq card stent w/angio 1 vsl completed Not Available Health Note 05/02/2024 23:49:55 Colonoscopy with biopsy completed Not Available Health Note 05/02/2024 23:49:55 Imaging Results Imaging Date Name Status LastModified by Organiz aton [facility] Details LastModified Time 11/03/2023 imaging/diag nostic result completed Information not available 08/21/2024 02:44:48 02/24/2024 imaging/diag nostic result completed Information not available 08/21/2024 02:45:18 10/19/2023 imaging/diag nostic result completed Information not available 08/21/2024 02:45:33 Procedure Notes None recorded. Medical Equipment None Reported. Allergies No known drug allergies Medications Name Sig Start Date Stop Date Status Note LastModified by Organization Details LastModified Time amoxicillin 500 mg capsule TAKE 1 CAPSULE BY MOUTH EVERY 8 HOURS active Not Available Not Available No t Available atorvastati n 80 mg tablet TAKE 1 TABLET BY MOUTH AT BEDTIME active Not Available Not Available No t Available clopidogrel 75 mg tablet TAKE 1 TABLET BY MOUTH DAILY active Not Available Not Available No t Available capecitabin e 500 mg tablet active Not Available Not Available Not Available amitriptyli ne 25 mg tablet TAKE 1 TABLET BY MOUTH AT BEDTIME active Not Available Not Available No t Available hydrocortis one 1 % topical cream APPLY TOPICALLY TO HANDS AND FEET TWICE DAILY active Not Available Not Available No t Available nitroglycer in 0.[address] 1 TABLET UNDER THE TONGUE EVERY 5 MNINUTES UP TO 3 DOSES NEEDED FOR CHEST PAIN. AFTER 2ND DOSE CALL 911 active Not Available Not Available No t Available levofloxaci n 500 mg tablet TAKE 1 TABLET BY MOUTH DAILY FOR 7 DAYS 01/18 completed Not Available Not Available Not Available clindamycin 1 % lotion APPLY SPARINGLY [...] Not Available Not Available No t Available Vitamin B12 1 tab claudia active Not Available Not Available No t Available diclofenac 1 % topical gel APPLY SPARINGLY TOPICALLY TO THE AFFECTED AREA TWICE DAILY active Not Available Not Available No t Available Vitals Date Recorded Body height Body mass index (BMI) Body weight Heart rate Systolic blood pressure Diastolic blood pressure Provider Name and Address Organization Details Last Updated DateTime 4 177.8 cm 34.1 kg/m2 085466. 98 g 83 /min 146 mm[Hg] 88 mm[Hg] Carri Garcia [facility] 4 13:36:13 Date Recorded Body height Heart rate Oxygen saturation Oxygen saturation in Arterial blood by Pulse oximetry Body mass index (BMI) Body weight Systolic blood pressure Diastolic blood pressure Provider Name and Address Organization Details Last Updated DateTime 4 177.8 cm 82 /min 93 % 93 % 33.1 kg/m2 370096. 84 g 116 mm[Hg] 80 mm[Hg] Sulma Portillo [facility] 4 11:15:16 Date Recorded Heart rate Body mass index (BMI) Body height Body weight Body temperature Systolic blood pressure Diastolic blood pressure Provider Name and Address Organization Details Last Updated DateTime 4 73 /min 33.43 kg/m2 177.8 cm 143608. 06306 g 97.9 [degF] 138 mm[Hg] 76 mm[Hg] Not Available [facility] 4 06:34:10 Date Recorded Heart rate Respiratory rate Body mass index (BMI) Body weight Body temperature Oxygen saturation Oxygen saturation in Arterial blood by Pulse oximetry Systolic blood pressure Diastolic blood pressure Provider Name and Address Organization Details Last Updated DateTime 4 82 /min 18 /min 33.46 kg/m2 164187. 031167 g 98.5 [degF] 95 % 95 % 135 mm[Hg] 82 mm[Hg] Not Available [facility] 4 06:34:10 Date Recorded Body height Body mass index (BMI) Body weight Body temperature Heart rate Oxygen saturation Oxygen saturation in Arterial blood by Pulse oximetry Systolic blood pressure Diastolic blood pressure Provider Name and Address Organization Details Last Updated DateTime 5 177.8 cm 31.9 kg/m2 509640. 21 g 97.1 [degF] 76 /min 98 % 98 % 146 mm[Hg] 86 mm[Hg] Kacey Reyes [facility] 5 12:04:46 Social History Question Answer Notes LastModified by [...] Do You Have A Medical Power Of American History Teacher? No [email or web address] Information not available 05/02/2024 What [...] Fibromyalgia N Osteoporosis N Kidney Disease N Immunizations Vaccine Type Date Status Note Provider Nam e and Address Organization Details Recorded Time COVID-19, mRNA, LNP-S, PF, 30 mcg/0.3 mL dose 01/01/2022 completed Kacey Reyes [facility] 01/18/2025 12:02:43 COVID-19, mRNA, LNP-S, PF, 30 mcg/0.3 mL dose 01/22/2022 completed Kacey Reyes [facility] 01/18/2025 12:02:43 COVID-19, mRNA, LNP-S, bivalent, PF, 30 mcg/0.3 mL dose 07/12/2022 completed Kacey Reyes [facility] 01/18/2025 12:02:43 Tdap 11/10/2017 completed Kacey Reyes [facility] 01/18/2025 12:02:43 Past Encounters Encounter ID Performer Location Encounter Start Date Encounter Closed Date Diagnosis/Indication Diagnosis SNOMED-CT Code Diagnosis ICD10 Code Diagnosis Note [id number] Joao Wild MD [facility] ([place]) [facility] [place] [address] 02/29/2024 13:32:35 03/07/2024 08:29:33 Adenocarcinoma of rectum 601421421 C20 [id number] Kwadwo Diaz MD [facility] ([place]) [address] [place] [address] 05/03/2024 10:58:51 05/03/2024 11:39:02 Coronary arteriosclerosis 40302227 I25.10 Essential hypertension 11010364 I10 Dyslipidemia 146560361 E 78.5 [id number] Myron Kinsey MD [facility] ([place]) [address] [place] [address] 01/18/2025 11:51:27 01/18/2025 12:34:26 Metastatic malignant neoplasm to lung 13644496 C78.00 dx on colonoscop y (biopsy) on w/u rectal bleeding after [facility] then transition ed to (in-networ k for insurance) [facility] Dr. Wild Fall 2022. s/p surveillan ce colonoscop y 08/31/23. Note also Metastatic Cancer to Lung (dx on biopsy ). [facility] Oncology (Dr. Middleton) onboard then as well. Adenocarci noma of rectum 996727521 C20 Physical examination 588 0005 Z02.71 Administra tive reason for encounter 559294622 Z02.9 Health Concerns Section Related Observation LastModified by Organization Detai ls LastModified Time None Recorded Concern Status LastModified by Organization Details LastModified Time None Recorded Advance Directives Directive N: Payers Encounter Date Sequence Insurance Name Policy Number Policy Pickett Covered Member ID Pickett Member ID Guarantor Name 02/29/2024 1 [employer] ([facility]) [id number] Devante Jarrell [id number] Devante Jarrell 05/03/2024 1 [employer] ([facility]) [id number] Devante Jarrell [id number] Devante Jarrell 01/18/2025 1 [employer] ([facility]) [id number] Devante Jarrell [id number] Devante Jarrell Notes Date Note Type Note Provider Name and Address Organization Details Recorded Time 01/18/2025 text/html 1) Request lette r of disability-currentl y undergoing chemotherapy (infusion every 14days, plus pills then until a 7 day off), which he anticipates will be lifelong.-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 With that, he really is not able to obtain / maintain gainful employment. The current chemo seems to be working to keep the metastatic disease stable but that means being on this indefinitely in hopes of keeping it that way.-has been a couple years since has been able to work 2) FYI - on Amox for tooth infection, but still a little painful, which he thinks may be inflating his BP today. OBJECTIVEGENERAL: alert, oriented, interactive, non-toxic and no apparent distress.SKIN: normal color, normal temp and normal turgorHEAD: normocephalic and atraumaticEYES: non-injected conjunctivae bilaterally, no discharge bilaterally, PERRL, EOMI Myron Kinsey MD [address] [place] [address], [address], [place] [facility] 01/19/2025 16:38:33
--- OUTSIDE RECORDS SUMMARY | 2025-02-01 10:06 | XMS_ITS | Clinical Summary ---
Author Organization [facility] Address [facility] [place] [address] Care Team Providers Care Program Administrator Name Role Phone Larry Serna MD Primary [...] Date NSTEMI (non-ST elevated myoc ardial infarction) ([facility]HCC [facility]) 11/22/2021 Diverticulitis 10/01/2021 Family History Medical History Relation Comments Diabetes Brother Diabetes Father OR Father Diabetes Mother pancreatic cancer Sister Relation [...] often do you attend chur ch or anabaptism services? Never 11/22/2021 Do you belong to any clubs o r organizations such as latter-day groups, unions, fraternal or athletic groups, or [...] and heating? Not hard at all 11/22/2021 [facility] [place] of Occupat ional Health - Occupational Stress [...] place to sleep or slept in a fci (including now)? 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 Gender Identity Not on file Sexual Orientation Not on file Occupation Industry Job Start Date Job End Date [employer] Not on file Not on file Not on file Last Filed Vital Signs Vital Sign Reading Time Taken Comments Blood Pressure 108/54 10/19/2023 1:00 PM [employer] HISTORY TEACHER Pulse 66 10/19/2023 1:00 PM [employer] HISTORY TEACHER Temperature 36.3 C (97.3 F) 08/31/2023 9:46 AM [employer]CHO[employer] HISTORY TEACHER Respiratory Rate 16 10/19/2023 1:00 PM [employer] HISTORY TEACHER Oxygen Saturation 95% 10/19/2023 1:00 PM [employer] HISTORY TEACHER Inhaled Oxygen Concentration - - Weight 106.6 kg (235 lb) 10/19/2023 8:20 AM [employer]DLE SCHO[employer] HISTORY TEACHER Height 177.8 cm (5' 10 ) 10/19/2023 8:20 AM MIDDLE SCHOOL HISTORY TEACHER Body Mass Index 33.72 10/19/2023 8:20 AM MIDDLE SCHOOL HISTORY TEACHER Plan of Treatment Health Maintenance Due Date Last Done Comments ASCVD Statin 1968 Annual Physical 1971 Pneumococcal Vaccine: Pediatrics (0 to 5 Years) and At-Risk Patients (6 to 64 Years) (1 of 2 - PCV) 1974 Hepatitis C 1986 Hepatitis B Vaccines (1 of 3 - 19+ 3-dose series) 1987 Zoster Vaccines (1 of 2) 2018 ASCVD LDL 11/23/2022 11/23/2021 COVID-19 Vaccine ( - season) 2024 DTaP, Tdap and Td Vaccines (2 [...] perform ADLs independently General No Carlos Lundy, [facility] Medical Devices Implanted Type Area Return To Factory Clerk Device Identifier Shelf Expiration Date Model / Serial / Lot Clip Resolution 2.8mm 360 235cm 11mm Open - [id number] Implanted:Qty: 1 on 11/24/2021 by Kaleb Napier DO at [facility] [employer] Clip Implant LDL [employer] JOE [id number] 07/20/2024 [id number] / / [id number] Description:1 CLIP PLACED AT DESCENDING COLON WHERE POLYP WAS REMOVED VIA HOT SNARE Procedures Procedure Name Priority Date/Time Associated Diagnosis Comments COLONOSCOPY 08/31/2023 6:46 AM MIDDLE SCHOOL HISTORY TEACHER LIPID PANEL Routine 11/23/2021 4:56 AM MIDDLE SCHOOL HISTORY TEACHER OCCULT BLOOD, FECES Routine 11/22/2021 2 :20 PM MIDDLE SCHOOL HISTORY TEACHER from Last 3 Months or Most Recently Relevant to Health Maintenance Results * Colonoscopy (08/31/2023 6:46 AM MIDDLE SCHOOL HISTORY TEACHER) Joao Wild MD GI PROCEDURE ORDERABLES Final Result * (ABNORMAL) LIPID PANEL (11/23/2021 4:56 AM MIDDLE SCHOOL HISTORY TEACHER) CHOLESTEROL 190 <200 MG/DL 11/23/2021 5:56 AM [facility] TRIGLYCERIDES 214(H) <150 MG/DL 11/23/2021 5:56 AM [facility] HDL 35(L) >40.0 MG/DL 11/23/2021 5:56 AM [facility] LDL (CALCULATED) 112(H) <100 MG/DL 11/23/2021 5:56 AM [facility] NON HDL CHOLESTEROL 155(H) <130 MG/DL 11/23/2021 5:56 AM [facility] CHOL/HDL RATIO 5.4(H) 0.0 - 4.5 11/23/2021 5:56 AM [facility] VLDL CALCULATION 43 5 - 55 MG/DL 11/23/2021 5:56 AM [facility] LIPID INTERPRETATION 11/23/2021 5:56 AM [facility] Comment: [facility] CONCENSUS REPORT RECOMMENDATIONS: ADULT CHILD LOW RISK: CHOLESTEROL <200 <170 TRIGLYCERIDE <150 --- HDL >=60 --- LDL <100 <110 BORDERLINE: CHOLESTEROL 200-239 170-199 TRIGLYCERIDE 150-199 --- HDL 40-59 --- LDL 100-159 110-129 HIGH RISK: CHOLESTEROL >=240 >=200 TRIGLYCERIDE >=200 --- HDL <40 --- LDL >=160 >=130 11/23/2021 4:56 AM MIDDLE SCHOOL HISTORY TEACHER Mini Alston PA-C LABORATORY Final Result [facility] [address] [place] [address], [place] [phone] * OCCULT BLOOD, FECES (11/22/2021 2:20 PM MIDDLE SCHOOL HISTORY TEACHER) OCCULT BLOOD FECAL POSITIVE 11/22/2021 2:43 PM MIDDLE SCHOOL HISTORY TEACHER [facility] STOOL SPECIMEN / Unknown 11/22/2021 2:20 PM MIDDLE SCHOOL HISTORY TEACHER Mini Alston PA-C BODY FLUIDS AND STOOLS ORDERA BLES Final Result Performing Organization Address City/[facility] Co de Phone Number [facility] [address] [place] [address], [place] [phone] from Last 3 Months or Most Recently Relevant to Health Maintenance Insurance [employer] Advance Directives * Full Code (Latest Code Status on File) Date Activated Date Inactivated Comments 11/22/2021 9:05 AM 11/26/2021 6:24 PM * Full Code Date Activated Date Inactivated Comments 10/01/2021 12:35 AM 10/03/2021 7:26 PM Care Teams Program Administrator Relationship Specialty Start Date End Date Larry Serna MD PCP - General FAMILY PRACTICE 09/30/21
[2025-02-01] MEDS: SODIUM CHLORIDE 0.9% IV 250 ML 10 ML IVPB (10:15)
[2025-02-01 10:21] LABS: Alanine Aminotransferase 25 U/L (16-63); Albumin Level 3.4 g/dL (3.4-5.0); Alkaline Phosphatase 126 U/L (46-116); Anion Gap 9 mmol/L (4-12); Aspartate Amino Transferase 23 U/L (15-37); Bilirubin,Total 0.8 mg/dL (0.00-1.00); Blood Urea Nitrogen 10 mg/dL (7-18); Calcium 8.9 mg/dL (8.5-10.1); Carbon Dioxide 28 mmol/L (21-32); Chloride 102 mmol/L (98-108); Estimated CRCL calculation 74 ml/min; Estimated Glomerular Filt Rate > 60; Glucose 176 mg/dL (70-99); Osmolality Calculated 291 mOsm/kg (285-295); Potassium 3.7 mmol/L (3.5-5.1); Sodium 139 mmol/L (136-145); Total Protein 6.9 g/dL (6.4-8.2)
[2025-02-01] MEDS: ONDANSETRON IVPB (10:30)
[2025-02-01] MEDS: SODIUM CHLORIDE 0.9% IVPB ×2 (10:30→10:59)
[2025-02-01] MEDS: BEVACIZUMAB AWWB IVPB (10:59)
[2025-02-01] MEDS: HEPARIN SODIUM LOCK FLUSH 500 UNITS/5 ML SYRINGE IV PUSH (11:30)
[2025-02-01 11:37] VITALS: BP 143/70; PULSE 80; RESP 14; TEMP 36.6; O2SAT 96
--- NOTE | 2025-02-01 11:39 | PC.NURSE ---
Patient here for for cycle 21 of Bevacizumab treatment infusion. Education given. No concerns voiced. Infusion administered. see MAR/patient care notes. Tolerated well.
[2025-02-03 06:33] LABS: Carcinoembryonic Antigen <2.0 ng/mL
== END 2025-02-01 09:39 | disposition home or self-care (01) ==
PROVIDERS: Visit Provider Internal Medicine Hematology
DX: Z51.11 Encounter for antineoplastic chemotherapy (principal); C20 Malignant neoplasm of rectum
CPT/HCPCS: 36415; 36591; 80053; 81003; 82378; 85027; 96367; 96413; J2405; J7050; Q5107

== ENCOUNTER 2025-03-22 08:46 | Outpatient (CLI) | payer OTHER, SELFPAY ==
--- OUTSIDE RECORDS SUMMARY | 2025-03-22 08:54 | XMS_ITS | Referral Summary ---
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 Room: [facility] ENDOSCOPY ROOM 02 Note Status: [...] The scope was passed under direct vision.The [id number] was introduced through the anusand advanced to [...] On: 01/03/2023 1:53 PM Recognized by the [place] [employer] for promoting quality in endoscopy James Velazquez MD ENDOSCOPY PROCEDURES Final Res ult from Last 3 Months or Most Recently Relevant to Health Maintenance Insurance [facility] Advance Directives For more information, please contact: [phone] * Full Code (Latest Code Status on File) Date Activated Date Inactivated Comments 04/18/2023 10:53 AM 04/18/2023 4:35 PM * Full Code Date Activated Date Inactivated Comments 01/03/2023 1:14 PM 01/03/2023 7:06 PM * Full Code Date Activated Date Inactivated Comments 09/20/2022 2:30 PM 09/20/2022 8:28 PM Care Teams Blending Tank Tender Relationship Specialty Start Date End Date Myron Serna MD [address] [place] [address] PCP - General Family Medicine 07/07/22 Jan Middleton MD [address] [place] [address] Referring Physician Hematology 08/23/22 James Velazquez MD [address] [facility] [phone] [place] [address] Surgeon Colon and Rectal Surgery 11/11/22 Noemi Crandall MD [address] [place] [address] Referring Physician General Surgery 09/03/22
--- OUTSIDE RECORDS SUMMARY | 2025-03-22 08:54 | XMS_ITS | Data Portability ---
Author Organization [facility], [address] [facility] ([place]) Address [address] [place] [address] Care Team Providers Care Granulating Blender Name Role Phone MYRON KINSEY Primary Care Provider [phone] KWADWO DIAZ Link Trainer Operator Assessment Encounter Date Assessment Date Assessment LastModified by Organization Details LastModified Time 02/29/2024 02/29/2024 Devante is a 53-year-old male. I have been following him for rectal cancer that had a completely response. He had radiation completed under the RAPIDO trial down at [facility]. He finished his chemoradiation in November [...] being treated by Dr. Kim Iraheta at [facility] with avastin and capecitabine. He just had a CT scan last week at [place] and is waiting for a call from [...] in November 2021 in the setting of shf-GT-vacoxizae myocardial infarction, comes in for followup visit. [...] in November 2021. He received 2.75/15 Resolute [place] drug-eluting stent in proximal circumflex. RCA was treated with 4.0/15 and 3.5/28 Resolute [place] stents. 2. Transthoracic echo 11/22/2021 showed normal LV and RV function. 3. Lipid panel from October 2016 showed total cholesterol 194, triglycerides 170, HDL 32, LDL 128. IMPRESSION: 53-year-old male with CAD and colorectal cancer, on chemotherapy, comes in for followup visit. nv PLAN: 1. CAD status post PCI to RCA and circumflex in November 2021 in the setting of pmp-MC-cqdkgqdzx myocardial infarction. He is doing well. Denies [...] By Organization Details Last Modified Time 01/18/2025 [id number] His description of chemotherapy schedule, metastatic disease, [...] ation record ed. [email or web address] Not Available 02:45:33 03/19/2011/15/2024 CT, chest + abdom en + pelvi s, w/ contr ast No observ ation record ed. [email or web address] Not Available 03/20 15:26:58 Result Notes None recorded. Problems Name Problem SNOMED Code Status Onset Date Resolution Date Notes Provider Name and Address Organization Details Recorded Time Lesion of larynx 960604957 Active noted on chest CT at [facility] (on pulm nodule w/u). Progress haider voice hoarsene ss. ENT rec'd observat ion unless pt developi ng respirat ory symptoms . Myron Kinsey MD [address] [place] [address], [phone], [facility] 5 06:26:41 Metastat ic malignan t neoplasm to lung 55133694 Active dx on biopsy of metaboli cly-acti ve lung nodule on PET-CT . Myron Kinsey MD [address] [place] [address], [address], [facility] 5 06:27:23 Hepatiti s C screenin g Completed HepC antibody screen Negative 04/13/23. Myron Kinsey MD [address] [place] [address], [address], [facility] 5 06:28:06 Peripher al neuropat hic pain 748326078 Active tx amitript yline (per Oncology ). Myron Kinsey MD [address] [place] [address], [address], [facility] 5 06:33:04 Screenin g for malignan t neoplasm of prostate Active discusse d . Plan annual PSA testin.5 on . Myron Kinsey MD [address] [place] [address], [address], [facility] 5 06:29:38 Physical examinat ion 8807419 Active 2024 Myron Kinsey MD [address] [place] [address], [address], [facility] 5 16:29:18 Administ rative reason for encounte r 078005934 Active disabili ty discussi on / letter done . 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 [facility] Colorect al Surgery Dr. Velazquez onboard , then transiti oned to (in-netw ork for insuranc e) [facility] Dr. Wild Fall 2022. s/p surveill ance colonosc opy 08/31/23. Note also Metastat ic Cancer to Lung (dx on biopsy ). [facility] (Dr. Middleton) onboard then as well. Myron Kinsey MD [address] [place] [address], [address] 3, [facility] 5 06:30:19 Nodule of lung 642512104 Active 2023 Carri Lew, [facility] 4 09:30:53 Coronary arterios clerosis 13552665 Active NSTEMI , stents placed. Myron Kinsey MD [address] [place] [address], [address], [facility] 5 06:23:32 Nausea 507596007 Active 2023 Chemothe rapy induced. Carri Lew, [facility] 4 09:33:49 History of divertic ulitis 87101561753 9100 Active 09/2021 (w/ abnormal CT findings ultimate ly leading to dx Rectal Cancer early ). Myron Kinsey MD [address] [place] [address], [address], [facility] 5 06:24:37 Pulmonar y emphysem a 84947928 Active appearan ce on CT chest , but no air trapping on PFTs . f/b Pulmonol ogy. Myron Kinsey MD [address] [facility] [place], [address], [facility] 5 06:27:40 Essentia l hyperten analilia 06610105 Active Goal < 140/90. Controll ed w/ Metoprol ol (for concurre nt CAD). Hx also on Lisinopr il until held 04/01/22 hypotens ion (after weight loss during tx rectal cancer). Myron Kinsey MD [address] , [place], [address], [facility] 5 06:26:06 Dyslipid emia 754255712 Active Baeline 2017: Total 194, trig's 170, HDL 32, LDL 128. Statin tx since 2017 for CAD. Myron Kinsey MD [address] [facility], [place], [address], [facility] 5 06:31:46 Problem Notes None recorded. Procedures Surgical History Date Name Laterality Status Provider Name and Address Organization Details Recorded Time 08/31/20 colonoscopy completed [facility] 02/27/2024 09:32:45 01/14/20 23 colonoscopy completed [facility] 02/27/2024 09:36:53 11/24/19 22 colonoscopy completed [facility] 02/27/2024 09:37:08 Appendectomy completed Not Available Health Note 05/02/2024 23:49:55 Prq card stent w/angio 1 vsl completed Not Available Health Note 05/02/2024 23:49:55 Colonoscopy with biopsy completed Not Available Health Note 05/02/2024 23:49:55 Imaging Results None recorded. Procedure Notes None recorded. Medical Equipment None [...] Not Available Not Available Not Avai lable capecitabin e 500 mg tablet active Not [...] active Not Available Not Available Not Avai labcurtis Vitamin B12 1 tab claudia active Not [...] Updated DateTime 5 177.8 cm 31.9 kg/m2 550672. 21 g 97.1 [degF] 76 /min 98 % 98 % 146 mm[Hg] 86 mm[Hg] Kacey Reyes [facility] 5 12:04:46 Date Recorded Body height Body mass index (BMI) Body weight Heart rate Systolic blood pressure Diastolic blood pressure Provider Name and Address Organization Details Last Updated DateTime 4 177.8 cm 34.1 kg/m2 022119. 98 g 83 /min 146 mm[Hg] 88 mm[Hg] Carri Garcia [facility] 4 13:36:13 Date Recorded Heart rate Body mass index (BMI) Body height Body weight Body temperature Systolic blood pressure Diastolic blood pressure Provider Name and Address Organization Details Last Updated DateTime 4 73 /min 33.43 kg/m2 177.8 cm 130165. 95585 g 97.9 [degF] 138 mm[Hg] 76 mm[Hg] Not Available [facility] 4 06:34:10 Date Recorded Heart rate Respiratory rate Body mass index (BMI) Body weight Body temperature Oxygen saturation Oxygen saturation in Arterial blood by Pulse oximetry Systolic blood pressure Diastolic blood pressure Provider Name and Address Organization Details Last Updated DateTime 4 82 /min 18 /min 33.46 kg/m2 588227. 820351 g 98.5 [degF] 95 % 95 % 135 mm[Hg] 82 mm[Hg] Not Available [facility] 4 06:34:10 Date Recorded Body height Heart rate Oxygen saturation Oxygen saturation in Arterial blood by Pulse oximetry Body mass index (BMI) Body weight Systolic blood pressure Diastolic blood pressure Provider Name and Address Organization Details Last Updated DateTime 4 177.8 cm 82 /min 93 % 93 % 33.1 kg/m2 210585. 84 g 116 mm[Hg] 80 mm[Hg] Sulma Protillo [facility] 4 11:15:16 Social History Question Answer Notes LastModified by [...] Do You Have A Medical Power Of Pepper Cutter? No [email or web address] Information not available 05/02/2024 What Was The Date Of Your Most Recent Tobacco Screening? 05/03/2024 [email or web address] Information not available 05/02/2024 What Is Your Relationship Status? [email or web address] Information not available 05/02/2024 Sex: Unknown Functional Status Question Answer Note LastModified by Organizat ion Details LastModified Time How many times per week do you consume alcohol? Less than 1 time per week [email or web address] Information not available 05/02/2024 Do you use any illicit or recreational drugs? No [email or web address] Information not available 05/02/2024 What is your level of alcohol consumption? Occasional [email or web address] Information not available 05/02/2024 Are you currently employed? 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 Occasional [email or web address] [...] mcg/0.3 mL dose 01/01/2022 completed Kacey Reyes [facility] 01/18/2025 12:02:43 COVID-19, mRNA, LNP-S, PF, 30 mcg/0.3 mL dose 01/22/2022 completed Kacey Reyes [facility] 01/18/2025 12:02:43 COVID-19, mRNA, LNP-S, bivalent, PF, 30 mcg/0.3 mL dose 07/12/2022 completed Kacey Reyes [facility] 01/18/2025 12:02:43 Tdap 11/10/2017 completed Kacey Reyes [facility] 01/18/2025 12:02:43 Past Encounters Encounter ID Performer Location Encounter Start Date Encounter Closed Date Diagnosis/Indication Diagnosis SNOMED-CT Code Diagnosis ICD10 Code Diagnosis Note [id number] Joao Wild MD [facility] [place] ([place]) [address] [place] [address] 02/29/2024 13:32:35 03/07/2024 08:29:33 Adenocarcinoma of rectum 522915450 C20 [id number] Kwadwo Diaz MD [facility] ([place]) [address] [place] [address] 05/03/2024 10:58:51 05/03/2024 11:39:02 Coronary arteriosclerosis 80754740 I25.10 Essential hypertension 69175891 I10 Dyslipidemia 264614446 E 78.5 [id number] Myron Kinsey MD [facility] ([place]) [address] [place] [address] 01/18/2025 11:51:27 01/18/2025 12:34:26 Metastatic malignant neoplasm to lung 48815020 C78.00 dx on colonoscop y (biopsy) on w/u rectal bleeding after diverticul litis w/ abnmL CT. [facility] Colorectal Surgery Dr. Velazquez onboard , then transition ed to (in-networ k for insurance) [facility] Dr. Wild Fall 2022. s/p surveillan ce colonoscop y 08/31/23. Note also Metastatic Cancer to Lung (dx on biopsy ). [facility] (Dr. Middleton) onboard then as well. Adenocarci noma of rectum 858876134 C20 Physical examination 588 0005 Z02.71 Administra tive reason for encounter 856605221 Z02.9 Health Concerns Section Related Observation LastModified by Organization Detai ls LastModified Time None Recorded Concern Status LastModified by Organization Details LastModified Time None Recorded Advance Directives Directive N: Payers Insurance Date Sequence Insurance Name Policy Number Policy Pickett Covered Member ID Pickett Member ID Guarantor Name 02/22/2024 1 *SELF PAY* Charly Jarrell 02/16/2025 1 [employer] [facility] [id number] Devante Jarrell [id number] Devante Jarrell Notes Date Note Type Note [...] PERRL, EOMI Myron Kinsey MD [address] , [place], [address], [facility] 01/19/2025 16:38:33
--- OUTSIDE RECORDS SUMMARY | 2025-03-22 08:54 | XMS_ITS ---
Author Organization [facility] Address [address] [place] [address] Care Team Providers Care Medical Staff Credentialing Coordinator Name Role Phone Myron Serna MD Primary Care Provider [phone] Jan Middleton MD Unavailable James Velazquez MD Unavailable [phone] Noemi Crandall MD Unavailable Active Problems Problem [...]
--- OUTSIDE RECORDS SUMMARY | 2025-03-22 08:54 | XMS_ITS | Clinical Summary ---
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 Gender Identity Not on file Sexual Orientation [...] season) 2024 07/12/2022, 01/22/2022, 01/01/2022 Influenza Vaccine (Season Ended) 2025 DTaP/Tdap/Td Vaccine (2 - Td or Tdap) 11/10/2027 Colon Cancer Screening-Colonoscopy 01/03/20332022 Procedures Procedure Name Priority Date/Time Associated Diagnosis Comments COLONOSCOPY 01/03/2023 1:53 PM CDT from Last 3 Months or Most Recently Relevant to Health Maintenance Results * COLONOSCOPY (01/03/2023 1:53 PM CDT) Anatomical Region Laterality Modality Other Narrative Procedure Note James Velazquez MD - 01/03/2023 1:53 PM CDT [facility] Patient Name: Devante Jarrell Procedure Date: 01/03/2023 1:53 PM Date of : 1970 Admit Type: Outpatient Age: 52 Gender: Male Attending MD: James Velazquez M.D. Room: [facility] ENDOSCOPY ROOM 02 Note Status: [...] The scope was passed under direct vision.The [id number] was introduced through the anusand advanced to [...] On: 01/03/2023 1:53 PM Recognized by the [place] [employer] for promoting quality in endoscopy us James Velazquez MD ENDOSCOPY PROCEDURES Final Res ult from Last 3 Months or Most Recently Relevant to Health Maintenance Insurance Advance Directives For more information, please contact: [phone] * Full Code (Latest Code Status on File) Date Activated Date Inactivated Comments 04/18/2023 10:53 AM 04/18/2023 4:35 PM * Full Code Date Activated Date Inactivated Comments 01/03/2023 1:14 PM 01/03/2023 7:06 PM * Full Code Date Activated Date Inactivated Comments 09/20/2022 2:30 PM 09/20/2022 8:28 PM Care Teams Paint Roller Covermaker Relationship Specialty Start Date End Date Myron Serna MD [address] [place] [address] PCP - General Family Medicine 07/07/22 Jan Middleton MD [address] [place] [address] Referring Physician [facility] 08/23/22 James Velazquez MD [phone] [place] [address] Surgeon Colon and Rectal Surgery 09/03/22 Noemi Crandall MD [address] [place] [address] Referring Physician General Surgery 09/03/22
[2025-03-22 09:00] VITALS: BMI 31.7
[2025-03-22 09:07] LABS: Hemoglobin 15.9 g/dL (14.0-18.0); Mean Corpuscular HGB Conc 33.1 g/dL (32-36); Mean Corpuscular Hemoglobin 36.2 pg (27.0-31.0); Mean Corpuscular Volume 109.3 fL (78.0-102.0); Mean Platelet Volume 9.1 fl (8.7-11.0); Platelet Count Result 286 K/mm3 (150-420); Red Blood Count 4.39 M/mm3 (4.70-6.10); Red Cell Distribution Width 14.6 % (11.6-14.4); White Blood Count 9.7 K/mm3 (4.8-10.8)
[2025-03-22 09:18] VITALS: BP 123/67; PULSE 88; RESP 16; TEMP 36.6; O2SAT 97
[2025-03-22 09:19] LABS: Alanine Aminotransferase 34 U/L (6-50); Alkaline Phosphatase 105 U/L (38-126); Anion Gap 3 mmol/L (4-12); Aspartate Amino Transferase 41 U/L (17-59); Bilirubin,Total 0.6 mg/dL (0.2-1.3); Blood Urea Nitrogen 11 mg/dL (9-20); Calcium 8.6 mg/dL (8.4-10.2); Carbon Dioxide 25 mmol/L (22-30); Chloride 108 mmol/L (98-107); Estimated CRCL calculation 104 ml/min; Estimated Glomerular Filt Rate > 60; Glucose 116 mg/dL (65-110); Osmolality Calculated 282 mOsm/kg (285-295); Potassium 4.1 mmol/L (3.4-5.0); Sodium 136 mmol/L (137-145)
[2025-03-22] MEDS: SODIUM CHLORIDE 0.9% IV 250 ML 10 ML IVPB (09:30)
[2025-03-22] MEDS: SODIUM CHLORIDE 0.9% IVPB ×2 (09:45→10:15)
[2025-03-22] MEDS: ONDANSETRON IVPB (09:45)
[2025-03-22] MEDS: BEVACIZUMAB AWWB IVPB (10:15)
[2025-03-22] MEDS: HEPARIN SODIUM LOCK FLUSH 500 UNITS/5 ML SYRINGE IV PUSH (10:45)
[2025-03-22 10:58] VITALS: BP 129/68; PULSE 88; RESP 16; O2SAT 97
--- NOTE | 2025-03-22 10:59 | PC.NURSE ---
Patient tolerated treatment well. See MAR/patient care notes.
== END 2025-03-22 08:47 | disposition home or self-care (01) ==
PROVIDERS: Visit Provider Internal Medicine Hematology
DX: Z51.11 Encounter for antineoplastic chemotherapy (principal); C20 Malignant neoplasm of rectum
CPT/HCPCS: 36415; 36591; 80053; 85027; 96367; 96413; J2405; J7050; Q5107

== ENCOUNTER 2025-03-26 08:32 | Outpatient (CLI) | payer OTHER, SELFPAY ==
--- NOTE | ~2025-03-26 | CT_ITS ---
Clinical Indication: Metastatic cancer CT Scan of the Chest, Abdomen, and Pelvis with Contrast: Technique: Contiguous sections were acquired throughout the chest, abdomen, and pelvis after intraven ous administration of 100 cc of Omnipaque 350. Dose reduction technique was used on this scan by uti lizing automated exposure control and iterative reconstruction technique. The dose-length product (DL P) was 1183.09 mGy-cm. Comparison: 11/15/2024 Findings: There is no evidence of any significant mediastinal, hilar or axillary lymphadenopathy. The mediastin al soft tissues appear normal. There is no evidence of pleural or pericardial effusion. 8 mm left upper lobe pulmonary nodule similar to the hilum is essentially stable from prior exam (axi al image 61). Left lower lobe lesion is significantly increased in size, now measuring 3.9 cm in diam eter (axial image 71). Right lower lobe nodule is also increased in size, now measuring 2.2 cm in guanako meter (axial image 75). There is additional increased or inferior right lower lobe nodule, measuring 0.8 cm (axial image 93). Probable diffuse hepatic steatosis. The spleen, pancreas, gallbladder, adrenals and kidneys are withi n normal limits. No evidence of aortic aneurysm. No lymphadenopathy. No bowel obstruction or bowel wall thickening. There is no evidence to suggest acute appendicitis. Urinary bladder is unremarkable. No pelvic mass seen. No ascites. Impression: Interval progression of pulmonary metastatic disease, as detailed above. Diffuse hepatic steatosis. Reviewed, dictated and finalized at [facility]. Impression: Interval progression of pulmonary metastatic disease, as detailed above. Diffuse hepatic steatosis.
--- OUTSIDE RECORDS SUMMARY | 2025-03-26 08:36 | XMS_ITS | Clinical Summary ---
Author Organization 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 Room: [facility] ENDOSCOPY ROOM 02 Note Status: [...] The scope was passed under direct vision.The [id number] was introduced through the anusand advanced to [...] On: 01/03/2023 1:53 PM Recognized by the [place] [employer] for promoting quality in endoscopy us James Velazquez MD ENDOSCOPY PROCEDURES Final Res ult from Last 3 Months or Most Recently Relevant to Health Maintenance Insurance Advance Directives For more information, please contact: [phone] * Full Code (Latest Code Status on File) Date Activated Date Inactivated Comments 04/18/2023 10:53 AM 04/18/2023 4:35 PM * Full Code Date Activated Date Inactivated Comments 01/03/2023 1:14 PM 01/03/2023 7:06 PM * Full Code Date Activated Date Inactivated Comments 09/20/2022 2:30 PM 09/20/2022 8:28 PM Care Teams Art Instructor Relationship Specialty Start Date End Date Myron Serna MD [address] [place] [address] PCP - General Family Medicine 07/07/22 Jan Middleton MD [address] [place] [address] Referring Physician [facility] 08/23/22 James Velazquez MD [phone] [place] [address] Surgeon Colon and Rectal Surgery 09/03/22 Noemi Crandall MD [address] [place] [address] Referring Physician General Surgery 09/03/22
--- OUTSIDE RECORDS SUMMARY | 2025-03-26 08:36 | XMS_ITS ---
Author Organization [facility] Address [address] [place] [address] Care Team Providers Care Parachute Supervisor Name Role Phone Myron Serna MD Primary Care Provider [phone] Jan Middleton MD Unavailable James Velazquez MD Unavailable [phone] Noemi Crandall MD Unavailable Active Problems Problem [...]
--- OUTSIDE RECORDS SUMMARY | 2025-03-26 08:36 | XMS_ITS | Referral Summary ---
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 Room: [facility] ENDOSCOPY ROOM 02 Note Status: Finalized [...] The scope was passed under direct vision.The [id number] was introduced through the anusand advanced to [...] On: 01/03/2023 1:53 PM Recognized by the [place] for promoting quality in endoscopy James Velazquez MD ENDOSCOPY PROCEDURES Final Res ult from Last 3 Months or Most Recently Relevant to Health Maintenance Insurance [facility] Advance Directives For more information, please contact: [phone] * Full Code (Latest Code Status on File) Date Activated Date Inactivated Comments 04/18/2023 10:53 AM 04/18/2023 4:35 PM * Full Code Date Activated Date Inactivated Comments 01/03/2023 1:14 PM 01/03/2023 7:06 PM * Full Code Date Activated Date Inactivated Comments 09/20/2022 2:30 PM 09/20/2022 8:28 PM Care Teams Straight Line Edger Relationship Specialty Start Date End Date Myron Serna MD [address] [place] [address] PCP - General Family Medicine 07/07/22 Jan Middleton MD [address] [place] [address] Referring Physician Hematology 08/23/22 James Velazquez MD [address] [facility] [phone] [place] [address] Surgeon Colon and Rectal Surgery 11/11/22 Noemi Crandall MD [address] [place] [address] Referring Physician General Surgery 09/03/22
== END 2025-03-26 08:33 | disposition home or self-care (01) ==
LOC: CHSIMG 08:33
PROVIDERS: Visit Provider Internal Medicine Hematology
DX: C78.00 Secondary malignant neoplasm of unspecified lung (principal)
CPT/HCPCS: 71260; 74177; Q9967

== ENCOUNTER 2025-04-12 12:37 | Outpatient (CLI) | payer OTHER, SELFPAY ==
[2025-04-12 12:58] VITALS: BP 135/76; PULSE 88; RESP 16; TEMP 36.6; O2SAT 96; BMI 32.1
[2025-04-12 12:58] LABS: Add Urine Microscopic? NO; Appearance Urine Clear (Clear); Bilirubin Urine Negative (Negative); Blood Urine Negative (Negative); Color Urine Yellow (Yellow); Glucose Urine UA Negative (Negative); Ketones Urine Negative (Negative); Leukocyte Esterase Ur Negative (Negative); Nitrate Urine Negative (Negative); Protein Urine Negative (Negative)
[2025-04-12 12:59] LABS: Basophils Absolute Auto 0.06 K/mm3 (0.00-0.10); Basophils Percent Auto 0.6 % (0.0-1.0); Eosinophils Percent Auto 5.1 % (1.0-6.0); Hematocrit 47.9 % (40.0-54.0); Immature Granulocyte Absolute 0.02 K/mm3 (0.00-0.00); Immature Granulocyte Percent A 0.2 % (0.0-0.0); Lymphocytes Absolute Auto 1.92 K/mm3 (1.10-4.50); Lymphocytes Percent Auto 19.7 % (18.0-42.0); Mean Corpuscular HGB Conc 33.4 g/dL (32-36); Mean Corpuscular Volume 107.6 fL (78.0-102.0); Mean Platelet Volume 8.8 fl (8.7-11.0); Monocytes Absolute Auto 1.12 K/mm3 (0.10-0.90); Monocytes Percent Auto 11.5 % (2.0-11.0); Neutrophils Absolute Auto 6.14 K/mm3 (1.70-7.20); Neutrophils Percent Auto 62.9 % (50.0-70.0); Platelet Count Result 238 K/mm3 (150-420); Red Blood Count 4.45 M/mm3 (4.70-6.10); Red Cell Distribution Width 15.3 % (11.6-14.4); White Blood Count 9.8 K/mm3 (4.8-10.8)
[2025-04-12 13:10] LABS: Alanine Aminotransferase 26 U/L (6-50); Albumin Level 4.2 g/dL (3.5-5.1); Alkaline Phosphatase 91 U/L (38-126); Anion Gap 4 mmol/L (4-12); Aspartate Amino Transferase 37 U/L (17-59); Bilirubin,Total 0.9 mg/dL (0.2-1.3); Blood Urea Nitrogen 10 mg/dL (9-20); Carbon Dioxide 28 mmol/L (22-30); Chloride 107 mmol/L (98-107); Estimated CRCL calculation 96 ml/min; Estimated Glomerular Filt Rate > 60; Glucose 92 mg/dL (65-110); Osmolality Calculated 287 mOsm/kg (285-295); Potassium 4.2 mmol/L (3.4-5.0); Sodium 139 mmol/L (137-145); Total Protein 7.1 g/dL (6.3-8.2)
[2025-04-12] MEDS: SODIUM CHLORIDE 0.9% IV 250 ML 10 ML IVPB (13:20)
[2025-04-12] MEDS: ONDANSETRON IVPB (13:29)
[2025-04-12] MEDS: SODIUM CHLORIDE 0.9% IVPB ×2 (13:29→14:00)
[2025-04-12] MEDS: BEVACIZUMAB AWWB IVPB (14:00)
[2025-04-12] MEDS: HEPARIN SODIUM LOCK FLUSH 500 UNITS/5 ML SYRINGE IV PUSH (14:16)
[2025-04-12 14:29] VITALS: BP 129/84; PULSE 80; RESP 14; TEMP 36.6; O2SAT 97
--- NOTE | 2025-04-12 14:31 | PC.NURSE ---
Patient tolerated Bevacizumab infusion well. SEE MAR/patient care notes.
== END 2025-04-12 12:38 | disposition home or self-care (01) ==
LOC: CHSOUTPT 12:43 → CHSTREATRM 12:46
PROVIDERS: Visit Provider Internal Medicine Hematology
DX: Z51.11 Encounter for antineoplastic chemotherapy (principal); C20 Malignant neoplasm of rectum
CPT/HCPCS: 36415; 36591; 80053; 81003; 85025; 96367; 96413; J2405; J7050; Q5107

== ENCOUNTER 2025-05-03 09:31 | Outpatient (CLI) | payer OTHER, SELFPAY ==
[2025-05-03 09:35] VITALS: BP 120/74; PULSE 80; RESP 16; TEMP 36.3; O2SAT 98; BMI 31.7
--- OUTSIDE RECORDS SUMMARY | 2025-05-03 09:35 | XMS_ITS | Encounter Summary ---
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 Gender Identity Not on file Sexual Orientation Not on file documented as of this encounter Plan of Treatment Not on file documented as of this encounter Visit Diagnoses Not on filedocumented in this encounter Additional Health Concerns Infection Onset Date Last Indicated Resolved Time COVID-19 Rule Out 10/01/2021 10/01/2021 10/01/2021 2:43 PM BUDGET TECHNICIAN COVID-19 Rule Out 11/21/2021 11/21/2021 11/21/2021 9:38 PM BUDGET TECHNICIAN documented as of this encounter Care Teams Door Paneler Relationship Specialty Start Date End Date Larry Serna MD PCP - General FAMILY PRACTICE 09/30/21 documented as of this encounter
--- OUTSIDE RECORDS SUMMARY | 2025-05-03 09:36 | XMS_ITS ---
Author Organization [facility] Address [address] [place] [address] Care Team Providers Care Wire Inserter Name Role Phone Myron Serna MD Primary Care Provider [phone] Jan Middleton MD Unavailable James Velazquez MD Unavailable [phone] Noemi Crandall MD Unavailable Active Problems Problem [...]
--- OUTSIDE RECORDS SUMMARY | 2025-05-03 09:36 | XMS_ITS | Clinical Summary ---
Author Organization [facility] Address [facility] [place] [address] Care Team Providers Care Cavalry Scout Name Role Phone Larry Serna MD Primary [...] Date NSTEMI (non-ST elevated myoc ardial infarction) ([facility]HCC [facility]) 11/22/2021 Diverticulitis 10/01/2021 Family History Medical History Relation Comments Diabetes Brother Diabetes Father CO Father Diabetes Mother pancreatic cancer Sister Relation [...] often do you attend chur ch or caodaism services? Never 11/22/2021 Do you belong to any clubs o r organizations such as muslim groups, unions, fraternal or athletic groups, or [...] and heating? Not hard at all 11/22/2021 [facility] [place] of Occupat ional Health - Occupational Stress [...] place to sleep or slept in a alf (including now)? No 11/22/2021 Sex and Gender Information Value Date Recorded Sex Assigned at Not on file Legal Sex Male 9:32 PM SPIRITUAL MINISTER Gender Identity Not on file Sexual Orientation Not on file Occupation Industry Job Start Date Job End Date [employer] Not on file Not on file Not on file Last Filed Vital Signs Vital Sign Reading Time Taken Comments Blood Pressure 108/54 10/19/2023 1:00 PM SPIRITUAL MINISTER Pulse 66 10/19/2023 1:00 PM SPIRITUAL MINISTER Temperature 36.3 C (97.3 F) 08/31/2023 9:46 AM SPIRITUAL MINISTER Respiratory Rate 16 10/19/2023 1:00 PM SPIRITUAL MINISTER Oxygen Saturation 95% 10/19/2023 1:00 PM SPIRITUAL MINISTER Inhaled Oxygen Concentration - - Weight 106.6 kg (235 lb) 10/19/2023 8:20 AM SPIRITUAL MINISTER Height 177.8 cm (5' 10) 10/19/2023 8:20 AM SPIRITUAL MINISTER Body Mass Index 33.72 10/19/2023 8:20 AM SPIRITUAL MINISTER Plan of Treatment Health Maintenance Due Date Last Done Comments ASCVD Statin 1968 Annual Physical 1971 Hepatitis C 1986 Hepatitis B Vaccines (1 of 3 - 19+ 3-dose series) 1987 Pneumococcal Vaccine: 50+ Years (1 of 2 - PCV) 1987 Zoster Vaccines (1 of 2) 2018 ASCVD LDL 11/23/2022 11/23/2021 COVID-19 Vaccine (1 - season) 2024 DTaP, Tdap and Td [...] Lundy, RN Medical Devices Implanted Type Area Flame Hardening Machine Setter Device Identifier Shelf Expiration Date Model / Serial / Lot Clip Resolution 2.8mm 360 235cm 11mm Open - [id number] Implanted:Qty: 1 on 11/24/2021 by Kaleb Napier DO at [facility] [place] [employer] Clip Implant Silistix JOE [id number] 07/20/2024 [id number] / / [id number] Description:1 CLIP PLACED AT DESCENDING COLON WHERE POLYP WAS REMOVED VIA HOT SNARE Procedures Procedure Name Priority Date/Time Associated Diagnosis Comments COLONOSCOPY 08/31/2023 6:46 AM SPIRITUAL MINISTER LIPID PANEL Routine 11/23/2021 4:56 AM SPIRITUAL MINISTER OCCULT BLOOD, FECES Routine 11/22/2021 2 :20 PM SPIRITUAL MINISTER from Last 3 Months or Most Recently Relevant to Health Maintenance Results * Colonoscopy (08/31/2023 6:46 AM SPIRITUAL MINISTER) Joao Wild MD GI PROCEDURE ORDERABLES Final Result * (ABNORMAL) LIPID PANEL (11/23/2021 4:56 AM SPIRITUAL MINISTER) CHOLESTEROL 190 <200 MG/DL 11/23/2021 5:56 AM SPIRITUAL MINISTER [facility] TRIGLYCERIDES 214(H) <150 MG/DL 11/23/2021 5:56 AM [facility] HDL 35(L) >40.0 MG/DL 11/23/2021 5:56 AM [facility] LDL (CALCULATED) 112(H) <100 MG/DL 11/23/2021 5:56 AM [facility] NON HDL CHOLESTEROL 155(H) <130 MG/DL 11/23/2021 5:56 AM [facility] CHOL/HDL RATIO 5.4(H) 0.0 - 4.5 11/23/2021 5:56 AM [facility] VLDL CALCULATION 43 5 - 55 MG/DL 11/23/2021 5:56 AM [facility] LIPID INTERPRETATION 11/23/2021 5:56 AM [facility] Comment: NIH CONCENSUS REPORT RECOMMENDATIONS: ADULT CHILD LOW RISK: CHOLESTEROL <200 <170 TRIGLYCERIDE <150 --- HDL >=60 --- LDL <100 <110 BORDERLINE: CHOLESTEROL 200-239 170-199 TRIGLYCERIDE 150-199 --- HDL 40-59 --- LDL 100-159 110-129 HIGH RISK: CHOLESTEROL >=240 >=200 TRIGLYCERIDE >=200 --- HDL <40 --- LDL >=160 >=130 11/23/2021 4:56 AM SPIRITUAL MINISTER Mini Alston PA-C LABORATORY Final Result [facility] [address] [place] [address], [place] [phone] * OCCULT BLOOD, FECES (11/22/2021 2:20 PM SPIRITUAL MINISTER) OCCULT BLOOD FECAL POSITIVE 11/22/2021 2:43 PM SPIRITUAL MINISTER [facility] STOOL SPECIMEN / Unknown 11/22/2021 2:20 PM SPIRITUAL MINISTER Mini Alston PA-C BODY FLUIDS AND STOOLS ORDERA BLES Final Result Performing Organization Address City/[facility]/ZIP Co de Phone Number [facility] [address] [place] [address], [place] [phone] from Last 3 Months or Most Recently Relevant to Health Maintenance Insurance [employer] Advance Directives * Full Code (Latest Code Status on File) Date Activated Date Inactivated Comments 11/22/2021 9:05 AM 11/26/2021 6:24 PM * Full Code Date Activated Date Inactivated Comments 10/01/2021 12:35 AM 10/03/2021 7:26 PM Care Teams Cavalry Scout Relationship Specialty Start Date End Date Larry Serna MD PCP - General FAMILY PRACTICE 09/30/21
--- OUTSIDE RECORDS SUMMARY | 2025-05-03 09:36 | XMS_ITS | Referral Summary ---
Author Organization [facility] Address [address] [place] [address] Care Team Providers Care Online Merchandiser Name Role Phone Myron Serna MD Primary Care Provider [phone] Jan Middleton MD Unavailable James Velazquez MD Unavailable [phone] Noemi Crandall MD Unavailable Allergies No known [...] on file Legal Sex Male 11:37 AM ENGAGEMENT LIAISON Gender Identity Not on file Sexual Orientation [...] Velazquez MD - 01/03/2023 1:53 PM CDT [facility] Patient Name: Devante Jarrell Procedure Date: 01/03/2023 1:53 PM Date of : 1970 Admit Type: Outpatient Age: 52 Gender: Male Attending MD: James Velazquez M.D. Room: [facility] 02 Note Status: Finalized [...] The scope was passed under direct vision.The [id number] was introduced through the anusand advanced to [...] On: 01/03/2023 1:53 PM Recognized by the [place] [employer] for Gastrointestinal Endoscopy for promoting quality in endoscopy James Velazquez MD ENDOSCOPY PROCEDURES Final Res ult from Last 3 Months or Most Recently Relevant to Health Maintenance Insurance [facility] Advance Directives For more information, please contact: [phone] * Full Code (Latest Code Status on File) Date Activated Date Inactivated Comments 04/18/2023 10:53 AM 04/18/2023 4:35 PM * Full Code Date Activated Date Inactivated Comments 01/03/2023 1:14 PM 01/03/2023 7:06 PM * Full Code Date Activated Date Inactivated Comments 09/20/2022 2:30 PM 09/20/2022 8:28 PM Care Teams Online Merchandiser Relationship Specialty Start Date End Date Myron Serna MD [address] [place] [address] PCP - General Family Medicine 07/07/22 Jan Middleton MD [address] [place] [address] Referring Physician Hematology 08/23/22 James Velazquez MD [address] [facility] [phone] [place] [address] Surgeon Colon and Rectal Surgery 11/11/22 Noemi Crandall MD [address] [place] [address] Referring Physician General Surgery 09/03/22
--- OUTSIDE RECORDS SUMMARY | 2025-05-03 09:36 | XMS_ITS | Data Portability ---
Author Organization [facility], [address] [facility] ([place]) Address [address] 4th [place] [address] Care Team Providers Care Floral Designer Name Role Phone MYRON KINSEY Primary Care Provider LUIS DIAZ Container Finisher Assessment Encounter Date Assessment Date Assessment LastModified by Organization Details LastModified Time 02/29/2024 02/29/2024 Devante is a 53-year-old male. I have been following him for rectal cancer that had a completely response. He had radiation completed under the RAPIDO trial down at [facility]. He finished his chemoradiation in November [...] being treated by Dr. Kim Iraheta at [facility] with avastin and capecitabine. He just had a CT scan last week at [facility] and is waiting for a call from [...] see Devante as needed at this time. [email or web address] Not available 02/29/2024 19:43:22 05/03/2024 05/03/2024 SUBJECTIVE: Mr. Devante Jarrell, 53-year-old male, with history of CAD status post PCI of circumflex and proximal and mid RCA in November 2021 in the setting of bkj-[id number]-[id number] myocardial infarction, comes in for followup visit. [...] in November 2021. He received 2.75/15 Resolute [place] drug-eluting stent in proximal circumflex. RCA was treated with 4.0/15 and 3.5/28 Resolute [place] stents. 2. Transthoracic echo 11/22/2021 showed normal LV and RV function. 3. Lipid panel from October 2016 showed total cholesterol 194, triglycerides 170, HDL 32, LDL 128. IMPRESSION: 53-year-old male with CAD and colorectal cancer, on chemotherapy, comes in for followup visit. nv PLAN: 1. CAD status post PCI to RCA and circumflex in November 2021 in the setting of pzf-IY-hbrdviolr myocardial infarction. He is doing well. Denies [...] By Organization Details Last Modified Time 01/18/2025 [id number] His description of chemotherapy schedule, metastatic disease, [...] contr ast No observ ation record ed. [email or web address] Not Available 03/20 15:26:58 Result Notes None recorded. Problems Name Problem SNOMED Code Status Onset Date Resolution Date Notes Provider Name and Address Organization Details Recorded Time Lesion of larynx 151950687 Active noted on chest CT at [facility] (on pulm nodule w/u). Progress haider voice hoarsene ss. ENT rec'd observat ion unless pt developi ng respirat ory symptoms . Myron Kinsey MD [address] [place] [address], [address], [facility] 5 06:26:41 Metastat ic malignan t neoplasm to lung 38171911 Active dx on biopsy of metaboli cly-acti ve lung nodule on PET-CT . Myron Kinsey MD [address] [place] [address], [address], [facility] 5 06:27:23 Hepatiti s C screenin g Completed HepC antibody screen Negative 04/13/23. Myron Kinsey MD [address] [place] [address], [address], [facility] 5 06:28:06 Peripher al neuropat hic pain 115091074 Active tx amitript yline (per Oncology ). Myron Kinsey MD [address] [place] [address], [address], [facility] 5 06:33:04 Screenin g for malignan t neoplasm of prostate Active discusse d . Plan annual PSA testin.5 on . Myron Kinsey MD [address] [place] [address], [address], [facility] 5 06:29:38 Physical examinat ion 8613493 Active 2024 Myron Kinsey MD [address] [place] [address], [address], [facility] 5 16:29:18 Administ rative reason for encounte r 850405205 Active disabili ty discussi on / letter done . 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 [facility] Col[facility] Dr. Velazquez onboard , then transiti oned to (in-netw ork for insuranc e) [facility] Dr. Wild Fall 2022. s/p surveill ance colonosc opy 08/31/23. Note also Metastat ic Cancer to Lung (dx on biopsy ). [facility] (Dr. Middleton) onboard then as well. Myron Kinsey MD [address] [place] [address], [address], [facility] 5 06:30:19 Nodule of lung 268682323 Active 2023 Carri Lew, [facility] 4 09:30:53 Coronary arterios clerosis 15170623 Active NSTEMI , stents placed. Myron Kinsey MD [address] [place] [address], [address], [facility] 5 06:23:32 Nausea 862484904 Active 2023 Chemothe rapy induced. Carri Lew, [facility] 4 09:33:49 History of divertic ulitis 86572171628 9100 Active 09/2021 (w/ abnormal CT findings ultimate ly leading to dx Rectal Cancer early ). Myron Kinsey MD [address] [place] [address], [address], [facility] 5 06:24:37 Pulmonar y emphysem a 07703284 Active appearan ce on CT chest , but no air trapping on PFTs . f/b Pulmonol ogy. Myron Kinsey MD [address] [facility], [place], [address], [facility] 5 06:27:40 Essentia l hyperten analilia 13309824 Active Goal < 140/90. Controll ed w/ Metoprol ol (for concurre nt CAD). Hx also on Lisinopr il until held 04/01/22 hypotens ion (after weight loss during tx rectal cancer). Myron Kinsey MD [address] [facility], [place], [address], [facility] 5 06:26:06 Dyslipid emia 316426565 Active Baeline 2017: Total 194, trig's 170, HDL 32, LDL 128. Statin tx since 2017 for CAD. Myron Kinsey MD [address] [facility], [place], [address], [facility] 5 06:31:46 Problem Notes None recorded. Procedures Surgical History Date Name Laterality Status Provider Name and Address Organization Details Recorded Time 08/31/20 23 colonoscopy completed [facility] 02/27/2024 09:32:45 01/14/20 23 colonoscopy completed [facility] 02/27/2024 09:36:53 11/24/19 22 colonoscopy completed [facility] 02/27/2024 09:37:08 Appendectomy completed Not Available Health [...] active Not Available Not Available Not Annie labcurtis capecitabin e 500 mg tablet active Not [...] Not Available Not Available Not Annie jimenes Vitamin B12 1 tab claudia active Not Available Not Available No t Available diclofenac 1 % topical gel APPLY SPARINGLY TOPICALLY TO THE AFFECTED AREA TWICE DAILY active Not Available Not Available No t Available Vitals Date Recorded Body height Body mass index (BMI) Body weight Body temperature Heart rate Oxygen saturation Oxygen saturation in Arterial blood by Pulse oximetry Systolic And Diastolic Provider Name and Address Organization Details Last Updated DateTime 5 177.8 cm 31.9 kg/m2 027905. 21 g 97.1 [degF] 76 /min 98 % 98 % 146/86 mm[Hg] Kacey Reyes [facility] 5 12:04:46 Date Recorded Body height Body mass index (BMI) Body weight Heart rate Systolic And Diastolic Provider Name and Address Organization Details Last Updated DateTime 02/29/2024 177.8 cm 34.1 kg/m2 448279.9 8 g 83 /min 146/88 mm[Hg] Carri Garcia [facility] 02/29/2024 13:36:13 Date Recorded Heart rate Body mass index (BMI) Body height Body weight Body temperature Systolic And Diastolic Provider Name and Address Organization Details Last Updated DateTime 4 73 /min 33.43 kg/m2 177.8 cm 341966. 49776 g 97.9 [degF] 138/76 mm[Hg] Not Available [facility] 4 06:34:10 Date Recorded Heart rate Respiratory rate Body mass index (BMI) Body weight Body temperature Oxygen saturation Oxygen saturation in Arterial blood by Pulse oximetry Systolic And Diastolic Provider Name and Address Organization Details Last Updated DateTime 4 82 /min 18 /min 33.46 kg/m2 635879. 442960 g 98.5 [degF] 95 % 95 % 135/82 mm[Hg] Not Available [facility] 4 06:34:10 Date Recorded Body height Heart rate Oxygen saturation Oxygen saturation in Arterial blood by Pulse oximetry Body mass index (BMI) Body weight Systolic And Diastolic Provider Name and Address Organization Details Last Updated DateTime 4 177.8 cm 82 /min 93 % 93 % 33.1 kg/m2 862324. 84 g 116/80 mm[Hg] Sulma Portillo [facility] 4 11:15:16 Social History Question Answer Notes [...] Do You Have A Medical Power Of Physical Therapy Assistant? No [email or web address] Information not available 05/02/2024 [...] Cancer Y Thyroid Problems N Stroke N Asthma N Depression N COPD N Seizures N Anemia N Heart Disease Y Fibromyalgia N Osteoporosis N Kidney Disease N Immunizations Vaccine Type Date Status Note Provider Nam e and Address Organization Details Recorded Time COVID-19, mRNA, LNP-S, PF, 30 mcg/0.3 mL dose 01/01/2022 completed [facility] 01/18/2025 12:02:43 COVID-19, mRNA, LNP-S, PF, 30 mcg/0.3 mL dose 01/22/2022 completed [facility] 01/18/2025 12:02:43 COVID-19, mRNA, LNP-S, bivalent, PF, 30 mcg/0.3 mL dose 07/12/2022 completed [facility] 01/18/2025 12:02:43 Tdap 11/10/2017 completed [facility] 01/18/2025 12:02:43 Past Encounters Encounter ID Performer Location Encounter Start Date Encounter Closed Date Diagnosis/Indication Diagnosis SNOMED-CT Code Diagnosis ICD10 Code Diagnosis Note [id number] Joao Wild MD [facility]orect[facility] l ([place]) [address] [facility] [place] [address] 02/29/2024 13:32:35 03/07/2024 08:29:33 Adenocarcinoma of rectum 319695966 C20 [id number] Luis Diaz MD [facility] ([place]) [address] [place] [address] 05/03/2024 10:58:51 05/03/2024 11:39:02 Coronary arteriosclerosis 64900507 I25.10 Essential hypertension 11914690 I10 Dyslipidemia 906142987 E 78.5 [id number] Myron Kinsey MD [facility] ([place]) [address] [place] [address] 01/18/2025 11:51:27 01/18/2025 12:34:26 Metastatic malignant neoplasm to lung 45485736 C78.00 dx on colonoscop y (biopsy) on w/u rectal bleeding after diverticul litis w/ abnmL [facility]. [facility] Dr. Velazquez onboard , then transition ed to (in-networ k for insurance) [facility] Dr. Wild Fall 2022. s/p surveillan ce colonoscop y 08/31/23. Note also Metastatic Cancer to Lung (dx on biopsy ). [facility] (Dr. Middleton) onboard then as well. Adenocarci noma of rectum 517760504 C20 Physical examination 588 0005 Z02.71 Administra tive reason for encounter 078690165 Z02.9 Health Concerns Section Related Observation LastModified by Organization Detai ls LastModified Time None Recorded Concern Status LastModified by Organization Details LastModified Time None Recorded Advance Directives Directive N: Payers Insurance Date Sequence Insurance Name Policy Number Policy Pickett Covered Member ID Pickett Member ID Guarantor Name 02/22/2024 1 *SELF PAY* Charly Jarrell 02/16/2025 [employer] ([facility]) [id number] Devante Jarrell [id number] Devante Jarrell Notes Date Note Type Note [...] EOMI Myron Kinsey MD [address] [place], [address], [facility] 01/19/2025 16:38:33
--- OUTSIDE RECORDS SUMMARY | 2025-05-03 09:36 | XMS_ITS | Encounter Summary ---
Author Organization [facility] Address [facility] [place] [address] Care Team Providers Care Pinball Machine Repairer Name Role Phone Larry Serna MD Primary Care Provider Unavailab le Reason for Visit * Reason Onset Date Comments Preprocedure Call 10/10/2023 Spoke with stephen grey -she states patient is getting H&P tomorrow, 10/11, at Dr. Vazquez office, with Madelyn Smith NP. [phone]. Encounter Details Date Type Department Care Team (Late st Contact Info) Description 10/10/2023 Telephone [facility] Interventional Radiology [address] [place] [address] Cleo Lam, LAURA Preprocedure Call (Spoke with patients -she states patient is getting H&P tomorrow, 10/11, at Dr. Vazquez office, with Madelyn Smith NP. [phone].) Social History Tobacco Use Types Packs/Day Years [...] any clubs o r organizations such as roman catholic groups, unions, fraternal or athletic groups, or [...] and heating? Not hard at all 11/22/2021 [facility]at ional [facility] - [...] place to sleep or slept in a fdc (including now)? No 11/22/2021 Sex and Gender Information Value Date Recorded Sex Assigned at Not on file Legal Sex Male 9:32 PM BEDSPREAD INSPECTOR Gender Identity Not on file Sexual Orientation Not on file Occupation Industry Job Start Date Job End Date [employer] Not on file Not on file Not on file documented as of this encounter Functional Status * RETIRED Are you deaf or do you have serious difficulty hearing Answer Date of Assessment Author Status No 11/22/2021 8:55 AM BEDSPREAD INSPECTOR Activ e * RETIRED Are you blind or do you have serious difficulty seeing, even when wearing glasses? Answer Date of Assessment Author Status No 11/22/2021 8:55 AM BEDSPREAD INSPECTOR Activ e * Do you have serious [...] Assessment Author Status No 11/22/2021 8:55 AM BEDSPREAD INSPECTOR [place], Lillian E, RN Active documented as of this encounter Mental Status * Because of a physical, mental, or emotional condition, do you have serious difficulty concentrating, remembering, or making decisions? Answer Entry Date Author Status No 11/22/2021 8:55 AM BEDSPREAD INSPECTOR Lillian Archer RN Active documented in this encounter Plan of Treatment Not on file documented as of this encounter Goals Goal Patient Goal Type Associated Problems Recent Progress Patient-Stated? Author Health - patient able to perform ADLs independently General Carlos Lundy RN documented as of this encounter Visit Diagnoses Not on filedocumented in this encounter Care Teams Pinball Machine Repairer Relationship Specialty Start Date End Date Larry Serna MD PCP - General FAMILY PRACTICE 09/30/21 documented as of this encounter
--- OUTSIDE RECORDS SUMMARY | 2025-05-03 09:36 | XMS_ITS | Clinical Summary ---
Author Organization [facility] Address [address] [place] [address] Care Team Providers Care Seaman Name Role Phone Myron Serna MD Primary Care Provider [phone] Jan Middleton MD Unavailable James Velazquez MD Unavailable [phone] Noemi Crandall MD Unavailable Allergies No known [...] Cancer (HCC) Coronary artery disease invo lving [place] coronary artery of [place] heart Colon cancer (HCC) Myocardial infarction (HCC) [...] on file Legal Sex Male 11:37 AM DIGITAL COMPOSER Gender Identity Not on file Sexual Orientation [...] 2024 07/12/2022, 01/22/2022, 01/01/2022 Influenza Vaccine (#1) 2025 DTaP/Tdap/Td Vaccine (2 - Td or [...] Male Attending MD: James Velazquez M.D. Room: [facility] ENDOSCOPY ROOM 02 Note Status: [...] The scope was passed under direct vision.The [id number] was introduced through the anusand advanced to [...] On: 01/03/2023 1:53 PM Recognized by the [place] [employer] Gastrointestinal Endoscopy for promoting quality in endoscopy us James Velazquez MD ENDOSCOPY PROCEDURES Final Res ult from Last 3 Months or Most Recently Relevant to Health Maintenance Insurance Advance Directives For more information, please contact: [phone] * Full Code (Latest Code Status on File) Date Activated Date Inactivated Comments 04/18/2023 10:53 AM 04/18/2023 4:35 PM * Full Code Date Activated Date Inactivated Comments 01/03/2023 1:14 PM 01/03/2023 7:06 PM * Full Code Date Activated Date Inactivated Comments 09/20/2022 2:30 PM 09/20/2022 8:28 PM Care Teams Seaman Relationship Specialty Start Date End Date Myron Serna MD [address] [place] [address] PCP - General Family Medicine 07/07/22 Jan Middleton MD [address] [place] [address] Referring Physician [facility] 08/23/22 James Velazquez MD [address] [facility] [phone] [place] [address] Surgeon Colon and Rectal Surgery 09/03/22 Noemi Crandall MD [address] [place] [address] Referring Physician General Surgery 09/03/22
[2025-05-03 09:49] LABS: Hematocrit 46.3 % (40.0-54.0); Hemoglobin 15.6 g/dL (14.0-18.0); Mean Corpuscular HGB Conc 33.7 g/dL (32-36); Mean Corpuscular Hemoglobin 36.4 pg (27.0-31.0); Mean Corpuscular Volume 107.9 fL (78.0-102.0); Platelet Count Result 254 K/mm3 (150-420); Red Blood Count 4.29 M/mm3 (4.70-6.10); White Blood Count 9.3 K/mm3 (4.8-10.8)
[2025-05-03 10:02] LABS: Alanine Aminotransferase 28 U/L (6-50); Albumin Level 4.0 g/dL (3.5-5.1); Alkaline Phosphatase 92 U/L (38-126); Anion Gap 3 mmol/L (4-12); Aspartate Amino Transferase 38 U/L (17-59); Bilirubin,Total 0.8 mg/dL (0.2-1.3); Blood Urea Nitrogen 7 mg/dL (9-20); Calcium 8.5 mg/dL (8.4-10.2); Carbon Dioxide 26 mmol/L (22-30); Chloride 107 mmol/L (98-107); Estimated CRCL calculation 104 ml/min; Estimated Glomerular Filt Rate > 60; Glucose 125 mg/dL (65-110); Osmolality Calculated 281 mOsm/kg (285-295); Potassium 4.0 mmol/L (3.4-5.0); Sodium 136 mmol/L (137-145); Total Protein 7.0 g/dL (6.3-8.2)
[2025-05-03] MEDS: SODIUM CHLORIDE 0.9% IV 250 ML 10 ML IVPB (10:10)
[2025-05-03] MEDS: ONDANSETRON IV PUSH (10:20)
[2025-05-03] MEDS: SODIUM CHLORIDE 0.9% IV PUSH (10:20)
[2025-05-03] MEDS: SODIUM CHLORIDE 0.9% IVPB (10:54)
[2025-05-03] MEDS: BEVACIZUMAB AWWB IVPB (10:54)
[2025-05-03] MEDS: HEPARIN SODIUM LOCK FLUSH 500 UNITS/5 ML SYRINGE IV PUSH (11:25)
[2025-05-03 11:34] VITALS: BP 129/77; PULSE 80; RESP 16; TEMP 36.6; O2SAT 98
--- NOTE | 2025-05-03 11:36 | PC.NURSE ---
Tolerated bevacizumab treatment well. SEE MAR/patient care notes.
== END 2025-05-03 09:32 | disposition home or self-care (01) ==
PROVIDERS: Visit Provider Internal Medicine Hematology
DX: Z51.11 Encounter for antineoplastic chemotherapy (principal); C20 Malignant neoplasm of rectum
CPT/HCPCS: 36415; 36591; 80053; 85027; 96367; 96413; J2405; J7050; Q5107

== ENCOUNTER 2025-05-09 07:57 | Outpatient (CLI) | payer OTHER, SELFPAY ==
--- NOTE | ~2025-05-09 | CT_ITS ---
CT chest abdomen pelvis w con Ordering provider: Kim Light MD History: 54 years Male with . Metastatic cancer to lung . Comparison: April 22, 2025 Technique: CT chest with IV contrast. CT abdomen and pelvis CT abdomen and pelvis with IV and with or al contrast. Radiation reduction technique utilized.The dose-length product was 1098.97 mGy-cm. 100 m L Omnipaque 350 was given IV. FINDINGS: CHEST: --VISUALIZED THORACIC INLET: Air is seen lateral to the right thyroid cartilage and in the true vocal cords anteriorly which may indicate postoperative changes or trauma to the larynx. Clinical evaluati on advised. --MEDIASTINUM: Aorta/coronary arteries: Mild atheromatous disease. Heart/other: The heart is not enlarged. Lymph nodes: . Precarinal lymph node is seen measuring 1.5 cm. Otherwise no mediastinal lymphadenopat hy. --LUNGS: A mass is seen in the right lower lobe medially measuring 1.5 x 2.3 cm. Nodule also seen in the right lower lobe measuring 1 cm. A mass is seen in the left lung lower lobe which measures 3.6 x 3.1 cm. Nodule seen in the left upper lobe posteriorly measuring 8 mm. Tiny nodule in the left upper lobe is also seen measuring 4 mm No pulmonary nodules or masses. No infiltrates or effusions. No pneu mothorax. --MUSCULOSKELETAL: Soft tissues: The superficial soft tissues are normal. Bones: Multiple healed rib fractures in the left hemithorax. Age appropriate degenerative changes of the spine. No suspicious bony lytic or sclerotic lesions. ABDOMEN/PELVIS: --MUSCULOSKELETAL: Bones: Age appropriate degenerative changes of the spine. No suspicious bony lytic or sclerotic lesio ns. Superficial soft tissues: Bilateral fat containing inguinal hernias. Otherwise, The superficial soft tissues are normal. --UPPER ABDOMINAL ORGANS: Liver: Normal. Gallbladder: Normal. Spleen: Normal. Stomach/duodenum: Normal. Pancreas: Normal. Adrenals: Normal. Kidneys: Normal. --PELVIC ORGANS: The bladder is normal. No bladder stones. --BOWEL AND MESENTERY: Colon: No evidence of diverticulitis. Slight thickening of the wall of the sigmoid colon which may in dicate colitis.. Normal appendix. Small Bowel: Normal. No obstruction. Peritoneum/mesentery: No free air or free fluid. No mesenteric lymphadenopathy. --RETROPERITONEUM: Mild atheromatous disease of the abdominal aorta. No retroperitoneal lymphadenop athy. IMPRESSION: CHEST: 1. Bilateral lower lobe lung masses. Bilateral lung nodules. 2. No acute cardiopulmonary pathology. 3. No pulmonary embolism 4. Precarinal lymph node measuring 1.5 cm. 5. Air seen adjacent to the larynx in the first image and also in the anterior true vocal cords. Cli nical correlation advised. ABDOMEN/PELVIS: 1. No evidence of appendicitis, diverticulitis or intestinal obstruction. 2. Slight thickening of the wall of the sigmoid colon which may indicate colitis. Clinical evaluatio n advised. 3. Bilateral fat containing inguinal hernias. Reviewed, dictated and finalized at location A. IMPRESSION: CHEST: 1. Bilateral lower lobe lung masses. Bilateral lung nodules. 2. No acute cardiopulmonary pathology. 3. No pulmonary embolism 4. Precarinal lymph node measuring 1.5 cm. 5. Air seen adjacent to the larynx in the first image and also in the anterior true vocal cords. Clinical correlation advised. ABDOMEN/PELVIS: 1. No evidence of appendicitis, diverticulitis or intestinal obstruction. 2. Slight thickening of the wall of the sigmoid colon which may indicate colit is. Clinical evaluation advised. 3. Bilateral fat containing inguinal hernias.
--- NOTE | ~2025-05-09 | CT_ITS ---
CT lumbar spine w con Ordering provider: Kim Light MD History: 54 years Male with . Metastatic cancer to lung/ . Comparison: None. Technique: CT lumbar spine without contrast. Automated exposure control and iterative reconstruction technique were employed. The dose-length product was 1098.97 mGy-cm. FINDINGS: VERTEBRAE: Normal height and alignment. No subluxation or visible acute fracture. Degenerative change s of the spine. DISC SPACES: Well maintained. Facet joint disease at the level of T12-L1 and L1-L2 on the right side, L2-L3, L4-L5 and L5-S1 bilate rally. Bilateral sacroiliitis. . T12-L1: No stenosis. L1-L2: No stenosis. L2-L3: Mild spinal canal stenosis secondary to broad based disc bulge, facet arthropathy, and ligame ntum flavum hypertrophy. Bilateral narrowing of the foramina with no definite root compression L3-L4: No stenosis. Mild diffuse disc bulge with bilateral narrowing of the foramina. No definite driss t compression L4-L5: Mild spinal canal stenosis secondary to broad based disc bulge, facet arthropathy, and ligame ntum flavum hypertrophy. Bilateral narrowing of the foramina with root compression. L5-S1: No stenosis. . Diffuse disc bulge. PARASPINOUS SOFT TISSUES: Mild atheromatous disease of the abdominal aorta. IMPRESSION: No fracture or dislocation. No definite metastatic lesions. Multilevel spinal canal stenosis, intervertebral foraminal narrowing and nerve root compression. Reviewed, dictated and finalized at location A.
--- OUTSIDE RECORDS SUMMARY | 2025-05-09 08:01 | XMS_ITS ---
Author Organization [facility] Address [address] [place] [address] Care Team Providers Care Station Cook Name Role Phone Myron Serna MD Primary Care Provider [phone] Jan Middleton MD Unavailable James Velazquez MD Unavailable [phone] Noemi Crandall MD Unavailable Active Problems Problem [...]
--- OUTSIDE RECORDS SUMMARY | 2025-05-09 08:01 | XMS_ITS | Clinical Summary ---
Author Organization [facility] ([place], [place]) Address [address] [place] [address] Care Team Providers Care Patron Attendant Name Role Phone Myron Serna MD Primary Care Provider [phone] Jan Middleton MD Unavailable James Velazquez MD Unavailable [phone] Noemi Crandall MD Unavailable Allergies No known [...] Cancer (HCC) Coronary artery disease invo lving kashia coronary artery of kashia heart Colon cancer (HCC) Myocardial infarction (HCC) [...] on file Legal Sex Male 11:37 AM HEALTH AID Gender Identity Not on file Sexual Orientation [...] Velazquez MD - 01/03/2023 1:53 PM CDT [facility] Patient Name: Devante Jarrell Procedure Date: 01/03/2023 1:53 PM Date of : 1970 Admit Type: Outpatient Age: 52 Gender: Male Attending MD: James Velazquez M.D. Room: [facility] ENDOSCOPY ROOM 02 Note Status: Finalized [...] The scope was passed under direct vision.The [id number] was introduced through the anusand advanced to [...] On: 01/03/2023 1:53 PM Recognized by the [employer] for promoting quality in endoscopy us James Velazquez MD ENDOSCOPY PROCEDURES Final Res ult from Last 3 Months or Most Recently Relevant to Health Maintenance Insurance Advance Directives For more information, please contact: [phone] * Full Code (Latest Code Status on File) Date Activated Date Inactivated Comments 04/18/2023 10:53 AM 04/18/2023 4:35 PM * Full Code Date Activated Date Inactivated Comments 01/03/2023 1:14 PM 01/03/2023 7:06 PM * Full Code Date Activated Date Inactivated Comments 09/20/2022 2:30 PM 09/20/2022 8:28 PM Care Teams Patron Attendant Relationship Specialty Start Date End Date Myron Serna MD [address] [place] [address] PCP - General Family Medicine 07/07/22 Jan Middleton MD [address] [place] [address] Referring Physician [facility] 08/23/22 James Velazquez MD [address] [facility] [phone] [place] [address] Surgeon Colon and Rectal Surgery 09/03/22 Noemi Crandall MD [address] [place] [address] Referring Physician General Surgery 09/03/22
--- OUTSIDE RECORDS SUMMARY | 2025-05-09 08:01 | XMS_ITS | Encounter Summary ---
Author Organization [facility] Address [facility] [place] [address] Care Team Providers Care Senior Environmental Technician Name Role Phone Larry Serna MD Primary Care Provider Unavailab le Reason for Visit * Reason Onset Date Comments Preprocedure Call 10/10/2023 Spoke with stephen grey -she states patient is getting H&P tomorrow, 10/11, at Dr. Vazquez office, with Madelyn Smith NP. [phone]. Encounter Details Date Type Department Care Team (Late st Contact Info) Description 10/10/2023 Telephone [facility] Interventional Radiology [address] [place] [address] Cleo Lam, LAURA Preprocedure Call (Spoke with patients -she states patient is getting H&P tomorrow, 10/11, at Dr. Vazquez office, with Madelyn Smith NP. [phone].) Social History Tobacco Use Types Packs/Day Years [...] often do you attend chur ch or cheondoism services? Never 11/22/2021 Do you belong to any clubs o r organizations such as methodist groups, unions, fraternal or athletic groups, or [...] and heating? Not hard at all 11/22/2021 [facility] Occupat ional Health - [...] place to sleep or slept in a mcc (including now)? No 11/22/2021 Sex and Gender Information Value Date Recorded Sex Assigned at Not on file Legal Sex Male 9:32 PM LEAD PHP DEVELOPER Gender Identity Not on file Sexual Orientation Not on file Occupation Industry Job Start Date Job End Date [employer] Not on file Not on file Not on file documented as of this encounter Functional Status * RETIRED Are you deaf or do you have serious difficulty hearing Answer Date of Assessment Author Status No 11/22/2021 8:55 AM LEAD PHP DEVELOPER Activ e * RETIRED Are you blind or do you have serious difficulty seeing, even when wearing glasses? Answer Date of Assessment Author Status No 11/22/2021 8:55 AM LEAD PHP DEVELOPER Activ e * Do you have serious [...] Assessment Author Status No 11/22/2021 8:55 AM LEAD PHP DEVELOPER Barrington, Lillian E, RN Active documented as of this encounter Mental Status * Because of a physical, mental, or emotional condition, do you have serious difficulty concentrating, remembering, or making decisions? Answer Entry Date Author Status No 11/22/2021 8:55 AM LEAD PHP DEVELOPER Lillian Archer RN Active documented in this encounter Plan of Treatment Not on file documented as of this encounter Goals Goal Patient Goal Type Associated Problems Recent Progress Patient-Stated? Author Health - patient able to perform ADLs independently General Carlos Lundy RN documented as of this encounter Visit Diagnoses Not on filedocumented in this encounter Care Teams Senior Environmental Technician Relationship Specialty Start Date End Date Larry Serna MD PCP - General FAMILY PRACTICE 09/30/21 documented as of this encounter
--- OUTSIDE RECORDS SUMMARY | 2025-05-09 08:01 | XMS_ITS | Clinical Summary ---
Author Organization [facility] Address [facility] [place] [address] Care Team Providers Care Cigarette Catcher Name Role Phone Larry Serna MD Primary [...] Date NSTEMI (non-ST elevated myoc ardial infarction) ([facility]/HCC [facility]) 11/22/2021 Diverticulitis 10/01/2021 Family History Medical History Relation Comments Diabetes Brother Diabetes Father [place] Father Diabetes Mother pancreatic cancer Sister Relation [...] often do you attend chur ch or gnosticism services? Never 11/22/2021 Do you belong to any clubs o r organizations such as buddhism groups, unions, fraternal or athletic groups, or [...] and heating? Not hard at all 11/22/2021 [facility] of Occupat ional Health - Occupational Stress [...] place to sleep or slept in a long-term (including now)? No 11/22/2021 Sex and Gender Information Value Date Recorded Sex Assigned at Not on file Legal Sex Male 9:32 PM FOSTER WINDER Gender Identity Not on file Sexual Orientation Not on file Occupation Industry Job Start Date Job End Date [employer] Not on file Not on file Not on file Last Filed Vital Signs Vital Sign Reading Time Taken Comments Blood Pressure 108/54 10/19/2023 1:00 PM FOSTER WINDER Pulse 66 10/19/2023 1:00 PM FOSTER WINDER Temperature 36.3 C (97.3 F) 08/31/2023 9:46 AM FOSTER WINDER Respiratory Rate 16 10/19/2023 1:00 PM FOSTER WINDER Oxygen Saturation 95% 10/19/2023 1:00 PM FOSTER WINDER Inhaled Oxygen Concentration - - Weight 106.6 kg (235 lb) 10/19/2023 8:20 AM FOSTER WINDER Height 177.8 cm (5' 10) 10/19/2023 8:20 AM FOSTER WINDER Body Mass Index 33.72 10/19/2023 8:20 AM FOSTER WINDER Plan of Treatment Health Maintenance Due Date [...] Lundy, RN Medical Devices Implanted Type Area Singe Machine Operator Device Identifier Shelf Expiration Date Model / Serial / Lot Clip Resolution 2.8mm 360 235cm 11mm Open - [id number] Implanted:Qty: 1 on 11/24/2021 by Kaleb Napier DO at [facility] [employer] Clip Implant [employer] JOE [id number] 07/20/2024 [id number] / / [id number] Description:1 CLIP PLACED AT DESCENDING COLON WHERE POLYP WAS REMOVED VIA HOT SNARE Procedures Procedure Name Priority Date/Time Associated Diagnosis Comments COLONOSCOPY 08/31/2023 6:46 AM FOSTER WINDER LIPID PANEL Routine 11/23/2021 4:56 AM FOSTER WINDER OCCULT BLOOD, FECES Routine 11/22/2021 2 :20 PM FOSTER WINDER from Last 3 Months or Most Recently Relevant to Health Maintenance Results * Colonoscopy (08/31/2023 6:46 AM FOSTER WINDER) Joao Wild MD GI PROCEDURE ORDERABLES Final Result * (ABNORMAL) LIPID PANEL (11/23/2021 4:56 AM FOSTER WINDER) CHOLESTEROL 190 <200 MG/DL 11/23/2021 5:56 AM FOSTER WINDER [facility] TRIGLYCERIDES 214(H) <150 MG/DL 11/23/2021 5:[address] [facility] HDL 35(L) >40.0 MG/DL 11/23/2021 5:[address] [facility] LDL (CALCULATED) 112(H) <100 MG/DL 11/23/2021 5:[address] [facility] NON HDL CHOLESTEROL 155(H) <130 MG/DL 11/23/2021 5:[address] [facility] CHOL/HDL RATIO 5.4(H) 0.0 - 4.5 11/23/2021 5:[address] [facility] VLDL CALCULATION 43 5 - 55 MG/DL 11/23/2021 5:[address] [facility] LIPID INTERPRETATION 11/23/2021 5:[address] [facility] Comment: NIH CONCENSUS REPORT RECOMMENDATIONS: ADULT CHILD LOW RISK: CHOLESTEROL <200 <170 TRIGLYCERIDE <150 --- HDL >=60 --- LDL <100 <110 BORDERLINE: CHOLESTEROL 200-239 170-199 TRIGLYCERIDE 150-199 --- HDL 40-59 --- LDL 100-159 110-129 HIGH RISK: CHOLESTEROL >=240 >=200 TRIGLYCERIDE >=200 --- HDL <40 --- LDL >=160 >=130 11/23/2021 4:56 AM FOSTER WINDER Mini Alston PA-C LABORATORY Final Result [facility] [address] [place] [address], [place] [phone] * OCCULT BLOOD, FECES (11/22/2021 2:20 PM FOSTER WINDER) OCCULT BLOOD FECAL POSITIVE 11/22/2021 2:43 PM FOSTER WINDER [facility] STOOL SPECIMEN / Unknown 11/22/2021 2:20 PM FOSTER WINDER Mini Alston PA-C BODY FLUIDS AND STOOLS ORDERA BLES Final Result Performing Organization Address City/[facility]/ZIP Co de Phone Number [facility] [address] [place] [address], [place] [phone] from Last 3 Months or Most Recently Relevant to Health Maintenance Insurance [employer] Advance Directives * Full Code (Latest Code Status on File) Date Activated Date Inactivated Comments 11/22/2021 9:05 AM 11/26/2021 6:24 PM * Full Code Date Activated Date Inactivated Comments 10/01/2021 12:35 AM 10/03/2021 7:26 PM Care Teams Cigarette Catcher Relationship Specialty Start Date End Date Larry Serna MD PCP - General FAMILY PRACTICE 09/30/21
--- OUTSIDE RECORDS SUMMARY | 2025-05-09 08:01 | XMS_ITS | Encounter Summary ---
Author Organization [facility] Address [address] [place] [address] Care Team Providers Care Janitorial Cleaner Name Role Phone Larry Serna MD Primary Care Provider Unavailab le Encounter Details Date Type Department Care Team (Late st Contact Info) Description 03/31/2019 Abstract [facility]FL CONVERSION [address] [place] [address] , Generic Conversion, Social History Tobacco Use Types Packs/Day Years Used Date Smoking Tobacco: Never Assessed Sex and Gender Information Value Date Recorded Sex Assigned at Not on file Legal Sex Male 9:32 PM STRAIGHTENER Gender Identity Not on file Sexual Orientation Not on file documented as of this encounter Plan of Treatment Not on file documented as of this encounter Visit Diagnoses Not on filedocumented in this encounter Additional Health Concerns Infection Onset Date Last Indicated Resolved Time COVID-19 Rule Out 10/01/2021 10/01/2021 10/01/2021 2:43 PM STRAIGHTENER COVID-19 Rule Out 11/21/2021 11/21/2021 11/21/2021 9:38 PM STRAIGHTENER documented as of this encounter Care Teams Janitorial Cleaner Relationship Specialty Start Date End Date Larry Serna MD PCP - General FAMILY PRACTICE 09/30/21 documented as of this encounter
--- OUTSIDE RECORDS SUMMARY | 2025-05-09 08:01 | XMS_ITS | Referral Summary ---
Author Organization [facility] Address [address] [place] [address] Care Team Providers Care Electronics Technology Department Chair Name Role Phone Myron Serna MD Primary Care Provider [phone] Jan Middleton MD Unavailable James Velazquez MD Unavailable [phone] Noemi Crandall MD Unavailable Allergies No [...] on file Legal Sex Male 11:37 AM DEVULCANIZER CHARGER Gender Identity Not on file Sexual Orientation [...] Velazquez MD - 01/03/2023 1:53 PM CDT [facility] Patient Name: Devante Jarrell Procedure Date: 01/03/2023 1:53 PM Date of : 1970 Admit Type: Outpatient Age: 52 Gender: Male Attending MD: James Velazquez M.D. Room: [facility] ENDOSCOPY ROOM 02 Note Status: [...] The scope was passed under direct vision.The [id number] was introduced through the anusand advanced to [...] On: 01/03/2023 1:53 PM Recognized by the [place] [employer] Gastrointestinal Endoscopy for promoting quality in endoscopy James Velazquez MD ENDOSCOPY PROCEDURES Final Res ult from Last 3 Months or Most Recently Relevant to Health Maintenance Insurance [facility] Advance Directives For more information, please contact: [phone] * Full Code (Latest Code Status on File) Date Activated Date Inactivated Comments 04/18/2023 10:53 AM 04/18/2023 4:35 PM * Full Code Date Activated Date Inactivated Comments 01/03/2023 1:14 PM 01/03/2023 7:06 PM * Full Code Date Activated Date Inactivated Comments 09/20/2022 2:30 PM 09/20/2022 8:28 PM Care Teams Electronics Technology Department Chair Relationship Specialty Start Date End Date Myron Serna MD [address] [place] [address] PCP - General Family Medicine 07/07/22 Jan Middleton MD [address] [place] [address] Referring Physician Hematology 08/23/22 James Velazquez MD [address] [facility] [phone] [place] [address] Surgeon Colon and Rectal Surgery 11/11/22 Noemi Crandall MD [address] [place] [address] Referring Physician General Surgery 09/03/22
--- OUTSIDE RECORDS SUMMARY | 2025-05-09 08:02 | XMS_ITS | Data Portability ---
Author Organization [facility], [address] [facility] ([place]) Address [address] [place] [address] Care Team Providers Care Replenishment Associate Name Role Phone MYRON KINSEY Primary Care Provider LUIS DIAZ Nail Expert Assessment Encounter Date Assessment Date Assessment LastModified by Organization Details LastModified Time 02/29/2024 02/29/2024 Devante is a 53-year-old male. I have been following him for rectal cancer that had a completely response. He had radiation completed under the RAPIDO trial down at [facility]. He finished his chemoradiation in November 2021. [...] being treated by Dr. Kim Iraheta at [facility] with avastin and capecitabine. He just had a CT scan last week at [facility] and is waiting for a call from [...] in November 2021 in the setting of nzx-TK-thdfljfeu myocardial infarction, comes in for followup visit. [...] was treated with 4.0/15 and 3.5/28 Resolute Methuen stents. 2. Transthoracic echo 11/22/2021 showed normal LV and RV function. 3. Lipid panel from October 2016 showed total cholesterol 194, triglycerides 170, HDL 32, LDL 128. IMPRESSION: 53-year-old male with CAD and colorectal cancer, on chemotherapy, comes in for followup visit. nv PLAN: 1. CAD status post PCI to RCA and circumflex in November 2021 in the setting of gco-FW-zbsijyuyb myocardial infarction. He is doing well. Denies [...] By Organization Details Last Modified Time 01/18/2025 [id number] His description of chemotherapy schedule, metastatic disease, [...] contr ast No observ ation record ed. Not Available 03/20 15:26:58 Result Notes None recorded. Problems Name Problem SNOMED Code Status Onset Date Resolution Date Notes Provider Name and Address Organization Details Recorded Time Lesion of larynx 613976451 Active noted on chest CT at [facility] (on pulm nodule w/u). Progress haider voice hoarsene ss. ENT rec'd observat ion unless pt developi ng respirat ory symptoms . Myron Kinsey MD [address] [place] [address], [phone], [facility] 5 06:26:41 Metastat ic malignan t neoplasm to lung 32244838 Active dx on biopsy of metaboli cly-acti ve lung nodule on PET-CT . Myron Kinsey MD [address] [place] [address], [address], [facility] 5 06:27:23 Hepatiti s C screenin g Completed HepC antibody screen Negative 04/13/23. Myron Kinsey MD [address] [place] [address], [address], [facility] 5 06:28:06 Peripher al neuropat hic pain 514405923 Active tx amitript yline (per Oncology ). Myron Kinsey MD [address] [place] [address], [address], [facility] 5 06:33:04 Screenin g for malignan t neoplasm of prostate Active discusse d . Plan annual PSA testin.5 on . Myron Kinsey MD [address] [place] [address], [address], [facility] 5 06:29:38 Administ rative reason for encounte r 761010627 Active disabili ty discussi on / letter done . 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 [facility] Dr. Velazquez onboard , then transiti oned to (in-netw ork for insuranc e) [facility] Dr. Wild Fall 2022. s/p surveill ance colonosc opy 08/31/23. Note also Metastat ic Cancer to Lung (dx on biopsy ). [facility] On[facility] (Dr. Middleton) onboard then as well. Myron Kinsey MD [address] [place] [address], [address], [facility] 5 06:30:19 Coronary arterios clerosis 68784098 Active NSTEMI , stents placed. Myron Kinsey MD [address] [place] [address], [address], [facility] 5 06:23:32 History of divertic ulitis 79957051029 9100 Active 09/2021 (w/ abnormal CT findings ultimate ly leading to dx Rectal Cancer early ). Myron Kinsey MD [address] [place] [address], [address], [facility] 5 06:24:37 Pulmonar y emphysem a 96854725 Active appearan ce on CT chest , but no air trapping on PFTs . f/b Pulmonol ogy. Myron Kinsey MD [address] [place] [address], [address], [facility] 5 06:27:40 Essentia l hyperten analilia 03419490 Active Goal < 140/90. Controll ed w/ Metoprol ol (for concurre nt CAD). Hx also on Lisinopr il until held 6/9/22 hypotens ion (after weight loss during tx rectal cancer). Myron Kinsey MD [address] [facility], [place], [address], [facility] 5 06:26:06 Dyslipid emia 350402695 Active Baeline 2017: Total 194, trig's 170, HDL 32, LDL 128. Statin tx since 2017 for CAD. Myron Kinsey MD [address] [facility], [place], [address], [facility] 5 06:31:46 Nodule of lung 267845039 [facility] 09:30:53 Nausea 297323029 Active 2023 [facility]py [facility]. [facility] 09:33:49 Physical examinat ion 0057997 Active 2024 Myron Kinsey MD [address] [facility], [place], [address], [facility] 5 16:29:18 Problem Notes None recorded. Procedures Surgical History Date Name Laterality Status Provider Name and Address Organization Details Recorded Time 08/31/20 [address] [facility] 02/27/2024 09:32:45 01/14/20 23 colonoscopy [address] [facility] 02/27/2024 09:36:53 11/24/19 22 colonoscopy [address] [facility] 02/27/2024 09:37:08 Appendectomy completed Not Available Health [...] Updated DateTime 5 177.8 cm 31.9 kg/m2 767842. 21 g 97.1 [degF] 76 /min 98 % 98 % 146/86 mm[Hg] Kacey Reyes [facility] 5 12:04:46 Date Recorded Body height Body mass index (BMI) Body weight Heart rate Systolic And Diastolic Provider Name and Address Organization Details Last Updated DateTime 02/29/2024 177.8 cm 34.1 kg/m2 036825.9 8 g 83 /min 146/88 mm[Hg] Carri Garcia [facility] 02/29/2024 13:36:13 Date Recorded Heart rate Body mass index (BMI) Body height Body weight Body temperature Systolic And Diastolic Provider Name and Address Organization Details Last Updated DateTime 4 73 /min 33.43 kg/m2 177.8 cm 211430. 84304 g 97.9 [degF] 138/76 mm[Hg] Not Available [facility] 4 06:34:10 Date Recorded Heart rate Respiratory rate Body mass index (BMI) Body weight Body temperature Oxygen saturation Oxygen saturation in Arterial blood by Pulse oximetry Systolic And Diastolic Provider Name and Address Organization Details Last Updated DateTime 4 82 /min 18 /min 33.46 kg/m2 508706. 220932 g 98.5 [degF] 95 % 95 % 135/82 mm[Hg] Not Available [facility] 4 06:34:10 Date Recorded Body height Heart rate Oxygen saturation Oxygen saturation in Arterial blood by Pulse oximetry Body mass index (BMI) Body weight Systolic And Diastolic Provider Name and Address Organization Details Last Updated DateTime 4 177.8 cm 82 /min 93 % 93 % 33.1 kg/m2 503339. 84 g 116/80 mm[Hg] Sulma Portillo [facility] 4 11:15:16 Social History Question Answer [...] Do You Have A Medical Power Of Medical Writer? No [email or web address] Information not available 05/02/2024 What [...] available 2023 23:49:54 Medical History Condition Response High Blood Pressure N COPD N Depression N Anxiety Disorder N Arthritis Y Cancer Y Stroke N Fibromyalgia N Kidney Disease N Bleeding Disorder N Asthma N Seizures N Attention-deficit Hyperactivity Disorder N Thyroid Problems N Anemia N Diabetes N Hyperlipidemia N Heart Disease Y Osteoporosis N Immunizations Vaccine Type Date Status Note [...] Center 01/18/2025 12:02:43 Tdap 11/10/2017 completed [facility] 01/18/2025 12:02:43 Past Encounters Encounter ID Performer Location Encounter Start Date Encounter Closed Date Diagnosis/Indication Diagnosis SNOMED-CT Code Diagnosis ICD10 Code Diagnosis Note [id number] Joao Wild MD [facility]orect[facility] ([place]) [address] [facility] [place] [place] [address] 02/29/2024 13:32:35 03/07/2024 08:29:33 Adenocarcinoma of rectum 648154363 C20 [id number] Luis Diaz MD [facility] ([place]) [address] [place] [address] 05/03/2024 10:58:51 05/03/2024 11:39:02 Coronary arteriosclerosis 71530247 I25.10 Essential hypertension 57885399 I10 Dyslipidemia 449815605 E 78.5 [id number] Myron Kinsey MD [facility] ([place]) [address] [place] [address] 01/18/2025 11:51:27 01/18/2025 12:34:26 Metastatic malignant neoplasm to lung 06518383 C78.00 dx on colonoscop y (biopsy) on w/u rectal bleeding after diverticul litis w/ abnmL CT. [facility] Colorectal Surgery Dr. Velazquez onboard , then transition ed to (in-networ k for insurance) [facility] Dr. Wild Fall 2022. s/p surveillan ce colonoscop y 08/31/23. Note also Metastatic Cancer to Lung (dx on biopsy ). [facility] (Dr. Middleton) onboard then as well. Adenocarci noma of rectum 962698614 C20 Physical examination 588 0005 Z02.71 Administra tive reason for encounter 699815596 Z02.9 Health Concerns Section Related Observation LastModified by Organization Detai ls LastModified Time None Recorded Concern Status LastModified by Organization Details LastModified Time None Recorded Advance Directives Directive N: Payers Insurance Date Sequence Insurance Name Policy Number Policy Pickett Covered Member ID Pickett Member ID Guarantor Name 02/22/2024 1 *SELF PAY* Charly Jarrell 02/16/2025 [employer] ([facility]) [id number] Devante Jarrell [id number] Devante Jarrell Notes Date Note Type Note [...] EOMI Myron Kinsey MD [address] [place], [address], [facility] 01/19/2025 16:38:33
== END 2025-05-09 07:58 | disposition home or self-care (01) ==
PROVIDERS: Visit Provider Internal Medicine Hematology
DX: C78.00 Secondary malignant neoplasm of unspecified lung (principal); C20 Malignant neoplasm of rectum; M54.9 Dorsalgia, unspecified
CPT/HCPCS: 71260; 72132; 74177; Q9967

== ENCOUNTER 2025-05-24 08:52 | Outpatient (CLI) | payer OTHER, SELFPAY ==
--- OUTSIDE RECORDS SUMMARY | 2025-05-24 08:58 | XMS_ITS | Referral Summary ---
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 Room: [facility] ENDOSCOPY ROOM 02 Note Status: Finalized Procedure: [...] The scope was passed under direct vision.The [id number] was introduced through the anusand advanced to [...] On: 01/03/2023 1:53 PM Recognized by the [place] [employer] for promoting quality in endoscopy James Velazquez MD ENDOSCOPY PROCEDURES Final Res ult from Last 3 Months or Most Recently Relevant to Health Maintenance Insurance [facility] Advance Directives For more information, please contact: [phone] * Full Code (Latest Code Status on File) Date Activated Date Inactivated Comments 04/18/2023 10:53 AM 04/18/2023 4:35 PM * Full Code Date Activated Date Inactivated Comments 01/03/2023 1:14 PM 01/03/2023 7:06 PM * Full Code Date Activated Date Inactivated Comments 09/20/2022 2:30 PM 09/20/2022 8:28 PM Care Teams Weight And Balance Control Agent Relationship Specialty Start Date End Date Myron Serna MD [address] [place] [address] PCP - General Family Medicine 07/07/22 Jan Middleton MD [address] [place] [address] Referring Physician Hematology 08/23/22 James Velazquez MD [address] [facility] [id number] [place] [address] Surgeon Colon and Rectal Surgery 11/11/22 Noemi Crandall MD [address] [place] [address] Referring Physician General Surgery 09/03/22
--- OUTSIDE RECORDS SUMMARY | 2025-05-24 08:58 | XMS_ITS | Clinical Summary ---
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 Patient Name: Devante Jarrell Procedure Date: 01/03/2023 1:53 PM Date of : 1970 Admit Type: Outpatient Age: 52 Gender: Male Attending MD: James Velazquez M.D. Room: [facility] ENDOSCOPY ROOM 02 Note Status: [...] The scope was passed under direct vision.The [id number] was introduced through the anusand advanced to [...] On: 01/03/2023 1:53 PM Recognized by the [place] [employer] for promoting quality in endoscopy us James Velazquez MD ENDOSCOPY PROCEDURES Final Res ult from Last 3 Months or Most Recently Relevant to Health Maintenance Insurance Advance Directives For more information, please contact: [phone] * Full Code (Latest Code Status on File) Date Activated Date Inactivated Comments 04/18/2023 10:53 AM 04/18/2023 4:35 PM * Full Code Date Activated Date Inactivated Comments 01/03/2023 1:14 PM 01/03/2023 7:06 PM * Full Code Date Activated Date Inactivated Comments 09/20/2022 2:30 PM 09/20/2022 8:28 PM Care Teams Drama Therapist Relationship Specialty Start Date End Date Myron Serna MD [address] [place] [address] PCP - General Family Medicine 07/07/22 Jan Middleton MD [address] [place] [address] Referring Physician [facility] 08/23/22 James Velazquez MD [address] [facility] [phone] [place] [address] Surgeon Colon and Rectal Surgery 09/03/22 Noemi Crandall MD [address] [place] [address] Referring Physician General Surgery 09/03/22
--- OUTSIDE RECORDS SUMMARY | 2025-05-24 08:58 | XMS_ITS ---
Author Organization [facility] Address [address] [place] [address] Care Team Providers Care Pay Station Department Manager Name Role Phone Myron Serna MD Primary Care Provider [phone]- [phone] Jan Middleton MD Unavailable James Velazquez MD Unavailable [phone] Noemi Crandall MD Unavailable Active Problems Problem [...]
--- OUTSIDE RECORDS SUMMARY | 2025-05-24 08:58 | XMS_ITS | Encounter Summary ---
Author Organization [facility] Address [facility]ly [facility] [place] [address] Care Team Providers Care Retort Condenser Attendant Name Role Phone Larry Serna MD Primary Care Provider Unavailab le Reason for Visit * Reason Onset Date Comments Preprocedure Call 10/10/2023 Spoke with stephen grey -she states patient is getting H&P tomorrow, 10/11, at Dr. Vazquez office, with Madelyn Smith NP. [phone]. Encounter Details Date Type Department Care Team (Late st Contact Info) Description 10/10/[address] [facility] Interventional Radiology [address] [place] [address] Cleo Lam, LAURA Preprocedure Call (Spoke with patients -she states patient is getting H&P tomorrow, 10/11, at Dr. Vazquez office, with Madelyn Smith NP. [phone].) Social History Tobacco Use Types Packs/Day Years [...] any clubs o r organizations such as caodaism groups, unions, fraternal or athletic groups, or [...] and heating? Not hard at all 11/22/2021 [facility] Occupat ional Health - Occupational Stress [...] place to sleep or slept in a usp (including now)? 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 Answer Date of Assessment Author Status No 11/22/2021 8:55 AM NEUROPHYSIOLOGICAL TECHNICIAN Activ e * Do you have serious [...] Assessment Author Status No 11/22/2021 8:55 AM NEUROPHYSIOLOGICAL TECHNICIAN Dowell, Lillian E, RN Active documented as of this encounter Mental Status * Because of a physical, mental, or emotional condition, do you have serious difficulty concentrating, remembering, or making decisions? Answer Entry Date Author Status No 11/22/2021 8:55 AM NEUROPHYSIOLOGICAL TECHNICIAN Lillian Archer RN Active documented in this encounter Plan of Treatment Not on file documented as of this encounter Goals Goal Patient Goal Type Associated Problems Recent Progress Patient-Stated? Author Health - patient able to perform ADLs independently General Carlos Lundy RN documented as of this encounter Visit Diagnoses Not on filedocumented in this encounter Care Teams Retort Condenser Attendant Relationship Specialty Start Date End Date Larry Serna MD PCP - General FAMILY PRACTICE 09/30/21 documented as of this encounter
--- OUTSIDE RECORDS SUMMARY | 2025-05-24 08:58 | XMS_ITS | Clinical Summary ---
Author Organization [facility] Address [facility] [place] [address] Care Team Providers Care Shredding Specialist Name Role Phone Larry Serna MD Primary [...] Date NSTEMI (non-ST elevated myoc ardial infarction) ([facility]) 11/22/2021 Diverticulitis 10/01/2021 Family History Medical History Relation Comments Diabetes Brother Diabetes Father [place] Father Diabetes Mother pancreatic cancer Sister Relation [...] often do you attend chur ch or jain services? Never 11/22/2021 Do you belong to any clubs o r organizations such as yazidi groups, unions, fraternal or athletic groups, or [...] and heating? Not hard at all 11/22/2021 [facility] of Occupat ional Health - Occupational Stress [...] place to sleep or slept in a chcf (including now)? 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 Gender Identity Not on file Sexual Orientation Not on file Occupation Industry Job Start Date Job End Date [employer] Not on file Not on file Not on file Last Filed Vital Signs Vital Sign Reading Time Taken Comments Blood Pressure 108/54 10/19/2023 1:00 PM ROUGH AND TRUEING MACHINE OPERATOR Pulse 66 10/19/2023 1:00 PM ROUGH AND TRUEING MACHINE OPERATOR Temperature 36.3 C (97.3 F) 08/31/2023 9:46 AM ROUGH AND TRUEING MACHINE OPERATOR Respiratory Rate 16 10/19/2023 1:00 PM ROUGH AND TRUEING MACHINE OPERATOR Oxygen Saturation 95% 10/19/2023 1:00 PM ROUGH AND TRUEING MACHINE OPERATOR Inhaled Oxygen Concentration - - Weight 106.6 kg (235 lb) 10/19/2023 8:20 AM ROUGH AND TRUEING MACHINE OPERATOR Height 177.8 cm (5' 10) 10/19/2023 8:20 AM ROUGH AND TRUEING MACHINE OPERATOR Body Mass Index 33.72 10/19/2023 8:20 AM ROUGH AND TRUEING MACHINE OPERATOR Plan of Treatment Health Maintenance [...] Lundy, RN Medical Devices Implanted Type Area Jointer Operator Device Identifier Shelf Expiration Date Model / Serial / Lot Clip Resolution 2.8mm 360 235cm 11mm Open - [id number] Implanted:Qty: 1 on 11/24/2021 by Kaleb Napier DO at [facility] Clip Implant [employer] JOE [id number] 07/20/2024 [id number] / / [id number] Description:1 CLIP PLACED AT DESCENDING COLON WHERE POLYP WAS REMOVED VIA HOT SNARE Procedures Procedure Name Priority Date/Time Associated Diagnosis Comments COLONOSCOPY 08/31/2023 6:46 AM ROUGH AND TRUEING MACHINE OPERATOR LIPID PANEL Routine 11/23/2021 4:56 AM ROUGH AND TRUEING MACHINE OPERATOR OCCULT BLOOD, FECES Routine 11/22/2021 2 :20 PM ROUGH AND TRUEING MACHINE OPERATOR from Last 3 Months or Most Recently Relevant to Health Maintenance Results * Colonoscopy (08/31/2023 6:46 AM ROUGH AND TRUEING MACHINE OPERATOR) Joao Wild MD GI PROCEDURE ORDERABLES Final Result * (ABNORMAL) LIPID PANEL (11/23/2021 4:56 AM ROUGH AND TRUEING MACHINE OPERATOR) CHOLESTEROL 190 <200 MG/DL 11/23/2021 5:56 AM ROUGH AND TRUEING MACHINE OPERATOR [facility] TRIGLYCERIDES 214(H) <150 MG/DL 11/23/2021 5:56 AM [facility] HDL 35(L) >40.0 MG/DL 11/23/2021 5:56 AM [facility] LDL (CALCULATED) 112(H) <100 MG/DL 11/23/2021 5:56 AM [facility] NON HDL CHOLESTEROL 155(H) <130 MG/DL 11/23/2021 5:56 AM [facility] CHOL/HDL RATIO 5.4(H) 0.0 - 4.5 11/23/2021 5:56 AM [facility] VLDL CALCULATION 43 5 - 55 MG/DL 11/23/2021 5:56 AM [facility] LIPID INTERPRETATION 11/23/2021 5:56 AM [facility] Comment: [facility] CONCENSUS REPORT RECOMMENDATIONS: ADULT CHILD LOW RISK: CHOLESTEROL <200 <170 TRIGLYCERIDE <150 --- HDL >=60 --- LDL <100 <110 BORDERLINE: CHOLESTEROL 200-239 170-199 TRIGLYCERIDE 150-199 --- HDL 40-59 --- LDL 100-159 110-129 HIGH RISK: CHOLESTEROL >=240 >=200 TRIGLYCERIDE >=200 --- HDL <40 --- LDL >=160 >=130 11/23/2021 4:56 AM ROUGH AND TRUEING MACHINE OPERATOR Mini Alston PA-C LABORATORY Final Result [facility] [address] [place] [address], [place] [phone] * OCCULT BLOOD, FECES (11/22/2021 2:20 PM ROUGH AND TRUEING MACHINE OPERATOR) OCCULT BLOOD FECAL POSITIVE 11/22/2021 2:43 PM ROUGH AND TRUEING MACHINE OPERATOR [facility] STOOL SPECIMEN / Unknown 11/22/2021 2:20 PM ROUGH AND TRUEING MACHINE OPERATOR Mini Alston PA-C BODY FLUIDS AND STOOLS ORDERA BLES Final Result Performing Organization Address City/[facility]/ZIP Co de Phone Number [facility] [address] [place] [address], [place] [phone] from Last 3 Months or Most Recently Relevant to Health Maintenance Insurance [employer] Advance Directives * Full Code (Latest Code Status on File) Date Activated Date Inactivated Comments 11/22/2021 9:05 AM 11/26/2021 6:24 PM * Full Code Date Activated Date Inactivated Comments 10/01/2021 12:35 AM 10/03/2021 7:26 PM Care Teams Shredding Specialist Relationship Specialty Start Date End Date Larry Serna MD PCP - General FAMILY PRACTICE 09/30/21
--- OUTSIDE RECORDS SUMMARY | 2025-05-24 08:58 | XMS_ITS | Encounter Summary ---
Author Organization 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 Gender Identity Not on file Sexual Orientation Not on file documented as of this encounter Plan of Treatment Not on file documented as of this encounter Visit Diagnoses Not on filedocumented in this encounter Additional Health Concerns Infection Onset Date Last Indicated Resolved Time COVID-19 Rule Out 10/01/2021 10/01/2021 10/01/2021 2:43 PM SHIP ERECTOR COVID-19 Rule Out 11/21/2021 11/21/2021 11/21/2021 9:38 PM SHIP ERECTOR documented as of this encounter Care Teams Dealer Sales Manager Relationship Specialty Start Date End Date Larry Serna MD PCP - General FAMILY PRACTICE 09/30/21 documented as of this encounter
[2025-05-24 09:00] VITALS: BP 116/69; PULSE 80; RESP 16; TEMP 36.6; O2SAT 96; BMI 31.9
[2025-05-24 09:13] LABS: Hematocrit 44.8 % (40.0-54.0); Hemoglobin 15.0 g/dL (14.0-18.0); Immature Granulocyte Percent A 0.3 % (0.0-0.0); Lymphocytes Absolute Auto 1.72 K/mm3 (1.10-4.50); Mean Corpuscular HGB Conc 33.5 g/dL (32-36); Mean Corpuscular Hemoglobin 36.3 pg (27.0-31.0); Mean Corpuscular Volume 108.5 fL (78.0-102.0); Nucleated Red Blood Cells Absolute Auto 0.00 K/mm3 (0.00-0.00); Nucleated Red Blood Cells Perc 0.0 % (0-0.0); Platelet Count Result 229 K/mm3 (150-420); Red Blood Count 4.13 M/mm3 (4.70-6.10); White Blood Count 8.9 K/mm3 (4.8-10.8)
[2025-05-24 09:26] LABS: Alanine Aminotransferase 29 U/L (6-50); Albumin Level 4.2 g/dL (3.5-5.1); Alkaline Phosphatase 81 U/L (38-126); Anion Gap 3 mmol/L (4-12); Aspartate Amino Transferase 38 U/L (17-59); Bilirubin,Total 0.9 mg/dL (0.2-1.3); Blood Urea Nitrogen 13 mg/dL (9-20); Calcium 8.9 mg/dL (8.4-10.2); Carbon Dioxide 26 mmol/L (22-30); Chloride 108 mmol/L (98-107); Estimated CRCL calculation 92 ml/min; Estimated Glomerular Filt Rate > 60; Glucose 138 mg/dL (65-110); Osmolality Calculated 286 mOsm/kg (285-295); Potassium 3.9 mmol/L (3.4-5.0); Sodium 137 mmol/L (137-145); Total Protein 6.8 g/dL (6.3-8.2)
[2025-05-24] MEDS: ONDANSETRON IVPB (10:22)
[2025-05-24] MEDS: SODIUM CHLORIDE 0.9% IVPB ×2 (10:22→10:35)
[2025-05-24] MEDS: BEVACIZUMAB AWWB IVPB (10:35)
[2025-05-24] MEDS: HEPARIN SODIUM LOCK FLUSH 500 UNITS/5 ML SYRINGE (11:07)
[2025-05-24 11:22] VITALS: BP 125/80; PULSE 78; RESP 16
--- NOTE | 2025-05-24 11:23 | PC.NURSE ---
Patient tolerated Bevacizumab-awwb infusion treatment well. SEE MAR/patient care notes.
[2025-05-24 11:32] LABS: Add Urine Microscopic? NO; Appearance Urine Clear (Clear); Glucose Urine UA Negative (Negative); Leukocyte Esterase Ur Negative (Negative); Nitrate Urine Negative (Negative); Specific Grav Ur 1.010 (1.010-1.020)
== END 2025-05-24 08:53 | disposition home or self-care (01) ==
PROVIDERS: Visit Provider Internal Medicine Hematology
DX: Z51.11 Encounter for antineoplastic chemotherapy (principal); C20 Malignant neoplasm of rectum
CPT/HCPCS: 36591; 80053; 81003; 85025; 96367; 96413; J2405; J7050; Q5107

== ENCOUNTER 2025-06-13 08:57 | Outpatient (CLI) | payer OTHER, SELFPAY ==
[2025-06-13 09:00] VITALS: BMI 31.8
[2025-06-13 09:17] LABS: Hematocrit 44.8 % (40.0-54.0); Hemoglobin 15.4 g/dL (14.0-18.0); Mean Corpuscular HGB Conc 34.4 g/dL (32-36); Mean Corpuscular Hemoglobin 37.1 pg (27.0-31.0); Mean Corpuscular Volume 108.0 fL (78.0-102.0); Platelet Count Result 220 K/mm3 (150-420); Red Blood Count 4.15 M/mm3 (4.70-6.10); White Blood Count 9.2 K/mm3 (4.8-10.8)
--- OUTSIDE RECORDS SUMMARY | 2025-06-13 09:19 | XMS_ITS | Clinical Summary ---
Author Organization 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 Gender Identity Not on file Sexual Orientation [...] The scope was passed under direct vision.The [id number] was introduced through the anusand advanced to [...] On: 01/03/2023 1:53 PM Recognized by the [place] [employer] for promoting quality in endoscopy us James Velazquez MD ENDOSCOPY PROCEDURES Final Res ult from Last 3 Months or Most Recently Relevant to Health Maintenance Insurance Advance Directives For more information, please contact: [phone] * Full Code (Latest Code Status on File) Date Activated Date Inactivated Comments 04/18/2023 10:53 AM 04/18/2023 4:35 PM * Full Code Date Activated Date Inactivated Comments 01/03/2023 1:14 PM 01/03/2023 7:06 PM * Full Code Date Activated Date Inactivated Comments 09/20/2022 2:30 PM 09/20/2022 8:28 PM Care Teams Crayon Sawyer Relationship Specialty Start Date End Date Myron Serna MD [address] [place] [address] PCP - General Family Medicine 07/07/22 Jan Middleton MD [address] [place] [address] Referring Physician [facility] 08/23/22 James Velazquez MD [address] [facility] [phone] [place] [address] Surgeon Colon and Rectal Surgery 09/03/22 Noemi Crandall MD [address] [place] [address] Referring Physician General Surgery 09/03/22
--- OUTSIDE RECORDS SUMMARY | 2025-06-13 09:19 | XMS_ITS ---
Author Organization [facility] Address [address] [place] [phone] Care Team Providers Care Nut Tapper Name Role Phone Myron Serna MD Primary Care Provider [phone] Jan Middleton MD Unavailable James Velazquez MD Unavailable [phone] Noemi Crandall MD Unavailable Active Problems Problem [...]
[2025-06-13 09:30] VITALS: BP 126/75; PULSE 80; RESP 16; TEMP 36.6; O2SAT 96
[2025-06-13] MEDS: SODIUM CHLORIDE 0.9% IV 250 ML 10 ML IVPB (09:30)
[2025-06-13 09:33] LABS: Alanine Aminotransferase 24 U/L (6-50); Albumin Level 4.3 g/dL (3.5-5.1); Alkaline Phosphatase 77 U/L (38-126); Anion Gap 5 mmol/L (4-12); Aspartate Amino Transferase 35 U/L (17-59); Bilirubin,Total 1.3 mg/dL (0.2-1.3); Blood Urea Nitrogen 9 mg/dL (9-20); Calcium 9.3 mg/dL (8.4-10.2); Carbon Dioxide 26 mmol/L (22-30); Chloride 106 mmol/L (98-107); Estimated CRCL calculation 98 ml/min; Estimated Glomerular Filt Rate > 60; Glucose 98 mg/dL (65-110); Osmolality Calculated 282 mOsm/kg (285-295); Potassium 4.4 mmol/L (3.4-5.0); Sodium 137 mmol/L (137-145); Total Protein 7.0 g/dL (6.3-8.2)
[2025-06-13] MEDS: SODIUM CHLORIDE 0.9% IVPB ×2 (09:45→10:10)
[2025-06-13] MEDS: ONDANSETRON IVPB (09:45)
[2025-06-13] MEDS: BEVACIZUMAB AWWB IVPB (10:10)
[2025-06-13] MEDS: HEPARIN SODIUM LOCK FLUSH 500 UNITS/5 ML SYRINGE IV PUSH (10:40)
[2025-06-13 10:43] VITALS: BP 120/71; PULSE 78; RESP 16; TEMP 36.6; O2SAT 97
--- NOTE | 2025-06-13 10:44 | PC.NURSE ---
Tolerated treatment well. See MAR/patient care notes.
== END 2025-06-13 08:58 | disposition home or self-care (01) ==
LOC: CHSLAB 09:05 → CHSTREATRM 09:13
PROVIDERS: Visit Provider Internal Medicine Hematology
DX: Z51.11 Encounter for antineoplastic chemotherapy (principal); C20 Malignant neoplasm of rectum
CPT/HCPCS: 36415; 36591; 80053; 85027; 96367; 96413; J2405; J7050; Q5107

== ENCOUNTER 2025-07-04 08:52 | Outpatient (CLI) | payer OTHER, SELFPAY ==
[2025-07-04 08:55] VITALS: BP 139/74; PULSE 80; RESP 16; TEMP 36.6; O2SAT 97; BMI 31.8
[2025-07-04 09:10] LABS: Hematocrit 44.1 % (40.0-54.0); Hemoglobin 14.8 g/dL (14.0-18.0); Mean Corpuscular HGB Conc 33.6 g/dL (32-36); Mean Corpuscular Hemoglobin 37.1 pg (27.0-31.0); Mean Corpuscular Volume 110.5 fL (78.0-102.0); Platelet Count Result 242 K/mm3 (150-420); Red Blood Count 3.99 M/mm3 (4.70-6.10); White Blood Count 9.8 K/mm3 (4.8-10.8)
[2025-07-04 09:11] LABS: Add Urine Microscopic? YES; Appearance Urine Clear (Clear); Glucose Urine UA Negative (Negative); Leukocyte Esterase Ur Negative (Negative); Nitrate Urine Negative (Negative); Specific Grav Ur 1.015 (1.010-1.020)
[2025-07-04] MEDS: SODIUM CHLORIDE 0.9% IV 250 ML 10 ML IVPB (09:17)
--- OUTSIDE RECORDS SUMMARY | 2025-07-04 09:25 | XMS_ITS ---
Author Organization [facility] Address [address] [place] [phone] Care Team Providers Care Secretary Receptionist Name Role Phone Myron Serna MD Primary Care Provider [phone] Jan Middleton MD Unavailable James Velazquez MD Unavailable [phone] Noemi Crandall MD Unavailable Active Problems Problem [...]
--- OUTSIDE RECORDS SUMMARY | 2025-07-04 09:25 | XMS_ITS | Clinical Summary ---
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 Room: [facility] 02 Note Status: Finalized Procedure: [...] The scope was passed under direct vision.The [id number] was introduced through the anusand advanced to [...] On: 01/03/2023 1:53 PM Recognized by the [place] [employer] for promoting quality in endoscopy us James Velazquez MD ENDOSCOPY PROCEDURES Final Res ult from Last 3 Months or Most Recently Relevant to Health Maintenance Insurance Advance Directives For more information, please contact: [phone] * Full Code (Latest Code Status on File) Date Activated Date Inactivated Comments 04/18/2023 10:53 AM 04/18/2023 4:35 PM * Full Code Date Activated Date Inactivated Comments 01/03/2023 1:14 PM 01/03/2023 7:06 PM * Full Code Date Activated Date Inactivated Comments 09/20/2022 2:30 PM 09/20/2022 8:28 PM Care Teams Gin Operator Relationship Specialty Start Date End Date Myron Serna MD [address] [place] [address] PCP - General Family Medicine 07/07/22 Jan Middleton MD [address] [place] [address] Referring Physician [facility] 08/23/22 James Velazquez MD [phone] [place] [address] Surgeon Colon and Rectal Surgery 09/03/22 Noemi Crandall MD [address] [place] [address] Referring Physician General Surgery 09/03/22
[2025-07-04 09:28] LABS: Alanine Aminotransferase 25 U/L (6-50); Albumin Level 4.2 g/dL (3.5-5.1); Alkaline Phosphatase 75 U/L (38-126); Anion Gap 7 mmol/L (4-12); Aspartate Amino Transferase 39 U/L (17-59); Bilirubin,Total 1.3 mg/dL (0.2-1.3); Blood Urea Nitrogen 13 mg/dL (9-20); Calcium 9.1 mg/dL (8.4-10.2); Carbon Dioxide 29 mmol/L (22-30); Chloride 103 mmol/L (98-107); Estimated CRCL calculation 95 ml/min; Estimated Glomerular Filt Rate > 60; Glucose 93 mg/dL (65-110); Osmolality Calculated 288 mOsm/kg (285-295); Potassium 4.5 mmol/L (3.4-5.0); Sodium 139 mmol/L (137-145); Total Protein 7.0 g/dL (6.3-8.2)
[2025-07-04] MEDS: SODIUM CHLORIDE 0.9% IVPB ×2 (10:10→10:30)
[2025-07-04] MEDS: ONDANSETRON IVPB (10:10)
[2025-07-04] MEDS: BEVACIZUMAB AWWB IVPB (10:30)
[2025-07-04] MEDS: HEPARIN SODIUM LOCK FLUSH 500 UNITS/5 ML SYRINGE IV PUSH (11:05)
[2025-07-04 11:12] VITALS: BP 132/80; PULSE 80; RESP 14; TEMP 36.5; O2SAT 97
--- NOTE | 2025-07-04 11:14 | PC.NURSE ---
Patient tolerated Bevacizumab infusion well. SEE MAR/patient care notes.
== END 2025-07-04 08:53 | disposition home or self-care (01) ==
PROVIDERS: PCP Internal Medicine Hematology; Visit Provider Internal Medicine Hematology
DX: Z51.11 Encounter for antineoplastic chemotherapy (principal); C20 Malignant neoplasm of rectum
CPT/HCPCS: 36415; 36591; 80053; 81001; 85027; 96367; 96413; J2405; J7050; Q5107

== ENCOUNTER 2025-07-05 08:46 | Outpatient (CLI) | payer OTHER, SELFPAY ==
--- NOTE | ~2025-07-05 | CT_ITS ---
EXAMINATION: CT chest abdomen pelvis w con DATE: 07/05/2025 09:18 INDICATION: Rectal cancer. TECHNIQUE: Computed tomography (CT) of the chest, abdomen, and pelvis was performed with 100 mL Omnipaque 350 intravenous contrast. Automated exposure control and iterative reconstruction technique were employed. The dose-length product was 1333.56 mGy-cm. COMPARISON: CT 05/09/2025 FINDINGS: CHEST CT: There is mild scarring at the lung apices. There is mild emphysema. Calcified right lung nodules and calcified right hilar lymph nodes are consistent with old granulomatous disease. There is a 3.6 cm mass in left lung lower lobe that measured 3.4 cm on 05/09/2025. There are 4 scattered nodules in the lungs measuring up to 1.9 cm in right lower lobe that measured 1.9 cm on 05/09/2025. There is mild peripheral scarring in left lower lobe. No pleural effusion. There is a right internal jugular port with tip at superior cavoatrial junction. The heart size is normal. No pericardial effusion. There is ectasia of ascending aorta measuring 4.2 cm. There are old healed left rib fractures. There is moderate lumbar thoracic spondylosis. There is mild chronic anterior wedging of multiple vertebral bodies. ABDOMEN/PELVIS CT: The liver, gallbladder, spleen, pancreas, adrenal glands, and kidneys are normal. The prostate is mildly enlarged. There is a right inguinal hernia containing fat. There is diverticulosis of the colon without evidence of diverticulitis. There are no dilated loops of bowel. The appendix is not visualized. There are no pathologically enlarged lymph nodes. There is no free intraperitoneal fluid. There is moderate lumbar spondylosis. IMPRESSION: 1. Stable lung nodules and mass, consistent with metastatic disease. Reviewed, dictated and finalized at location E.
--- OUTSIDE RECORDS SUMMARY | 2025-07-05 08:59 | XMS_ITS | Encounter Summary ---
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 Gender Identity Not on file Sexual Orientation Not on file documented as of this encounter Plan of Treatment Not on file documented as of this encounter Visit Diagnoses Not on filedocumented in this encounter Additional Health Concerns Infection Onset Date Last Indicated Resolved Time COVID-19 Rule Out 10/01/2021 10/01/2021 10/01/2021 2:43 PM SOLID PROPELLANT PROCESSOR COVID-19 Rule Out 11/21/2021 11/21/2021 11/21/2021 9:38 PM SOLID PROPELLANT PROCESSOR documented as of this encounter Care Teams Higher Level Teaching Assistant Relationship Specialty Start Date End Date Larry Serna MD PCP - General FAMILY PRACTICE 09/30/21 documented as of this encounter
--- OUTSIDE RECORDS SUMMARY | 2025-07-05 09:00 | XMS_ITS | Encounter Summary ---
Author Organization [facility] Address [facility] [place] [address] Care Team Providers Care Viscosity Worker Name Role Phone Larry Serna MD Primary Care Provider Unavailab le Reason for Visit * Reason Onset Date Comments Preprocedure Call 10/10/2023 Spoke with stephen grey -she states patient is getting H&P tomorrow, 10/11, at Dr. Vazquez office, with Madelyn Smith NP. [phone]. Encounter Details Date Type Department Care Team (Late st Contact Info) Description 10/10/2023 Telephone [facility] Interventional Radiology [address] [place] [address] Cleo Lam, LAURA Preprocedure Call (Spoke with patients -she states patient is getting H&P tomorrow, 10/11, at Dr. Vazquez office, with Madelyn Smith NP. [phone].) Social History Tobacco Use Types Packs/Day Years [...] often do you attend chur ch or roman catholic services? Never 11/22/2021 Do you belong to any clubs o r organizations such as holiness groups, unions, fraternal or athletic groups, or [...] and heating? 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 Answer Date of Assessment Author Status No 11/22/2021 8:55 AM AIRFREIGHT OPERATIONS AGENT Activ e * Do you have serious [...] Assessment Author Status No 11/22/2021 8:55 AM AIRFREIGHT OPERATIONS AGENT Gianni, Lillian E, RN Active documented as of this encounter Mental Status * Because of a physical, mental, or emotional condition, do you have serious difficulty concentrating, remembering, or making decisions? Answer Entry Date Author Status No 11/22/2021 8:55 AM AIRFREIGHT OPERATIONS AGENT Lillian Archer RN Active documented in this encounter Plan of Treatment Not on file documented as of this encounter Goals Goal Patient Goal Type Associated Problems Recent Progress Patient-Stated? Author Health - patient able to perform ADLs independently General Carlos Lundy RN documented as of this encounter Visit Diagnoses Not on filedocumented in this encounter Care Teams Viscosity Worker Relationship Specialty Start Date End Date Larry Serna MD PCP - General FAMILY PRACTICE 09/30/21 documented as of this encounter
--- OUTSIDE RECORDS SUMMARY | 2025-07-05 09:01 | XMS_ITS | Clinical Summary ---
Author Organization [facility] Address [facility] [place] [address] Care Team Providers Care Automation Tech Name Role Phone Larry Serna MD Primary [...] Date NSTEMI (non-ST elevated myoc ardial infarction) ([facility]) 11/22/2021 Diverticulitis 10/01/2021 Family History Medical History Relation Comments Diabetes Brother Diabetes Father MA Father Diabetes Mother pancreatic cancer Sister Relation [...] often do you attend chur ch or amish services? Never 11/22/2021 Do you belong to any clubs o r organizations such as sikh groups, unions, fraternal or athletic groups, or [...] and heating? Not hard at all 11/22/2021 [facility] [place] of Occupat ional Health - Occupational Stress [...] place to sleep or slept in a nursing home (including now)? No 11/22/2021 Sex and Gender Information Value Date Recorded Sex Assigned at Not on file Legal Sex Male 9:32 PM DIRECTOR OF MECHANICAL ENGINEERING Gender Identity Not on file Sexual Orientation Not on file Occupation Industry Job Start Date Job End Date [employer] Not on file Not on file Not on file Last Filed Vital Signs Vital Sign Reading Time Taken Comments Blood Pressure 108/54 10/19/2023 1:00 PM DIRECTOR OF MECHANICAL ENGINEERING Pulse 66 10/19/2023 1:00 PM DIRECTOR OF MECHANICAL ENGINEERING Temperature 36.3 C (97.3 F) 08/31/2023 9:46 AM DIRECTOR OF MECHANICAL ENGINEERING Respiratory Rate 16 10/19/2023 1:00 PM DIRECTOR OF MECHANICAL ENGINEERING Oxygen Saturation 95% 10/19/2023 1:00 PM DIRECTOR OF MECHANICAL ENGINEERING Inhaled Oxygen Concentration - - Weight 106.6 kg (235 lb) 10/19/2023 8:20 AM DIRECTOR OF MECHANICAL ENGINEERING Height 177.8 cm (5' 10) 10/19/2023 8:20 AM DIRECTOR OF MECHANICAL ENGINEERING Body Mass Index 33.72 10/19/2023 8:20 AM DIRECTOR OF MECHANICAL ENGINEERING Plan of Treatment Health Maintenance Due Date Last Done Comments ASCVD Statin 1968 Annual Physical 1971 Hepatitis C 1986 Hepatitis B Vaccines (1 of 3 - 19+ 3-dose series) 1987 Pneumococcal Vaccine: 50+ Years (1 of 2 - PCV) 1987 Zoster Vaccines (1 of 2) 2018 ASCVD LDL 11/23/2022 11/23/2021 COVID-19 Vaccine (1 - season) 2025 DTaP, Tdap and Td Vaccines (2 - [...] Lundy, RN Medical Devices Implanted Type Area [place] Device Identifier Shelf Expiration Date Model / Serial / Lot Clip Resolution 2.8mm 360 235cm 11mm Open - [id number] Implanted:Qty: 1 on 11/24/2021 by Kaleb Napier DO at [facility] Clip Implant [employer] JOE [id number] 07/20/2024 [id number] / / [id number] Description:1 CLIP PLACED AT DESCENDING COLON WHERE POLYP WAS REMOVED VIA HOT SNARE Procedures Procedure Name Priority Date/Time Associated Diagnosis Comments COLONOSCOPY 08/31/2023 6:46 AM DIRECTOR OF MECHANICAL ENGINEERING LIPID PANEL Routine 11/23/2021 4:56 AM DIRECTOR OF MECHANICAL ENGINEERING OCCULT BLOOD, FECES Routine 11/22/2021 2 :20 PM DIRECTOR OF MECHANICAL ENGINEERING from Last 3 Months or Most Recently Relevant to Health Maintenance Results * Colonoscopy (08/31/2023 6:46 AM DIRECTOR OF MECHANICAL ENGINEERING) Joao Wild MD GI PROCEDURE ORDERABLES Final Result * (ABNORMAL) LIPID PANEL (11/23/2021 4:56 AM DIRECTOR OF MECHANICAL ENGINEERING) CHOLESTEROL 190 <200 MG/DL 11/23/2021 5:56 AM DIRECTOR OF MECHANICAL ENGINEERING [facility] TRIGLYCERIDES 214(H) <150 MG/DL 11/23/2021 5:56 AM [facility] HDL 35(L) >40.0 MG/DL 11/23/2021 5:56 AM [facility] LDL (CALCULATED) 112(H) <100 MG/DL 11/23/2021 5:56 AM [facility] NON HDL CHOLESTEROL 155(H) <130 MG/DL 11/23/2021 5:56 AM [facility] CHOL/HDL RATIO 5.4(H) 0.0 - 4.5 11/23/2021 5:56 AM [facility] VLDL CALCULATION 43 5 - 55 MG/DL 11/23/2021 5:56 AM [facility] LIPID INTERPRETATION 11/23/2021 5:56 AM [facility] Comment: NIH CONCENSUS REPORT RECOMMENDATIONS: ADULT CHILD LOW RISK: CHOLESTEROL <200 <170 TRIGLYCERIDE <150 --- HDL >=60 --- LDL <100 <110 BORDERLINE: CHOLESTEROL 200-239 170-199 TRIGLYCERIDE 150-199 --- HDL 40-59 --- LDL 100-159 110-129 HIGH RISK: CHOLESTEROL >=240 >=200 TRIGLYCERIDE >=200 --- HDL <40 --- LDL >=160 >=130 11/23/2021 4:56 AM DIRECTOR OF MECHANICAL ENGINEERING Mini Alston PA-C LABORATORY Final Result [facility] [address] [place] [address], [place] [phone] * OCCULT BLOOD, FECES (11/22/2021 2:20 PM DIRECTOR OF MECHANICAL ENGINEERING) OCCULT BLOOD FECAL POSITIVE 11/22/2021 2:43 PM DIRECTOR OF MECHANICAL ENGINEERING [facility] STOOL SPECIMEN / Unknown 11/22/2021 2:20 PM DIRECTOR OF MECHANICAL ENGINEERING Mini Alston PA-C BODY FLUIDS AND STOOLS ORDERA BLES Final Result Performing Organization Address City/[facility]/ZIP Co de Phone Number [facility] [address] [place] [address], [place] [phone] from Last 3 Months or Most Recently Relevant to Health Maintenance Insurance [employer] Advance Directives * Full Code (Latest Code Status on File) Date Activated Date Inactivated Comments 11/22/2021 9:05 AM 11/26/2021 6:24 PM * Full Code Date Activated Date Inactivated Comments 10/01/2021 12:35 AM 10/03/2021 7:26 PM Care Teams Automation Tech Relationship Specialty Start Date End Date Larry Serna MD PCP - General FAMILY PRACTICE 09/30/21
== END 2025-07-05 08:47 | disposition home or self-care (01) ==
PROVIDERS: Visit Provider Internal Medicine Hematology
DX: C20 Malignant neoplasm of rectum (principal); C78.01 Secondary malignant neoplasm of right lung; C78.02 Secondary malignant neoplasm of left lung; R91.8 Other nonspecific abnormal finding of lung field
CPT/HCPCS: 71260; 74177; Q9967

== ENCOUNTER 2025-07-25 08:48 | Outpatient (CLI) | payer OTHER, SELFPAY ==
[2025-07-25 09:05] VITALS: BP 119/67; PULSE 78; RESP 14; TEMP 36.6; O2SAT 97; BMI 31.8
[2025-07-25] MEDS: SODIUM CHLORIDE 0.9% IV 250 ML 10 ML IVPB (09:05)
--- OUTSIDE RECORDS SUMMARY | 2025-07-25 09:07 | XMS_ITS | Clinical Summary ---
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 Room: [facility] ENDOSCOPY ROOM 02 Note Status: Finalized [...] The scope was passed under direct vision.The [id number] was introduced through the anusand advanced to [...] On: 01/03/2023 1:53 PM Recognized by the [place] [employer] for promoting quality in endoscopy us James Velazquez MD ENDOSCOPY PROCEDURES Final Res ult from Last 3 Months or Most Recently Relevant to Health Maintenance Insurance Advance Directives For more information, please contact: [phone] * Full Code (Latest Code Status on File) Date Activated Date Inactivated Comments 04/18/2023 10:53 AM 04/18/2023 4:35 PM * Full Code Date Activated Date Inactivated Comments 01/03/2023 1:14 PM 01/03/2023 7:06 PM * Full Code Date Activated Date Inactivated Comments 09/20/2022 2:30 PM 09/20/2022 8:28 PM Care Teams Hydraulic Press In Operator Relationship Specialty Start Date End Date Myron Serna MD [address] [place] [address] PCP - General Family Medicine 07/07/22 Jan Middleton MD [address] [place] [address] Referring Physician [facility] 08/23/22 James Velazquez MD [phone] [place] [address] Surgeon Colon and Rectal Surgery 09/03/22 Noemi Crandall MD [address] [place] [address] Referring Physician General Surgery 09/03/22
--- OUTSIDE RECORDS SUMMARY | 2025-07-25 09:07 | XMS_ITS ---
Author Organization [facility] Address [address] [place] [address] Care Team Providers Care Riveter Name Role Phone Myron Serna MD Primary Care Provider [phone] Jan Middleton MD Unavailable James Velazquez MD Unavailable Noemi Crandall MD Unavailable Active Problems Problem [...]
[2025-07-25 09:11] LABS: Hematocrit 43.1 % (40.0-54.0); Hemoglobin 14.6 g/dL (14.0-18.0); Immature Granulocyte Percent A 0.3 % (0.0-0.0); Lymphocytes Absolute Auto 1.62 K/mm3 (1.10-4.50); Mean Corpuscular HGB Conc 33.9 g/dL (32-36); Mean Corpuscular Hemoglobin 37.7 pg (27.0-31.0); Mean Corpuscular Volume 111.4 fL (78.0-102.0); Nucleated Red Blood Cells Absolute Auto 0.00 K/mm3 (0.00-0.00); Nucleated Red Blood Cells Perc 0.0 % (0-0.0); Platelet Count Result 235 K/mm3 (150-420); Red Blood Count 3.87 M/mm3 (4.70-6.10); White Blood Count 9.0 K/mm3 (4.8-10.8)
[2025-07-25 09:22] LABS: Alanine Aminotransferase 23 U/L (6-50); Albumin Level 4.2 g/dL (3.5-5.1); Aspartate Amino Transferase 37 U/L (17-59); Blood Urea Nitrogen 10 mg/dL (9-20); Calcium 9.5 mg/dL (8.4-10.2); Carbon Dioxide 27 mmol/L (22-30); Chloride 105 mmol/L (98-107); Estimated Glomerular Filt Rate > 60; Glucose 113 mg/dL (65-110); Potassium 4.1 mmol/L (3.4-5.0); Total Protein 7.6 g/dL (6.3-8.2)
[2025-07-25 09:23] LABS: Alkaline Phosphatase 85 U/L (38-126); Bilirubin,Total 1.0 mg/dL (0.2-1.3)
[2025-07-25 09:25] LABS: Anion Gap 8 mmol/L (4-12); Osmolality Calculated 290 mOsm/kg (285-295); Sodium 140 mmol/L (137-145)
[2025-07-25] MEDS: SODIUM CHLORIDE 0.9% IVPB ×2 (09:45→10:05)
[2025-07-25] MEDS: ONDANSETRON IVPB (09:45)
[2025-07-25] MEDS: BEVACIZUMAB AWWB IVPB (10:05)
[2025-07-25] MEDS: HEPARIN SODIUM LOCK FLUSH 500 UNITS/5 ML SYRINGE IV PUSH (10:36)
[2025-07-25 10:38] VITALS: BP 121/70; PULSE 76; RESP 14; TEMP 36.5; O2SAT 97
--- NOTE | 2025-07-25 10:40 | PC.NURSE ---
Patient tolerated treatment infusion well. SEE MAR/patient care notes.
== END 2025-07-25 08:49 | disposition home or self-care (01) ==
PROVIDERS: Visit Provider Internal Medicine Hematology
DX: Z51.11 Encounter for antineoplastic chemotherapy (principal); C20 Malignant neoplasm of rectum
CPT/HCPCS: 36591; 80053; 85025; 96367; 96413; J2405; J7050; Q5107

== ENCOUNTER 2025-08-15 08:52 | Outpatient (CLI) | payer OTHER, SELFPAY ==
[2025-08-15 09:05] VITALS: BP 134/76; PULSE 78; RESP 14; TEMP 36.6; O2SAT 98; BMI 32.2
--- OUTSIDE RECORDS SUMMARY | 2025-08-15 09:09 | XMS_ITS | Encounter Summary ---
Author Organization [facility] Address [address] [place] [address] Care Team Providers Care Animal Trainer Supervisor Name Role Phone Larry Serna MD Primary Care Provider Unavailab le Encounter Details Date Type Department Care Team (Late st Contact Info) Description 03/31/2019 Abstract SFL CONVERSION [address] [place] [address] , Generic Conversion, Social History Tobacco Use Types Packs/Day Years Used Date Smoking Tobacco: Never Assessed Sex and Gender Information Value Date Recorded Sex Assigned at Not on file Legal Sex Male 9:32 PM ANESTHESIA RESIDENT Gender Identity Not on file Sexual Orientation Not on file documented as of this encounter Plan of Treatment Not on file documented as of this encounter Visit Diagnoses Not on filedocumented in this encounter Additional Health Concerns Infection Onset Date Last Indicated Resolved Time COVID-19 Rule Out 10/01/2021 10/01/2021 10/01/2021 2:43 PM ANESTHESIA RESIDENT COVID-19 Rule Out 11/21/2021 11/21/2021 11/21/2021 9:38 PM ANESTHESIA RESIDENT documented as of this encounter Care Teams Animal Trainer Supervisor Relationship Specialty Start Date End Date Larry Serna MD PCP - General FAMILY PRACTICE 09/30/21 documented as of this encounter
--- OUTSIDE RECORDS SUMMARY | 2025-08-15 09:09 | XMS_ITS ---
Author Organization [facility] Address [address] [place] [address] Care Team Providers Care Ophthalmic Tech Name Role Phone Myron Seran MD Primary Care Provider [phone] Jan Middleton MD Unavailable James Velazquez MD Unavailable [phone] Noemi Crandall MD Unavailable Active Problems Problem [...]
--- OUTSIDE RECORDS SUMMARY | 2025-08-15 09:09 | XMS_ITS | Clinical Summary ---
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 Room: [facility] ENDOSCOPY ROOM 02 Note Status: Finalized [...] The scope was passed under direct vision.The [id number] was introduced through the anusand advanced to [...] On: 01/03/2023 1:53 PM Recognized by the [place] [employer] for promoting quality in endoscopy us James Velazquez MD ENDOSCOPY PROCEDURES Final Res ult from Last 3 Months or Most Recently Relevant to Health Maintenance Insurance Advance Directives For more information, please contact: [phone] * Full Code (Latest Code Status on File) Date Activated Date Inactivated Comments 04/18/2023 10:53 AM 04/18/2023 4:35 PM * Full Code Date Activated Date Inactivated Comments 01/03/2023 1:14 PM 01/03/2023 7:06 PM * Full Code Date Activated Date Inactivated Comments 09/20/2022 2:30 PM 09/20/2022 8:28 PM Care Teams Rn Bsn Relationship Specialty Start Date End Date Myrno Serna MD [address] [place] [address] PCP - General Family Medicine 07/07/22 Jan Middleton MD [address] [place] [address] Referring Physician [facility] 08/23/22 James Velazquez MD [phone] [place] [address] Surgeon Colon and Rectal Surgery 09/03/22 Noemi Crandall MD [address] [place] [address] Referring Physician General Surgery 09/03/22
--- OUTSIDE RECORDS SUMMARY | 2025-08-15 09:09 | XMS_ITS | Clinical Summary ---
Author Organization [facility] Address [address] [place] [address] Care Team Providers Care Shipping And Receiving Assistant Name Role Phone Larry Serna MD [...] Noted Date Diagnosed Date NSTEMI (non-ST elevated myocardial infarction) 0 11/22/2021 Diverticulitis 10/01/2021 Family History Medical History Relation Comments Diabetes Brother Diabetes Father [place] Father Diabetes Mother pancreatic cancer Sister Relation [...] ex-partner? Patient declined 11/22/2021 Social Connection and Isolation Panel Answer Date Recorded In a typical week, how many times do you talk on the phone with family, friends, or neighbors? More than three times a week 11/22/2021 How often do you get togethe r with friends or relatives? More than three times a week 11/22/2021 How often do you attend [facility] or congregational services? Never 11/22/2021 Do you belong to any clubs o r organizations such as mandaeism groups, unions, fraternal or athletic groups, or [...] and heating? 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 ISSUE CLERK Gender Identity Not on file Sexual Orientation Not on file Occupation Industry Job Start Date Job End Date [employer] Not on file Not on file Not on file Last Filed Vital Signs Vital Sign Reading Time Taken Comments Blood Pressure 108/54 10/19/2023 1:00 PM ISSUE CLERK Pulse 66 10/19/2023 1:00 PM ISSUE CLERK Temperature 36.3 C (97.3 F) 08/31/2023 9:46 AM ISSUE CLERK Respiratory Rate 16 10/19/2023 1:00 PM ISSUE CLERK Oxygen Saturation 95% 10/19/2023 1:00 PM ISSUE CLERK Inhaled Oxygen Concentration - - Weight 106.6 kg (235 lb) 10/19/2023 8:20 AM ISSUE CLERK Height 177.8 cm (5' 10) 10/19/2023 8:20 AM ISSUE CLERK Body Mass Index 33.72 10/19/2023 8:20 AM ISSUE CLERK Plan of Treatment Health Maintenance Due Date Last Done Comments ASCVD Statin 1968 Annual Physical 1971 Hepatitis C 1986 Hepatitis B Vaccines (1 of 3 - 19+ 3-dose series) 1987 Pneumococcal Vaccine: 50+ Years (1 of 2 - PCV) 1987 Zoster Vaccines (1 of 2) 2018 ASCVD LDL 11/23/2022 11/23/2021 COVID-19 Vaccine (1 - season) 2025 Influenza Adult (#1) 2025 DTaP, Tdap and Td Vaccines (2 - Td or Tdap) 11/10/2027 11/10/2017 Colorectal Cancer Screening FIT/FOBT (1 Year) Discontinued 11/22/2021 Colorectal Cancer Screening Colonoscopy (10 Years) Discontinued 08/31/2023, 08/31/2023, 11/24/2021, Additional history exists Hepatitis A Vaccines Aged Out No long er eligible based on patient's age to complete this topic Meningococcal B Vaccine Aged Out No l [...] Lundy, LAURA Medical Devices Implanted Type Area Patient Flow Coordinator Device Identifier Shelf Expiration Date Model / Serial / Lot Clip Resolution 2.8mm 360 235cm 11mm Open - [id number] Implanted:Qty: 1 on 11/24/2021 by Kaleb Napier DO at [facility] [employer] Clip Implant [employer] JOE [id number] 07/20/2024 [id number] / / [id number] Description:1 CLIP PLACED AT DESCENDING COLON WHERE POLYP WAS REMOVED VIA HOT SNARE Procedures Procedure Name Priority Date/Time Associated Diagnosis Comments COLONOSCOPY 08/31/2023 6:46 AM ISSUE CLERK LIPID PANEL Routine 11/23/2021 4:56 AM ISSUE CLERK OCCULT BLOOD, FECES Routine 11/22/2021 2 :20 PM ISSUE CLERK from Last 3 Months or Most Recently Relevant to Health Maintenance Results * Colonoscopy (08/31/2023 6:46 AM ISSUE CLERK) Joao Wild MD GI PROCEDURE ORDERABLES Final Result * (ABNORMAL) LIPID PANEL (11/23/2021 4:56 AM ISSUE CLERK) CHOLESTEROL 190 <200 MG/DL 11/23/2021 5:[address] [facility] TRIGLYCERIDES 214(H) <150 MG/DL 11/23/2021 5:[address] [facility] HDL 35(L) >40.0 MG/DL 11/23/2021 5:[address] [facility] LDL (CALCULATED) 112(H) <100 MG/DL 11/23/2021 5:[address] [facility] NON HDL CHOLESTEROL 155(H) <130 MG/DL 11/23/2021 5:[address] [facility] CHOL/HDL RATIO 5.4(H) 0.0 - 4.5 11/23/2021 5:[address] [facility] VLDL CALCULATION 43 5 - 55 MG/DL 11/23/2021 5:[address] [facility] LIPID INTERPRETATION 11/23/2021 5:[address] [facility] Comment: NIH CONCENSUS REPORT RECOMMENDATIONS: ADULT CHILD LOW RISK: CHOLESTEROL <200 <170 TRIGLYCERIDE <150 --- HDL >=60 --- LDL <100 <110 BORDERLINE: CHOLESTEROL 200-239 170-199 TRIGLYCERIDE 150-199 --- HDL 40-59 --- LDL 100-159 110-129 HIGH RISK: CHOLESTEROL >=240 >=200 TRIGLYCERIDE >=200 --- HDL <40 --- LDL >=160 >=130 11/23/2021 4:56 AM ISSUE CLERK Mini Alston PA-C LABORATORY Final Result [facility] [address] [place] [address], [place] [phone] * OCCULT BLOOD, FECES (11/22/2021 2:20 PM ISSUE CLERK) OCCULT BLOOD FECAL POSITIVE 11/22/2021 2:43 PM ISSUE CLERK [facility] STOOL SPECIMEN / Unknown 11/22/2021 2:20 PM ISSUE CLERK Mini Alston PA-C BODY FLUIDS AND STOOLS ORDERA BLES Final Result Performing Organization Address City/[facility] Co de Phone Number [facility] [address] [place] [address], [place] [phone] from Last 3 Months or Most Recently Relevant to Health Maintenance Insurance [employer] Advance Directives * Full Code (Latest Code Status on File) Date Activated Date Inactivated Comments 11/22/2021 9:05 AM 11/26/2021 6:24 PM * Full Code Date Activated Date Inactivated Comments 10/01/2021 12:35 AM 10/03/2021 7:26 PM Care Teams Shipping And Receiving Assistant Relationship Specialty Start Date End Date Larry Serna MD PCP - General FAMILY PRACTICE 09/30/21
--- OUTSIDE RECORDS SUMMARY | 2025-08-15 09:09 | XMS_ITS | Encounter Summary ---
Author Organization [facility] Address [facility] [place] [address] Care Team Providers Care Stretch Machine Operator Name Role Phone Larry Serna MD Primary Care Provider Unavailab le Reason for Visit * Reason Onset Date Comments Preprocedure Call 10/10/2023 Spoke with stephen grey -she states patient is getting H&P tomorrow, 10/11, at Dr. Vazquez office, with Madelyn Smith NP. [phone]. Encounter Details Date Type Department Care Team (Late st Contact Info) Description 10/10/2023 Telephone [facility] Interventional Radiology [address] [place] [address] Cleo Lam, LAURA Preprocedure Call (Spoke with patients -she states patient is getting H&P tomorrow, 10/11, at Dr. Vazquez office, with Madelyn Smith NP. [phone].) Social History Tobacco Use Types Packs/Day Years [...] often do you attend chur ch or restoration services? Never 11/22/2021 Do you belong to [...] and heating? Not hard at all 11/22/2021 [facility] Occupat ional Health - Occupational [...] to sleep or slept in a senior living (including now)? No 11/22/2021 Sex and Gender Information Value Date Recorded Sex Assigned at Not on file Legal Sex Male 9:32 PM MAINTENANCE WORKER Gender Identity Not on file Sexual Orientation Not on file Occupation Industry Job Start Date Job End Date [employer] Not on file Not on file Not on file documented as of this encounter Functional Status * RETIRED Are you deaf or do you have serious difficulty hearing Answer Date of Assessment Author Status No 11/22/2021 8:55 AM MAINTENANCE WORKER Activ e * RETIRED Are you blind or do you have serious difficulty seeing, even when wearing glasses? Answer Date of Assessment Author Status No 11/22/2021 8:55 AM MAINTENANCE WORKER Activ e * Do you have serious [...] Assessment Author Status No 11/22/2021 8:55 AM MAINTENANCE WORKER Gianni, Lillian E, RN Active documented as [...] on filedocumented in this encounter Care Teams Stretch Machine Operator Relationship Specialty Start Date End Date Larry Serna MD PCP - General FAMILY PRACTICE 09/30/21 documented as of this encounter
[2025-08-15 09:10] LABS: Add Urine Microscopic? NO; Appearance Urine Clear (Clear); Glucose Urine UA Negative (Negative); Leukocyte Esterase Ur Negative (Negative); Nitrate Urine Negative (Negative); Specific Grav Ur <= 1.005 (1.010-1.020)
[2025-08-15 09:11] LABS: Hematocrit 43.2 % (40.0-54.0); Hemoglobin 14.8 g/dL (14.0-18.0); Immature Granulocyte Percent A 0.4 % (0.0-0.0); Lymphocytes Absolute Auto 1.85 K/mm3 (1.10-4.50); Mean Corpuscular HGB Conc 34.3 g/dL (32-36); Mean Corpuscular Hemoglobin 38.5 pg (27.0-31.0); Mean Corpuscular Volume 112.5 fL (78.0-102.0); Nucleated Red Blood Cells Absolute Auto 0.00 K/mm3 (0.00-0.00); Nucleated Red Blood Cells Perc 0.0 % (0-0.0); Platelet Count Result 240 K/mm3 (150-420); Red Blood Count 3.84 M/mm3 (4.70-6.10); White Blood Count 10.2 K/mm3 (4.8-10.8)
[2025-08-15 09:23] LABS: Alanine Aminotransferase 24 U/L (6-50); Albumin Level 4.3 g/dL (3.5-5.1); Alkaline Phosphatase 92 U/L (38-126); Anion Gap 6 mmol/L (4-12); Aspartate Amino Transferase 34 U/L (17-59); Bilirubin,Total 1.0 mg/dL (0.2-1.3); Blood Urea Nitrogen 11 mg/dL (9-20); Calcium 9.3 mg/dL (8.4-10.2); Carbon Dioxide 29 mmol/L (22-30); Chloride 104 mmol/L (98-107); Estimated Glomerular Filt Rate > 60; Glucose 148 mg/dL (65-110); Osmolality Calculated 290 mOsm/kg (285-295); Potassium 3.9 mmol/L (3.4-5.0); Sodium 139 mmol/L (137-145); Total Protein 7.5 g/dL (6.3-8.2)
[2025-08-15] MEDS: SODIUM CHLORIDE 0.9% IV 250 ML 10 ML IVPB (09:30)
[2025-08-15] MEDS: SODIUM CHLORIDE 0.9% IVPB ×2 (09:55→10:18)
[2025-08-15] MEDS: ONDANSETRON IVPB (09:55)
[2025-08-15] MEDS: BEVACIZUMAB AWWB IVPB (10:18)
[2025-08-15] MEDS: HEPARIN SODIUM LOCK FLUSH 500 UNITS/5 ML SYRINGE IV PUSH (10:50)
[2025-08-15 11:06] VITALS: BP 130/76; PULSE 80; RESP 14; O2SAT 98
--- NOTE | 2025-08-15 11:07 | PC.NURSE ---
Tolerated Bevacizumab-awwb infusion well. SEE MAR/patient care notes.
== END 2025-08-15 08:53 | disposition home or self-care (01) ==
PROVIDERS: Visit Provider Internal Medicine Hematology
DX: Z51.11 Encounter for antineoplastic chemotherapy (principal); C20 Malignant neoplasm of rectum
CPT/HCPCS: 36415; 36591; 80053; 81003; 85025; 96367; 96413; J2405; J7050; Q5107

== ENCOUNTER 2025-09-05 09:01 | Outpatient (CLI) | payer OTHER, SELFPAY ==
[2025-09-05 09:15] VITALS: BP 132/80; PULSE 78; RESP 16; TEMP 36.6; O2SAT 97; BMI 32.5
[2025-09-05 09:20] LABS: Hematocrit 43.8 % (40.0-54.0); Hemoglobin 15.0 g/dL (14.0-18.0); Immature Granulocyte Percent A 0.3 % (0.0-0.0); Lymphocytes Absolute Auto 1.68 K/mm3 (1.10-4.50); Mean Corpuscular HGB Conc 34.2 g/dL (32-36); Mean Corpuscular Hemoglobin 39.0 pg (27.0-31.0); Mean Corpuscular Volume 113.8 fL (78.0-102.0); Nucleated Red Blood Cells Absolute Auto 0.00 K/mm3 (0.00-0.00); Nucleated Red Blood Cells Perc 0.0 % (0-0.0); Platelet Count Result 248 K/mm3 (150-420); Red Blood Count 3.85 M/mm3 (4.70-6.10); White Blood Count 9.3 K/mm3 (4.8-10.8)
--- OUTSIDE RECORDS SUMMARY | 2025-09-05 09:25 | XMS_ITS ---
Author Organization [facility] Address [address] [place] [id number] Care Team Providers Care Printed Circuit Boards Pinner Name Role Phone Myron Serna MD Primary Care Provider [phone] Jan Middleton MD Unavailable James Velazquez MD Unavailable [phone] Noemi Crandall MD Unavailable Active Problems Problem [...]
--- OUTSIDE RECORDS SUMMARY | 2025-09-05 09:25 | XMS_ITS | Clinical Summary ---
Author Organization [facility] Address [address] [place] [address] Care Team Providers Care Cut Out Worker Name Role Phone Myron Serna MD Primary Care Provider [phone] Jan Middleton MD Unavailable James Velazquez MD Unavailable [phone] Noemi Crandall MD Unavailable Allergies No [...] Cancer (HCC) Coronary artery disease invo lving [place] coronary artery of [place] heart Colon cancer (HCC) Myocardial infarction (HCC) [...] on file Legal Sex Male 11:37 AM DENTURE WAXER Gender Identity Not on file Sexual Orientation [...] Male Attending MD: James Velazquez M.D. Room: [facility] ENDOSCOPY ROOM 02 Note Status: Finalized [...] The scope was passed under direct vision.The [id number] was introduced through the anusand advanced to [...] On: 01/03/2023 1:53 PM Recognized by the [place] for promoting quality in endoscopy us James Velazquez MD ENDOSCOPY PROCEDURES Final Res ult from Last 3 Months or Most Recently Relevant to Health Maintenance Insurance Advance Directives For more information, please contact: [phone] * Full Code (Latest Code Status on File) Date Activated Date Inactivated Comments 04/18/2023 10:53 AM 04/18/2023 4:35 PM * Full Code Date Activated Date Inactivated Comments 01/03/2023 1:14 PM 01/03/2023 7:06 PM * Full Code Date Activated Date Inactivated Comments 09/20/2022 2:30 PM 09/20/2022 8:28 PM Care Teams Cut Out Worker Relationship Specialty Start Date End Date Myron Serna MD [address] [place] [address] PCP - General Family Medicine 07/07/22 Jan Middleton MD [address] [place] [address] Referring Physician [facility] 08/23/22 James Velazquez MD [address] [facility] [id number] [place] [address] Surgeon Colon and Rectal Surgery 09/03/22 Noemi Crandall MD [address] [place] [address] Referring Physician General Surgery 09/03/22
--- OUTSIDE RECORDS SUMMARY | 2025-09-05 09:25 | XMS_ITS | Encounter Summary ---
Author Organization [facility] Address [address] [place] [address] Care Team Providers Care Piano Sounding Board Matcher Name Role Phone Larry Serna MD Primary Care Provider Unavailab le Encounter Details Date Type Department Care Team (Late st Contact Info) Description 03/31/2019 Abstract SFL CONVERSION [address] [place] [address] , Generic Conversion, Social History Tobacco Use Types Packs/Day Years Used Date Smoking Tobacco: Never Assessed Sex and Gender Information Value Date Recorded Sex Assigned at Not on file Legal Sex Male 9:32 PM BARROW WORKER Gender Identity Not on file Sexual Orientation Not on file documented as of this encounter Plan of Treatment Not on file documented as of this encounter Visit Diagnoses Not on filedocumented in this encounter Additional Health Concerns Infection Onset Date Last Indicated Resolved Time COVID-19 Rule Out 10/01/2021 10/01/2021 10/01/2021 2:43 PM BARROW WORKER COVID-19 Rule Out 11/21/2021 11/21/2021 11/21/2021 9:38 PM BARROW WORKER documented as of this encounter Care Teams Piano Sounding Board Matcher Relationship Specialty Start Date End Date Larry Serna MD PCP - General FAMILY PRACTICE 09/30/21 documented as of this encounter
--- OUTSIDE RECORDS SUMMARY | 2025-09-05 09:25 | XMS_ITS | Clinical Summary ---
Author Organization [facility] Address [facility] [place] [address] Care Team Providers Care Butcher Supervisor Name Role Phone Larry Serna MD [...] History Relation Comments Diabetes Brother Diabetes Father [place] Father Diabetes Mother pancreatic cancer Sister Relation [...] week 11/22/2021 How often do you attend [facility] or taoist services? Never 11/22/2021 Do you belong to any clubs o r organizations such as buddhist groups, unions, fraternal or athletic groups, or [...] and heating? Not hard at all 11/22/2021 [facility] [place] of Occupat ional Health - Occupational Stress [...] place to sleep or slept in a [place] health care facility (including now)? No 11/22/2021 Sex and Gender Information Value Date Recorded Sex Assigned at Not on file Legal Sex Male 9:32 PM REGIONAL FACILITIES SPECIALIST Gender Identity Not on file Sexual Orientation Not on file Occupation Industry Job Start Date Job End Date [employer] Not on file Not on file Not on file Last Filed Vital Signs Vital Sign Reading Time Taken Comments Blood Pressure 108/54 10/19/2023 1:00 PM REGIONAL FACILITIES SPECIALIST Pulse 66 10/19/2023 1:00 PM REGIONAL FACILITIES SPECIALIST Temperature 36.3 C (97.3 F) 08/31/2023 9:46 AM REGIONAL FACILITIES SPECIALIST Respiratory Rate 16 10/19/2023 1:00 PM REGIONAL FACILITIES SPECIALIST Oxygen Saturation 95% 10/19/2023 1:00 PM REGIONAL FACILITIES SPECIALIST Inhaled Oxygen Concentration - - Weight 106.6 kg (235 lb) 10/19/2023 8:20 AM REGIONAL FACILITIES SPECIALIST Height 177.8 cm (5' 10) 10/19/2023 8:20 AM REGIONAL FACILITIES SPECIALIST Body Mass Index 33.72 10/19/2023 8:20 AM REGIONAL FACILITIES SPECIALIST Plan of Treatment Health Maintenance Due Date [...] Lundy, LAURA Medical Devices Implanted Type Area Console Assembler Device Identifier Shelf Expiration Date Model / Serial / Lot Clip Resolution 2.8mm 360 235cm 11mm Open - [id number] Implanted:Qty: 1 on 11/24/2021 by Kaleb Napier DO at [facility] Clip Implant [employer] JOE [id number] 07/20/2024 [id number] / / [id number] Description:1 CLIP PLACED AT DESCENDING COLON WHERE POLYP WAS REMOVED VIA HOT SNARE Procedures Procedure Name Priority Date/Time Associated Diagnosis Comments COLONOSCOPY 08/31/2023 6:46 AM REGIONAL FACILITIES SPECIALIST LIPID PANEL Routine 11/23/2021 4:56 AM REGIONAL FACILITIES SPECIALIST OCCULT BLOOD, FECES Routine 11/22/2021 2 :20 PM REGIONAL FACILITIES SPECIALIST from Last 3 Months or Most Recently Relevant to Health Maintenance Results * Colonoscopy (08/31/2023 6:46 AM REGIONAL FACILITIES SPECIALIST) Joao Wild MD GI PROCEDURE ORDERABLES Final Result * (ABNORMAL) LIPID PANEL (11/23/2021 4:56 AM REGIONAL FACILITIES SPECIALIST) CHOLESTEROL 190 <200 MG/DL 11/23/2021 5:56 AM [facility] TRIGLYCERIDES 214(H) <150 MG/DL 11/23/2021 5:56 AM [facility] HDL 35(L) >40.0 MG/DL 11/23/2021 5:56 AM [facility] LDL (CALCULATED) 112(H) <100 MG/DL 11/23/2021 5:56 AM [facility] NON HDL CHOLESTEROL 155(H) <130 MG/DL 11/23/2021 5:56 AM [facility] CHOL/HDL RATIO 5.4(H) 0.0 - 4.5 11/23/2021 5:56 AM [facility] VLDL CALCULATION 43 5 - 55 MG/DL 11/23/2021 5:56 AM [facility] LIPID INTERPRETATION 11/23/2021 5:56 AM [facility] Comment: NIH CONCENSUS REPORT RECOMMENDATIONS: ADULT CHILD LOW RISK: CHOLESTEROL <200 <170 TRIGLYCERIDE <150 --- HDL >=60 --- LDL <100 <110 BORDERLINE: CHOLESTEROL 200-239 170-199 TRIGLYCERIDE 150-199 --- HDL 40-59 --- LDL 100-159 110-129 HIGH RISK: CHOLESTEROL >=240 >=200 TRIGLYCERIDE >=200 --- HDL <40 --- LDL >=160 >=130 11/23/2021 4:56 AM REGIONAL FACILITIES SPECIALIST Mini Alston PA-C LABORATORY Final Result [facility] [address] [place] [address], [place] [phone] * OCCULT BLOOD, FECES (11/22/2021 2:20 PM REGIONAL FACILITIES SPECIALIST) OCCULT BLOOD FECAL POSITIVE 11/22/2021 2:43 PM REGIONAL FACILITIES SPECIALIST [facility] STOOL SPECIMEN / Unknown 11/22/2021 2:20 PM REGIONAL FACILITIES SPECIALIST Mini Alston PA-C BODY FLUIDS AND STOOLS ORDERA BLES Final Result Performing Organization Address City/[facility] Co de Phone Number [facility] [address] [place] [address], [place] [phone] from Last 3 Months or Most Recently Relevant to Health Maintenance Insurance [employer] Advance Directives * Full Code (Latest Code Status on File) Date Activated Date Inactivated Comments 11/22/2021 9:05 AM 11/26/2021 6:24 PM * Full Code Date Activated Date Inactivated Comments 10/01/2021 12:35 AM 10/03/2021 7:26 PM Care Teams Butcher Supervisor Relationship Specialty Start Date End Date Larry Serna MD PCP - General FAMILY PRACTICE 09/30/21
--- OUTSIDE RECORDS SUMMARY | 2025-09-05 09:25 | XMS_ITS | Encounter Summary ---
Author Organization [facility] Address [facility] [place] [address] Care Team Providers Care Weaver Axminster Name Role Phone Larry Serna MD Primary Care Provider Unavailab le Reason for Visit * Reason Onset Date Comments Preprocedure Call 10/10/2023 Spoke with stephen grey -she states patient is getting H&P tomorrow, 10/11, at Dr. Vazquez office, with Madelyn Smith NP. [phone]. Encounter Details Date Type Department Care Team (Late st Contact Info) Description 10/10/2023 Telephone [facility] Interventional Radiology [address] [place] [address] Cleo Lam, LAURA Preprocedure Call (Spoke with patients -she states patient is getting H&P tomorrow, 10/11, at Dr. Vazquez office, with Madelyn Smith NP. [phone].) Social History Tobacco Use Types Packs/Day Years [...] often do you attend chur ch or orthodox services? Never 11/22/2021 Do you belong to any clubs o r organizations such as latter day groups, unions, fraternal or athletic groups, or [...] heating? Not hard at all 11/22/2021 [facility] of Occupat ional Health - Occupational [...] on file Legal Sex Male 9:32 PM MUFFLER HAND Gender Identity Not on file Sexual Orientation Not on file Occupation Industry Job Start Date Job End Date [employer] Not on file Not on file Not on file documented as of this encounter Functional Status * RETIRED Are you deaf or do you have serious difficulty hearing Answer Date of Assessment Author Status No 11/22/2021 8:55 AM MUFFLER HAND Activ e * RETIRED Are you blind or do you have serious difficulty seeing, even when wearing glasses? Answer Date of Assessment Author Status No 11/22/2021 8:55 AM MUFFLER HAND Activ e * Do you have serious [...] Assessment Author Status No 11/22/2021 8:55 AM MUFFLER HAND Gianni, Lillian E, RN Active documented as [...] on filedocumented in this encounter Care Teams Weaver Axminster Relationship Specialty Start Date End Date Larry Serna MD PCP - General FAMILY PRACTICE 09/30/21 documented as of this encounter
[2025-09-05 09:32] LABS: Alanine Aminotransferase 27 U/L (6-50); Albumin Level 4.4 g/dL (3.5-5.1); Alkaline Phosphatase 86 U/L (38-126); Anion Gap 7 mmol/L (4-12); Aspartate Amino Transferase 37 U/L (17-59); Blood Urea Nitrogen 10 mg/dL (9-20); Calcium 8.9 mg/dL (8.4-10.2); Carbon Dioxide 29 mmol/L (22-30); Chloride 104 mmol/L (98-107); Estimated CRCL calculation 93 ml/min; Estimated Glomerular Filt Rate > 60; Glucose 109 mg/dL (65-110); Osmolality Calculated 290 mOsm/kg (285-295); Potassium 4.2 mmol/L (3.4-5.0); Sodium 140 mmol/L (137-145); Total Protein 6.9 g/dL (6.3-8.2)
[2025-09-05] MEDS: SODIUM CHLORIDE 0.9% IV 250 ML 10 ML IVPB (09:37)
[2025-09-05] MEDS: ONDANSETRON IVPB (09:45)
[2025-09-05] MEDS: SODIUM CHLORIDE 0.9% IVPB ×2 (09:45→10:07)
[2025-09-05] MEDS: BEVACIZUMAB AWWB IVPB (10:07)
[2025-09-05 11:00] VITALS: BP 126/70; PULSE 72; RESP 14; O2SAT 97
[2025-09-05] MEDS: HEPARIN SODIUM LOCK FLUSH 500 UNITS/5 ML SYRINGE IV PUSH (11:03)
--- NOTE | 2025-09-05 11:04 | PC.NURSE ---
Patient tolerated Bevacizumab infusion treatment well. SEE MAR/patient care notes.
[2025-09-10 13:35] LABS: Bilirubin,Total 0.8 mg/dL (0.2-1.3)
== END 2025-09-05 09:02 | disposition home or self-care (01) ==
PROVIDERS: Visit Provider Internal Medicine Hematology
DX: Z51.11 Encounter for antineoplastic chemotherapy (principal); C20 Malignant neoplasm of rectum
CPT/HCPCS: 36415; 36591; 80053; 85025; 96367; 96413; J2405; J7050; Q5107

== ENCOUNTER 2025-09-26 08:57 | Outpatient (CLI) | payer OTHER, SELFPAY ==
[2025-09-26 09:05] VITALS: BP 122/73; PULSE 88; RESP 16; TEMP 36.6; O2SAT 97; BMI 31.8
[2025-09-26 09:21] LABS: Add Urine Microscopic? NO; Appearance Urine Clear (Clear); Glucose Urine UA Negative (Negative); Hematocrit 44.6 % (40.0-54.0); Hemoglobin 15.2 g/dL (14.0-18.0); Immature Granulocyte Percent A 0.4 % (0.0-0.0); Leukocyte Esterase Ur Negative (Negative); Lymphocytes Absolute Auto 2.11 K/mm3 (1.10-4.50); Mean Corpuscular HGB Conc 34.1 g/dL (32-36); Mean Corpuscular Hemoglobin 38.5 pg (27.0-31.0); Mean Corpuscular Volume 112.9 fL (78.0-102.0); Nitrate Urine Negative (Negative); Nucleated Red Blood Cells Absolute Auto 0.00 K/mm3 (0.00-0.00); Nucleated Red Blood Cells Perc 0.0 % (0-0.0); Platelet Count Result 253 K/mm3 (150-420); Red Blood Count 3.95 M/mm3 (4.70-6.10); Specific Grav Ur <= 1.005 (1.010-1.020); White Blood Count 11.1 K/mm3 (4.8-10.8)
--- OUTSIDE RECORDS SUMMARY | 2025-09-26 09:32 | XMS_ITS | Encounter Summary ---
Author Organization [facility] Address [address] [place] [address] Care Team Providers Care Care Technician Name Role Phone Larry Serna MD Primary Care Provider Unavailab le Encounter Details Date Type Department Care Team (Late st Contact Info) Description 03/31/2019 Abstract SFL CONVERSION [address] [place] [address] , Generic Conversion, Social History Tobacco Use Types Packs/Day Years Used Date Smoking Tobacco: Never Assessed Sex and Gender Information Value Date Recorded Sex Assigned at Not on file Legal Sex Male 9:32 PM HUMAN RESOURCES EXECUTIVE ASSISTANT Gender Identity Not on file Sexual Orientation Not on file documented as of this encounter Plan of Treatment Not on file documented as of this encounter Visit Diagnoses Not on filedocumented in this encounter Additional Health Concerns Infection Onset Date Last Indicated Resolved Time COVID-19 Rule Out 10/01/2021 10/01/2021 10/01/2021 2:43 PM HUMAN RESOURCES EXECUTIVE ASSISTANT COVID-19 Rule Out 11/21/2021 11/21/2021 11/21/2021 9:38 PM HUMAN RESOURCES EXECUTIVE ASSISTANT documented as of this encounter Care Teams Care Technician Relationship Specialty Start Date End Date Larry Serna MD PCP - General FAMILY PRACTICE 09/30/21 documented as of this encounter
--- OUTSIDE RECORDS SUMMARY | 2025-09-26 09:33 | XMS_ITS ---
Author Organization [facility] Address [address] [place] [address] Care Team Providers Care Inside Sales Territory Manager Name Role Phone Myron Serna MD Primary Care Provider [phone] Jan Middleton MD Unavailable James Velazquez MD Unavailable [phone] Noemi Crandall MD Unavailable Active Problems [...]
--- OUTSIDE RECORDS SUMMARY | 2025-09-26 09:33 | XMS_ITS | Encounter Summary ---
Author Organization [facility] Address [facility] [place] [address] Care Team Providers Care Tube Trailer Filler Name Role Phone Larry Serna MD Primary Care Provider Unavailab le Reason for Visit * Reason Onset Date Comments Preprocedure Call 10/10/2023 Spoke with stephen grey -she states patient is getting H&P tomorrow, 10/11, at Dr. Vazquez office, with Madelyn Smith NP. [phone]. Encounter Details Date Type Department Care Team (Late st Contact Info) Description 10/10/2023 Telephone [facility] Interventional Radiology [address] [place] [address] Cleo Lam, LAURA Preprocedure Call (Spoke with patients -she states patient is getting H&P tomorrow, 10/11, at Dr. Vazquez office, with Madelyn Smith NP. [phone].) Social History Tobacco Use Types Packs/Day Years [...] often do you attend chur ch or episcopal services? Never 11/22/2021 Do you belong to any clubs o r organizations such as zoroastrianism groups, unions, fraternal or athletic groups, or [...] and heating? Not hard at all 11/22/2021 [facility] of Occupat ional Health - Occupational [...] on file Legal Sex Male 9:32 PM ADMINISTRATIVE ASSISTANT OFFICE MANAGER Gender Identity Not on file Sexual Orientation Not on file Occupation Industry Job Start Date Job End Date [employer] Not on file Not on file Not on file documented as of this encounter Functional Status * RETIRED Are you deaf or do you have serious difficulty hearing Answer Date of Assessment Author Status No 11/22/2021 8:55 AM ADMINISTRATIVE ASSISTANT OFFICE MANAGER Activ e * RETIRED Are you blind or do you have serious difficulty seeing, even when wearing glasses? Answer Date of Assessment Author Status No 11/22/2021 8:55 AM ADMINISTRATIVE ASSISTANT OFFICE MANAGER Activ e * Do you have serious [...] Assessment Author Status No 11/22/2021 8:55 AM ADMINISTRATIVE ASSISTANT OFFICE MANAGER Gianni, Lillian E, RN Active documented as [...] on filedocumented in this encounter Care Teams Tube Trailer Filler Relationship Specialty Start Date End Date Larry Serna MD PCP - General FAMILY PRACTICE 09/30/21 documented as of this encounter
--- OUTSIDE RECORDS SUMMARY | 2025-09-26 09:33 | XMS_ITS | Clinical Summary ---
Author Organization [facility] Address [address] [place] [address] Care Team Providers Care Band Salvager Name Role Phone Larry Serna MD Primary [...] week 11/22/2021 How often do you attend [facility] or nondenominational services? Never 11/22/2021 Do you belong to any clubs o r organizations such as gnosticist groups, unions, fraternal or athletic groups, or [...] and heating? Not hard at all 11/22/2021 [facility] of Occupat ional Health - Occupational Stress [...] place to sleep or slept in a penitentiary (including now)? No 11/22/2021 Sex and Gender Information Value Date Recorded Sex Assigned at Not on file Legal Sex Male 9:32 PM HOSPITAL EDUCATOR Gender Identity Not on file Sexual Orientation Not on file Occupation Industry Job Start Date Job End Date [employer] Not on file Not on file Not on file Last Filed Vital Signs Vital Sign Reading Time Taken Comments Blood Pressure 108/54 10/19/2023 1:00 PM HOSPITAL EDUCATOR Pulse 66 10/19/2023 1:00 PM HOSPITAL EDUCATOR Temperature 36.3 C (97.3 F) 08/31/2023 9:46 AM HOSPITAL EDUCATOR Respiratory Rate 16 10/19/2023 1:00 PM HOSPITAL EDUCATOR Oxygen Saturation 95% 10/19/2023 1:00 PM HOSPITAL EDUCATOR Inhaled Oxygen Concentration - - Weight 106.6 kg (235 lb) 10/19/2023 8:20 AM HOSPITAL EDUCATOR Height 177.8 cm (5' 10) 10/19/2023 8:20 AM HOSPITAL EDUCATOR Body Mass Index 33.72 10/19/2023 8:20 AM HOSPITAL EDUCATOR Plan of Treatment Health Maintenance Due Date [...] to perform ADLs independently General No Carlos Ludny, LAURA Medical Devices Implanted Type Area Loom Tuner Device Identifier Shelf Expiration Date Model / Serial / Lot Clip Resolution 2.8mm 360 235cm 11mm Open - [id number] Implanted:Qty: 1 on 11/24/2021 by Kaleb Napier DO at [facility] [employer] Clip Implant [employer] [id number] 07/20/2024 [id number] / / [id number] Description:1 CLIP PLACED AT DESCENDING COLON WHERE POLYP WAS REMOVED VIA HOT SNARE Procedures Procedure Name Priority Date/Time Associated Diagnosis Comments COLONOSCOPY 08/31/2023 6:46 AM HOSPITAL EDUCATOR LIPID PANEL Routine 11/23/2021 4:56 AM HOSPITAL EDUCATOR OCCULT BLOOD, FECES Routine 11/22/2021 2 :20 PM HOSPITAL EDUCATOR from Last 3 Months or Most Recently Relevant to Health Maintenance Results * Colonoscopy (08/31/2023 6:46 AM HOSPITAL EDUCATOR) Joao Wild MD GI PROCEDURE ORDERABLES Final Result * (ABNORMAL) LIPID PANEL (11/23/2021 4:56 AM HOSPITAL EDUCATOR) CHOLESTEROL 190 <200 MG/DL 11/23/2021 5:56 AM [facility] TRIGLYCERIDES 214(H) <150 MG/DL 11/23/2021 5:56 AM [facility] HDL 35(L) >40.0 MG/DL 11/23/2021 5:56 AM [facility] LDL (CALCULATED) 112(H) <100 MG/DL 11/23/2021 5:56 AM [facility] NON HDL CHOLESTEROL 155(H) <130 MG/DL 11/23/2021 5:56 AM [facility] CHOL/HDL RATIO 5.4(H) 0.0 - 4.5 11/23/2021 5:56 AM [facility] VLDL CALCULATION 43 5 - 55 MG/DL 11/23/2021 5:56 AM [facility] LIPID INTERPRETATION 11/23/2021 5:56 AM [facility] Comment: [facility] REPORT RECOMMENDATIONS: ADULT CHILD LOW RISK: CHOLESTEROL <200 <170 TRIGLYCERIDE <150 --- HDL >=60 --- LDL <100 <110 BORDERLINE: CHOLESTEROL 200-239 170-199 TRIGLYCERIDE 150-199 --- HDL 40-59 --- LDL 100-159 110-129 HIGH RISK: CHOLESTEROL >=240 >=200 TRIGLYCERIDE >=200 --- HDL <40 --- LDL >=160 >=130 11/23/2021 4:56 AM HOSPITAL EDUCATOR Mini Alstno PA-C LABORATORY Final Result [facility] [address] [place] [address], [place] [phone] * OCCULT BLOOD, FECES (11/22/2021 2:20 PM HOSPITAL EDUCATOR) OCCULT BLOOD FECAL POSITIVE 11/22/2021 2:43 PM HOSPITAL EDUCATOR [facility] STOOL SPECIMEN / Unknown 11/22/2021 2:20 PM HOSPITAL EDUCATOR Mini Alston PA-C BODY FLUIDS AND STOOLS ORDERA BLES Final Result Performing Organization Address City/[facility] Co de Phone Number [facility] [address] [place] [id number], [place] [phone] from Last 3 Months or Most Recently Relevant to Health Maintenance Insurance [employer] Advance Directives * Full Code (Latest Code Status on File) Date Activated Date Inactivated Comments 11/22/2021 9:05 AM 11/26/2021 6:24 PM * Full Code Date Activated Date Inactivated Comments 10/01/2021 12:35 AM 10/03/2021 7:26 PM Care Teams Band Salvager Relationship Specialty Start Date End Date Larry Serna MD PCP - General FAMILY PRACTICE 09/30/21
--- OUTSIDE RECORDS SUMMARY | 2025-09-26 09:33 | XMS_ITS | Clinical Summary ---
Author Organization [facility] Address [address] [place] [id number] Care Team Providers Care Foundation Director Name Role Phone Myron Serna MD Primary Care Provider [phone] Jan Middleton MD Unavailable James Velazquez MD Unavailable [phone] Noemi Crandall MD Unavailable Allergies No known [...] Cancer (HCC) Coronary artery disease invo lving [place] coronary artery of [place] heart Colon cancer (HCC) Myocardial infarction (HCC) [...] on file Legal Sex Male 11:37 AM SEISMIC SURVEY ASSISTANT Gender Identity Not on file Sexual [...] Male Attending MD: James Velazquez M.D. Room: [facility] ENDOSCOPY ROOM 02 Note Status: [...] The scope was passed under direct vision.The [id number] was introduced through the anusand advanced to [...] On: 01/03/2023 1:53 PM Recognized by the [place] [employer] for promoting quality in endoscopy us James Velazquez MD ENDOSCOPY PROCEDURES Final Res ult from Last 3 Months or Most Recently Relevant to Health Maintenance Insurance Advance Directives For more information, please contact: [phone] * Full Code (Latest Code Status on File) Date Activated Date Inactivated Comments 04/18/2023 10:53 AM 04/18/2023 4:35 PM * Full Code Date Activated Date Inactivated Comments 01/03/2023 1:14 PM 01/03/2023 7:06 PM * Full Code Date Activated Date Inactivated Comments 09/20/2022 2:30 PM 09/20/2022 8:28 PM Care Teams Foundation Director Relationship Specialty Start Date End Date Myron Serna MD [address] [place] [address] PCP - General Family Medicine 07/07/22 Jan Middleton MD [address] [place] [address] Referring Physician [facility] 08/23/22 James Velazquez MD [address] [facility] [id number] [place] [address] Surgeon Colon and Rectal Surgery 09/03/22 Noemi Crandall MD [address] [place] [id number] Referring Physician General Surgery 09/03/22
[2025-09-26] MEDS: SODIUM CHLORIDE 0.9% IV 250 ML 10 ML IVPB (09:40)
[2025-09-26] MEDS: ONDANSETRON IVPB (09:49)
[2025-09-26] MEDS: SODIUM CHLORIDE 0.9% IVPB ×2 (09:49→10:11)
[2025-09-26 10:08] LABS: Alanine Aminotransferase 28 U/L (6-50); Albumin Level 4.4 g/dL (3.5-5.1); Alkaline Phosphatase 105 U/L (38-126); Anion Gap 9 mmol/L (4-12); Aspartate Amino Transferase 39 U/L (17-59); Bilirubin,Total 0.9 mg/dL (0.2-1.3); Blood Urea Nitrogen 8 mg/dL (9-20); Calcium 8.9 mg/dL (8.4-10.2); Carbon Dioxide 25 mmol/L (22-30); Chloride 105 mmol/L (98-107); Estimated CRCL calculation 87 ml/min; Estimated Glomerular Filt Rate > 60; Glucose 132 mg/dL (65-110); Osmolality Calculated 288 mOsm/kg (285-295); Potassium 3.8 mmol/L (3.4-5.0); Sodium 139 mmol/L (137-145); Total Protein 7.2 g/dL (6.3-8.2)
[2025-09-26] MEDS: BEVACIZUMAB AWWB IVPB (10:11)
[2025-09-26] MEDS: HEPARIN SODIUM LOCK FLUSH 500 UNITS/5 ML SYRINGE IV PUSH (10:41)
[2025-09-26 10:48] VITALS: BP 128/73; PULSE 88; RESP 14
--- NOTE | 2025-09-26 10:49 | PC.NURSE ---
Patient tolerated Bevacizumab treatment infusion well. SEE MAR/patient care notes.
== END 2025-09-26 08:58 | disposition home or self-care (01) ==
PROVIDERS: Visit Provider Internal Medicine Hematology
DX: Z51.11 Encounter for antineoplastic chemotherapy (principal); C20 Malignant neoplasm of rectum
CPT/HCPCS: 36415; 36591; 80053; 81003; 85025; 96367; 96413; J2405; J7050; Q5107

== ENCOUNTER 2025-10-07 08:38 | Outpatient (CLI) | payer OTHER, SELFPAY ==
--- NOTE | ~2025-10-07 | CT_ITS ---
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 Automated exposure control and iterative reconstruction technique were employed. The dose-length product was 1294.04 mGy-cm. COMPARISON: 07/05/2025 FINDINGS: CHEST CT: Mild emphysema. Interval increase in size of a previously 3.6 x 3.3 cm, currently 4.3 x 3.6 cm left lower lobe mass with lobular margins. Minimal increase in size of a second previously 2.3 cm, currently 2.4 cm nodule with lobular margins in the right lower lobe. Mild increase in size of a previously 1 1 mm, currently 13 mm nodule in the right lower lobe. A couple abutting pulmonary nodules previously measuring 6 mm each in the right lower lobe has increased to a millimeter and 7 mm. No significant change in an 8 mm nodule at the junction of the left upper lobe and lingula. A couple calcified right middle lobe nodules along with calcified right hilar and mediastinal lymph nodes consistent with old granulomatous disease. Mild atelectasis in the lingula. No pulmonary edema or pleural effusion. Heart size is normal. Atherosclerotic coronary artery calcific lesions with likely coronary artery stenting along the right coronary artery. No pericardial effusion. Mild aneurysmal dilation of the ascending thoracic aorta which measures up to 4.2 cm in maximal diameter. No pathologically enlarged thoracic lymphadenopathy. There are a few old healed left rib fractures. Moderate thoracic spondylosis with minimal to mild chronic anterior wedging of a few mid to lower thoracic vertebral bodies. Right internal jugular central venous port catheter with distal tip near the superior cavoatrial junction. ABDOMEN/PELVIS CT: Liver, gallbladder, spleen, pancreas, bilateral adrenal glands and kidneys are normal. There is mild activity) with descending and sigmoid colon predominance without adjacent inflammatory stranding to suggest diverticular colitis. No bowel obstruction. The appendix is not visualized. No pericecal inflammatory change to suggest acute appendicitis. Bladder is normal. Mild prostatomegaly. Very small fat-containing right inguinal hernia. No free intraperitoneal gas or fluid. No pathologically enlarged abdominal or pelvic lymphadenopathy. Mild lumbar levocurvature with mild to moderate spondylosis.. IMPRESSION: 1. Interval increase in size to varying degrees of a few bilateral pulmonary nodules and masses consistent with progression of metastatic disease. Reviewed, dictated and finalized at location A. POLE OPERATOR IMPRESSION: 1. Interval increase in size to varying degrees of a few bilateral pulmonary no dules and masses consistent with progression of metastatic disease.
== END 2025-10-07 08:39 | disposition home or self-care (01) ==
LOC: CHSIMG 08:40
PROVIDERS: Visit Provider Internal Medicine Hematology
DX: C78.00 Secondary malignant neoplasm of unspecified lung (principal); C20 Malignant neoplasm of rectum; R91.8 Other nonspecific abnormal finding of lung field
CPT/HCPCS: 71260; 74177; Q9967

== ENCOUNTER 2025-10-18 09:01 | Outpatient (CLI) | payer OTHER, SELFPAY ==
[2025-10-18 09:07] VITALS: BMI 31.8
[2025-10-18 09:21] LABS: Hematocrit 43.1 % (40.0-54.0); Hemoglobin 14.8 g/dL (14.0-18.0); Immature Granulocyte Percent A 0.4 % (0.0-0.0); Lymphocytes Absolute Auto 1.78 K/mm3 (1.10-4.50); Mean Corpuscular HGB Conc 34.3 g/dL (32-36); Mean Corpuscular Hemoglobin 38.4 pg (27.0-31.0); Mean Corpuscular Volume 111.9 fL (78.0-102.0); Nucleated Red Blood Cells Absolute Auto 0.00 K/mm3 (0.00-0.00); Nucleated Red Blood Cells Perc 0.0 % (0-0.0); Platelet Count Result 238 K/mm3 (150-420); Red Blood Count 3.85 M/mm3 (4.70-6.10); White Blood Count 9.4 K/mm3 (4.8-10.8)
[2025-10-18 09:32] LABS: Alanine Aminotransferase 21 U/L (6-50); Albumin Level 4.2 g/dL (3.5-5.1); Alkaline Phosphatase 104 U/L (38-126); Anion Gap 8 mmol/L (4-12); Aspartate Amino Transferase 33 U/L (17-59); Bilirubin,Total 1.0 mg/dL (0.2-1.3); Blood Urea Nitrogen 8 mg/dL (9-20); Calcium 8.8 mg/dL (8.4-10.2); Carbon Dioxide 24 mmol/L (22-30); Chloride 105 mmol/L (98-107); Estimated CRCL calculation 93 ml/min; Estimated Glomerular Filt Rate > 60; Glucose 95 mg/dL (65-110); Osmolality Calculated 282 mOsm/kg (285-295); Potassium 3.9 mmol/L (3.4-5.0); Sodium 137 mmol/L (137-145); Total Protein 6.8 g/dL (6.3-8.2)
[2025-10-18 09:42] VITALS: BP 136/70; PULSE 80; RESP 16; TEMP 36.6; O2SAT 97
[2025-10-18] MEDS: ONDANSETRON IVPB (10:00)
[2025-10-18] MEDS: SODIUM CHLORIDE 0.9% IV 250 ML 10 ML IVPB (10:00)
[2025-10-18] MEDS: SODIUM CHLORIDE 0.9% IVPB ×2 (10:00→10:24)
[2025-10-18] MEDS: BEVACIZUMAB AWWB IVPB (10:24)
[2025-10-18] MEDS: HEPARIN SODIUM LOCK FLUSH 500 UNITS/5 ML SYRINGE IV PUSH (11:02)
--- NOTE | 2025-10-18 11:03 | PC.NURSE ---
Patient tolerated Bevacizumab infusion well. SEE MAR/patient care notes.
[2025-10-18 11:26] VITALS: BP 129/76; PULSE 88; RESP 14; TEMP 36.6; O2SAT 96
== END 2025-10-18 09:02 | disposition home or self-care (01) ==
PROVIDERS: Visit Provider Internal Medicine Hematology
DX: Z51.11 Encounter for antineoplastic chemotherapy (principal); C20 Malignant neoplasm of rectum
CPT/HCPCS: 36415; 36591; 80053; 85025; 96367; 96413; J2405; J7050; Q5107